=== PATIENT | male | born 1940 | race Caucasian/White ===

== ENCOUNTER 2016-11-02 07:26 | Day surgery (SDC) | payer MEDICARE, OTHER ==
[2016-11-02] VITALS (8 sets, daily range): BP systolic 105–144; BP diastolic 43–75; PULSE 82–88; RESP 16–20; TEMP 98.2–98.3; O2SAT 98–99
[~2016-11-02] VITALS: Ht 182.9 cm; Wt 82.7 kg
[~2016-11-02 07:26] MED LIST: ACAR50TA PO; B-COCAP9 PO; CYAN100025 SL; DEXA2TAB PO; GLIM1 PO; JANU50TA8 PO; LISI2.5T3 PO; METO25TA6 PO; NITR1SUB3 SL; VITA100064 PO; ZOCO10TA PO; ZOLP5TAB3 PO
[2016-11-02] MEDS ORDERED: POVIDONE IODINE 5% (ANTISEPSIS KIT) 4 APPLICATIONS EACH NARE SCH (08:00)
[2016-11-02] MEDS ORDERED: CHLORHEXIDINE GLUCONATE 2 % 1 PACK (2 CLOTHS) TOPICAL SCH (08:00)
[2016-11-02] MEDS ORDERED: SODIUM CHLORIDE 0.9% 1000 ML IV SCH (08:00)
[2016-11-02] MEDS: VANCOMYCIN 1000 MG/NS 250 ML - implanted port/tunneled catheter IV SCH ×4 (08:10→09:01)
[2016-11-02] MEDS: ceFAZolin 2 GM PREMIX 50 ML - implanted port/tunneled catheter insertion IV SCH ×2 (08:10→09:01)
[2016-11-02] MEDS ORDERED: fentaNYL CITRATE 250 MCG/5 ML AMP ONE (08:41)
[2016-11-02] MEDS ORDERED: MIDAZOLAM HCL 5 MG/5 ML VIAL ONE (08:41)
[2016-11-02] MEDS ORDERED: LIDOCAINE 1%/EPINEPHrine 1:100,000 SOLN 20 ML VIAL ONE (08:59)
--- NOTE | 2016-11-02 09:47 | PD.RAD ---
Post Procedure Progress Note Pre Procedure Diagnosis: (1) Cerebral malignant neoplasm Post Procedure Diagnosis: (1) Cerebral malignant neoplasm Procedure Date: Nov 02, 2016 Supervising Radiologist: Ronald Felix Proceduralist/Assist: Melia áVsquez, RT(R)(CV), aMry Agustin RT(R)() Anesthesia: Local, Conscious Sedation Plan of Activity Patient to Unit: [facility] Patient Condition: Good See PACS Report for procedural detail/treatment Central Venous Access Device Procedure 1 Right Internal Jugular Infusaport Placement single lumen Croatian: 8 Ronald Felix MD Nov 02, 2016 09:47
--- NOTE | 2016-11-02 10:40 | RADRPT ---
EXAM DATE/TIME: 11/02/2016 08:19 [place] COMPARISON: No previous studies available for comparison. INDICATIONS : Patient is in need of placement of an Infusaport for chemotherapy treatment of a brain malignancy. MEDICAL HISTORY : History of brain mass, cataracts, DM, heart disease, erectile dysfunction. SURGICAL HISTORY : History of craniotomy and brain lesion biopsy, colonosxcopy, left knee surgery, tonsillectomy, cardia c stent placement. ENCOUNTER: Initial ACUITY: 2 weeks PAIN SCORE: 0/10 FLUORO TIME: 0.5 minutes SEDATION TIME: 30 minutes ACCESS: Right internal jugular vein SEDATION: 1.) 2 mg midazolam (Versed) IV 2.) 100 mcg fentanyl (Sublimaze) IV Prophylactic antibiotics were administered with appropriate pre-procedure timing. Vancomycin within 2 hours of procedure, Ancef (or alternative) within 1 hour of procedure. DEVICE: 1. 8 Niuean Bard Power Port PROCEDURE : 1. Continuous pulse oximetry and EKG monitoring. 2. Intravenous conscious sedation. 3. Ultrasound guidance for venous access. 4. Fluoroscopic guided implantable central venous port placement. The patient was placed supine. The neck was prepped in sterile fashion. Full sterile technique was u sed, including cap, mask, sterile gloves and gown, and a large sterile sheet. Hand hygiene and 2% ch lorhexidine Betadine was utilized per protocol for cutaneous antisepsis with appropriate dry time for site. The skin and subcutaneous tissues were infiltrated with local anesthetic solution. Under direct ultrasound guidance, central venous access was accomplished in the targeted vessel. The ultrasound images depicting access guidance were stored and saved to PACS for permanent record. A s ubcutaneous pocket was created using blunt dissection. The port was introduced to the pocket. The c atheter tubing was fed through a subcutaneous tunnel to the venotomy site. The catheter tubing was c ut to a suitable length and then was introduced through a valved Peel-Away sheath and positioned with catheter tubing tip at the cavo-atrial junction level. The pocket incision was closed with subcutic ular Vicryl suture. Steri-Strips were applied. The port was flushed and locked with heparin solutio n per protocol. Sterile dressing was applied to the site. The patient tolerated the procedure well. Conscious sedation was performed with the prescribed dosages and duration as above. The patient ofe ated the procedure well and there were no complications. EKG and oximetry remained stable throughout the procedure. The patient was sent to post anesthesia recovery in stable condition. CONCLUSION: Uncomplicated ultrasound and fluoroscopic guided implanted central venous port catheter placement as described in detail above. An 8 Niuean Power port was placed. Ronald Felix MD on November 02, 2016 at 10:37 Board Certified Radiologist. This report was verified electronically.
== END 2016-12-13 13:45 | disposition home or self-care (01) ==
LOC: HROP 07:26 → HRIP 07:27 → HROP 12:30
PROVIDERS: ATTEND Internal Medicine Hematology & Oncology
DX: Z45.2 Encounter for adjustment and management of vascular access device (principal); D49.6 Neoplasm of unspecified behavior of brain; E11.9 Type 2 diabetes mellitus without complications; I10 Essential (primary) hypertension
CPT/HCPCS: 36561; 76937; 77001; C1788; J0690; J1642; J2250; J3010; J3370; J7030; J7050

== ENCOUNTER 2016-12-08 07:03 | Inpatient (IN) | payer MEDICARE, OTHER ==
[~2016-12-08] VITALS: Ht 182.9 cm; Wt 88.6 kg
[~2016-12-08 07:03] MED LIST changes: -LISI2.5T3 PO
[2016-12-08] MEDS ORDERED: NALOXONE HCL 0.4 MG/ML AMP IV PRN (07:45)
[2016-12-08] MEDS ORDERED: ONDANSETRON HCL 4 MG/2 ML VIAL IVP PRN (07:45)
[2016-12-08] MEDS ORDERED: SENNOSIDES 8.6 MG TAB PO PRN (07:45)
[2016-12-08] MEDS ORDERED: SODIUM CHLORIDE 0.9% FLUSH 5 ML FLUSH FLUSH PRN (07:45)
[2016-12-08] MEDS ORDERED: METOCLOPRAMIDE HCL 10 MG/2 ML VIAL IV PUSH PRN (07:45)
[2016-12-08] MEDS ORDERED: ACETAMINOPHEN 325 MG TAB PO PRN (07:45)
[2016-12-08 08:00] VITALS: BP 121/66; PULSE 75; TEMP 96.2; O2SAT 99
[2016-12-08] MEDS ORDERED: PILL SPLITTER OTHER PRN (08:15)
[2016-12-08 08:30] VITALS: BP 121/66; PULSE 75; RESP 18; TEMP 96.2; O2SAT 99
--- NOTE | 2016-12-08 08:54 | MH ---
cc: TONI MUNOZ M.D., ZAFAR, MD DATE OF ADMISSION 12/08/2016 [facility] #[id number] PRIMARY CARE PHYSICIAN Dr. Toni Munoz MALIGNANT HEMATOLOGIC DIAGNOSIS Primary BUSINESS OBJECTS ARCHITECT lymphoma. TREATMENT HISTORY TO DATE The patient is status post one cycle of Rituxan, methotrexate (3000 mg/m2), vincristine with intrathecal cytarabine. REASON FOR HOSPITALIZATION He comes in today for cycle #2 of the above-noted regimen. CHIEF COMPLAINT Mr. Ramey denies acute complaints. He specifically denies treatment related toxicities, headaches, new sensory motor deficits or nausea, vomiting or diarrhea. HISTORY OF PRESENT ILLNESS Mr. 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 He initially presented after he fell, the lesion was noted on initial imaging scans from mid September 2016. The patient underwent staging studies which included a bone marrow biopsy, whole-body CT scans which revealed no additional areas of disease involvement. CSF analysis with flow cytometry also revealed no evidence of CSF involvement with primary BUSINESS OBJECTS ARCHITECT lymphoma. Mr. Ramey was initiated on systemic therapy with high-dose methotrexate to a total dose of 6000 mg, vincristine and intrathecal cytarabine in late October of 2016. Prior to this treatment, he received one dose of Rituxan. He tolerated treatment without any significant difficulties. He is awaiting a second opinion evaluation at the [facility] which is scheduled for early December 2016. PAST MEDICAL HISTORY 1. Primary BUSINESS OBJECTS ARCHITECT lymphoma 2. Type 2 diabetes 3. History of coronary artery disease. 4. History of valvular heart disease. PAST SURGICAL HISTORY 1. Left knee surgery 2. Tonsillectomy 3. Craniotomy with excisional biopsy 4. Bone marrow biopsy 5. Colonoscopy and infusion port placement. 6. Intrathecal chemotherapy with cytarabine in late October 2016. FAMILY HISTORY Parents with diabetes. Both sisters had cancer. SOCIAL HISTORY The patient is , he lives at home with his . He formerly smoked, but quit 15 years ago. He previously worked. He is retired. He has two daughters who are adults. ALLERGIES NO KNOWN DRUG ALLERGIES. CURRENT INPATIENT MEDICATIONS 1. Sodium bicarbonate 650 mg orally twice daily 2. sodium bicarbonate infusion at a rate of 42 mL/minute 3. Tylenol 650 mg p.o. q4h for temperature greater than 100.4 degrees Fahrenheit. 4. Vitamin D3 1000 units p.o. daily 5. Dexamethasone 0.25 mg daily 6. Colace 100 mg p.o. q12 hours as needed for constipation 7. Lovenox 40 mg subcu q24h 8. Glimepiride 1 mg p.o. before meals 9. Metoclopramide 5 mg IV q6h as needed for nausea and vomiting 10. Metoprolol succinate 12.5 mg p.o. daily 11. Midodrine 5 mg p.o. b.i.d. 12. Zofran 4 mg IV q6h as needed for nausea and vomiting 13. Senokot 17.2 mg p.o. q12h 14. Sitagliptin 50 mg p.o. daily 15. Ambien 5 mg p.o. q.h.s. as needed for insomnia REVIEW OF SYSTEMS 13-point patient completed review of systems is obtained. He denies any complaints. He specifically denies constitutional symptoms of fevers, chills, night sweats, decreased appetite or weight loss. HEENT: Denies headaches, blurry vision, visual field deficits, difficulty swallowing, soreness in the throat, mouth sores or ringing in the ears. RESPIRATORY: Denies difficulty breathing, cough, hemoptysis, pleuritic chest pain. CARDIOVASCULAR: Denies angina-like chest pain, PND, orthopnea (he walks two miles a day at a brisk pace without inhibition or issues). GI: Denies nausea, vomiting, diarrhea hematochezia, melena. : Denies dysuria, hematuria, urinary incontinence. BUSINESS OBJECTS ARCHITECT: No focal sensory motor deficits. MUSCULOSKELETAL: No complaints. PHYSICAL EXAMINATION VITAL SIGNS: Dated 12/05/2016 performed at my outpatient center reveals a height of 182 cm, weight of 85.5 kg, BSA of 2, temperature 98 degrees Fahrenheit, heart rate 80 beats a minute, respiratory rate 18, blood pressure 110/57, O2 sats 98% on room air. GENERAL PHYSICAL APPEARANCE: Mr. Ramey is a 76-year-old male, he is tall, thin and in no acute distress accompanied by his and daughter today. HEENT: Head atraumatic, normocephalic, conjunctive are not pale, sclerae anicteric, EOMI, PERRLA, oral exam no pharyngeal erythema. NECK: No palpable cervical or supraclavicular lymphadenopathy. RESPIRATORY: Good air movement bilaterally. No added breath sounds. CARDIOVASCULAR: Regular rate rhythm, S1-S2. No obvious murmurs, rubs or gallops. ABDOMEN: Thin, soft, nontender, nondistended, palpable organ enlargement. LOWER EXTREMITIES: No pretibial edema. No calf tenderness. BUSINESS OBJECTS ARCHITECT: No focal sensory or motor deficits. LABORATORY FINDINGS Blood work dated 12/05/2016 WBC count 5.3, hemoglobin 11.1 gm/dl, hematocrit 34%, platelet count of 549, absolute neutrophil count 2.6. Chemistries: Sodium 145, potassium 4, chloride 108, bicarb 29, BUN 9, creatinine 0.93, EGFR 79, random glucose of 138, calcium 8.8, total bilirubin 0.4, AST 13, ALT 18, alkaline phosphatase 71, albumin 3. ASSESSMENT Mr. Ramey is a 76-year-old male with a diagnosis of primary BUSINESS OBJECTS ARCHITECT lymphoma. He has an ECOG performance status is zero. He is status post one cycle of high-dose methotrexate which was delivered at a dose of 3000 mg/meter squared to a total dose of 6000 mg IV x1 on 11/14/2016, followed by vincristine, intrathecal cytarabine and Rituxan. He now comes in for cycle number two. I will increase the dose to 6500 mg IV on day one of methotrexate today which will be dosed at 3250 mg/m2. Vincristine will be dosed at 2 mg IV on day one as well, a leukovorin rescue will be initiated 24 hours after initiation of methotrexate infusion which I anticipate will be on 12/09/2016. I will continue oral bicarbonate as well as intravenous bicarbonate. Daily urine protein, pH levels will be drawn and measured as well. The pH goal will be greater than 7.5. The patient will have periodic labs performed, methotrexate levels will be measured starting 12/10/2016. RECOMMENDATIONS 1. Primary BUSINESS OBJECTS ARCHITECT lymphoma: Initiate cycle #2 of chemotherapy as outlined above. 2. Labs, medications including his diabetes medicines, bedside fingerstick glucose checks, dexamethasone as well as antiemetic medications have been ordered. 3. I will see him tomorrow morning. MD YELITZA Whaley/JOHN /8:16 AM 8:33 AM
[2016-12-08] MEDS: METOPROLOL SUCCINATE 25 MG EXTENDED RELEASE TAB PO SCH (09:00)
[2016-12-08] MEDS: GLIMEPIRIDE 1 MG TAB PO SCH (09:00)
[2016-12-08] MEDS: MIDODRINE 5 MG TAB PO SCH ×2 (09:00→20:42)
[2016-12-08] MEDS ORDERED: SODIUM BICARBONATE 8.4% INJ 75 MEQ in SODIUM CHLOR 0.45% 1000 ML INJ 1,000 ML IV SCH (09:00)
[2016-12-08] MEDS: CHOLECALCIFEROL (VIT D3) 1000 UNIT TAB PO SCH (09:00)
[2016-12-08] MEDS: SODIUM BICARBONATE 650 MG TAB PO SCH ×2 (10:55→20:43)
[2016-12-08] MEDS: DOCUSATE SODIUM 100 MG CAP PO SCH ×2 (10:55→21:00)
[2016-12-08] MEDS: ENOXAPARIN SODIUM 40 MG/0.4 ML SYRINGE SQ SCH (10:57)
[2016-12-08] MEDS: SODIUM CHLORIDE 0.9% FLUSH 5 ML FLUSH FLUSH SCH ×2 (10:59→20:46)
[2016-12-08 12:00] VITALS: BP 102/57; PULSE 82; RESP 15; TEMP 96.5
[2016-12-08] MEDS ORDERED: [UNRECOGNIZED DRUG - OTHER] IV SCH ×3 (13:00)
[2016-12-08] MEDS ORDERED: 1/4 SODIUM CHLORIDE IV SCH ×9 (13:00→20:00)
[2016-12-08] MEDS ORDERED: SODIUM BICARBONATE IV SCH ×9 (13:00→20:00)
[2016-12-08 16:00] VITALS: BP 130/84; PULSE 94; RESP 16; TEMP 96.7; O2SAT 100
[2016-12-08] MEDS ORDERED: VINCRISTINE IV ONE ×3 (16:00)
[2016-12-08] MEDS ORDERED: SODIUM CHLORIDE 0.9% IV ONE ×2 (16:00)
[2016-12-08] MEDS: DEXAMETHASONE 0.5 MG TAB PO SCH (16:25)
[2016-12-08] MEDS ORDERED: GRANISETRON INJ 1 MG, DEXAMETHASONE INJ 20 MG in SODIUM CHLORIDE 0.9% INJ 50 ML IV SCH (16:30)
[2016-12-08] MEDS ORDERED: WATE IV ONE ×2 (17:00)
[2016-12-08] MEDS ORDERED: DEXTROSE 5% IV ONE ×2 (17:00)
[2016-12-08] MEDS ORDERED: METHOTREXATE IV ONE ×2 (17:00)
[2016-12-08] MEDS ORDERED: [UNRECOGNIZED DRUG - OTHER] IV SCH ×3 (17:00)
[2016-12-08 20:00] VITALS: BP 147/77; PULSE 88; RESP 16; TEMP 97.9; O2SAT 97
[2016-12-08] MEDS ORDERED: [UNRECOGNIZED DRUG - OTHER] IV SCH ×3 (20:00)
[2016-12-08] MEDS: INSULIN NovoLIN REGULAR SUPPLEMENTAL SCALE SQ SCH (20:40)
[2016-12-08] MEDS: ZOLPIDEM TARTRATE 5 MG TAB PO PRN (20:45)
[2016-12-09] VITALS (7 sets, daily range): BP systolic 128–159; BP diastolic 68–81; PULSE 75–90; RESP 16–18; TEMP 96.5–97.7; O2SAT 96–99
[2016-12-09] MEDS: SODIUM BICARBONATE 8.4% INJ 75 MEQ in SODIUM CHLOR 0.45% 1000 ML INJ 1,000 ML IV SCH ×3 (00:56→21:30)
[2016-12-09] MEDS: INSULIN NovoLIN REGULAR SUPPLEMENTAL SCALE SQ SCH ×4 (05:16→20:29)
--- NOTE | 2016-12-09 07:28 | PD.ONC.PN ---
Subjective Subjective Remarks Doing well, urine pH is up to 8 today. Objective Data Date Time Temp Pulse Resp B/P Pulse Ox O2 Delivery O2 Flow Rate FiO2 12/09/16 05:23 96.9 81 16 145/75 99 12/09/16 00:45 97.0 90 16 134/68 96 12/08/16 20:00 97.9 88 16 147/77 97 12/08/16 16:00 96.7 94 16 130/84 100 12/08/16 12:00 96.5 82 15 102/57 12/08/16 08:30 96.2 75 18 121/66 99 12/08/16 08:00 96.2 75 121/66 99 Laboratory Results Laboratory Tests Test 12/08/16 12/08/16 12/09/16 12/09/16 13:00 19:45 01:00 05:25 Urine pH 6.5 5.5 7.5 8.0 Administered Medications Medications (Trade) Dose Ordered Sig/Renee Route PRN Reason Start Time Stop Time Status Last Admin Dose Admin IV Flush (NS Flush) 2 ml BID FLUSH 12/08/16 09:00 12/08/16 20:46 Docusate Sodium (Colace) 100 mg Q12HR PO 12/08/16 09:00 12/08/16 10:55 Zolpidem Tartrate (Ambien) 5 mg HS PRN PO INSOMNIA 12/08/16 07:45 12/08/16 20:45 Enoxaparin Sodium (Lovenox Inj) 40 mg Q24H SQ 12/08/16 08:00 12/08/16 10:57 Dexamethasone (Decadron) 0.25 mg DAILY PO 12/08/16 09:00 12/08/16 16:25 Midodrine 5 mg 5 mg BID PO 12/08/16 09:00 12/08/16 20:42 Sodium Bicarbonate/ Sodium Chloride (Sodium Bicarbonate 8.4% Inj/1/2 NS 1000 ml Inj) 1,075 ml @ 100 mls/hr [id number] IV 12/08/16 22:00 12/11/16 21:59 12/09/16 00:56 Objective Remarks GENERAL PHYSICAL APPEARANCE: Mr. Ramey is a 76-year-old male, he is tall, thin and in no acute distress accompanied by his and daughter today. HEENT: Head atraumatic, normocephalic, conjunctive are not pale, sclerae anicteric, EOMI, PERRLA, oral exam no pharyngeal erythema. NECK: No palpable cervical or supraclavicular lymphadenopathy. RESPIRATORY: Good air movement bilaterally. No added breath sounds. CARDIOVASCULAR: Regular rate rhythm, S1-S2. No obvious murmurs, rubs or gallops. ABDOMEN: Thin, soft, nontender, nondistended, palpable organ enlargement. LOWER EXTREMITIES: No pretibial edema. No calf tenderness. 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 Assessment/Plan Assessment Mr. Ramey is a 76-year-old male with a diagnosis of primary BOUFFANT CURTAIN MACHINE TENDER lymphoma. He has an ECOG performance status is zero. He is status post one cycle of high-dose methotrexate which was delivered at a dose of 3000 mg/meter squared to a total dose of 6000 mg IV x1 on 11/14/2016, followed by vincristine, intrathecal cytarabine and Rituxan. He now comes in for cycle number two. I will increase the dose to 6500 mg IV on day one of methotrexate today which will be dosed at 3250 mg/m2. Vincristine will be dosed at 2 mg IV on day one as well, a leukovorin rescue will be initiated 24 hours after initiation of methotrexate infusion which I anticipate will be on 12/09/2016. I will continue oral bicarbonate as well as intravenous bicarbonate. Daily urine protein, pH levels will be drawn and measured as well. Plan 1. Primary BOUFFANT CURTAIN MACHINE TENDER Lymphoma: proceed with MTX today. 2. Oral Bicarb increased to 650mg po TID. 3. Daily urine pH checks. 4. Serum MTX levels from peripheral stick ordered. 5. Labs ordered. 6. DM: Beside finger sticks with insulin SS coverage ordered. 7. Lovenox for DVT prophylaxis. Nas Fish MD Dec 09, 2016 07:28
[2016-12-09] MEDS: SODIUM CHLORIDE 0.9% FLUSH 5 ML FLUSH FLUSH SCH ×2 (09:00→20:21)
[2016-12-09] MEDS: SODIUM BICARBONATE 650 MG TAB PO SCH ×3 (09:00→20:20)
[2016-12-09] MEDS: DOCUSATE SODIUM 100 MG CAP PO SCH ×2 (09:36→20:16)
[2016-12-09] MEDS: MIDODRINE 5 MG TAB PO SCH ×2 (09:36→20:17)
[2016-12-09] MEDS: GLIMEPIRIDE 1 MG TAB PO SCH (09:36)
[2016-12-09] MEDS: DEXAMETHASONE 0.5 MG TAB PO SCH (09:36)
[2016-12-09] MEDS: ENOXAPARIN SODIUM 40 MG/0.4 ML SYRINGE SQ SCH (09:37)
[2016-12-09] MEDS: METOPROLOL SUCCINATE 25 MG EXTENDED RELEASE TAB PO SCH (09:37)
[2016-12-09] MEDS: CHOLECALCIFEROL (VIT D3) 1000 UNIT TAB PO SCH (09:37)
[2016-12-09] MEDS ORDERED: GRANISETRON INJ 1 MG, DEXAMETHASONE INJ 20 MG in SODIUM CHLORIDE 0.9% INJ 50 ML IV SCH (12:00)
[2016-12-09] MEDS ORDERED: VINCRISTINE IV ONE (12:30)
[2016-12-09] MEDS ORDERED: DEXTROSE 5% IV ONE ×2 (12:30)
[2016-12-09] MEDS ORDERED: WATE IV ONE ×2 (12:30)
[2016-12-09] MEDS ORDERED: METHOTREXATE IV ONE ×2 (12:30)
[2016-12-09] MEDS ORDERED: LEUCOVORIN IV SCH (17:00)
[2016-12-09] MEDS ORDERED: SODIUM CHLORIDE 0.9% IV SCH (17:00)
[2016-12-09] MEDS: ZOLPIDEM TARTRATE 5 MG TAB PO PRN (21:29)
[2016-12-10] VITALS (7 sets, daily range): BP systolic 116–144; BP diastolic 61–77; PULSE 62–88; RESP 16–20; TEMP 96.3–97.6; O2SAT 94–100
[2016-12-10 02:43] LABS: AUTOMATED NEUTROPHIL # 10.4 TH/MM3 (1.8-7.7); BASOPHIL % 0.2 % (0.0-2.0); HEMATOCRIT 34.7 % (39.0-51.0); HEMO FLAGS DIFF FINAL; MEAN CELL VOLUME 89.8 FL (80.0-100.0); MEAN CORPUSCULAR HEMOGLOBIN 30.7 PG (27.0-34.0); MEAN CORPUSCULAR HGB CONC 34.2 % (32.0-36.0); MONO % 5.5 % (0.0-8.0); NEUT % 86.3 % (16.0-70.0); PLATELET COUNT 443 TH/MM3 (150-450); RED BLOOD COUNT 3.86 MIL/MM3 (4.50-5.90); RED CELL DISTRIBUTION WIDTH 15.3 % (11.6-17.2); WHITE BLOOD COUNT 12.1 TH/MM3 (4.0-11.0)
[2016-12-10 03:05] LABS: ALT (GPT) 63 U/L (12-78); ANION GAP 7 MEQ/L (5-15); AST (GOT) 73 U/L (15-37); BICARBONATE 31.1 MEQ/L (21.0-32.0); BLOOD UREA NITROGEN 12 MG/DL (7-18); CHLORIDE 105 MEQ/L (98-107); GLOMERULAR FILTRATION RATE 82 ML/MIN (>89); POTASSIUM 3.5 MEQ/L (3.5-5.1); SODIUM (NA) 143 MEQ/L (136-145)
[2016-12-10 03:07] LABS: ALKALINE PHOSPHATASE 77 U/L (45-117); TOTAL BILIRUBIN ADULT 0.6 MG/DL (0.2-1.0)
[2016-12-10] MEDS: SODIUM BICARBONATE 650 MG TAB PO SCH ×3 (06:00→20:36)
[2016-12-10] MEDS: INSULIN NovoLIN REGULAR SUPPLEMENTAL SCALE SQ SCH ×4 (06:56→20:35)
[2016-12-10] MEDS: SODIUM CHLORIDE 0.9% FLUSH 5 ML FLUSH FLUSH SCH ×2 (08:41→20:31)
[2016-12-10] MEDS: METOPROLOL SUCCINATE 25 MG EXTENDED RELEASE TAB PO SCH (08:42)
[2016-12-10] MEDS: GLIMEPIRIDE 1 MG TAB PO SCH (08:42)
[2016-12-10] MEDS: MIDODRINE 5 MG TAB PO SCH ×2 (08:42→20:28)
[2016-12-10] MEDS: CHOLECALCIFEROL (VIT D3) 1000 UNIT TAB PO SCH (08:42)
[2016-12-10] MEDS: ENOXAPARIN SODIUM 40 MG/0.4 ML SYRINGE SQ SCH (08:42)
[2016-12-10] MEDS: DOCUSATE SODIUM 100 MG CAP PO SCH ×2 (08:42→20:28)
[2016-12-10] MEDS: DEXAMETHASONE 0.5 MG TAB PO SCH (08:42)
[2016-12-10] MEDS: SODIUM BICARBONATE 8.4% INJ 75 MEQ in SODIUM CHLOR 0.45% 1000 ML INJ 1,000 ML IV SCH ×2 (08:45→18:36)
[2016-12-10] MEDS: SODIUM CHLORIDE 0.9% IV SCH ×2 (14:16→20:26)
[2016-12-10] MEDS: LEUCOVORIN IV SCH ×2 (14:16→20:26)
--- NOTE | 2016-12-10 14:54 | PD.ONC.PN ---
Subjective Subjective Remarks Afebrile overnight. Patient is sitting up in chair with and daughter at bedside with him. He is time he has he has been walking laps around the unit. He has no complaints. Per the RN he had an episode of confusion overnight where he was not sure where he was at. He was reoriented and had no more episodes. Objective Data Date Time Temp Pulse Resp B/P Pulse Ox O2 Delivery O2 Flow Rate FiO2 12/10/16 12:00 96.3 73 20 116/64 96 12/10/16 08:00 96.3 75 16 129/69 96 12/10/16 03:45 96.5 71 17 139/61 100 12/10/16 00:00 97.6 84 18 144/77 97 12/09/16 20:00 97.5 87 18 159/69 98 12/09/16 16:00 97.2 81 16 135/68 97 12/10/16 12/10/16 12/10/16 07:00 15:00 23:00 Intake Total 1177 ml 720 ml Output Total 1970 ml Balance -793 ml 720 ml Result Diagram: 12/10/16 0215 12/10/16 0215 Laboratory Results Laboratory Tests Test 12/10/16 12/10/16 02:15 02:50 White Blood Count 12.1 TH/MM3 Red Blood Count 3.86 MIL/MM3 Hemoglobin 11.8 GM/DL Hematocrit 34.7 % Mean Corpuscular Volume 89.8 FL Mean Corpuscular Hemoglobin 30.7 PG Mean Corpuscular Hemoglobin 34.2 % Concent Red Cell Distribution Width 15.3 % Platelet Count 443 TH/MM3 Mean Platelet Volume 8.1 FL Neutrophils (%) (Auto) 86.3 % Lymphocytes (%) (Auto) 8.0 % Monocytes (%) (Auto) 5.5 % Eosinophils (%) (Auto) 0.0 % Basophils (%) (Auto) 0.2 % Neutrophils # (Auto) 10.4 TH/MM3 Lymphocytes # (Auto) 1.0 TH/MM3 Monocytes # (Auto) 0.7 TH/MM3 Eosinophils # (Auto) 0.0 TH/MM3 Basophils # (Auto) 0.0 TH/MM3 CBC Comment DIFF FINAL Differential Comment Sodium Level 143 MEQ/L Potassium Level 3.5 MEQ/L Chloride Level 105 MEQ/L Carbon Dioxide Level 31.1 MEQ/L Anion Gap 7 MEQ/L Blood Urea Nitrogen 12 MG/DL Creatinine 0.90 MG/DL Estimat Glomerular Filtration 82 ML/MIN Rate Random Glucose 189 MG/DL Calcium Level 8.9 MG/DL Total Bilirubin 0.6 MG/DL Aspartate Amino Transf 73 U/L (AST/SGOT) Alanine Aminotransferase 63 U/L (ALT/SGPT) Alkaline Phosphatase 77 U/L Total Protein 6.7 GM/DL Albumin 3.4 GM/DL Urine pH 8.5 Culture Results Microbiology Date/Time Procedure Status Source Growth 12/10/16 02:15 Aerobic Blood Culture Received Blood Peripheral Pending 12/10/16 02:15 Anaerobic Blood Culture Received Blood Peripheral Pending 12/10/16 02:19 Aerobic Blood Culture Received Blood Line Pending 12/10/16 02:19 Anaerobic Blood Culture Received Blood Line Pending Administered Medications Medications (Trade) Dose Ordered Sig/Renee Route PRN Reason Start Time Stop Time Status Last Admin Dose Admin IV Flush (NS Flush) 2 ml BID FLUSH 12/08/16 09:00 12/10/16 08:41 Docusate Sodium (Colace) 100 mg Q12HR PO 12/08/16 09:00 12/10/16 08:42 Zolpidem Tartrate (Ambien) 5 mg HS PRN PO INSOMNIA 12/08/16 07:45 12/09/16 21:29 Enoxaparin Sodium (Lovenox Inj) 40 mg Q24H SQ 12/08/16 08:00 12/10/16 08:42 Dexamethasone (Decadron) 0.25 mg DAILY PO 12/08/16 09:00 12/10/16 08:42 Midodrine (Proamatine) 5 mg BID PO 12/08/16 09:00 12/10/16 08:42 Glimepiride (Amaryl) 1 mg DAILYAC PO 12/08/16 09:00 12/10/16 08:42 Sitagliptin Phosphate (Januvia) 50 mg DAILY PO 12/08/16 09:00 12/10/16 08:42 Metoprolol Succinate (Toprol Xl) 12.5 mg DAILY PO 12/08/16 09:00 12/10/16 08:42 Cholecalciferol 1000 units 1,000 units DAILY PO 12/08/16 09:00 12/10/16 08:42 Sodium Bicarbonate/ Sodium Chloride (Sodium Bicarbonate 8.4% Inj// NS 1000 ml Inj) 1,075 ml @ 100 mls/hr [id number] IV 12/08/16 22:00 12/11/16 21:59 12/10/16 08:45 Sodium Bicarbonate 650 mg 650 mg Q8HR PO 12/09/16 09:00 12/10/16 14:19 Leucovorin Calcium/Sodium Chloride (Wellcovorin Inj/ NS Inj) 50 ml @ 16.667 mls/ hr Q6H IV 12/10/16 12:30 12/13/16 09:29 12/10/16 14:16 Objective Remarks GENERAL: Older male, well appearing in no distress sitting in chair at bedside with visitors present.. SKIN: Warm and dry. Port in place to R upper chest. HEAD: Normocephalic. EYES: No injection or drainage. NECK: Supple, trachea midline. CARDIOVASCULAR: +S1/S2. No murmur appreciated. RESPIRATORY: Lungs clear throughout. Breathing easy and unlabored. GASTROINTESTINAL: Abdomen soft, non-tender, nondistended. EXTREMITIES: No cyanosis, or edema. NEUROLOGICAL: No obvious focal deficit. Awake, alert, and oriented x3. Assessment/Plan Assessment Mr. 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 He has an ECOG performance status is zero. He is status post one cycle of high-dose methotrexate which was delivered at a dose of 3000 mg/meter squared to a total dose of 6000 mg IV x1 on 11/14/2016, followed by vincristine, intrathecal cytarabine and Rituxan. He now comes in for cycle number two. I will increase the dose to 6500 mg IV on day one of methotrexate today which will be dosed at 3250 mg/m2. Vincristine will be dosed at 2 mg IV on day one as well, a leukovorin rescue will be initiated 24 hours after initiation of methotrexate infusion which I anticipate will be on 12/09/2016. I will continue oral bicarbonate as well as intravenous bicarbonate. Daily urine protein, pH levels will be drawn and measured as well. Plan 1. Primary BILINGUAL INSTRUCTOR Lymphoma: Rec'd Methotrexate yesterday. Serum MTX level pending. 2. Continue Leucovorin. 3. Daily urine pH checks. 4. Daily CBC, BMP. 5. DM: Beside finger sticks with insulin SS coverage ordered. 6. Lovenox for DVT prophylaxis. Attending Statement The exam, history, and the medical decision-making described in the above note were completed with the assistance of the mid-level provider. I reviewed and agree with the findings presented. I attest that I had a [id number] encounter with the patient on the same day, and personally performed and documented my assessment and findings in the medical record. episode of confusion last night. resolved. now completely alert and oriented Blood cx pending MTX levels pending. counts stable. CBC and CMP in AM d/w Sugey Luna Dec 10, 2016 14:54 Willie Dacosta MD Dec 11, 2016 00:23
[2016-12-10] MEDS: ZOLPIDEM TARTRATE 5 MG TAB PO PRN (22:42)
[2016-12-11] MEDS: LEUCOVORIN IV SCH ×4 (02:39→20:25)
[2016-12-11] MEDS: SODIUM CHLORIDE 0.9% IV SCH ×4 (02:39→20:25)
[2016-12-11 04:00] VITALS: BP 117/60; PULSE 72; RESP 16; TEMP 98.2; O2SAT 98
[2016-12-11] MEDS: SODIUM BICARBONATE 650 MG TAB PO SCH ×3 (06:16→21:01)
[2016-12-11] MEDS: INSULIN NovoLIN REGULAR SUPPLEMENTAL SCALE SQ SCH ×4 (06:40→20:55)
[2016-12-11] MEDS: SODIUM BICARBONATE 8.4% INJ 75 MEQ in SODIUM CHLOR 0.45% 1000 ML INJ 1,000 ML IV SCH ×2 (07:46→14:30)
[2016-12-11 08:00] VITALS: BP 124/64; PULSE 77; RESP 18; TEMP 96.5; O2SAT 100
[2016-12-11 08:23] LABS: AUTOMATED NEUTROPHIL # 6.9 TH/MM3 (1.8-7.7); BASOPHIL # 0.1 TH/MM3 (0-0.2); BASOPHIL % 0.6 % (0.0-2.0); EOSINOPHIL % 0.4 % (0.0-4.0); HEMO FLAGS DIFF FINAL; LYMPH % 15.9 % (9.0-44.0); LYMPHOCYTE # 1.5 TH/MM3 (1.0-4.8); MEAN CELL VOLUME 91.1 FL (80.0-100.0); MEAN CORPUSCULAR HEMOGLOBIN 31.3 PG (27.0-34.0); MEAN CORPUSCULAR HGB CONC 34.3 % (32.0-36.0); MONO % 7.7 % (0.0-8.0); NEUT % 75.4 % (16.0-70.0); PLATELET COUNT 356 TH/MM3 (150-450); RED BLOOD COUNT 3.62 MIL/MM3 (4.50-5.90); RED CELL DISTRIBUTION WIDTH 15.9 % (11.6-17.2); WHITE BLOOD COUNT 9.2 TH/MM3 (4.0-11.0)
[2016-12-11 09:16] LABS: BICARBONATE 31.9 MEQ/L (21.0-32.0); MAGNESIUM 1.9 MG/DL (1.5-2.5)
[2016-12-11 09:23] LABS: POTASSIUM 2.7 MEQ/L (3.5-5.1)
[2016-12-11] MEDS: METOPROLOL SUCCINATE 25 MG EXTENDED RELEASE TAB PO SCH (10:05)
[2016-12-11] MEDS: GLIMEPIRIDE 1 MG TAB PO SCH (10:05)
[2016-12-11] MEDS: DEXAMETHASONE 0.5 MG TAB PO SCH (10:05)
[2016-12-11] MEDS: CHOLECALCIFEROL (VIT D3) 1000 UNIT TAB PO SCH (10:05)
[2016-12-11] MEDS: DOCUSATE SODIUM 100 MG CAP PO SCH ×2 (10:05→20:56)
[2016-12-11] MEDS: MIDODRINE 5 MG TAB PO SCH ×2 (10:06→20:56)
[2016-12-11] MEDS: ENOXAPARIN SODIUM 40 MG/0.4 ML SYRINGE SQ SCH (10:06)
[2016-12-11] MEDS: SODIUM CHLORIDE 0.9% FLUSH 5 ML FLUSH FLUSH SCH ×2 (10:11→20:56)
[2016-12-11] MEDS ORDERED: POTASSIUM CHLORIDE 20 MEQ CONTROLLED RELEASE TAB PO ONE (10:15)
[2016-12-11] MEDS ORDERED: NS + KCL 40 MEQ INJ 1,000 ML IV SCH (10:15)
--- NOTE | 2016-12-11 10:31 | PD.ONC.PN ---
Subjective Subjective Remarks Afebrile overnight. Patient sitting up in bed watching TV. He states he has noticed his feet are swollen today. He has no nausea or shortness of breath. Objective Data Date Time Temp Pulse Resp B/P Pulse Ox O2 Delivery O2 Flow Rate FiO2 12/11/16 08:00 96.5 77 18 124/64 100 12/11/16 04:00 98.2 72 16 117/60 98 12/10/16 23:45 97.6 88 17 131/66 98 12/10/16 19:45 97.5 81 18 125/66 98 12/10/16 16:00 96.9 62 18 142/65 94 12/10/16 12:00 96.3 73 20 116/64 96 12/11/16 12/11/16 12/11/16 07:00 15:00 23:00 Intake Total 120 ml Balance 120 ml Result Diagram: 12/11/16 0735 12/11/16 0735 Laboratory Results Laboratory Tests Test 12/10/16 12/11/16 12/11/16 14:02 07:30 07:35 Methotrexate Level 3.93 COMMENT 0.57 COMMENT Urine pH 7.0 White Blood Count 9.2 TH/MM3 Red Blood Count 3.62 MIL/MM3 Hemoglobin 11.3 GM/DL Hematocrit 33.0 % Mean Corpuscular Volume 91.1 FL Mean Corpuscular Hemoglobin 31.3 PG Mean Corpuscular Hemoglobin 34.3 % Concent Red Cell Distribution Width 15.9 % Platelet Count 356 TH/MM3 Mean Platelet Volume 8.3 FL Neutrophils (%) (Auto) 75.4 % Lymphocytes (%) (Auto) 15.9 % Monocytes (%) (Auto) 7.7 % Eosinophils (%) (Auto) 0.4 % Basophils (%) (Auto) 0.6 % Neutrophils # (Auto) 6.9 TH/MM3 Lymphocytes # (Auto) 1.5 TH/MM3 Monocytes # (Auto) 0.7 TH/MM3 Eosinophils # (Auto) 0.0 TH/MM3 Basophils # (Auto) 0.1 TH/MM3 CBC Comment DIFF FINAL Differential Comment Sodium Level 145 MEQ/L Potassium Level 2.7 MEQ/L Chloride Level 105 MEQ/L Carbon Dioxide Level 31.9 MEQ/L Anion Gap 8 MEQ/L Blood Urea Nitrogen 8 MG/DL Creatinine 0.90 MG/DL Estimat Glomerular Filtration 82 ML/MIN Rate Random Glucose 149 MG/DL Calcium Level 8.2 MG/DL Phosphorus Level 2.7 MG/DL Magnesium Level 1.9 MG/DL Culture Results Microbiology Date/Time Procedure Status Source Growth 12/10/16 02:15 Aerobic Blood Culture Received Blood Peripheral Pending 12/10/16 02:15 Anaerobic Blood Culture Received Blood Peripheral Pending 12/10/16 02:19 Aerobic Blood Culture Received Blood Line Pending 12/10/16 02:19 Anaerobic Blood Culture Received Blood Line Pending Administered Medications Medications (Trade) Dose Ordered Sig/Renee Route PRN Reason Start Time Stop Time Status Last Admin Dose Admin IV Flush (NS Flush) 2 ml BID FLUSH 12/08/16 09:00 12/11/16 10:11 Docusate Sodium (Colace) 100 mg Q12HR PO 12/08/16 09:00 12/11/16 10:05 Zolpidem Tartrate (Ambien) 5 mg HS PRN PO INSOMNIA 12/08/16 07:45 12/10/16 22:42 Enoxaparin Sodium (Lovenox Inj) 40 mg Q24H SQ 12/08/16 08:00 12/11/16 10:06 Dexamethasone (Decadron) 0.25 mg DAILY PO 12/08/16 09:00 12/11/16 10:05 Midodrine (Proamatine) 5 mg BID PO 12/08/16 09:00 12/11/16 10:06 Glimepiride (Amaryl) 1 mg DAILYAC PO 12/08/16 09:00 12/11/16 10:05 Sitagliptin Phosphate (Januvia) 50 mg DAILY PO 12/08/16 09:00 12/11/16 10:05 Metoprolol Succinate (Toprol Xl) 12.5 mg DAILY PO 12/08/16 09:00 12/11/16 10:05 Cholecalciferol 1000 units 1,000 units DAILY PO 12/08/16 09:00 12/11/16 10:05 Sodium Bicarbonate/ Sodium Chloride (Sodium Bicarbonate 8.4% Inj/11/21 NS 1000 ml Inj) 1,075 ml @ 100 mls/hr [id number] IV 12/08/16 22:00 12/11/16 21:59 12/11/16 07:46 Sodium Bicarbonate 650 mg 650 mg Q8HR PO 12/09/16 09:00 12/11/16 06:16 Leucovorin Calcium/Sodium Chloride (Wellcovorin Inj/ NS Inj) 50 ml @ 16.667 mls/ hr Q6H IV 12/10/16 12:30 12/13/16 09:29 12/11/16 06:15 Objective Remarks GENERAL: Older male, well appearing in no distress sitting in bed. SKIN: Warm and dry. Port in place to R upper chest. Asymptomatic. HEAD: Normocephalic. EYES: No injection or drainage. NECK: Supple, trachea midline. CARDIOVASCULAR: +S1/S2. No murmur appreciated. RESPIRATORY: Lungs clear throughout. Breathing easy and unlabored. GASTROINTESTINAL: Abdomen soft, non-tender, nondistended. EXTREMITIES: 2+ edema to bilateral feet. NEUROLOGICAL: No obvious focal deficit. Awake, alert, and oriented x3. Assessment/Plan Assessment Mr. 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 He has an ECOG performance status is zero. He is status post one cycle of high-dose methotrexate which was delivered at a dose of 3000 mg/meter squared to a total dose of 6000 mg IV x1 on 11/14/2016, followed by vincristine, intrathecal cytarabine and Rituxan. He now comes in for cycle number two. I will increase the dose to 6500 mg IV on day one of methotrexate today which will be dosed at 3250 mg/m2. Vincristine will be dosed at 2 mg IV on day one as well, a leucovorin rescue will be initiated 24 hours after initiation of methotrexate infusion which I anticipate will be on 12/09/2016. I will continue oral bicarbonate as well as intravenous bicarbonate. Daily urine protein, pH levels will be drawn and measured as well. Plan 1. Primary BELT LOOP MACHINE OPERATOR Lymphoma. He is 48 hours post MTX. Level is mildly elevated for this time frame at 0.57. Monitor. 2. Continue Leucovorin. 3. Hypokalemia; will receive 40meq's IV K today. Recheck potassium level 1 hr post infusion. 4. Daily CBC, BMP. 5. DM: Beside finger sticks with insulin SS coverage ordered. 6. Lovenox for DVT prophylaxis. Sugey Preciado Dec 11, 2016 10:31
[2016-12-11 12:00] VITALS: BP 116/65; PULSE 75; RESP 16; TEMP 96.6; O2SAT 97
[2016-12-11] MEDS: POTASSIUM CHLOR 20 MEQ PREMIX 100 ML IV SCH ×2 (12:36→14:54)
[2016-12-11 16:00] VITALS: BP 120/63; PULSE 72; RESP 16; TEMP 96.5; O2SAT 96
[2016-12-11 20:00] VITALS: BP 128/78; PULSE 74; RESP 17; TEMP 96.8; O2SAT 97
[2016-12-11] MEDS: ZOLPIDEM TARTRATE 5 MG TAB PO PRN (21:01)
[2016-12-12] VITALS (7 sets, daily range): BP systolic 123–165; BP diastolic 56–85; PULSE 77–93; RESP 18–20; TEMP 97.7–98.9; O2SAT 95–100
[2016-12-12] MEDS: LEUCOVORIN IV SCH ×5 (02:15→20:10)
[2016-12-12] MEDS: SODIUM CHLORIDE 0.9% IV SCH ×5 (02:15→20:10)
[2016-12-12] MEDS: Infusaport/Implanted VAD PRN NS Lock Flush IVF ×3 (04:22→20:11)
[2016-12-12] MEDS: INSULIN NovoLIN REGULAR SUPPLEMENTAL SCALE SQ SCH ×4 (06:00→22:33)
[2016-12-12] MEDS: SODIUM BICARBONATE 650 MG TAB PO SCH ×3 (06:01→22:35)
[2016-12-12 06:37] LABS: AUTOMATED NEUTROPHIL # 6.2 TH/MM3 (1.8-7.7); BASOPHIL # 0.1 TH/MM3 (0-0.2); BASOPHIL % 1.2 % (0.0-2.0); EOSINOPHIL # 0.1 TH/MM3 (0-0.4); EOSINOPHIL % 0.6 % (0.0-4.0); HEMATOCRIT 29.9 % (39.0-51.0); HEMO FLAGS DIFF FINAL; LYMPH % 20.6 % (9.0-44.0); LYMPHOCYTE # 1.7 TH/MM3 (1.0-4.8); MEAN CELL VOLUME 90.9 FL (80.0-100.0); MEAN CORPUSCULAR HEMOGLOBIN 31.4 PG (27.0-34.0); MEAN CORPUSCULAR HGB CONC 34.6 % (32.0-36.0); MONO % 4.5 % (0.0-8.0); NEUT % 73.1 % (16.0-70.0); PLATELET COUNT 306 TH/MM3 (150-450); RED BLOOD COUNT 3.29 MIL/MM3 (4.50-5.90); RED CELL DISTRIBUTION WIDTH 15.4 % (11.6-17.2); WHITE BLOOD COUNT 8.5 TH/MM3 (4.0-11.0)
[2016-12-12 06:38] LABS: BICARBONATE 30.7 MEQ/L (21.0-32.0); MAGNESIUM 2.2 MG/DL (1.5-2.5); POTASSIUM 3.4 MEQ/L (3.5-5.1)
--- NOTE | 2016-12-12 07:14 | PD.ONC.PN ---
Subjective Subjective Remarks Mr. Ramey was seen and examined this AM. Events over the weekend were reviewed. Vitals, labs, meds reviewed. He reports feeling well this AM, on Monday Night he had an episode of confusion; woke up not knowing where he was. Needed to be reoriented. He denies fevers, chills, night sweats, mouth sores, N/V/D. Objective Data Date Time Temp Pulse Resp B/P Pulse Ox O2 Delivery O2 Flow Rate FiO2 12/12/16 04:00 98.6 93 18 142/73 96 12/12/16 00:00 98.1 77 18 123/56 95 12/11/16 20:00 96.8 74 17 128/78 97 12/11/16 16:00 96.5 72 16 120/63 96 12/11/16 12:00 96.6 75 16 116/65 97 12/11/16 08:00 96.5 77 18 124/64 100 Result Diagram: 12/12/16 0420 12/12/16 0420 Laboratory Results Laboratory Tests Test 12/11/16 12/11/16 12/11/16 12/12/16 07:30 07:35 20:40 04:20 Urine pH 7.0 White Blood Count 9.2 TH/MM3 8.5 TH/MM3 Red Blood Count 3.62 MIL/MM3 3.29 MIL/MM3 Hemoglobin 11.3 GM/DL 10.3 GM/DL Hematocrit 33.0 % 29.9 % Mean Corpuscular Volume 91.1 FL 90.9 FL Mean Corpuscular Hemoglobin 31.3 PG 31.4 PG Mean Corpuscular Hemoglobin 34.3 % 34.6 % Concent Red Cell Distribution Width 15.9 % 15.4 % Platelet Count 356 TH/MM3 306 TH/MM3 Mean Platelet Volume 8.3 FL 8.4 FL Neutrophils (%) (Auto) 75.4 % 73.1 % Lymphocytes (%) (Auto) 15.9 % 20.6 % Monocytes (%) (Auto) 7.7 % 4.5 % Eosinophils (%) (Auto) 0.4 % 0.6 % Basophils (%) (Auto) 0.6 % 1.2 % Neutrophils # (Auto) 6.9 TH/MM3 6.2 TH/MM3 Lymphocytes # (Auto) 1.5 TH/MM3 1.7 TH/MM3 Monocytes # (Auto) 0.7 TH/MM3 0.4 TH/MM3 Eosinophils # (Auto) 0.0 TH/MM3 0.1 TH/MM3 Basophils # (Auto) 0.1 TH/MM3 0.1 TH/MM3 CBC Comment DIFF FINAL DIFF FINAL Differential Comment Sodium Level 145 MEQ/L 148 MEQ/L Potassium Level 2.7 MEQ/L 3.4 MEQ/L 3.4 MEQ/L Chloride Level 105 MEQ/L 110 MEQ/L Carbon Dioxide Level 31.9 MEQ/L 30.7 MEQ/L Anion Gap 8 MEQ/L 7 MEQ/L Blood Urea Nitrogen 8 MG/DL 5 MG/DL Creatinine 0.90 MG/DL 0.70 MG/DL Estimat Glomerular Filtration 82 ML/MIN 110 ML/MIN Rate Random Glucose 149 MG/DL 85 MG/DL Calcium Level 8.2 MG/DL 8.2 MG/DL Phosphorus Level 2.7 MG/DL 3.2 MG/DL Magnesium Level 1.9 MG/DL 2.2 MG/DL Methotrexate Level 0.57 COMMENT B-Type Natriuretic Peptide 136 PG/ML Culture Results Microbiology Date/Time Procedure Status Source Growth 12/10/16 02:15 Aerobic Blood Culture - Preliminary Resulted Blood Peripheral NO GROWTH IN 1 DAY 12/10/16 02:15 Anaerobic Blood Culture - Preliminary Resulted Blood Peripheral NO GROWTH IN 1 DAY 12/10/16 02:19 Aerobic Blood Culture - Preliminary Resulted Blood Line NO GROWTH IN 1 DAY 12/10/16 02:19 Anaerobic Blood Culture - Preliminary Resulted Blood Line NO GROWTH IN 1 DAY Administered Medications Medications (Trade) Dose Ordered Sig/Renee Route PRN Reason Start Time Stop Time Status Last Admin Dose Admin IV Flush (NS Flush) 2 ml UNSCH PRN FLUSH FLUSH AFTER USING IV ACCESS 12/08/16 07:45 12/12/16 04:22 IV Flush (NS Flush) 2 ml BID FLUSH 12/08/16 09:00 12/11/16 20:56 Docusate Sodium (Colace) 100 mg Q12HR PO 12/08/16 09:00 12/11/16 20:56 Zolpidem Tartrate (Ambien) 5 mg HS PRN PO INSOMNIA 12/08/16 07:45 12/11/16 21:01 Enoxaparin Sodium (Lovenox Inj) 40 mg Q24H SQ 12/08/16 08:00 12/11/16 10:06 Dexamethasone (Decadron) 0.25 mg DAILY PO 12/08/16 09:00 12/11/16 10:05 Midodrine (Proamatine) 5 mg BID PO 12/08/16 09:00 12/11/16 20:56 Glimepiride (Amaryl) 1 mg DAILYAC PO 12/08/16 09:00 12/11/16 10:05 Sitagliptin Phosphate (Januvia) 50 mg DAILY PO 12/08/16 09:00 12/11/16 10:05 Metoprolol Succinate (Toprol Xl) 12.5 mg DAILY PO 12/08/16 09:00 12/11/16 10:05 Cholecalciferol (Vitamin D3) 1,000 units DAILY PO 12/08/16 09:00 12/11/16 10:05 Sodium Bicarbonate 650 mg 650 mg Q8HR PO 12/09/16 09:00 12/12/16 06:01 Leucovorin Calcium/Sodium Chloride (Wellcovorin Inj/ NS Inj) 50 ml @ 16.667 mls/ hr DAILY@02,08,14,20 IV 12/12/16 02:00 12/13/16 10:59 12/12/16 02:15 IV Flush (NS Flush) 5 ml UNSCH PRN IVF SEE PROTOCOL TABLE 12/12/16 05:00 12/12/16 06:04 Heparin Sodium (Porcine) (Heparin Central Flush) 250 units UNSCH PRN IVF SEE PROTOCOL TABLE 12/12/16 05:00 12/12/16 06:04 Objective Remarks GENERAL PHYSICAL APPEARANCE: Mr. Ramey is a 76-year-old male, he is tall, thin and in no acute distress accompanied by his and daughter today. HEENT: Head atraumatic, normocephalic, conjunctive are not pale, sclerae anicteric, EOMI, PERRLA, oral exam no pharyngeal erythema. NECK: No palpable cervical or supraclavicular lymphadenopathy. RESPIRATORY: Good air movement bilaterally. No added breath sounds. CARDIOVASCULAR: Regular rate rhythm, S1-S2. No obvious murmurs, rubs or gallops. ABDOMEN: Thin, soft, nontender, nondistended, palpable organ enlargement. LOWER EXTREMITIES: No pretibial edema. No calf tenderness. MUSEUM EXHIBIT TECHNICIAN: No focal sensory or motor deficits. Assessment/Plan Assessment Mr. 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 He has an ECOG performance status is zero. He is status post one cycle of high-dose methotrexate which was delivered at a dose of 3000 mg/meter squared to a total dose of 6000 mg IV x1 on 11/14/2016, followed by vincristine, intrathecal cytarabine and Rituxan. He now comes in for cycle number two. I will increase the dose to 6500 mg IV on day one of methotrexate today which will be dosed at 3250 mg/m2. Vincristine will be dosed at 2 mg IV on day one as well, a leucovorin rescue will be initiated 24 hours after initiation of methotrexate infusion which I anticipate will be on 12/09/2016. I will continue oral bicarbonate as well as intravenous bicarbonate. Daily urine protein, pH levels will be drawn and measured as well. Plan 1. Primary MUSEUM EXHIBIT TECHNICIAN Lymphoma. High dose MTX delivered on 12/09. On Leucovorin and bicarbonate. MTX levels drawn this AM, levels pending. May d/c home when level is <0.1 I will dose him with IT Cytarabine prior to d/c home. 2. Continue Leucovorin. 3. Hypokalemia; will receive 40meq's IV K today. Recheck potassium level 1 hr post infusion. 4. Daily CBC, BMP. 5. DM: Beside finger sticks with insulin SS coverage ordered. 6. Lovenox for DVT prophylaxis. Nas Fish MD Dec 12, 2016 07:14
[2016-12-12] MEDS: ENOXAPARIN SODIUM 40 MG/0.4 ML SYRINGE SQ SCH (09:02)
[2016-12-12] MEDS: METOPROLOL SUCCINATE 25 MG EXTENDED RELEASE TAB PO SCH (09:02)
[2016-12-12] MEDS: CHOLECALCIFEROL (VIT D3) 1000 UNIT TAB PO SCH (09:02)
[2016-12-12] MEDS: DEXAMETHASONE 0.5 MG TAB PO SCH (09:02)
[2016-12-12] MEDS: MIDODRINE 5 MG TAB PO SCH ×2 (09:02→22:33)
[2016-12-12] MEDS: DOCUSATE SODIUM 100 MG CAP PO SCH ×2 (09:02→21:00)
[2016-12-12] MEDS: GLIMEPIRIDE 1 MG TAB PO SCH (09:02)
[2016-12-12] MEDS: SODIUM CHLORIDE 0.9% FLUSH 5 ML FLUSH FLUSH SCH ×2 (12:55→20:11)
[2016-12-12] MEDS: POTASSIUM CHLOR 20 MEQ PREMIX 100 ML IV SCH ×2 (20:11→22:24)
[2016-12-12] MEDS: ZOLPIDEM TARTRATE 5 MG TAB PO PRN (22:39)
[2016-12-12] MEDS ORDERED: POTASSIUM CHLOR 20 MEQ PREMIX 100 ML IV SCH (23:00)
[2016-12-13] VITALS: BP 128/65; PULSE 86; RESP 18; TEMP 97.2; O2SAT 98
[2016-12-13] MEDS: LEUCOVORIN IV SCH ×2 (02:02→09:35)
[2016-12-13] MEDS: SODIUM CHLORIDE 0.9% IV SCH ×2 (02:02→09:35)
[2016-12-13] MEDS: Infusaport/Implanted VAD PRN NS Lock Flush IVF ×2 (02:06→05:32)
[2016-12-13 04:00] VITALS: BP 150/82; PULSE 80; RESP 18; TEMP 97.1; O2SAT 98
[2016-12-13] MEDS: INSULIN NovoLIN REGULAR SUPPLEMENTAL SCALE SQ SCH (05:29)
[2016-12-13] MEDS: SODIUM BICARBONATE 650 MG TAB PO SCH (05:30)
--- NOTE | 2016-12-13 07:43 | PD.ONC.PN ---
Subjective Subjective Remarks Mr. Ramey reports feeling well this AM, he wants to know if he is well enough to go home. Denies treatment related adverse effects such as mucositis, diarrhea, headaches , fevers, chills or pain. Objective Data Date Time Temp Pulse Resp B/P Pulse Ox O2 Delivery O2 Flow Rate FiO2 12/13/16 04:00 97.1 80 18 150/82 98 12/13/16 00:00 97.2 86 18 128/65 98 12/12/16 22:30 86 153/85 12/12/16 20:00 98.4 90 18 165/80 95 12/12/16 15:50 98.9 80 20 146/77 100 12/12/16 11:00 98.3 84 20 149/78 100 Result Diagram: 12/12/1641912/12/16419 Administered Medications Medications (Trade) Dose Ordered Sig/Renee Route PRN Reason Start Time Stop Time Status Last Admin Dose Admin IV Flush (NS Flush) 2 ml UNSCH PRN FLUSH FLUSH AFTER USING IV ACCESS 12/08/16 07:45 12/12/16 04:22 IV Flush (NS Flush) 2 ml BID FLUSH 12/08/16 09:00 12/12/16 20:11 Docusate Sodium (Colace) 100 mg Q12HR PO 12/08/16 09:00 12/12/16 09:02 Zolpidem Tartrate (Ambien) 5 mg HS PRN PO INSOMNIA 12/08/16 07:45 12/12/16 22:39 Dexamethasone (Decadron) 0.25 mg DAILY PO 12/08/16 09:00 12/12/16 09:02 Midodrine (Proamatine) 5 mg BID PO 12/08/16 09:00 12/12/16 22:33 Glimepiride (Amaryl) 1 mg DAILYAC PO 12/08/16 09:00 12/12/16 09:02 Sitagliptin Phosphate (Januvia) 50 mg DAILY PO 12/08/16 09:00 12/12/16 09:02 Metoprolol Succinate (Toprol Xl) 12.5 mg DAILY PO 12/08/16 09:00 12/12/16 09:02 Cholecalciferol (Vitamin D3) 1,000 units DAILY PO 12/08/16 09:00 12/12/16 09:02 Sodium Bicarbonate 650 mg 650 mg Q8HR PO 12/09/16 09:00 12/13/16 05:30 Leucovorin Calcium/Sodium Chloride (Wellcovorin Inj/ NS Inj) 50 ml @ 16.667 mls/ hr DAILY@02,08,14,20 IV 12/12/16 02:00 12/14/16 23:59 12/13/16 02:02 IV Flush (NS Flush) 5 ml UNSCH PRN IVF SEE PROTOCOL TABLE 12/12/16 05:00 12/13/16 05:32 Heparin Sodium (Porcine) (Heparin Central Flush) 250 units UNSCH PRN IVF SEE PROTOCOL TABLE 12/12/16 05:00 12/13/16 05:32 Objective Remarks GENERAL PHYSICAL APPEARANCE: Mr. Ramey is a 76-year-old male, he is tall, thin and in no acute distress accompanied by his and daughter today. HEENT: Head atraumatic, normocephalic, conjunctive are not pale, sclerae anicteric, EOMI, PERRLA, oral exam no pharyngeal erythema. NECK: No palpable cervical or supraclavicular lymphadenopathy. RESPIRATORY: Good air movement bilaterally. No added breath sounds. CARDIOVASCULAR: Regular rate rhythm, S1-S2. No obvious murmurs, rubs or gallops. ABDOMEN: Thin, soft, nontender, nondistended, palpable organ enlargement. LOWER EXTREMITIES: No pretibial edema. No calf tenderness. BOWLING ALLEY REFINISHER: No focal sensory or motor deficits. Assessment/Plan Assessment Mr. 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 He has an ECOG performance status is zero. He is status post one cycle of high-dose methotrexate which was delivered at a dose of 3000 mg/meter squared to a total dose of 6000 mg IV x1 on 11/14/2016, followed by vincristine, intrathecal cytarabine and Rituxan. He now comes in for cycle number two. I will increase the dose to 6500 mg IV on day one of methotrexate today which will be dosed at 3250 mg/m2. Vincristine will be dosed at 2 mg IV on day one as well, a leucovorin rescue will be initiated 24 hours after initiation of methotrexate infusion which I anticipate will be on 12/09/2016. I will continue oral bicarbonate as well as intravenous bicarbonate. Daily urine protein, pH levels will be drawn and measured as well. Plan 1. Primary BOWLING ALLEY REFINISHER Lymphoma. High dose MTX delivered on 12/09. On Leucovorin and bicarbonate. MTX levels drawn from yesterday: 0.17. Repeat levels from this morning were drawn. I anticipate his methotrexate level will be <0.1 today. I will dose him with IT Cytarabine 100mg prior to d/c home today. 2. Continue Leucovorin. 4. CBC and CMP ordered for today.. 5. DM: Beside finger sticks with insulin SS coverage ordered. 6. Lovenox for DVT prophylaxis put on hold for lumbar puncture and intrathecal chemotherapy today. Disposition: If his methotrexate level is less than 0.1, he may be discharged home after intrathecal injection of cytarabine. Nas Fish MD Dec 13, 2016 07:43
--- NOTE | 2016-12-13 07:50 | HHI.DS ---
Discharge Summary Admission Date Dec 08, 2016 at 07:03 Discharge Date: Dec 13, 2016 Admitting Diagnosis Primary INVESTOR RELATIONS DIRECTOR lymphoma High-dose chemotherapy administration Intrathecal chemotherapy injection (1) Cerebral malignant neoplasm Diagnosis: Principal Procedures Delivery of cycle #2 high-dose methotrexate and (3250 mg per metered squared) plus vincristine 2 milligrams IV delivered on 12/09/2016. Lumbar puncture with delivery of intrathecal cytarabine 100 mg in preservative- free saline delivered on 12/13/2016. Brief History Mr. gilliland a 76-year-old male who was diagnosed in October 2016 with a primary INVESTOR RELATIONS DIRECTOR lymphoma, he presented with a mass involving the right occipital lobe of the brain after having fallen. Systemic staging revealed no primary lesions, he underwent an excisional biopsy with craniotomy in early October which establish the diagnosis. Subsequent bone marrow biopsy revealed no evidence of lymphoma within the bone marrow. CSF fluid sampling revealed no evidence of lymphoma by flow cytometry. He was initiated on systemic therapy after healing from his craniotomy with intermediate/high dose methotrexate/vincristine with intrathecal injection of cytarabine. He came into the hospital on 12/08/2016 for initiation of cycle #2 of systemic chemotherapy. This was delivered on 12/09/2016 after he was appropriately alkalinized with oral and intravenous sodium bicarbonate. Patient tolerated treatment without any significant difficulties and we anticipate he'll be discharged home on 12/13/2016, once we have confirmed his methotrexate levels to be below 0.1 and once we have delivered intrathecal cytarabine injection. CBC/BMP: 12/12/16 0420 12/12/16 0420 Significant Findings Laboratory Tests Test 12/11/16 12/11/16 12/12/16 07:35 20:40 04:20 Red Blood Count 3.62 MIL/MM3 3.29 MIL/MM3 (4.50-5.90) (4.50-5.90) Hemoglobin 11.3 GM/DL 10.3 GM/DL (13.0-17.0) (13.0-17.0) Hematocrit 33.0 % 29.9 % (39.0-51.0) (39.0-51.0) Neutrophils (%) (Auto) 75.4 % 73.1 % (16.0-70.0) (16.0-70.0) Potassium Level 2.7 MEQ/L 3.4 MEQ/L 3.4 MEQ/L (3.5-5.1) (3.5-5.1) (3.5-5.1) Estimat Glomerular Filtration 82 ML/MIN (>89) Rate Random Glucose 149 MG/DL (74-106) Calcium Level 8.2 MG/DL 8.2 MG/DL (8.5-10.1) (8.5-10.1) Sodium Level 148 MEQ/L (136-145) Chloride Level 110 MEQ/L (98-107) Blood Urea Nitrogen 5 MG/DL (7-18) B-Type Natriuretic Peptide 136 PG/ML (0-100) PE at Discharge Please see my progress note dated 12/13/2016. Hospital Course Mr. Ramey underwent an uncomplicated delivery of high-dose methotrexate, vincristine and intrathecal chemotherapy with cytarabine. Over the course of the hospitalization, blood counts, blood chemistries, vital signs were monitored closely. He did require potassium supplementation for hypokalemia. On the night of 12/10/2016 he did wake up early in the morning at about 2 AM somewhat disappointed but was easily reoriented by the nursing staff. The next morning there were no residual signs or symptoms of disorientation. Pt Condition on Discharge: Good Discharge Disposition: Discharge Home Discharge Instructions DIET: Follow Instructions for: As Tolerated, No Restrictions Activities you can perform: Weight Bearing as Lenora Nas Fish MD Dec 13, 2016 07:49
[2016-12-13 08:00] VITALS: BP 116/65; PULSE 87; RESP 20; TEMP 96.9; O2SAT 98
[2016-12-13] MEDS: GLIMEPIRIDE 1 MG TAB PO SCH (08:00)
[2016-12-13 08:08] LABS: AUTOMATED NEUTROPHIL # 7.5 TH/MM3 (1.8-7.7); BASOPHIL # 0.1 TH/MM3 (0-0.2); BASOPHIL % 0.6 % (0.0-2.0); EOSINOPHIL # 0.1 TH/MM3 (0-0.4); EOSINOPHIL % 0.8 % (0.0-4.0); HEMATOCRIT 31.5 % (39.0-51.0); HEMO FLAGS DIFF FINAL; LYMPH % 11.4 % (9.0-44.0); MEAN CELL VOLUME 89.5 FL (80.0-100.0); MEAN CORPUSCULAR HEMOGLOBIN 31.3 PG (27.0-34.0); MONO % 1.2 % (0.0-8.0); PLATELET COUNT 273 TH/MM3 (150-450); RED BLOOD COUNT 3.52 MIL/MM3 (4.50-5.90); RED CELL DISTRIBUTION WIDTH 15.4 % (11.6-17.2); WHITE BLOOD COUNT 8.7 TH/MM3 (4.0-11.0)
[2016-12-13 08:21] LABS: APTT (PATIENT) 26.7 SEC (24.3-30.1); INTERNATIONAL NORMALIZED RATIO 0.9 RATIO; PROTHROMBIN TIME - PATIENT 10.4 SEC (9.8-11.6)
[2016-12-13 08:32] LABS: ALT (GPT) 98 U/L (12-78); ANION GAP 8 MEQ/L (5-15); AST (GOT) 67 U/L (15-37); BLOOD UREA NITROGEN 6 MG/DL (7-18); CHLORIDE 108 MEQ/L (98-107); GLOMERULAR FILTRATION RATE 102 ML/MIN (>89); POTASSIUM 3.5 MEQ/L (3.5-5.1); SODIUM (NA) 143 MEQ/L (136-145)
[2016-12-13 08:34] LABS: ALKALINE PHOSPHATASE 69 U/L (45-117)
[2016-12-13] MEDS ORDERED: SODIUM CHLORIDE 0.9% IT ONE ×2 (08:45)
[2016-12-13] MEDS ORDERED: CYTARABINE IT ONE ×2 (08:45)
[2016-12-13] MEDS: CHOLECALCIFEROL (VIT D3) 1000 UNIT TAB PO SCH (09:00)
[2016-12-13] MEDS: MIDODRINE 5 MG TAB PO SCH (09:00)
[2016-12-13] MEDS: DOCUSATE SODIUM 100 MG CAP PO SCH (09:00)
[2016-12-13] MEDS: DEXAMETHASONE 0.5 MG TAB PO SCH (09:00)
[2016-12-13] MEDS: METOPROLOL SUCCINATE 25 MG EXTENDED RELEASE TAB PO SCH (09:00)
--- NOTE | 2016-12-13 10:30 | PD.RAD ---
Post Procedure Progress Note Pre Procedure Diagnosis: (1) Cerebral malignant neoplasm Post Procedure Diagnosis: (1) Cerebral malignant neoplasm Procedure Date: Dec 13, 2016 Supervising Radiologist: Mickey Grijalva Anesthesia: Local Plan of Activity Patient to Unit: [facility] Patient Condition: Fair Additional Comments: LP completed without difficulty. Single puncture at L3/4. Clear CSF return Chemo verified and administered without difficulty. See PACS Report for procedural detail/treatment Mickey Grijalva MD Dec 13, 2016 10:30
[2016-12-13 10:35] VITALS: BP 154/80; PULSE 83; RESP 18; TEMP 98.3; O2SAT 96
--- NOTE | 2016-12-13 11:21 | RADRPT ---
EXAM DATE/TIME: 12/13/2016 10:08 CORRECTION Corrected on: December 16, 2016; CORRECTION: Corrected examform information [facility] COMPARISON: LUMBAR PUNCTURE W/CHEMO INJECT, November 18, 2016, 11:20. INDICATIONS : Patient with history of WIRE WINDER lymphoma in need of lumbar puncture w/ chemo injection. MEDICAL HISTORY : HTN, Diabetes, CAD, Valvular heart disease SURGICAL HISTORY : Craniotomy with excisional biopsy, Bone marrow biopsy, Colonoscopy, Port placement, Intrathecal chemo therapy, Tonsillectomy, Left knee surgery ENCOUNTER: Subsequent ACUITY: 1 month PAIN SCORE: 0/10 LUMBAR PUNCTURE TIME: 1025 hours FLUORO TIME: 1.2 minutes ACCESS LEVEL: L3-4 PROCEDURE : Fluoroscopic guided lumbar puncture. Instillation of chemotherapy. The risks, benefits and alternatives to the procedure were explained and verbal and written consent w as obtained. The site was prepped in sterile fashion. Full sterile technique was used, including ca p, mask, sterile gloves and gown and a large sterile sheet. Hand hygiene and 2% chlorhexidine and/or betadine/alcohol prep was utilized per protocol for cutaneous antisepsis. The skin and subcutaneous tissues were infiltrated with local anesthetic solution. With fluoroscopic guidance the lumbar thecal sac was punctured at the level above. The prescribed ch emo therapeutic was injected. The patient tolerated the procedure well and there were no complications. CONCLUSION: Uncomplicated fluoroscopically guided lumbar puncture with chemotherapy injection. Mickey Grijalva MD on December 13, 2016 at 11:19 Board Certified Radiologist. This report was verified electronically. DR Quintanilla on December 16, 2016 at 9:34 Board Certified Radiologist. This report was verified electronically.
== END 2016-12-13 13:44 | disposition home or self-care (01) | DRG 842 ==
LOC: HOCA 07:03 → HOCB 12-13 10:41 → HRIP 12-13 10:50
PROVIDERS: ADMIT Internal Medicine Hematology & Oncology; ATTEND Internal Medicine Hematology & Oncology
PROC: 3E0R305 Introduction of Other Antineoplastic into Spinal Canal, Percutaneous Approach (ICD-10-PCS; principal; 2016-12-13)
DX: C85.91 Non-Hodgkin lymphoma, unspecified, lymph nodes of head, face, and neck (principal); E11.9 Type 2 diabetes mellitus without complications; E87.6 Hypokalemia; I25.10 Atherosclerotic heart disease of native coronary artery without angina pectoris; Z87.891 Personal history of nicotine dependence
CPT/HCPCS: 36591; 77003; 80048; 80053; 80299; 81003; 82948; 83735; 83880; 84100; 84132; 85025; 85610; 85730; 87040; 96413; 96415; 96450; 99214; G0480; J0640; J1100; J1626; J1642; J1650; J3480; J7030; J7040; J7060; J8540; J9100; J9250; J9310; J9370; Q0163

== ENCOUNTER 2016-12-29 06:46 | Inpatient (IN) | payer MEDICARE, OTHER ==
[~2016-12-29] VITALS: Ht 182.9 cm; Wt 86.6 kg
[~2016-12-29 06:46] MED LIST changes: -DEXA2TAB PO
[2016-12-29 07:11] VITALS: BP 113/56; PULSE 78; RESP 18; TEMP 97.4; O2SAT 99
[2016-12-29] MEDS ORDERED: NALOXONE HCL 0.4 MG/ML AMP IV PRN (07:45)
[2016-12-29] MEDS ORDERED: SODIUM CHLORIDE 0.9% FLUSH 5 ML FLUSH FLUSH PRN (07:45)
[2016-12-29] MEDS ORDERED: DEXTROSE 50% IN WATER 50 ML VIAL(D50) IV PUSH PRN (07:45)
[2016-12-29] MEDS ORDERED: GLUCAGON 1 MG/ML VIAL OTHER PRN (07:45)
[2016-12-29] MEDS ORDERED: METOCLOPRAMIDE HCL 10 MG/2 ML VIAL IV PUSH PRN (08:00)
[2016-12-29] MEDS ORDERED: PILL SPLITTER OTHER PRN (08:00)
[2016-12-29] MEDS ORDERED: ACETAMINOPHEN 325 MG TAB PO PRN (08:00)
--- NOTE | 2016-12-29 08:28 | MH ---
cc: TONI MUNOZ M.D., ZAFAR MD DATE OF ADMISSION 12/29/2016 DATE OF [address] Toni Munoz MALIGNANT HEMATOLOGIC DIAGNOSIS Primary TIME STUDY TECHNICIAN lymphoma; diffuse large B cell variant CURRENT TREATMENT The patient is on intermediate/high-dose methotrexate with vincristine, Rituxan and intrathecal cytarabine injections. CHIEF COMPLAINT Mr. Ramey denies acute complaints other than occasional headaches. He comes in today for cycle #3 of the current treatment regimen. HISTORY OF PRESENT ILLNESS Mr. Ramey is a very pleasant 76-year-old male who was diagnosed in October of 2016 with a primary TIME STUDY TECHNICIAN lymphoma. The primary tumor involved the right occipital region. The diagnosis was established based on an excisional biopsy. Since then, he has been staged with a bone marrow biopsy and whole body imaging. He has no evidence of bone marrow involvement. The patient has been initiated on treatment with methotrexate which has been incrementally increased from 3000 mg/m2 to 3250 mg/m2. He has also been evaluated at the [facility] for second opinion; his current treatment regimen has been endorsed and he has been recommended a total of six cycles followed by restaging. He comes in today to initiate cycle number three. He has premedicated himself for two days with oral bicarbonate. PAST MEDICAL HISTORY 1. Primary TIME STUDY TECHNICIAN lymphoma. 2. Type 2 diabetes 3. Coronary artery disease 4. Valvular heart disease 5. Prostatic hypertrophy PAST SURGICAL HISTORY 1. Bone marrow biopsy and aspiration 2. Craniotomy with excisional biopsy of right occipital mass. 3. Infusion port placement. 4. Left knee surgery 5. Tonsillectomy and colonoscopy FAMILY HISTORY He had two sisters with cancers, parents both had complications of diabetes. They are both . SOCIAL HISTORY The patient lives at home with his . He is retired. He formerly smoked, but quit smoking 25 years ago. ECOG performance status is zero. ALLERGIES NO KNOWN DRUG ALLERGIES. OUTPATIENT MEDICATIONS Were reviewed. CURRENT INPATIENT MEDICATIONS 1. Tylenol 650 mg p.o. q4h as needed for temperature greater than 100.4 2. Aspirin 81 mg once a day 3. Lovenox 40 mg subcu daily 4. Glimepiride 1 mg p.o. daily 5. NovoLog insulin sliding scale 6. Metformin 1000 mg p.o. daily. 7. Metoclopramide 5 mg IV q6h as needed for nausea and vomiting. 8. Metoprolol extended release 12.5 mg p.o. daily 9. Midodrine 5 mg p.o. b.i.d. 10. Zofran 4 mg IV q6h as needed for nausea and vomiting. 11. Sitagliptin 50 mg p.o. daily 12. Sodium bicarbonate 650 mg p.o. q8h 13. Ambien 5 mg p.o. q.h.s. as needed for insomnia REVIEW OF SYSTEMS A 13-point review of systems is obtained the following are the pertinent positives and negatives: CONSTITUTIONAL: The patient denies fevers, chills, night sweats, fatigue, weakness, weight loss. HEENT: He reports occasional headaches, denies difficulty swallowing, soreness in the throat. He has a stable visual field deficit along the lateral aspect of his left eye. RESPIRATORY: Denies difficulty breathing, cough, hemoptysis or pleuritic chest pain. CARDIOVASCULAR: Denies angina-like chest pain, PND, orthopnea. He denies lower extremity swelling. GI: Denies nausea, vomiting, diarrhea hematochezia, melena, abdominal distension or jaundice. : No complaints of dysuria, hematuria, urinary incontinence. MUSCULOSKELETAL: Denies any focal aches or pains. SKIN: No changes. PHYSICAL EXAMINATION VITAL SIGNS: Weight 87.6 kg, height is 182 cm, BSA 2, temperature 98 degrees Fahrenheit, heart rate 82 beats minute, respiratory rate 18, blood pressure 114 x 58, O2 sats 95% on room air. GENERAL PHYSICAL APPEARANCE: Mr. Ramey is an elderly male, he is tall and of moderate build, appears to be no acute distress. He is accompanied by his and daughter. HEENT: Head atraumatic, normocephalic, conjunctive are not pale, sclerae anicteric, EOMI, PERRLA, oral exam no pharyngeal erythema. NECK: No palpable cervical or supraclavicular lymphadenopathy. RESPIRATORY: Good air movement bilaterally. No added breath sounds. CARDIOVASCULAR: Regular rate and rhythm, S1-S2. No obvious murmurs, rubs or gallops. ABDOMEN: Protuberant, soft, nontender, nondistended, no palpable organ enlargement. EXTREMITIES: Lower extremities have no pretibial edema. No calf tenderness. TIME STUDY TECHNICIAN: No focal sensory or motor deficits. LABORATORY FINDINGS Blood work dated 12/26/2016: WBC count 6.3, hemoglobin 10.4 gm/dl, hematocrit 32%, platelet count 339, absolute neutrophil count 4.2. Chemistries: Sodium 145, potassium 4, chloride 110, bicarbonate 26.5, BUN 13, creatinine 0.87, EGFR 86, random glucose 183, calcium 8.6, total bilirubin 0.4, AST 13, ALT 21, alkaline phosphatase 72, albumin 3.2. ASSESSMENT Mr. Ramey is a 76-year-old male with a diagnosis of primary TIME STUDY TECHNICIAN lymphoma; diffuse large B cell variant. Presently on treatment with high-dose methotrexate plus vincristine. He received Rituxan, as well as intrathecal cytarabine. He comes in today for initiation of cycle number three. RECOMMENDATIONS 1. Primary TIME STUDY TECHNICIAN lymphoma: I would like to initiate him on intermediate dose methotrexate up to a dose of 7000 mg IV over three hours on day one once his urine has been sufficiently alkalinized. He will also be dosed with vincristine 2 mg IV on day one. He will be hydrated with quarter normal saline with two amps of sodium bicarbonate at 250 cc an hour four hours prior to starting chemotherapy and the same fluids will be continued during the hospitalization. Leukovorin rescue will be initiated 24 hours from the start of methotrexate infusion and this will continue until his methotrexate levels are less than 0.1. 2. Diabetes: He will be resumed on metformin, glimepiride and Sitagliptin. I will also add on a bedside glucose Accu-Chek with sliding scale regular insulin coverage. 3. His other outpatient medications including Metoprolol have been continued. Additionally, he will be on DVT prophylaxis with Lovenox 40 mg subcu daily. I have ordered blood work to start tomorrow. MD YELITZA Whaley/JOHN /7:45 AM /8:01 AM
[2016-12-29] MEDS ORDERED: METOPROLOL SUCCINATE 25 MG EXTENDED RELEASE TAB PO SCH (09:00)
[2016-12-29] MEDS ORDERED: GLIMEPIRIDE 1 MG TAB PO ONE (09:00)
[2016-12-29] MEDS: metFORMIN HCL 500 MG TAB PO SCH (09:00)
[2016-12-29] MEDS: MIDODRINE 5 MG TAB PO SCH ×2 (09:00→20:35)
[2016-12-29] MEDS: ASPIRIN EC 81 MG TABEC PO SCH (09:00)
[2016-12-29] MEDS: SODIUM CHLORIDE 0.9% FLUSH 5 ML FLUSH FLUSH SCH ×2 (09:00→20:26)
[2016-12-29] MEDS ORDERED: ONDANSETRON HCL 4 MG/2 ML VIAL IVP PRN (09:00)
[2016-12-29] MEDS ORDERED: [UNRECOGNIZED DRUG - OTHER] IV SCH ×3 (10:15)
[2016-12-29] MEDS ORDERED: SODIUM BICARBONATE IV SCH ×12 (10:15→17:00)
[2016-12-29] MEDS ORDERED: [UNRECOGNIZED DRUG - OTHER] IV SCH ×6 (10:15→17:00)
[2016-12-29] MEDS ORDERED: [UNRECOGNIZED DRUG - OTHER] IV SCH ×3 (10:15)
[2016-12-29] MEDS ORDERED: 1/4 SODIUM CHLORIDE IV SCH ×12 (10:15→17:00)
[2016-12-29] MEDS: ENOXAPARIN SODIUM 40 MG/0.4 ML SYRINGE SQ SCH (10:58)
[2016-12-29] MEDS: INSULIN ASPART SUPPLEMENTAL SCALE SQ SCH ×3 (11:00→20:35)
[2016-12-29 11:55] VITALS: BP 122/63; PULSE 72; RESP 18; TEMP 96.5; O2SAT 100
[2016-12-29] MEDS ORDERED: SODIUM BICARBONATE 8.4% INJ 150 MEQ in WATER STERILE FOR INJ 850 ML IV SCH (13:00)
[2016-12-29] MEDS ORDERED: GRANISETRON INJ 1 MG, DEXAMETHASONE INJ 20 MG in SODIUM CHLORIDE 0.9% INJ 50 ML IV ONE (13:00)
[2016-12-29] MEDS ORDERED: DEXTROSE 5% IV ONE ×2 (14:00)
[2016-12-29] MEDS ORDERED: SODIUM CHLORIDE 0.9% IVP ONE ×2 (14:00)
[2016-12-29] MEDS ORDERED: METHOTREXATE IV ONE ×2 (14:00)
[2016-12-29] MEDS ORDERED: WATE IV ONE ×2 (14:00)
[2016-12-29] MEDS ORDERED: VINCRISTINE IVP ONE ×3 (14:00)
[2016-12-29] MEDS: SODIUM BICARBONATE 650 MG TAB PO SCH ×2 (15:21→22:40)
[2016-12-29 15:48] VITALS: BP 116/55; PULSE 8; RESP 20; TEMP 97.2; O2SAT 99
[2016-12-29 20:00] VITALS: BP 110/53; PULSE 92; RESP 18; TEMP 96.8; O2SAT 96
[2016-12-29] MEDS: 1/4 SODIUM CHLORIDE IV SCH ×3 (23:28)
[2016-12-29] MEDS: SODIUM BICARBONATE IV SCH ×3 (23:28)
[2016-12-29] MEDS: [UNRECOGNIZED DRUG - OTHER] IV SCH ×3 (23:28)
[2016-12-30] VITALS: BP 144/66; PULSE 62; RESP 16; TEMP 96.1; O2SAT 100
[2016-12-30 04:00] VITALS: BP 119/63; PULSE 80; RESP 18; TEMP 96.1; O2SAT 100
[2016-12-30 05:34] LABS: AUTOMATED NEUTROPHIL # 4.7 TH/MM3 (1.8-7.7); BASOPHIL % 0.4 % (0.0-2.0); HEMATOCRIT 31.3 % (39.0-51.0); HEMO FLAGS DIFF FINAL; LYMPH % 14.5 % (9.0-44.0); LYMPHOCYTE # 0.9 TH/MM3 (1.0-4.8); MEAN CELL VOLUME 92.8 FL (80.0-100.0); MEAN CORPUSCULAR HEMOGLOBIN 32.2 PG (27.0-34.0); MEAN CORPUSCULAR HGB CONC 34.7 % (32.0-36.0); MONO % 8.6 % (0.0-8.0); NEUT % 76.5 % (16.0-70.0); PLATELET COUNT 411 TH/MM3 (150-450); RED BLOOD COUNT 3.37 MIL/MM3 (4.50-5.90); RED CELL DISTRIBUTION WIDTH 15.5 % (11.6-17.2); WHITE BLOOD COUNT 6.2 TH/MM3 (4.0-11.0)
[2016-12-30 05:58] LABS: ALT (GPT) 47 U/L (12-78); ANION GAP 9 MEQ/L (5-15); AST (GOT) 47 U/L (15-37); BICARBONATE 26.5 MEQ/L (21.0-32.0); BLOOD UREA NITROGEN 12 MG/DL (7-18); CHLORIDE 107 MEQ/L (98-107); GLOMERULAR FILTRATION RATE 93 ML/MIN (>89); POTASSIUM 3.7 MEQ/L (3.5-5.1); SODIUM (NA) 142 MEQ/L (136-145)
[2016-12-30 06:01] LABS: ALKALINE PHOSPHATASE 67 U/L (45-117); TOTAL BILIRUBIN ADULT 0.9 MG/DL (0.2-1.0)
[2016-12-30] MEDS: INSULIN ASPART SUPPLEMENTAL SCALE SQ SCH ×4 (06:07→20:55)
[2016-12-30] MEDS: SODIUM BICARBONATE 650 MG TAB PO SCH ×3 (06:07→20:50)
[2016-12-30] MEDS: [UNRECOGNIZED DRUG - OTHER] IV SCH ×9 (06:08→18:11)
[2016-12-30] MEDS: SODIUM BICARBONATE IV SCH ×9 (06:08→18:11)
[2016-12-30] MEDS: 1/4 SODIUM CHLORIDE IV SCH ×9 (06:08→18:11)
[2016-12-30 08:00] VITALS: BP 150/60; PULSE 68; RESP 16; TEMP 97.3; O2SAT 100
[2016-12-30] MEDS: metFORMIN HCL 500 MG TAB PO SCH (09:43)
[2016-12-30] MEDS: MIDODRINE 5 MG TAB PO SCH ×2 (09:44→20:45)
[2016-12-30] MEDS: ASPIRIN EC 81 MG TABEC PO SCH (09:44)
[2016-12-30] MEDS: SODIUM CHLORIDE 0.9% FLUSH 5 ML FLUSH FLUSH SCH ×2 (09:44→20:39)
[2016-12-30] MEDS: ENOXAPARIN SODIUM 40 MG/0.4 ML SYRINGE SQ SCH (09:44)
[2016-12-30 12:00] VITALS: BP 120/57; PULSE 69; RESP 16; TEMP 96.5; O2SAT 100
[2016-12-30 16:00] VITALS: BP 131/66; PULSE 75; RESP 16; TEMP 96.2; O2SAT 100
--- NOTE | 2016-12-30 17:46 | PD.ONC.PN ---
Subjective Subjective Remarks Mr. Ramey denies acute complaints, he reports sleeping well last night, he denies any chemotherapy related adverse events. Methotrexate was started late last night, leucovorin rescue has yet to initiate. He remains on bicarbonate infusion. Objective Data Date Time Temp Pulse Resp B/P Pulse Ox O2 Delivery O2 Flow Rate FiO2 12/30/16 16:00 96.2 75 16 131/66 100 12/30/16 12:00 96.5 69 16 120/57 100 12/30/16 08:00 97.3 68 16 150/60 100 12/30/16 04:00 96.1 80 18 119/63 100 12/30/16 00:00 96.1 62 16 144/66 100 12/29/16 20:00 96.8 92 18 110/53 96 12/30/16 12/30/16 12/30/16 07:00 15:00 23:00 Intake Total 2350 ml 1875 ml Output Total 1250 ml Balance 1100 ml 1875 ml Result Diagram: 12/30/16 0358 12/30/16 0358 Laboratory Results Laboratory Tests Test 12/30/16 12/30/16 03:58 05:00 White Blood Count 6.2 TH/MM3 Red Blood Count 3.37 MIL/MM3 Hemoglobin 10.9 GM/DL Hematocrit 31.3 % Mean Corpuscular Volume 92.8 FL Mean Corpuscular Hemoglobin 32.2 PG Mean Corpuscular Hemoglobin 34.7 % Concent Red Cell Distribution Width 15.5 % Platelet Count 411 TH/MM3 Mean Platelet Volume 8.5 FL Neutrophils (%) (Auto) 76.5 % Lymphocytes (%) (Auto) 14.5 % Monocytes (%) (Auto) 8.6 % Eosinophils (%) (Auto) 0.0 % Basophils (%) (Auto) 0.4 % Neutrophils # (Auto) 4.7 TH/MM3 Lymphocytes # (Auto) 0.9 TH/MM3 Monocytes # (Auto) 0.5 TH/MM3 Eosinophils # (Auto) 0.0 TH/MM3 Basophils # (Auto) 0.0 TH/MM3 CBC Comment DIFF FINAL Differential Comment Sodium Level 142 MEQ/L Potassium Level 3.7 MEQ/L Chloride Level 107 MEQ/L Carbon Dioxide Level 26.5 MEQ/L Anion Gap 9 MEQ/L Blood Urea Nitrogen 12 MG/DL Creatinine 0.81 MG/DL Estimat Glomerular Filtration 93 ML/MIN Rate Random Glucose 171 MG/DL Calcium Level 8.8 MG/DL Total Bilirubin 0.9 MG/DL Aspartate Amino Transf 47 U/L (AST/SGOT) Alanine Aminotransferase 47 U/L (ALT/SGPT) Alkaline Phosphatase 67 U/L Total Protein 6.3 GM/DL Albumin 3.4 GM/DL Urine pH 8.5 Administered Medications Medications (Trade) Dose Ordered Sig/Renee Route PRN Reason Start Time Stop Time Status Last Admin Dose Admin IV Flush (NS Flush) 2 ml BID FLUSH 12/29/16 09:00 12/30/16 09:44 Enoxaparin Sodium (Lovenox Inj) 40 mg Q24H SQ 12/29/16 09:00 12/30/16 09:44 Sodium Bicarbonate (Sodium Bicarbonate) 650 mg Q8HR PO 12/29/16 14:00 12/30/16 14:31 Midodrine (Proamatine) 5 mg BID PO 12/29/16 09:00 12/30/16 09:44 Sitagliptin Phosphate (Januvia) 50 mg DAILY PO 12/29/16 09:00 12/30/16 09:43 Metformin HCl (Glucophage) 1,000 mg DAILY PO 12/29/16 09:00 12/30/16 09:43 Aspirin 81 mg 81 mg DAILY PO 12/29/16 09:00 12/30/16 09:44 Sodium Chloride/ Sodium Bicarbonate/ Sterile Water (Sodium Chloride 23.4% Inj/Sodium Bicarbonate 8.4% Inj/Sterile Water For Inj) 1,000 ml @ 170 mls/hr Q5H53M IV 12/30/16 00:00 01/03/17 00:00 12/30/16 12:12 Objective Remarks GENERAL PHYSICAL APPEARANCE: Mr. Ramey is an elderly male, he is tall and of moderate build, appears to be no acute distress. He is accompanied by his and daughter. HEENT: Head atraumatic, normocephalic, conjunctive are not pale, sclerae anicteric, EOMI, PERRLA, oral exam no pharyngeal erythema. NECK: No palpable cervical or supraclavicular lymphadenopathy. RESPIRATORY: Good air movement bilaterally. No added breath sounds. CARDIOVASCULAR: Regular rate and rhythm, S1-S2. No obvious murmurs, rubs or gallops. ABDOMEN: Protuberant, soft, nontender, nondistended, no palpable organ enlargement. EXTREMITIES: Lower extremities have no pretibial edema. No calf tenderness. CTE TEACHER: No focal sensory or motor deficits. Assessment/Plan Assessment Mr. Ramey is a 76-year-old male with a diagnosis of primary CTE TEACHER lymphoma; diffuse large B cell variant. Presently on treatment with high-dose methotrexate plus vincristine. He received Rituxan, as well as intrathecal cytarabine. He comes in today for initiation of cycle number three. Plan 1. Primary central nervous system lymphoma: Day 1 cycle #3 was on 12/29/2016, methotrexate was delivered at a dose of 7000 mg (3500 mg per metered squared). Vincristine delivered at 2 mg IV. He will start leucovorin rescue later tonight. I will decrease the rate of bicarbonate infusion from 170 mL per hour down to 100 mL per hour. Continue oral bicarbonate. Diabetes: Accu-Cheks with sliding scale insulin regular coverage, and kidney oral hypoglycemics as well. Lovenox for DVT prophylaxis Outpatient antihypertensives have also been continued. Methotrexate levels to be drawn starting tomorrow morning. Daily urine pH levels to be checked. BMP for tomorrow morning ordered. Disposition: Clinically he is doing well and without adverse events. Discharge home when methotrexate level is less than 0.1. Nas Fish MD Dec 30, 2016 17:46
[2016-12-30] MEDS: SODIUM CHLORIDE 0.9% IV SCH (20:39)
[2016-12-30] MEDS: LEUCOVORIN IV SCH (20:39)
[2016-12-30 20:44] VITALS: BP 121/57; PULSE 79; RESP 20; TEMP 97.1; O2SAT 98
[2016-12-30] MEDS: METOPROLOL SUCCINATE 25 MG EXTENDED RELEASE TAB PO SCH (20:45)
[2016-12-30] MEDS: ZOLPIDEM TARTRATE 5 MG TAB PO PRN (20:50)
[2016-12-31 00:27] VITALS: BP 107/56; PULSE 87; RESP 16; TEMP 96.7; O2SAT 99
[2016-12-31] MEDS: SODIUM BICARBONATE IV SCH ×6 (02:08→19:08)
[2016-12-31] MEDS: [UNRECOGNIZED DRUG - OTHER] IV SCH ×6 (02:08→19:08)
[2016-12-31] MEDS: 1/4 SODIUM CHLORIDE IV SCH ×6 (02:08→19:08)
[2016-12-31] MEDS: LEUCOVORIN IV SCH ×4 (02:09→20:30)
[2016-12-31] MEDS: SODIUM CHLORIDE 0.9% IV SCH ×4 (02:09→20:30)
[2016-12-31 04:00] VITALS: BP 109/60; PULSE 74; RESP 16; TEMP 96.7; O2SAT 99
[2016-12-31] MEDS: SODIUM BICARBONATE 650 MG TAB PO SCH ×3 (05:37→21:14)
[2016-12-31] MEDS: INSULIN ASPART SUPPLEMENTAL SCALE SQ SCH ×4 (05:39→20:43)
[2016-12-31 06:58] LABS: BICARBONATE 31.3 MEQ/L (21.0-32.0); POTASSIUM 3.1 MEQ/L (3.5-5.1)
[2016-12-31 07:50] VITALS: BP 152/64; PULSE 72; RESP 20; TEMP 96; O2SAT 99
[2016-12-31] MEDS ORDERED: POTASSIUM CHLORIDE 20 MEQ CONTROLLED RELEASE TAB PO ONE (08:00)
[2016-12-31] MEDS: SODIUM CHLORIDE 0.9% FLUSH 5 ML FLUSH FLUSH SCH ×2 (08:58→20:32)
[2016-12-31] MEDS: MIDODRINE 5 MG TAB PO SCH ×2 (08:59→20:33)
[2016-12-31] MEDS: ASPIRIN EC 81 MG TABEC PO SCH (08:59)
[2016-12-31] MEDS: metFORMIN HCL 500 MG TAB PO SCH (08:59)
[2016-12-31] MEDS: ENOXAPARIN SODIUM 40 MG/0.4 ML SYRINGE SQ SCH (09:01)
--- NOTE | 2016-12-31 09:42 | PD.ONC.PN ---
Subjective Subjective Remarks Afebrile overnight. Patient was found walking the halls with his IV pole. He states he slept very well. He has no complaints. Objective Data Date Time Temp Pulse Resp B/P Pulse Ox O2 Delivery O2 Flow Rate FiO2 12/31/16 07:50 96.0 72 20 152/64 99 12/31/16 04:00 96.7 74 16 109/60 99 12/31/16 00:27 96.7 87 16 107/56 99 12/30/16 20:44 97.1 79 20 121/57 98 12/30/16 16:00 96.2 75 16 131/66 100 12/30/16 12:00 96.5 69 16 120/57 100 Result Diagram: 12/30/16 0358 12/31/16 0534 Laboratory Results Laboratory Tests Test 12/30/16 12/31/16 12/31/16 20:21 05:34 05:48 Methotrexate Level 3.92 COMMENT Sodium Level 147 MEQ/L Potassium Level 3.1 MEQ/L Chloride Level 109 MEQ/L Carbon Dioxide Level 31.3 MEQ/L Anion Gap 7 MEQ/L Blood Urea Nitrogen 8 MG/DL Creatinine 0.70 MG/DL Estimat Glomerular Filtration 110 ML/MIN Rate Random Glucose 106 MG/DL Calcium Level 8.1 MG/DL Magnesium Level 2.2 MG/DL Urine pH 8.0 Administered Medications Medications (Trade) Dose Ordered Sig/Renee Route PRN Reason Start Time Stop Time Status Last Admin Dose Admin IV Flush (NS Flush) 2 ml BID FLUSH 12/29/16 09:00 12/30/16 20:39 Zolpidem Tartrate (Ambien) 5 mg HS PRN PO INSOMNIA 12/29/16 21:00 12/30/16 20:50 Enoxaparin Sodium (Lovenox Inj) 40 mg Q24H SQ 12/29/16 09:00 12/31/16 09:01 Sodium Bicarbonate (Sodium Bicarbonate) 650 mg Q8HR PO 12/29/16 14:00 12/31/16 05:37 Midodrine (Proamatine) 5 mg BID PO 12/29/16 09:00 12/31/16 08:59 Sitagliptin Phosphate (Januvia) 50 mg DAILY PO 12/29/16 09:00 12/31/16 08:59 Metformin HCl (Glucophage) 1,000 mg DAILY PO 12/29/16 09:00 12/31/16 08:59 Aspirin 81 mg 81 mg DAILY PO 12/29/16 09:00 12/31/16 08:59 Leucovorin Calcium 20 mg/ Sodium Chloride 50 ml @ 16.667 mls/ hr Q6H IV 12/30/16 20:15 01/02/17 17:14 12/31/16 08:35 Sodium Chloride/ Sodium Bicarbonate/ Sterile Water (Sodium Chloride 23.4% Inj/Sodium Bicarbonate 8.4% Inj/Sterile Water For Inj) 1,000 ml @ 0 mls/hr Q5H53M IV 12/30/16 00:00 12/31/16 02:08 Metoprolol Succinate (Toprol Xl) 12.5 mg DAILY@21 PO 12/30/16 21:00 12/30/16 20:45 Objective Remarks GENERAL: Well appearing elderly male walking the halls in no distress. SKIN: Warm and dry. HEAD: Normocephalic. EYES: No injection or drainage. NECK: Supple, trachea midline. CARDIOVASCULAR: +S1/S2. No murmur appreciated. RESPIRATORY: Breath sounds equal bilaterally. No accessory muscle use. GASTROINTESTINAL: Abdomen soft, non-tender, nondistended. EXTREMITIES: Trace pedal edema. MUSCULOSKELETAL: Adequate muscle tone. NEUROLOGICAL: No obvious focal deficit. Awake, alert, and oriented x3. Assessment/Plan Assessment Mr. Ramey is a 76-year-old male with a diagnosis of primary COOK SHIP lymphoma; diffuse large B cell variant. Presently on treatment with high-dose methotrexate plus vincristine. He received Rituxan, as well as intrathecal cytarabine. He comes in today for initiation of cycle number three. Plan 1. Primary central nervous system lymphoma: Day 1 cycle #3 was on 12/29/2016, methotrexate was delivered at a dose of 7000 mg (3500 mg per metered squared). Vincristine delivered at 2 mg IV. Currently tolerating leucovorin rescue. I will decrease the rate of bicarbonate infusion from 170 mL per hour down to 100 mL per hour. Continue oral bicarbonate. Diabetes: Accu-Cheks with sliding scale insulin regular coverage, and kidney oral hypoglycemics as well. Lovenox for DVT prophylaxis Outpatient antihypertensives have also been continued. Methotrexate levels daily. He was 3.92 yesterday evening. Recheck later this afternoon. Daily urine pH levels to be checked. Potassium replaced today. Labs in am. Disposition: Clinically he is doing well and without adverse events. Discharge home when methotrexate level is less than 0.1. Attending Statement The exam, history, and the medical decision-making described in the above note were completed with the assistance of the mid-level provider. I reviewed and agree with the findings presented. I attest that I had a [id number] encounter with the patient on the same day, and personally performed and documented my assessment and findings in the medical record. no problems related to the mtx. will continue leukovorin until it is safe for discharge. he will receive intrathecal tx as outpatient. Sugey Preciado Dec 31, 2016 09:42 Patrick Arana MD Dec 31, 2016 14:27
[2016-12-31 11:50] VITALS: BP 129/57; PULSE 73; RESP 20; TEMP 98; O2SAT 98
[2016-12-31 15:50] VITALS: BP 118/56; PULSE 81; RESP 20; TEMP 96; O2SAT 97
[2016-12-31] MEDS: ZOLPIDEM TARTRATE 5 MG TAB PO PRN (20:32)
[2016-12-31] MEDS: METOPROLOL SUCCINATE 25 MG EXTENDED RELEASE TAB PO SCH (20:33)
[2016-12-31 20:34] VITALS: BP 118/59; PULSE 70; RESP 18; TEMP 97.9; O2SAT 99
[2017-01-01 00:15] VITALS: BP 139/65; PULSE 80; RESP 19; TEMP 97.9; O2SAT 95
[2017-01-01] MEDS: SODIUM CHLORIDE 0.9% IV SCH ×4 (02:03→20:00)
[2017-01-01] MEDS: LEUCOVORIN IV SCH ×4 (02:03→20:00)
[2017-01-01] MEDS: [UNRECOGNIZED DRUG - OTHER] IV SCH ×9 (03:30→21:23)
[2017-01-01] MEDS: SODIUM BICARBONATE IV SCH ×9 (03:30→21:23)
[2017-01-01] MEDS: 1/4 SODIUM CHLORIDE IV SCH ×9 (03:30→21:23)
[2017-01-01] MEDS: INSULIN ASPART SUPPLEMENTAL SCALE SQ SCH ×4 (05:50→21:23)
[2017-01-01] MEDS: SODIUM BICARBONATE 650 MG TAB PO SCH ×3 (05:51→21:22)
[2017-01-01 06:00] VITALS: BP 150/69; PULSE 68; RESP 18; TEMP 97.1; O2SAT 100
[2017-01-01 07:50] VITALS: BP 138/68; PULSE 73; RESP 20; TEMP 97.4; O2SAT 100
[2017-01-01] MEDS: SODIUM CHLORIDE 0.9% FLUSH 5 ML FLUSH FLUSH SCH ×2 (09:00→20:00)
--- NOTE | 2017-01-01 09:01 | PD.ONC.PN ---
Subjective Subjective Remarks Afebrile overnight. Pt resting in chair with and daughter at bedside. He states he slept great last night. He has no complaints. He is anxious to go home. Objective Data Date Time Temp Pulse Resp B/P Pulse Ox O2 Delivery O2 Flow Rate FiO2 01/01/17 06:00 97.1 68 18 150/69 100 01/01/17 00:15 97.9 80 19 139/65 95 12/31/16 20:34 97.9 70 18 118/59 99 12/31/16 15:50 96.0 81 20 118/56 97 12/31/16 11:50 98.0 73 20 129/57 98 Result Diagram: 12/30/16 0358 12/31/16 0534 Laboratory Results Laboratory Tests Test 12/31/16 01/01/17 21:13 06:38 Methotrexate Level 0.26 COMMENT Urine pH 8.5 Administered Medications Medications (Trade) Dose Ordered Sig/Renee Route PRN Reason Start Time Stop Time Status Last Admin Dose Admin IV Flush (NS Flush) 2 ml BID FLUSH 12/29/16 09:00 12/31/16 20:32 Zolpidem Tartrate (Ambien) 5 mg HS PRN PO INSOMNIA 12/29/16 21:00 12/31/16 20:32 Enoxaparin Sodium (Lovenox Inj) 40 mg Q24H SQ 12/29/16 09:00 12/31/16 09:01 Sodium Bicarbonate (Sodium Bicarbonate) 650 mg Q8HR PO 12/29/16 14:00 01/01/17 05:51 Midodrine (Proamatine) 5 mg BID PO 12/29/16 09:00 12/31/16 20:33 Sitagliptin Phosphate (Januvia) 50 mg DAILY PO 12/29/16 09:00 12/31/16 08:59 Metformin HCl (Glucophage) 1,000 mg DAILY PO 12/29/16 09:00 12/31/16 08:59 Aspirin 81 mg 81 mg DAILY PO 12/29/16 09:00 12/31/16 08:59 Leucovorin Calcium 20 mg/ Sodium Chloride 50 ml @ 16.667 mls/ hr Q6H IV 12/30/16 20:15 01/02/17 17:14 01/01/17 02:03 Sodium Chloride/ Sodium Bicarbonate/ Sterile Water (Sodium Chloride 23.4% Inj/Sodium Bicarbonate 8.4% Inj/Sterile Water For Inj) 1,000 ml @ 0 mls/hr Q5H53M IV 12/30/16 00:00 01/01/17 03:30 Metoprolol Succinate (Toprol Xl) 12.5 mg DAILY@21 PO 12/30/16 21:00 12/31/16 20:33 Objective Remarks GENERAL: Well appearing elderly male siting up in chair at bedside in no distress. SKIN: Warm and dry. HEAD: Normocephalic. EYES: No injection or drainage. NECK: Supple, trachea midline. CARDIOVASCULAR: +S1/S2. No murmur appreciated. RESPIRATORY: Breath sounds equal bilaterally. No accessory muscle use. GASTROINTESTINAL: Abdomen soft, non-tender, nondistended. EXTREMITIES: Trace pedal edema. MUSCULOSKELETAL: Adequate muscle tone. NEUROLOGICAL: No obvious focal deficit. Awake, alert, and oriented x3. Assessment/Plan Assessment Mr. Ramey is a 76-year-old male with a diagnosis of primary WATER FITNESS INSTRUCTOR lymphoma; diffuse large B cell variant. Plan 1. Primary central nervous system lymphoma: Day 1 cycle #3 was on 12/29/2016, methotrexate was delivered at a dose of 7000 mg (3500 mg per metered squared). Vincristine delivered at 2 mg IV. Currently tolerating leucovorin rescue. HCO3 infusion at 100ml/hr. Continue oral bicarbonate. Diabetes: Accu-Cheks with sliding scale insulin regular coverage, and kidney oral hypoglycemics as well. Lovenox for DVT prophylaxis Outpatient antihypertensives have also been continued. Methotrexate levels daily. He was 3.92 @ 24 hours, 0.26@ 48 hours. Recheck methotrexate level tonight at 2000. Daily urine pH levels to be checked. He can be discharged once his methotrexate level is less than 0.1. Attending Statement The exam, history, and the medical decision-making described in the above note were completed with the assistance of the mid-level provider. I reviewed and agree with the findings presented. I attest that I had a [id number] encounter with the patient on the same day, and personally performed and documented my assessment and findings in the medical record. he is tolerating tx well and mtx level has dropped approximately 1 log. I spoke with patient and and told them it would most likely be 24-48 hours before discharge and will continue leucovorin to prevent toxicity. Sugey Preciado Jan 01, 2017 09:01 Patrick Arana MD Jan 01, 2017 16:57
[2017-01-01] MEDS: MIDODRINE 5 MG TAB PO SCH ×2 (09:20→19:59)
[2017-01-01] MEDS: ASPIRIN EC 81 MG TABEC PO SCH (09:20)
[2017-01-01] MEDS: metFORMIN HCL 500 MG TAB PO SCH (09:24)
[2017-01-01] MEDS: ENOXAPARIN SODIUM 40 MG/0.4 ML SYRINGE SQ SCH (09:24)
[2017-01-01 11:45] VITALS: BP 138/63; PULSE 83; RESP 20; TEMP 98.2; O2SAT 99
[2017-01-01 12:59] LABS: AUTOMATED NEUTROPHIL # 3.2 TH/MM3 (1.8-7.7); BASOPHIL % 0.8 % (0.0-2.0); EOSINOPHIL # 0.1 TH/MM3 (0-0.4); EOSINOPHIL % 1.3 % (0.0-4.0); HEMATOCRIT 29.6 % (39.0-51.0); HEMO FLAGS DIFF FINAL; LYMPH % 29.3 % (9.0-44.0); LYMPHOCYTE # 1.5 TH/MM3 (1.0-4.8); MEAN CELL VOLUME 93.4 FL (80.0-100.0); MEAN CORPUSCULAR HGB CONC 34.3 % (32.0-36.0); MONO % 6.2 % (0.0-8.0); NEUT % 62.4 % (16.0-70.0); PLATELET COUNT 394 TH/MM3 (150-450); RED BLOOD COUNT 3.17 MIL/MM3 (4.50-5.90); RED CELL DISTRIBUTION WIDTH 16.5 % (11.6-17.2); WHITE BLOOD COUNT 5.2 TH/MM3 (4.0-11.0)
[2017-01-01 13:09] LABS: BICARBONATE 29.6 MEQ/L (21.0-32.0); POTASSIUM 3.5 MEQ/L (3.5-5.1)
[2017-01-01 15:50] VITALS: BP 151/69; PULSE 94; RESP 20; TEMP 97.8; O2SAT 100
[2017-01-01 19:59] VITALS: BP 141/69; PULSE 63; RESP 18; TEMP 98.4; O2SAT 99
[2017-01-01] MEDS: METOPROLOL SUCCINATE 25 MG EXTENDED RELEASE TAB PO SCH (19:59)
[2017-01-01] MEDS ORDERED: DOCUSATE SODIUM 100 MG CAP PO PRN (21:00)
[2017-01-01] MEDS: ZOLPIDEM TARTRATE 5 MG TAB PO PRN (21:22)
[2017-01-02] VITALS: BP 138/71; PULSE 87; RESP 18; TEMP 99.6; O2SAT 96
[2017-01-02] MEDS: SODIUM CHLORIDE 0.9% IV SCH ×2 (01:44→08:08)
[2017-01-02] MEDS: LEUCOVORIN IV SCH ×2 (01:44→08:08)
[2017-01-02 04:00] VITALS: BP 127/59; PULSE 81; RESP 18; TEMP 98.7; O2SAT 96
[2017-01-02] MEDS: SODIUM BICARBONATE IV SCH ×3 (04:37)
[2017-01-02] MEDS: [UNRECOGNIZED DRUG - OTHER] IV SCH ×3 (04:37)
[2017-01-02] MEDS: 1/4 SODIUM CHLORIDE IV SCH ×3 (04:37)
[2017-01-02] MEDS: SODIUM BICARBONATE 650 MG TAB PO SCH (04:38)
[2017-01-02 05:13] LABS: AUTOMATED NEUTROPHIL # 3.6 TH/MM3 (1.8-7.7); BASOPHIL # 0.1 TH/MM3 (0-0.2); BASOPHIL % 1.1 % (0.0-2.0); EOSINOPHIL # 0.1 TH/MM3 (0-0.4); EOSINOPHIL % 1.6 % (0.0-4.0); HEMATOCRIT 29.1 % (39.0-51.0); HEMO FLAGS DIFF FINAL; LYMPHOCYTE # 1.3 TH/MM3 (1.0-4.8); MEAN CELL VOLUME 93.2 FL (80.0-100.0); MEAN CORPUSCULAR HEMOGLOBIN 32.3 PG (27.0-34.0); MEAN CORPUSCULAR HGB CONC 34.7 % (32.0-36.0); MONO % 4.8 % (0.0-8.0); NEUT % 67.5 % (16.0-70.0); PLATELET COUNT 368 TH/MM3 (150-450); RED BLOOD COUNT 3.12 MIL/MM3 (4.50-5.90); RED CELL DISTRIBUTION WIDTH 16.3 % (11.6-17.2); WHITE BLOOD COUNT 5.3 TH/MM3 (4.0-11.0)
[2017-01-02 05:34] LABS: BICARBONATE 27.9 MEQ/L (21.0-32.0); POTASSIUM 3.5 MEQ/L (3.5-5.1)
[2017-01-02] MEDS: INSULIN ASPART SUPPLEMENTAL SCALE SQ SCH ×2 (07:00→11:27)
--- NOTE | 2017-01-02 07:33 | HHI.DS ---
Discharge Summary Admission Date Dec 29, 2016 at 07:35 Discharge Date: Jan 02, 2017 Admitting Diagnosis Primary LIVING SPECIALIST lymphoma Inpatient high-dose chemotherapy Hypertension Type 2 diabetes (1) Cerebral malignant neoplasm Diagnosis: Principal Procedures Cycle #3 high-dose methotrexate 7000 mg IV on day 1, vincristine 2 mg IV on day 1. No invasive procedures were required this admission. Brief History Mr. Archer is a 76-year-old male who was diagnosed in October 2016 with a primary LIVING SPECIALIST lymphoma involving the occipital lobe of the brain. An excisional biopsy established the diagnosis. He has since then been on systemic therapy with high-dose methotrexate, Rituxan and intrathecal cytarabine injections. He presented to the hospital for cycle #3 high-dose methotrexate, vincristine was also delivered. He has been on leucovorin IV rescue injections and his methotrexate levels have been declining appropriately. Clinically he is doing well, he tolerates chemotherapy without any significant adverse effects, he has minimal LIVING SPECIALIST deficits (the only reported deficit is a small visual field deficit along the left lateral aspect of his visual field). CBC/BMP: 01/02/17 0500 01/02/17 0500 Significant Findings Laboratory Tests Test 12/31/16 01/01/17 01/02/17 05:34 12:10 05:00 Sodium Level 147 MEQ/L (136-145) Potassium Level 3.1 MEQ/L (3.5-5.1) Chloride Level 109 MEQ/L (98-107) Calcium Level 8.1 MG/DL 8.4 MG/DL (8.5-10.1) (8.5-10.1) Red Blood Count 3.17 MIL/MM3 3.12 MIL/MM3 (4.50-5.90) (4.50-5.90) Hemoglobin 10.2 GM/DL 10.1 GM/DL (13.0-17.0) (13.0-17.0) Hematocrit 29.6 % 29.1 % (39.0-51.0) (39.0-51.0) Random Glucose 162 MG/DL 149 MG/DL (74-106) (74-106) PE at Discharge Please see my progress note dated 01/02/2017. Hospital Course Mr. Ramey was admitted to the hospital on 12/29/16. He was initiated on IV bicarbonate infusion, vincristine was delivered. High-dose methotrexate was started after his urine pH had increased over 7. He was subsequently dosed with methotrexate and tolerated this without difficulty. Over the next 48 hours he was maintained on leucovorin infusions and his methotrexate levels were noted to be declining appropriately. He has elected to undergo intrathecal cytarabine injection as an outpatient this time so he will be discharged home today and will come into our outpatient radiology suite on a later date for IT chemotherapy. Pt Condition on Discharge: Fair Discharge Disposition: Discharge Home Discharge Instructions DIET: Follow Instructions for: As Tolerated, No Restrictions Speech Therapy-Diet Recommenda: Regular Activities you can perform: Weight Bearing as Lenora Nas Fish MD Jan 02, 2017 07:33
--- NOTE | 2017-01-02 07:34 | PD.ONC.PN ---
Subjective Subjective Remarks Patient denies complaints, reports feeling well but he feels his energy level is lower today than it has been. Despite this he reports ambulating in the hallways without difficulty. Patients specifically denies febrile illness, mouth sores, diarrhea or new neurologic symptoms such as headaches, focal sensory or motor deficits or peripheral neuropathy. He is eager to go home today. Objective Data Date Time Temp Pulse Resp B/P Pulse Ox O2 Delivery O2 Flow Rate FiO2 01/02/17 04:00 98.7 81 18 127/59 96 01/02/17 00:00 99.6 87 18 138/71 96 01/01/17 19:59 98.4 63 18 141/69 99 01/01/17 15:50 97.8 94 20 151/69 100 01/01/17 11:45 98.2 83 20 138/63 99 01/01/17 07:50 97.4 73 20 138/68 100 Result Diagram: 01/02/17 0500 01/02/17 0500 Laboratory Results Laboratory Tests Test 01/01/17 01/02/17 12:10 05:00 White Blood Count 5.2 TH/MM3 5.3 TH/MM3 Red Blood Count 3.17 MIL/MM3 3.12 MIL/MM3 Hemoglobin 10.2 GM/DL 10.1 GM/DL Hematocrit 29.6 % 29.1 % Mean Corpuscular Volume 93.4 FL 93.2 FL Mean Corpuscular Hemoglobin 32.0 PG 32.3 PG Mean Corpuscular Hemoglobin 34.3 % 34.7 % Concent Red Cell Distribution Width 16.5 % 16.3 % Platelet Count 394 TH/MM3 368 TH/MM3 Mean Platelet Volume 8.6 FL 8.1 FL Neutrophils (%) (Auto) 62.4 % 67.5 % Lymphocytes (%) (Auto) 29.3 % 25.0 % Monocytes (%) (Auto) 6.2 % 4.8 % Eosinophils (%) (Auto) 1.3 % 1.6 % Basophils (%) (Auto) 0.8 % 1.1 % Neutrophils # (Auto) 3.2 TH/MM3 3.6 TH/MM3 Lymphocytes # (Auto) 1.5 TH/MM3 1.3 TH/MM3 Monocytes # (Auto) 0.3 TH/MM3 0.3 TH/MM3 Eosinophils # (Auto) 0.1 TH/MM3 0.1 TH/MM3 Basophils # (Auto) 0.0 TH/MM3 0.1 TH/MM3 CBC Comment DIFF FINAL DIFF FINAL Differential Comment Sodium Level 141 MEQ/L 142 MEQ/L Potassium Level 3.5 MEQ/L 3.5 MEQ/L Chloride Level 104 MEQ/L 107 MEQ/L Carbon Dioxide Level 29.6 MEQ/L 27.9 MEQ/L Anion Gap 7 MEQ/L 7 MEQ/L Blood Urea Nitrogen 8 MG/DL 8 MG/DL Creatinine 0.72 MG/DL 0.65 MG/DL Estimat Glomerular Filtration 106 ML/MIN 120 ML/MIN Rate Random Glucose 162 MG/DL 149 MG/DL Calcium Level 8.4 MG/DL 8.5 MG/DL Urine pH 8.0 Administered Medications Medications (Trade) Dose Ordered Sig/Renee Route PRN Reason Start Time Stop Time Status Last Admin Dose Admin IV Flush (NS Flush) 2 ml BID FLUSH 12/29/16 09:00 01/01/17 20:00 Zolpidem Tartrate (Ambien) 5 mg HS PRN PO INSOMNIA 12/29/16 21:00 01/01/17 21:22 Enoxaparin Sodium (Lovenox Inj) 40 mg Q24H SQ 12/29/16 09:00 01/01/17 09:24 Sodium Bicarbonate (Sodium Bicarbonate) 650 mg Q8HR PO 12/29/16 14:00 01/02/17 04:38 Midodrine (Proamatine) 5 mg BID PO 12/29/16 09:00 01/01/17 19:59 Sitagliptin Phosphate (Januvia) 50 mg DAILY PO 12/29/16 09:00 01/01/17 09:24 Metformin HCl (Glucophage) 1,000 mg DAILY PO 12/29/16 09:00 01/01/17 09:24 Aspirin (Ecotrin Ec) 81 mg DAILY PO 12/29/16 09:00 01/01/17 09:20 Miscellaneous 1 ea 1 ea UNSCH PRN OTHER SEE LABEL COMMENTS 12/29/16 08:00 01/01/17 19:59 Leucovorin Calcium 20 mg/ Sodium Chloride 50 ml @ 16.667 mls/ hr Q6H IV 12/30/16 20:15 01/02/17 17:14 01/02/17 01:44 Sodium Chloride/ Sodium Bicarbonate/ Sterile Water (Sodium Chloride 23.4% Inj/Sodium Bicarbonate 8.4% Inj/Sterile Water For Inj) 1,000 ml @ 0 mls/hr Q5H53M IV 12/30/16 00:00 01/02/17 04:37 Metoprolol Succinate (Toprol Xl) 12.5 mg DAILY@21 PO 12/30/16 21:00 01/01/17 19:59 Docusate Sodium (Colace) 100 mg BID PRN PO CONSTIPATION 01/01/17 21:00 01/01/17 21:22 Objective Remarks GENERAL PHYSICAL APPEARANCE: Mr. Ramey is an elderly male, he is tall and of moderate build, appears to be no acute distress. He is accompanied by his and daughter. HEENT: Head atraumatic, normocephalic, conjunctive are not pale, sclerae anicteric, EOMI, PERRLA, oral exam no pharyngeal erythema. NECK: No palpable cervical or supraclavicular lymphadenopathy. RESPIRATORY: Good air movement bilaterally. No added breath sounds. CARDIOVASCULAR: Regular rate and rhythm, S1-S2. No obvious murmurs, rubs or gallops. ABDOMEN: Protuberant, soft, nontender, nondistended, no palpable organ enlargement. EXTREMITIES: Lower extremities have no pretibial edema. No calf tenderness. 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 Assessment/Plan Assessment Mr. Ramey is a 76-year-old male with a diagnosis of primary MENSWEAR SALESPERSON lymphoma; diffuse large B cell variant. Plan 1. Primary central nervous system lymphoma: Day 1 cycle #3 was on 12/29/2016, methotrexate was delivered at a dose of 7000 mg (3500 mg per metered squared). Vincristine delivered at 2 mg IV. Currently tolerating leucovorin rescue. HCO3 infusion at 100ml/hr. Continue oral bicarbonate. Methotrexate level from last night is pending, discharge home when level shown to be less than 0.1 (or close to it). Diabetes: Accu-Cheks with sliding scale insulin regular coverage, and kidney oral hypoglycemics as well. Lovenox for DVT prophylaxis Outpatient antihypertensives have also been continued. Methotrexate levels daily. He was 3.92 @ 24 hours, 0.26@ 48 hours. Recheck methotrexate level tonight at 2000. Daily urine pH levels to be checked. Disposition: Discharge home later today. I will organize an MRI of the brain to be done in the upcoming one to 2 weeks. This will be for restaging purposes. I will also organize outpatient intrathecal cytarabine injection. Nas Fish MD Jan 02, 2017 07:34
[2017-01-02 08:00] VITALS: BP 122/59; PULSE 88; RESP 20; TEMP 99.1; O2SAT 97
[2017-01-02] MEDS: ASPIRIN EC 81 MG TABEC PO SCH (08:06)
[2017-01-02] MEDS: ENOXAPARIN SODIUM 40 MG/0.4 ML SYRINGE SQ SCH (08:07)
[2017-01-02] MEDS: MIDODRINE 5 MG TAB PO SCH (08:07)
[2017-01-02] MEDS: metFORMIN HCL 500 MG TAB PO SCH (08:07)
[2017-01-02] MEDS: SODIUM CHLORIDE 0.9% FLUSH 5 ML FLUSH FLUSH SCH (08:08)
== END 2017-01-02 12:15 | disposition home or self-care (01) | DRG 847 ==
LOC: HOCB 06:46 → OBSVTOIN 07:35 → HOCA 17:15
PROVIDERS: ADMIT Internal Medicine Hematology & Oncology; ATTEND Internal Medicine Hematology & Oncology
PROC: 3E0R305 Introduction of Other Antineoplastic into Spinal Canal, Percutaneous Approach (ICD-10-PCS; principal; 2016-12-29)
DX: Z51.11 Encounter for antineoplastic chemotherapy (principal); C85.91 Non-Hodgkin lymphoma, unspecified, lymph nodes of head, face, and neck; E11.9 Type 2 diabetes mellitus without complications; I10 Essential (primary) hypertension; I25.10 Atherosclerotic heart disease of native coronary artery without angina pectoris; N40.0 Benign prostatic hyperplasia without lower urinary tract symptoms; Z87.891 Personal history of nicotine dependence
CPT/HCPCS: 80048; 80053; 80299; 81003; 82948; 83735; 85025; 96413; 96415; 96523; G0463; G0480; J0640; J1100; J1626; J1642; J1650; J1815; J7030; J7040; J7060; J9250; J9310; J9370

== ENCOUNTER 2017-01-04 09:56 | Day surgery (SDC) | payer MEDICARE, OTHER ==
[~2017-01-04] VITALS: Ht 182.9 cm; Wt 86.3 kg
[2017-01-04] MEDS ORDERED: ASPI81CH CHEW (10:21)
[2017-01-04] MEDS ORDERED: MIDO5TAB PO (10:21)
[2017-01-04 10:30] VITALS: BP 122/52; PULSE 81; RESP 20; TEMP 98.1; O2SAT 100
[2017-01-04] MEDS ORDERED: SODIUM CHLOR 0.9% 1000 ML INJ 1,000 ML IV SCH (11:00)
[2017-01-04] MEDS ORDERED: SODIUM CHLORIDE 0.9% IT ONE ×2 (12:00)
[2017-01-04] MEDS ORDERED: CYTARABINE IT ONE ×2 (12:00)
[2017-01-04 12:02] LABS: APTT (PATIENT) 26.8 SEC (24.3-30.1); PROTHROMBIN TIME - PATIENT 10.5 SEC (9.8-11.6)
--- NOTE | 2017-01-04 12:51 | PD.RAD ---
Post Procedure Progress Note Pre Procedure Diagnosis: (1) Cerebral malignant neoplasm Post Procedure Diagnosis: (1) Cerebral malignant neoplasm Procedure Date: Jan 04, 2017 Supervising Radiologist: Mickey Grijalva Anesthesia: Local Plan of Activity Patient to Unit: ROPU Patient Condition: Good Additional Comments: LP completed without difficulty Chemotherapy verified and administered without difficulty. Pt. tolerated the procedure well. See PACS Report for procedural detail/treatment Mickey Grijalva MD Jan 04, 2017 12:51
[2017-01-04 13:00] VITALS: BP 151/70; PULSE 80; RESP 18; TEMP 97.9; O2SAT 98
[2017-01-04 15:00] VITALS: BP 149/59; PULSE 88; RESP 19; O2SAT 98
[2017-01-04] MEDS ORDERED: Infusaport/Implanted VAD PRN NS Lock Flush IVF (16:00)
--- NOTE | 2017-01-05 09:15 | RADRPT ---
EXAM DATE/TIME: 01/04/2017 12:41 [facility] COMPARISON: LUMBAR PUNCTURE W/CHEMO INJECT, December 13, 2016, 10:08. INDICATIONS : Patient presents with lymphoma in need of lumbar puncture with chemotherapy injection for treatment. MEDICAL HISTORY : HTN Arthritis Diabetes Cataracts CAD SURGICAL HISTORY : Tonsillectomy Brain tumor removal Cardiac stents Left knee replacement 2007 Bone marrow aspiration in 2016 Port placement 2016 Colonoscopy in 2010 Craniotomy with excisional biopsy in 2016 ENCOUNTER: Subsequent ACUITY: 2 months PAIN SCORE: 0/10 LOCATION: N/A LUMBAR PUNCTURE TIME: 12:44 hours FLUORO TIME: 1.1 minutes ACCESS LEVEL: L3-4 PROCEDURE : Fluoroscopic guided lumbar puncture. Instillation of chemotherapy. The risks, benefits and alternatives to the procedure were explained and verbal and written consent w as obtained. The site was prepped in sterile fashion. Full sterile technique was used, including ca p, mask, sterile gloves and gown and a large sterile sheet. Hand hygiene and 2% chlorhexidine and/or betadine/alcohol prep was utilized per protocol for cutaneous antisepsis. The skin and subcutaneous tissues were infiltrated with local anesthetic solution. With fluoroscopic guidance the lumbar thecal sac was punctured at the level above. The prescribed ch emo therapeutic was injected. The patient tolerated the procedure well and there were no complications. CONCLUSION: Uncomplicated fluoroscopically guided lumbar puncture with chemotherapy injection. Mickey Grijalva MD on January 05, 2017 at 9:11 Board Certified Radiologist. This report was verified electronically.
== END 2017-01-04 15:20 | disposition home or self-care (01) ==
LOC: HROP 09:56 → HRIP 09:57 → HROP 15:20
PROVIDERS: ATTEND Internal Medicine Hematology & Oncology
DX: C85.91 Non-Hodgkin lymphoma, unspecified, lymph nodes of head, face, and neck (principal); I10 Essential (primary) hypertension; I25.10 Atherosclerotic heart disease of native coronary artery without angina pectoris; E11.9 Type 2 diabetes mellitus without complications; Z79.01 Long term (current) use of anticoagulants
CPT/HCPCS: 62270; 77003; 85610; 85730; J1642; J7030; J9100

== ENCOUNTER 2017-01-19 06:38 | Inpatient (IN) | payer MEDICARE, OTHER ==
[~2017-01-19] VITALS: Ht 182.9 cm; Wt 90.9 kg
[2017-01-19] MEDS: 1/4 SODIUM CHLORIDE IV SCH ×3 (01:13)
[2017-01-19] MEDS: [UNRECOGNIZED DRUG - OTHER] IV SCH ×3 (01:13)
[2017-01-19] MEDS: SODIUM BICARBONATE IV SCH ×3 (01:13)
[~2017-01-19 06:38] MED LIST changes: +ASPI81CH CHEW; +MIDO5TAB PO
[2017-01-19] MEDS ORDERED: SODIUM CHLORIDE 0.9% FLUSH 5 ML FLUSH FLUSH PRN (08:00)
[2017-01-19] MEDS ORDERED: ONDANSETRON HCL 4 MG/2 ML VIAL IVP PRN (08:00)
[2017-01-19] MEDS ORDERED: ACETAMINOPHEN 325 MG TAB PO PRN (08:00)
[2017-01-19] MEDS ORDERED: MAGNESIUM HYDROXIDE SUSP 30 ML CUP PO PRN (08:00)
[2017-01-19] MEDS ORDERED: ZOLPIDEM TARTRATE 5 MG TAB PO PRN (08:00)
[2017-01-19] MEDS ORDERED: NALOXONE HCL 0.4 MG/ML AMP IV PRN (08:00)
[2017-01-19] MEDS ORDERED: DEXTROSE 50% IN WATER 50 ML VIAL(D50) IV PUSH PRN (08:00)
[2017-01-19] MEDS ORDERED: SENNOSIDES 8.6 MG TAB PO PRN (08:00)
[2017-01-19] MEDS ORDERED: GLUCAGON 1 MG/ML VIAL OTHER PRN (08:00)
[2017-01-19] MEDS: DOCUSATE SODIUM 100 MG CAP PO SCH ×2 (08:00→22:25)
[2017-01-19] MEDS: GLIMEPIRIDE 1 MG TAB PO SCH (08:00)
--- NOTE | 2017-01-19 08:50 | MH ---
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 REASON FOR ADMISSION The patient is being admitted for cycle #4 of systemic therapy with high-dose methotrexate/vincristine. CHIEF COMPLAINT Mr. Ramey reports having fatigue. He reports the fatigue has been somewhat more pronounced after his third cycle of treatment. HISTORY OF PRESENT ILLNESS Mr. Ramey is a very pleasant 76-year-old male who was diagnosed in October of 2016 with a primary PIN PULLER lymphoma which presented as a right occipital mass associated with significant vasogenic edema. The diagnosis was established based on an excisional biopsy on craniotomy. He subsequently was initiated on systemic therapy with high-dose methotrexate plus vincristine, systemic Rituxan, as well as intrathecal cytarabine injections. He has thus far received three cycles and restaging imaging performed after cycle #3 indicates good response to treatment without evidence of progression. He comes in today for initiation of cycle #4. Two days ago in clinic he received Rituxan. PAST MEDICAL HISTORY 1. Primary PIN PULLER lymphoma. 2. Coronary artery disease. 3. Type 2 diabetes. 4. Valvular heart disease. 5. Cataracts. PAST SURGICAL HISTORY 1. Craniotomy with excisional biopsy of the right occipital brain mass. 2. Tonsillectomy. 3. Left knee surgery. 4. Colonoscopy. 5. Bone marrow biopsy and aspiration. FAMILY HISTORY Parents both of complications of diabetes. He has had two sisters with history of cancer. SOCIAL HISTORY He is . He lives at home with his . He has three daughters, all are adults and are supportive. The patient previously was a tobacco smoker. He is retired. Reports daily activities. ALLERGIES No known drug allergies. CURRENT INPATIENT MEDICATIONS 1. Metformin 1000 mg daily. 2. Glimepiride 1 mg p.o. daily. 3. Insulin sliding scale. 4. Lovenox 40 mg subcu q.24 hours. 5. Colace 100 mg p.o. q. 12. 6. Vitamin D3 1000 international units daily. 7. Aspirin 81 mg once a day. 8. Sodium bicarbonate 650 mg p.o. q.8 hours. 9. Midodrine 5 mg p.o. b.i.d. 10. Metoprolol XL 12.5 mg daily. 11. Senna/Colace. 12. Ambien 5 mg p.o. q.h.s. as needed for insomnia. REVIEW OF SYSTEMS A 13-point review of systems obtained from the patient. CONSTITUTIONAL: He reports constitutional symptoms of fatigue but denies fevers or chills. He denies weight loss. HEENT: Denies headaches, blurry vision, difficulty swallowing or sore throat. RESPIRATORY: Denies respiratory complaints. CARDIOVASCULAR: Denies angina-like chest pain, PND, orthopnea. GI: Denies nausea, vomiting, diarrhea, hematochezia, melena, abdominal distension. : Denies dysuria, hematuria or urinary incontinence. SKIN: No complaints. MUSCULOSKELETAL: No complaints. PHYSICAL EXAMINATION VITAL SIGNS: Height 182 cm, weight 87.6 kilograms, temperature 98.2 degrees Fahrenheit, heart rate 76 beats per minute, respiratory rate 18, blood pressure 113/58. O2 sats are 97% on room air. GENERAL APPEARANCE: Mr. Ramey is an elderly male. He is tall and of moderate build. He is accompanied by his and daughter. HEENT: Head atraumatic, normocephalic. Conjunctivae are not pale. Sclerae are anicteric. EOMI. PERRLA. Oral Exam - No pharyngeal erythema. NECK EXAM: No palpable cervical or supraclavicular lymphadenopathy. RESPIRATORY EXAM: Good air movement bilaterally. No added breath sounds. CARDIOVASCULAR: Regular rate and rhythm. A faint systolic murmur heard over the aortic area. ABDOMINAL EXAM: Thin belly, soft and nontender, nondistended. No palpable organ enlargement. LOWER EXTREMITIES: No pretibial edema. No calf tenderness. PIN PULLER: No focal sensory or motor deficits. LABORATORY FINDINGS Blood work dated 01/16/2017: WBC count 6.5, hemoglobin 10.8 gm/dL, hematocrit 32.9%, platelet count 263, absolute neutrophil count 4. Chemistries: Sodium 142, potassium 3.9, chloride 104, bicarb 27.2, BUN 12, creatinine 0.7, EGFR 110, calcium 9.3, total bilirubin 0.4, AST 10, ALT 23, alkaline phosphatase 75, total protein 6.3, albumin 3.5. ASSESSMENT Mr. Ramey is a very pleasant 76-year-old male with a diagnosis of primary PIN PULLER lymphoma, he comes in to the hospital for cycle #4 of high-dose methotrexate. Interim scans after cycle #3 indicated good response to therapy without evidence of disease recurrence. He received a total dose of 7500 mg of methotrexate with his third cycle of treatment along with 2 mg of vincristine, intrathecal chemotherapy with cytarabine was delivered on the 5 or 6 of methotrexate. He tolerated treatments reasonably well but tells me that he has had more fatigue after cycle #3 than he did after cycles 1 or 2. RECOMMENDATIONS 1. Primary PIN PULLER lymphoma: Proceed with pretreatment protocol and conditioning with oral and intravenous systemic alkalinizing agents. The urine pH will be measured daily. Methotrexate treatment will start when his urine pH is greater than 7.5. Methotrexate will be dosed at 7500 mg on day #1 along with vincristine 2 mg IV x 1 on day #1 of the cycle. The leukovorin rescue will be initiated 24 hours after the initiation of methotrexate as per the protocol. We will begin measuring serum methotrexate levels 48 hours after initiation of methotrexate infusions. 2. Diabetes mellitus: Bedside fingerstick glucose checks have been ordered, continue oral hypoglycemics with metformin, glimepiride as well as insulin sliding scale. 3. Hypertension: Continue outpatient aspirin 81 mg once daily as well as metoprolol 12.5 mg once daily. 4. Lovenox 40 mg subcu daily for DVT prophylaxis. 5. A regular diet has been ordered. 6. Blood work including CBC and CMP will be obtained every other day. MD YELITZA Whaley/QUINTON /8:09 AM /8:26 AM
[2017-01-19] MEDS: metFORMIN HCL 500 MG TAB PO SCH (09:00)
[2017-01-19] MEDS: SODIUM CHLORIDE 0.9% FLUSH 5 ML FLUSH FLUSH SCH ×2 (09:00→22:37)
[2017-01-19] MEDS ORDERED: SODIUM BICARBONATE 8.4% INJ 75 MEQ in SODIUM CHLOR 0.9% 1000 ML INJ 1,000 ML IV SCH (09:00)
[2017-01-19] MEDS: CHOLECALCIFEROL (VIT D3) 1000 UNIT TAB PO SCH (09:00)
[2017-01-19] MEDS: METOPROLOL SUCCINATE 25 MG EXTENDED RELEASE TAB PO SCH (09:00)
[2017-01-19] MEDS: ASPIRIN EC 81 MG TABEC PO SCH (09:00)
[2017-01-19] MEDS: MIDODRINE 5 MG TAB PO SCH ×2 (09:00→22:25)
[2017-01-19] MEDS ORDERED: PILL SPLITTER OTHER PRN (09:00)
[2017-01-19] MEDS: ENOXAPARIN SODIUM 40 MG/0.4 ML SYRINGE SQ SCH (09:59)
[2017-01-19] MEDS: SODIUM BICARBONATE 650 MG TAB PO SCH ×2 (09:59→17:05)
[2017-01-19] MEDS: INSULIN NovoLIN REGULAR SUPPLEMENTAL SCALE SQ SCH ×3 (11:00→21:00)
[2017-01-19 12:52] VITALS: BP 129/70; PULSE 77; RESP 16; TEMP 96.8; O2SAT 100
[2017-01-19 14:00] VITALS: BP 153/79; PULSE 125; RESP 16; TEMP 96.7; O2SAT 100
[2017-01-19] MEDS ORDERED: SODIUM BICARBONATE IV SCH ×6 (15:00→19:00)
[2017-01-19] MEDS ORDERED: 1/4 SODIUM CHLORIDE IV SCH ×6 (15:00→19:00)
[2017-01-19] MEDS ORDERED: [UNRECOGNIZED DRUG - OTHER] IV SCH ×3 (15:00)
[2017-01-19 16:00] VITALS: BP 153/79; PULSE 125; RESP 16; TEMP 96.7; O2SAT 100
[2017-01-19] MEDS ORDERED: VINCRISTINE IV ONE ×2 (16:00)
[2017-01-19] MEDS ORDERED: SODIUM CHLORIDE IV ONE ×2 (16:00)
[2017-01-19] MEDS ORDERED: GRANISETRON INJ 1 MG, DEXAMETHASONE INJ 20 MG in SODIUM CHLORIDE 0.9% INJ 50 ML IV ONE (18:00)
[2017-01-19] MEDS ORDERED: [UNRECOGNIZED DRUG - OTHER] IV SCH ×3 (19:00)
[2017-01-19] MEDS ORDERED: METHOTREXATE IV ONE ×2 (19:00)
[2017-01-19] MEDS ORDERED: WATE IV ONE ×2 (19:00)
[2017-01-19] MEDS ORDERED: DEXTROSE 5% IV ONE ×2 (19:00)
[2017-01-19 20:00] VITALS: BP 147/71; PULSE 76; RESP 16; TEMP 97.6; O2SAT 100
[2017-01-20] VITALS: BP 133/64; PULSE 66; RESP 16; TEMP 96.6; O2SAT 96
[2017-01-20] MEDS: SODIUM BICARBONATE 650 MG TAB PO SCH ×3 (00:15→17:19)
[2017-01-20] MEDS: 1/4 SODIUM CHLORIDE IV SCH ×12 (01:13→19:05)
[2017-01-20] MEDS: SODIUM BICARBONATE IV SCH ×12 (01:13→19:05)
[2017-01-20] MEDS: [UNRECOGNIZED DRUG - OTHER] IV SCH ×12 (01:13→19:05)
[2017-01-20 05:48] VITALS: BP 126/66; PULSE 68; RESP 19; TEMP 97.2; O2SAT 98
[2017-01-20] MEDS: INSULIN NovoLIN REGULAR SUPPLEMENTAL SCALE SQ SCH ×4 (05:54→20:04)
[2017-01-20 06:41] LABS: AUTOMATED NEUTROPHIL # 4.7 TH/MM3 (1.8-7.7); BASOPHIL % 0.4 % (0.0-2.0); EOSINOPHIL % 0.1 % (0.0-4.0); HEMATOCRIT 30.7 % (39.0-51.0); HEMO FLAGS DIFF FINAL; LYMPH % 12.6 % (9.0-44.0); LYMPHOCYTE # 0.7 TH/MM3 (1.0-4.8); MEAN CELL VOLUME 95.9 FL (80.0-100.0); MEAN CORPUSCULAR HEMOGLOBIN 33.3 PG (27.0-34.0); MEAN CORPUSCULAR HGB CONC 34.7 % (32.0-36.0); MONO % 2.4 % (0.0-8.0); NEUT % 84.5 % (16.0-70.0); PLATELET COUNT 270 TH/MM3 (150-450); RED CELL DISTRIBUTION WIDTH 17.4 % (11.6-17.2); WHITE BLOOD COUNT 5.5 TH/MM3 (4.0-11.0)
[2017-01-20 07:17] LABS: ALKALINE PHOSPHATASE 69 U/L (45-117); ALT (GPT) 40 U/L (12-78); ANION GAP 7 MEQ/L (5-15); AST (GOT) 61 U/L (15-37); BICARBONATE 29.3 MEQ/L (21.0-32.0); BLOOD UREA NITROGEN 11 MG/DL (7-18); CHLORIDE 107 MEQ/L (98-107); GLOMERULAR FILTRATION RATE 88 ML/MIN (>89); POTASSIUM 5.1 MEQ/L (3.5-5.1); SODIUM (NA) 143 MEQ/L (136-145); TOTAL BILIRUBIN ADULT 0.9 MG/DL (0.2-1.0)
[2017-01-20] MEDS: metFORMIN HCL 500 MG TAB PO SCH (07:59)
[2017-01-20] MEDS: MIDODRINE 5 MG TAB PO SCH ×2 (07:59→19:56)
[2017-01-20] MEDS: CHOLECALCIFEROL (VIT D3) 1000 UNIT TAB PO SCH (07:59)
[2017-01-20 08:00] VITALS: BP 120/62; PULSE 77; RESP 16; TEMP 96.4; O2SAT 98
[2017-01-20] MEDS: GLIMEPIRIDE 1 MG TAB PO SCH (08:00)
[2017-01-20] MEDS: SODIUM CHLORIDE 0.9% FLUSH 5 ML FLUSH FLUSH SCH ×2 (08:00→19:56)
[2017-01-20] MEDS: ASPIRIN EC 81 MG TABEC PO SCH (08:00)
[2017-01-20] MEDS: DOCUSATE SODIUM 100 MG CAP PO SCH ×2 (08:00→19:56)
[2017-01-20] MEDS: METOPROLOL SUCCINATE 25 MG EXTENDED RELEASE TAB PO SCH (08:00)
[2017-01-20] MEDS: ENOXAPARIN SODIUM 40 MG/0.4 ML SYRINGE SQ SCH (08:01)
--- NOTE | 2017-01-20 12:24 | PD.ONC.PN ---
Subjective Subjective Remarks Patient received methotrexate and vincristine on 01/19/2017 without complications. He reports tolerating treatment without any difficulties. He has been up out of bed and ambulated well yesterday and this morning. He specifically denies fevers or chills. Objective Data Date Time Temp Pulse Resp B/P Pulse Ox O2 Delivery O2 Flow Rate FiO2 01/20/17 08:00 96.4 77 16 120/62 98 01/20/17 05:48 97.2 68 19 126/66 98 01/20/17 00:00 96.6 66 16 133/64 96 01/19/17 20:00 97.6 76 16 147/71 100 01/19/17 16:00 96.7 125 16 153/79 100 01/19/17 12:52 96.8 77 16 129/70 100 01/20/17 01/20/17 01/20/17 07:00 15:00 23:00 Intake Total 1144 ml Balance 1144 ml Result Diagram: 01/20/17 0540 01/20/17 0540 Laboratory Results Laboratory Tests Test 01/19/17 01/19/17 01/20/17 01/20/17 13:15 17:10 05:40 05:44 Urine pH 7.5 8.0 8.5 White Blood Count 5.5 TH/MM3 Red Blood Count 3.20 MIL/MM3 Hemoglobin 10.6 GM/DL Hematocrit 30.7 % Mean Corpuscular Volume 95.9 FL Mean Corpuscular Hemoglobin 33.3 PG Mean Corpuscular Hemoglobin 34.7 % Concent Red Cell Distribution Width 17.4 % Platelet Count 270 TH/MM3 Mean Platelet Volume 9.5 FL Neutrophils (%) (Auto) 84.5 % Lymphocytes (%) (Auto) 12.6 % Monocytes (%) (Auto) 2.4 % Eosinophils (%) (Auto) 0.1 % Basophils (%) (Auto) 0.4 % Neutrophils # (Auto) 4.7 TH/MM3 Lymphocytes # (Auto) 0.7 TH/MM3 Monocytes # (Auto) 0.1 TH/MM3 Eosinophils # (Auto) 0.0 TH/MM3 Basophils # (Auto) 0.0 TH/MM3 CBC Comment DIFF FINAL Differential Comment Sodium Level 143 MEQ/L Potassium Level 5.1 MEQ/L Chloride Level 107 MEQ/L Carbon Dioxide Level 29.3 MEQ/L Anion Gap 7 MEQ/L Blood Urea Nitrogen 11 MG/DL Creatinine 0.85 MG/DL Estimat Glomerular Filtration 88 ML/MIN Rate Random Glucose 199 MG/DL Calcium Level 8.6 MG/DL Total Bilirubin 0.9 MG/DL Aspartate Amino Transf 61 U/L (AST/SGOT) Alanine Aminotransferase 40 U/L (ALT/SGPT) Alkaline Phosphatase 69 U/L Total Protein 5.9 GM/DL Albumin 3.1 GM/DL Administered Medications Medications (Trade) Dose Ordered Sig/Renee Route PRN Reason Start Time Stop Time Status Last Admin Dose Admin IV Flush (NS Flush) 2 ml BID FLUSH 01/19/17 09:00 01/19/17 22:37 Docusate Sodium (Colace) 100 mg Q12H PO 01/19/17 08:00 01/20/17 08:00 Enoxaparin Sodium (Lovenox Inj) 40 mg Q24H SQ 01/19/17 09:00 01/20/17 08:01 Metformin HCl (Glucophage) 1,000 mg DAILY PO 01/19/17 09:00 01/20/17 07:59 Glimepiride (Amaryl) 1 mg DAILYAC PO 01/19/17 08:00 01/20/17 08:00 Aspirin (Ecotrin Ec) 81 mg DAILY PO 01/19/17 09:00 01/20/17 08:00 Cholecalciferol (Vitamin D3) 1,000 units DAILY PO 01/19/17 09:00 01/20/17 07:59 Midodrine (Proamatine) 5 mg BID PO 01/19/17 09:00 01/20/17 07:59 Metoprolol Succinate (Toprol Xl) 12.5 mg DAILY PO 01/19/17 09:00 01/20/17 08:00 Sodium Bicarbonate 650 mg 650 mg Q8H PO 01/19/17 09:00 01/20/17 08:00 Sodium Chloride/ Sodium Bicarbonate/ Sterile Water (Sodium Chloride 23.4% Inj/Sodium Bicarbonate 8.4% Inj/Sterile Water For Inj) 1,000 ml @ 170 mls/hr Q5H53M IV 01/19/17 22:00 01/22/17 21:59 01/20/17 07:57 Objective Remarks GENERAL: Well-nourished, well-developed patient. SKIN: Warm and dry. HEAD: Normocephalic. EYES: No scleral icterus. No injection or drainage. NECK: Supple, trachea midline. No JVD or lymphadenopathy. LYMPHATIC: No adenopathy. CARDIOVASCULAR: Regular rate and rhythm without murmurs. RESPIRATORY: Breath sounds equal bilaterally. No accessory muscle use. GASTROINTESTINAL: Abdomen soft, non-tender, nondistended. EXTREMITIES: No cyanosis, or edema. MUSCULOSKELETAL: Adequate muscle tone. NEUROLOGICAL: No obvious focal deficit. Awake, alert, and oriented x3. PSYCHIATRIC: Appropriate mood and affect; insight and judgment normal. Assessment/Plan Assessment Mr. 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 Interim scans after cycle #3 indicated good response to therapy without evidence of disease recurrence. He received a total dose of 7500 mg of methotrexate with his third cycle of treatment along with 2 mg of vincristine, intrathecal chemotherapy with cytarabine was delivered on the 5 or 6 of methotrexate. He tolerated treatments reasonably well but tells me that he has had more fatigue after cycle #3 than he did after cycles 1 or 2. Plan 1. 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 On 01/17/2017 he received cycle #4 Rituxan. He will start leucovorin rescue at about 7 PM tonight, I will start checking methotrexate levels starting tomorrow morning. 2. Diabetes mellitus: On outpatient oral hypoglycemics, in addition to this he is on a supplemental insulin regular sliding scale. 3. Hypertension: Continue long-acting metoprolol. 4. Alkalinization: He will remain on IV sodium bicarbonate infusion as per chemotherapy protocol. He'll also remain on oral sodium bicarbonate supplementation. 5. DVT prophylaxis with Lovenox. Nas Fish MD Jan 20, 2017 12:24
[2017-01-20 12:32] VITALS: BP 121/59; PULSE 75; RESP 16; TEMP 96.3; O2SAT 99
[2017-01-20 16:00] VITALS: BP 129/62; PULSE 78; RESP 16; TEMP 97; O2SAT 100
[2017-01-20] MEDS: SODIUM CHLORIDE 0.9% IV SCH (19:05)
[2017-01-20] MEDS: LEUCOVORIN IV SCH (19:05)
[2017-01-20 20:00] VITALS: BP 129/65; PULSE 77; RESP 17; TEMP 96.3; O2SAT 100
[2017-01-21] VITALS: BP 110/59; PULSE 81; RESP 17; TEMP 97.1; O2SAT 99
[2017-01-21] MEDS: SODIUM BICARBONATE IV SCH ×15 (00:29→18:42)
[2017-01-21] MEDS: 1/4 SODIUM CHLORIDE IV SCH ×15 (00:29→18:42)
[2017-01-21] MEDS: [UNRECOGNIZED DRUG - OTHER] IV SCH ×15 (00:29→18:42)
[2017-01-21] MEDS: SODIUM BICARBONATE 650 MG TAB PO SCH ×3 (00:56→18:10)
[2017-01-21] MEDS: SODIUM CHLORIDE 0.9% IV SCH ×4 (01:04→18:41)
[2017-01-21] MEDS: LEUCOVORIN IV SCH ×4 (01:04→18:41)
[2017-01-21 04:00] VITALS: BP 120/62; PULSE 82; RESP 17; TEMP 96.1; O2SAT 96
[2017-01-21] MEDS: INSULIN NovoLIN REGULAR SUPPLEMENTAL SCALE SQ SCH ×4 (06:11→20:03)
[2017-01-21 07:45] VITALS: BP 116/66; PULSE 55; PULSE 66; RESP 18; TEMP 96.1; TEMP 97.8; O2SAT 100
[2017-01-21] MEDS: DOCUSATE SODIUM 100 MG CAP PO SCH ×2 (08:34→19:59)
[2017-01-21] MEDS: ENOXAPARIN SODIUM 40 MG/0.4 ML SYRINGE SQ SCH (08:34)
[2017-01-21] MEDS: METOPROLOL SUCCINATE 25 MG EXTENDED RELEASE TAB PO SCH (08:34)
[2017-01-21] MEDS: metFORMIN HCL 500 MG TAB PO SCH (08:35)
[2017-01-21] MEDS: GLIMEPIRIDE 1 MG TAB PO SCH (08:35)
[2017-01-21] MEDS: MIDODRINE 5 MG TAB PO SCH ×2 (08:35→19:59)
[2017-01-21] MEDS: ASPIRIN EC 81 MG TABEC PO SCH (08:35)
[2017-01-21] MEDS: CHOLECALCIFEROL (VIT D3) 1000 UNIT TAB PO SCH (08:36)
[2017-01-21] MEDS: SODIUM CHLORIDE 0.9% FLUSH 5 ML FLUSH FLUSH SCH ×2 (08:36→20:00)
--- NOTE | 2017-01-21 08:41 | PD.ONC.PN ---
Subjective Subjective Remarks Afebrile overnight. Pt very pleasant, sitting up at bedside with his playing cards. He has no complaints. He states he had some hiccups yesterday that did not last long. Objective Data Date Time Temp Pulse Resp B/P Pulse Ox O2 Delivery O2 Flow Rate FiO2 01/21/17 04:00 96.1 82 17 120/62 96 01/21/17 00:00 97.1 81 17 110/59 99 01/20/17 20:00 96.3 77 17 129/65 100 01/20/17 16:00 97.0 78 16 129/62 100 01/20/17 12:32 96.3 75 16 121/59 99 01/21/17 01/21/17 01/21/17 07:00 15:00 23:00 Intake Total 1841 ml Output Total 3650 ml Balance -1809 ml Result Diagram: 01/20/17 0540 01/20/17 0540 Laboratory Results Laboratory Tests Test 01/21/17 06:02 Urine pH 8.0 Administered Medications Medications (Trade) Dose Ordered Sig/Renee Route PRN Reason Start Time Stop Time Status Last Admin Dose Admin IV Flush (NS Flush) 2 ml BID FLUSH 01/19/17 09:00 01/20/17 19:56 Docusate Sodium (Colace) 100 mg Q12H PO 01/19/17 08:00 01/20/17 19:56 Enoxaparin Sodium (Lovenox Inj) 40 mg Q24H SQ 01/19/17 09:00 01/20/17 08:01 Metformin HCl (Glucophage) 1,000 mg DAILY PO 01/19/17 09:00 01/20/17 07:59 Glimepiride (Amaryl) 1 mg DAILYAC PO 01/19/17 08:00 01/20/17 08:00 Aspirin (Ecotrin Ec) 81 mg DAILY PO 01/19/17 09:00 01/20/17 08:00 Cholecalciferol (Vitamin D3) 1,000 units DAILY PO 01/19/17 09:00 01/20/17 07:59 Midodrine (Proamatine) 5 mg BID PO 01/19/17 09:00 01/20/17 19:56 Metoprolol Succinate (Toprol Xl) 12.5 mg DAILY PO 01/19/17 09:00 01/20/17 08:00 Sodium Bicarbonate 650 mg 650 mg Q8H PO 01/19/17 09:00 01/21/17 00:56 Sodium Chloride 38.5 meq/Sodium Bicarbonate 100 meq/Sterile Water 1,000 ml @ 170 mls/hr Q5H53M IV 01/19/17 22:00 01/22/17 21:59 01/21/17 06:23 Leucovorin Calcium/Sodium Chloride (Wellcovorin Inj/ NS Inj) 50 ml @ 16.667 mls/ hr Q6H IV 01/20/17 19:00 01/23/17 15:59 01/21/17 06:50 Objective Remarks GENERAL: Well appearing older male. He has been walking the halls. SKIN: Warm and dry. No oozing from lines. HEAD: Normocephalic. EYES: No injection or drainage. NECK: Supple, trachea midline. No JVD or lymphadenopathy. CARDIOVASCULAR: +S1/S2. No murmurs. RESPIRATORY: Lungs clear. Breathing unlabored. GASTROINTESTINAL: Abdomen soft, non-tender, nondistended. EXTREMITIES: Trace pedal edema. MUSCULOSKELETAL: Taking multiple walks down halls unassisted. NEUROLOGICAL: No obvious focal deficit. Awake, alert, and oriented x3. Assessment/Plan Assessment Mr. 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 Interim scans after cycle #3 indicated good response to therapy without evidence of disease recurrence. He received a total dose of 7500 mg of methotrexate with his third cycle of treatment along with 2 mg of vincristine, intrathecal chemotherapy with cytarabine was delivered on the 5 or 6 of methotrexate. He tolerated treatments reasonably well but tells me that he has had more fatigue after cycle #3 than he did after cycles 1 or 2. Plan 1. 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 On 01/17/2017 he received cycle #4 Rituxan. His methotrexate levels are pending from 01/20 and 01/21. 2. Diabetes mellitus: On outpatient oral hypoglycemics, in addition to this he is on a supplemental insulin regular sliding scale. 3. Hypertension: Continue long-acting metoprolol. 4. Alkalinization: He will remain on IV sodium bicarbonate infusion as per chemotherapy protocol. He'll also remain on oral sodium bicarbonate supplementation. 5. DVT prophylaxis with Lovenox. Attending Statement The exam, history, and the medical decision-making described in the above note were completed with the assistance of the mid-level provider. I reviewed and agree with the findings presented. I attest that I had a [id number] encounter with the patient on the same day, and personally performed and documented my assessment and findings in the medical record. Patient was seen and examined, labs reviewed, vital signs reviewed methotrexate levels reviewed. Medications reviewed including the bags hanging in the room. High-dose methotrexate/vincristine protocol reviewed in the EMR as well. Overall Mr. Ramey is tolerating treatment remarkably well, he has been and bleeding in the hallways and is eating well. Showing no signs of immediate treatment related adverse effects. Recommend continuation of alkalinizing agents/hydration. Continue leucovorin. Continue monitoring methotrexate levels. Blood work tomorrow morning. Agree with the above note as outlined by Ms. Preciado. Sugey Preciado Jan 21, 2017 08:41 Nas Fish MD Jan 21, 2017 12:31
[2017-01-21 11:55] VITALS: BP 86/52; PULSE 87; RESP 18; TEMP 96.3; O2SAT 98
[2017-01-21 17:00] VITALS: BP 136/66; PULSE 82; RESP 20; TEMP 97.7; O2SAT 100
[2017-01-21 20:00] VITALS: BP 143/71; PULSE 77; RESP 19; TEMP 97.5; O2SAT 99
[2017-01-22] MEDS: SODIUM BICARBONATE IV SCH ×9 (00:40→11:34)
[2017-01-22] MEDS: [UNRECOGNIZED DRUG - OTHER] IV SCH ×9 (00:40→11:34)
[2017-01-22] MEDS: 1/4 SODIUM CHLORIDE IV SCH ×9 (00:40→11:34)
[2017-01-22] MEDS: SODIUM BICARBONATE 650 MG TAB PO SCH ×2 (01:11→09:48)
[2017-01-22] MEDS: LEUCOVORIN IV SCH ×3 (01:13→11:29)
[2017-01-22] MEDS: SODIUM CHLORIDE 0.9% IV SCH ×3 (01:13→11:29)
[2017-01-22 01:22] VITALS: BP 127/66; PULSE 72; RESP 19; TEMP 96.1; O2SAT 96
[2017-01-22 04:00] VITALS: BP 131/65; PULSE 77; RESP 17; TEMP 97.3; O2SAT 97
[2017-01-22] MEDS: INSULIN NovoLIN REGULAR SUPPLEMENTAL SCALE SQ SCH ×2 (07:00→11:29)
[2017-01-22 08:00] VITALS: BP_SYST 127; BP_SYST 140; BP_DIAS 66; BP_DIAS 72; PULSE 88; PULSE 90; RESP 18; TEMP 96.9; TEMP 98.4; O2SAT 97; O2SAT 99
--- NOTE | 2017-01-22 08:01 | PD.ONC.PN ---
Subjective Subjective Remarks Afebrile overnight. Mr. Ramey states he slept very well last night with minimal interruptions. He states he is planning to go for a walk soon. He has no complaints. Objective Data Date Time Temp Pulse Resp B/P Pulse Ox O2 Delivery O2 Flow Rate FiO2 01/22/17 04:00 97.3 77 17 131/65 97 01/22/17 01:22 96.1 72 19 127/66 96 01/21/17 20:00 97.5 77 19 143/71 99 01/21/17 17:00 97.7 82 20 136/66 100 01/21/17 11:55 96.3 87 18 86/52 98 Result Diagram: 01/20/17 0540 01/20/17 0540 Administered Medications Medications (Trade) Dose Ordered Sig/Renee Route PRN Reason Start Time Stop Time Status Last Admin Dose Admin IV Flush (NS Flush) 2 ml BID FLUSH 01/19/17 09:00 01/21/17 08:36 Docusate Sodium (Colace) 100 mg Q12H PO 01/19/17 08:00 01/21/17 19:59 Zolpidem Tartrate (Ambien) 5 mg HS PRN PO INSOMNIA 01/19/17 08:00 01/21/17 19:59 Enoxaparin Sodium (Lovenox Inj) 40 mg Q24H SQ 01/19/17 09:00 01/21/17 08:34 Metformin HCl (Glucophage) 1,000 mg DAILY PO 01/19/17 09:00 01/21/17 08:35 Glimepiride (Amaryl) 1 mg DAILYAC PO 01/19/17 08:00 01/21/17 08:35 Aspirin (Ecotrin Ec) 81 mg DAILY PO 01/19/17 09:00 01/21/17 08:35 Cholecalciferol (Vitamin D3) 1,000 units DAILY PO 01/19/17 09:00 01/21/17 08:36 Midodrine (Proamatine) 5 mg BID PO 01/19/17 09:00 01/21/17 19:59 Metoprolol Succinate (Toprol Xl) 12.5 mg DAILY PO 01/19/17 09:00 01/21/17 08:34 Sodium Bicarbonate 650 mg 650 mg Q8H PO 01/19/17 09:00 01/22/17 01:11 Sodium Chloride 38.5 meq/Sodium Bicarbonate 100 meq/Sterile Water 1,000 ml @ 170 mls/hr Q5H53M IV 01/19/17 22:00 01/22/17 21:59 01/22/17 06:33 Leucovorin Calcium/Sodium Chloride (Wellcovorin Inj/ NS Inj) 50 ml @ 16.667 mls/ hr Q6H IV 01/20/17 19:00 01/23/17 15:59 01/22/17 06:41 Objective Remarks GENERAL: Older male, sitting up in chair at bedside in no distress. SKIN: Warm and dry. HEAD: Normocephalic. EYES: No injection or drainage. NECK: Supple, trachea midline. CARDIOVASCULAR: Regular rate and rhythm without murmurs. RESPIRATORY: Breath sounds equal bilaterally, mildly diminished to bases. GASTROINTESTINAL: Abdomen soft, non-tender, nondistended. EXTREMITIES: Trace pedal edema. MUSCULOSKELETAL: Walking halls independently. NEUROLOGICAL: No obvious focal deficit. Awake, alert, and oriented x3. Assessment/Plan Assessment Mr. Ramey is a very pleasant 76-year-old male with a diagnosis of primary ROUTER TENDER lymphoma, he comes in to the hospital for cycle #4 of high-dose methotrexate. Interim scans after cycle #3 indicated good response to therapy without evidence of disease recurrence. He received a total dose of 7500 mg of methotrexate with his third cycle of treatment along with 2 mg of vincristine, intrathecal chemotherapy with cytarabine was delivered on the 5 or 6 of methotrexate. He tolerated treatments reasonably well but tells me that he has had more fatigue after cycle #3 than he did after cycles 1 or 2. Plan 1. Primary ROUTER TENDER lymphoma: Cycle 4 high-dose methotrexate/vincristine delivered on 01/19/2017. He has been receiving Leucovorin rescue. His methotrexate level at 24 hours post methotrexate was non-toxic. Unfortunately, there was some confusion yesterday for the methotrexate level and the lab did not process the order. Another level has been drawn this am. Await results. 2. Diabetes mellitus: On outpatient oral hypoglycemics, in addition to this he is on a supplemental insulin regular sliding scale. 3. Hypertension: Continue long-acting metoprolol. BP's have been well controlled so far during this hospitalization. 4. Alkalinization: He will remain on IV sodium bicarbonate infusion as per chemotherapy protocol. He'll also remain on oral sodium bicarbonate supplementation. His urine pH has remained alkaline. 5. DVT prophylaxis with Lovenox. Attending Statement The exam, history, and the medical decision-making described in the above note were completed with the assistance of the mid-level provider. I reviewed and agree with the findings presented. I attest that I had a [id number] encounter with the patient on the same day, and personally performed and documented my assessment and findings in the medical record. Patient was seen and examined, labs reviewed, medications reviewed. He denies complaints and reports feeling very well. Denies nausea, vomiting, dizziness, peripheral neuropathy. Methotrexate level today was noted to be 0.13. From my standpoint he is cleared for discharge. I will organize outpatient intrathecal cytarabine injection for 01/24/2017 or 2016. Outpatient follow-up with me is already scheduled. Repeat blood work on 01/30/2017. Sugey Preciado Jan 22, 2017 08:01 Nas Fish MD Jan 22, 2017 10:58
[2017-01-22] MEDS: DOCUSATE SODIUM 100 MG CAP PO SCH (09:48)
[2017-01-22] MEDS: GLIMEPIRIDE 1 MG TAB PO SCH (09:48)
[2017-01-22] MEDS: METOPROLOL SUCCINATE 25 MG EXTENDED RELEASE TAB PO SCH (09:49)
[2017-01-22] MEDS: metFORMIN HCL 500 MG TAB PO SCH (09:49)
[2017-01-22] MEDS: CHOLECALCIFEROL (VIT D3) 1000 UNIT TAB PO SCH (09:49)
[2017-01-22] MEDS: ENOXAPARIN SODIUM 40 MG/0.4 ML SYRINGE SQ SCH (09:50)
[2017-01-22] MEDS: MIDODRINE 5 MG TAB PO SCH (09:50)
[2017-01-22] MEDS: ASPIRIN EC 81 MG TABEC PO SCH (09:50)
[2017-01-22] MEDS: SODIUM CHLORIDE 0.9% FLUSH 5 ML FLUSH FLUSH SCH (09:53)
--- NOTE | 2017-01-22 11:04 | HHI.DS ---
Discharge Summary Admission Date Jan 19, 2017 at 06:38 Discharge Date: Jan 22, 2017 Admitting Diagnosis Primary GRAINING PRESS OPERATOR lymphoma. Diabetes. Hypertension. Procedures Cycle #4 high-dose methotrexate 7500 mg delivered on 01/19/2017 with vincristine 2 mg. Followed by leucovorin rescue. Brief History Mr. Ramey is a very pleasant 76-year-old male with a diagnosis of primary GRAINING PRESS OPERATOR lymphoma, he was diagnosed in October 2016. He has been on systemic therapy with rituximab, high-dose methotrexate, vincristine and intrathecal cytarabine injections. He presents for cycle #4 of the above regimen, he tolerated treatment without difficulty. Methotrexate was initiated after he was sufficiently alkalinized with oral and intravenous sodium bicarbonate. Following delivery of methotrexate and leucovorin rescue was initiated. On the day of discharge his methotrexate level had dropped down to 0.13. He was asymptomatic and without any evidence of chemotherapy related acute toxicities. During hospitalization he was maintained on oral hypoglycemics as well as supplemental insulin sliding scale. His outpatient antihypertensives were also continued. CBC/BMP: 01/20/17 0540 01/20/17 0540 Significant Findings Laboratory Tests Test 01/20/17 05:40 Red Blood Count 3.20 MIL/MM3 (4.50-5.90) Hemoglobin 10.6 GM/DL (13.0-17.0) Hematocrit 30.7 % (39.0-51.0) Red Cell Distribution Width 17.4 % (11.6-17.2) Neutrophils (%) (Auto) 84.5 % (16.0-70.0) Lymphocytes # (Auto) 0.7 TH/MM3 (1.0-4.8) Estimat Glomerular Filtration 88 ML/MIN (>89) Rate Random Glucose 199 MG/DL (74-106) Aspartate Amino Transf 61 U/L (15-37) (AST/SGOT) Total Protein 5.9 GM/DL (6.4-8.2) Albumin 3.1 GM/DL (3.4-5.0) PE at Discharge Please review the physical exam charted on the progress note dated 01/22/2017. Hospital Course Uncomplicated delivery of cycle number for high-dose methotrexate/vincristine followed by leucovorin rescue. Patient was maintained on IV alkalinizing agents and oral alkalinizing agents over the course of hospitalization. Pt Condition on Discharge: Fair Discharge Disposition: Discharge Home Discharge Instructions DIET: Follow Instructions for: As Tolerated, No Restrictions Activities you can perform: Regular-No Restrictions Nas Fish MD Jan 22, 2017 11:04
== END 2017-01-22 14:42 | disposition home or self-care (01) | DRG 847 ==
LOC: HOCA 06:38
PROVIDERS: ADMIT Internal Medicine Hematology & Oncology; ATTEND Internal Medicine Hematology & Oncology
DX: Z51.11 Encounter for antineoplastic chemotherapy (principal); C85.19 Unspecified B-cell lymphoma, extranodal and solid organ sites; E11.9 Type 2 diabetes mellitus without complications; I10 Essential (primary) hypertension; Z79.84 Long term (current) use of oral hypoglycemic drugs; Z87.891 Personal history of nicotine dependence; G47.00 Insomnia, unspecified
CPT/HCPCS: 80053; 80299; 81003; 82948; 85025; 96413; 96415; 96523; G0463; J0640; J1100; J1626; J1642; J1650; J7030; J7040; J7070; J9250; J9310; J9370; Q0163

== ENCOUNTER 2017-01-25 08:53 | Day surgery (SDC) | payer MEDICARE, OTHER ==
[~2017-01-25] VITALS: Ht 182.9 cm; Wt 88.6 kg
[2017-01-25 09:10] VITALS: BP 132/94; PULSE 85; RESP 20; TEMP 98.7; O2SAT 100
[2017-01-25] MEDS ORDERED: SODIUM CHLOR 0.9% 1000 ML INJ 1,000 ML IV SCH (10:00)
[2017-01-25 10:39] LABS: APTT (PATIENT) 27.6 SEC (24.3-30.1); PROTHROMBIN TIME - PATIENT 10.5 SEC (9.8-11.6)
[2017-01-25 12:00] VITALS: BP 150/55; PULSE 89; RESP 17; TEMP 98.4; O2SAT 98
[2017-01-25] MEDS ORDERED: CYTARABINE IT ONE ×2 (12:00)
[2017-01-25] MEDS ORDERED: SODIUM CHLORIDE 0.9% IT ONE ×2 (12:00)
--- NOTE | 2017-01-25 12:38 | PD.RAD ---
Post Procedure Progress Note Pre Procedure Diagnosis: (1) Cerebral malignant neoplasm Post Procedure Diagnosis: (1) Cerebral malignant neoplasm Procedure Date: Jan 25, 2017 Supervising Radiologist: Shashank Urrutia Proceduralist/Assist: Flori Diana, RT(R), Mary Agustin RT(R)() Anesthesia: Local Plan of Activity Patient to Unit: ROP[facility] Patient Condition: Good See PACS Report for procedural detail/treatment Spinal Procedure Lumbar Puncture L3-L4 Puncture Time: 11:15 Additional Detail: with chemo instillation Shashank Urrutia MD Jan 25, 2017 12:38
--- NOTE | 2017-01-25 12:53 | RADRPT ---
EXAM DATE/TIME: 01/25/2017 11:10 [facility] COMPARISON: No previous studies available for comparison. INDICATIONS : Patient is in need of a lumbar puncture for intrathecal administration of chemotherapy. MEDICAL HISTORY : History of TRUCK TERMINAL MANAGER large cell lymphoma, cataracts, HTN, DM, heart valve disease, CAD. SURGICAL HISTORY : History of craniotomy with excisional biopsy, cardiac stents, tonsillectomy, colopnoscopy, port place ment, bone marrow biopsy, bone marrow aspiration. ENCOUNTER: Subsequent ACUITY: 3 months PAIN SCORE: 0/10 LUMBAR PUNCTURE TIME: 1115 hours FLUORO TIME: 1.2 minutes IMAGE SERIES: 0 ACCESS LEVEL: L3-4 PROCEDURE : Fluoroscopic guided lumbar puncture. Instillation of chemotherapy. The risks, benefits and alternatives to the procedure were explained and verbal and written consent w as obtained. The site was prepped in sterile fashion. Full sterile technique was used, including ca p, mask, sterile gloves and gown and a large sterile sheet. Hand hygiene and 2% chlorhexidine and/or betadine/alcohol prep was utilized per protocol for cutaneous antisepsis. The skin and subcutaneous tissues were infiltrated with local anesthetic solution. With fluoroscopic guidance the lumbar thecal sac was punctured at the level above. The prescribed ch emo therapeutic was injected. The patient tolerated the procedure well and there were no complications. CONCLUSION: Uncomplicated fluoroscopically guided lumbar puncture with chemotherapy injection. Shashank Urrutia MD on January 25, 2017 at 12:50 Board Certified Radiologist. This report was verified electronically.
== END 2017-01-25 14:05 | disposition home or self-care (01) ==
LOC: HROP 08:53 → HRIP 08:54 → HROP 14:05
PROVIDERS: ATTEND Internal Medicine Hematology & Oncology
DX: C71.9 Malignant neoplasm of brain, unspecified (principal); Z85.72 Personal history of non-Hodgkin lymphomas; I25.10 Atherosclerotic heart disease of native coronary artery without angina pectoris; I10 Essential (primary) hypertension; E11.9 Type 2 diabetes mellitus without complications; Z79.84 Long term (current) use of oral hypoglycemic drugs; Z79.82 Long term (current) use of aspirin; Z79.899 Other long term (current) drug therapy
CPT/HCPCS: 77003; 85610; 85730; 96450; J1642; J7030

== ENCOUNTER 2017-02-09 10:48 | Inpatient (IN) | payer MEDICARE, OTHER ==
[~2017-02-09] VITALS: Ht 185.4 cm; Wt 89.7 kg
[2017-02-13] MEDS ORDERED: ONDANSETRON HCL 4 MG/2 ML VIAL IVP PRN (08:15)
[2017-02-13] MEDS ORDERED: SENNOSIDES 8.6 MG TAB PO PRN (08:15)
[2017-02-13] MEDS ORDERED: SODIUM CHLORIDE 0.9% FLUSH 10 ML FLUSH IV FLUSH PRN (08:15)
[2017-02-13] MEDS: GLIMEPIRIDE 1 MG TAB PO SCH (08:15)
[2017-02-13] MEDS ORDERED: GLUCAGON 1 MG/ML VIAL OTHER PRN (08:15)
[2017-02-13] MEDS ORDERED: ZOLPIDEM TARTRATE 5 MG TAB PO PRN (08:15)
[2017-02-13] MEDS ORDERED: DEXTROSE 50% IN WATER 50 ML VIAL(D50) IV PUSH PRN (08:15)
[2017-02-13] MEDS ORDERED: NALOXONE HCL 0.4 MG/ML AMP IV PRN (08:15)
[2017-02-13] MEDS ORDERED: ACETAMINOPHEN 325 MG TAB PO PRN (08:15)
[2017-02-13] MEDS: ASPIRIN EC 81 MG TABEC PO SCH (09:00)
[2017-02-13] MEDS ORDERED: PILL SPLITTER OTHER PRN (09:00)
[2017-02-13] MEDS: metFORMIN HCL 500 MG TAB PO SCH (09:00)
[2017-02-13] MEDS: CHOLECALCIFEROL (VIT D3) 1000 UNIT TAB PO SCH (09:00)
[2017-02-13] MEDS: MIDODRINE 5 MG TAB PO SCH ×2 (09:00→17:51)
[2017-02-13] MEDS: SODIUM CHLORIDE 0.9% FLUSH 10 ML FLUSH IV FLUSH SCH ×2 (09:00→19:44)
--- NOTE | 2017-02-13 09:13 | MH ---
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 CURRENT TREATMENT The patient is presently on systemic therapy with high-dose methotrexate / Rituxan / vincristine / intrathecal cytarabine injections. He has thus far completed 4 cycles of treatment. CHIEF COMPLAINT Mr. Ramey denies acute complaints. He appreciates the extra four days in between starting cycles. He tells me that incrementally the treatment cycles have been increasingly difficult and they seem to cause side effects and fatigue that linger longer. He, however, denies acute complaints, specifically new neurological symptoms. HISTORY OF PRESENT ILLNESS Mr. Ramey is a very pleasant 76-year-old male who was diagnosed in October 2016 with a primary FIRE ALARM REPAIRER lymphoma, the lesion primarily involved the occipital lobe. He presented initially with complaints of difficulty balancing. He was found to have no have evidence of systemic disease involvement and a bone marrow biopsy was also noted to be negative. The patient was recommended systemic therapy with high-dose methotrexate, vincristine and intrathecal chemotherapy with cytarabine. He has also been receiving Rituxan. He has been evaluated by a malignant machine cloth trimmer at the [facility] who has endorsed this treatment regimen. Restaging imaging scans after three cycles of treatment indicated no evidence of progression. He comes in today for initiation of cycle #5 of a total planned 6 cycles of the current regimen. Thus far Mr. Ramey has tolerated treatment reasonably well though following cycle #4 he did have protracted fatigue, weakness and nausea. PAST MEDICAL HISTORY 1. Primary FIRE ALARM REPAIRER lymphoma. 2. Diabetes type 2. 3. Coronary artery disease. 4. Hypertension. 5. Valvular heart disease. PAST SURGICAL HISTORY 1. Left knee replacement. 2. Craniotomy with excisional biopsy of occipital lobe mass. 3. Colonoscopy. 4. Bone marrow biopsy and aspiration. 5. Tonsillectomy. 6. Infusion port placement. FAMILY HISTORY Parents are both . The patient's sisters with lung carcinoma. Mother had endometrial carcinoma. SOCIAL HISTORY He is . He lives at home with his . 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 ALLERGIES No known drug allergies. MEDICATIONS Current inpatient medications: 1. Half normal saline with sodium bicarbonate. 2. Aspirin 81 mg once daily. 3. Vitamin-D3 1000 units daily. 4. Colace 100 mg p.o. q.12h. 5. Lovenox 40 mg subcu q.24h. 6. Glimepiride 1 mg p.o. daily in the morning. 7. Novolin regular insulin sliding scale per protocol a.c. and h.s. 8. Metformin 1000 mg daily. 9. Metoprolol succinate 12.5 mg at nighttime. 10.Midodrine 5 mg p.o. daily. 11.Zofran 4 mg IV q.6h. as needed for nausea and vomiting. 12.Ambien 5 mg p.o. q.h.s. as needed for insomnia. 13.Sodium bicarbonate 650 mg three times a day. REVIEW OF SYSTEMS A 13-point review of systems are obtained with the following pertinent positives: CONSTITUTIONAL: The patient denies fevers, chills, night sweats. Reports good appetite. Denies fatigue, weakness or weight loss. HEENT: Denies headaches, blurry vision, difficulty swallowing, soreness in the throat, overt bleeding. RESPIRATORY: Denies difficulty breathing, cough, hemoptysis, pleuritic chest pain. CARDIOVASCULAR: Denies angina-like chest pain, PND, orthopnea. GENITOURINARY: No complaints of dysuria, hematuria, or urinary incontinence. GASTROINTESTINAL: No abdominal distention, nausea, vomiting, diarrhea or yellow jaundice. MUSCULOSKELETAL: Denies any focal aches or pains. FIRE ALARM REPAIRER: Denies any new focal sensory or motor deficits. PHYSICAL EXAMINATION VITAL SIGNS: Temperature 98.1 degrees Fahrenheit, heart rate 81 beats a minute, respiratory rate 18, blood pressure 136/72, O2 sat 98% on room air. GENERAL APPEARANCE: Mr. Ramey is an elderly male. He is tall and thin, appears to be in no acute distress, has a pleasant disposition. HEENT: Head is atraumatic, normocephalic. Conjunctivae are not pale. Sclerae are anicteric. EOMI. PERRLA. No pharyngeal erythema. NECK: No palpable cervical or supraclavicular lymphadenopathy. PULMONARY: Good air movement bilaterally. No added breath sounds. CARDIOVASCULAR: Regular rate and rhythm, S1, S2. No obvious murmurs, rubs or gallops. ABDOMEN: Thin belly, soft, nontender, nondistended. No palpable organ enlargement. EXTREMITIES: No pretibial edema. No calf tenderness. FIRE ALARM REPAIRER: No focal sensory or motor deficits. LABORATORY FINDINGS Blood work dated 02/06/2017: WBC count 5.6, hemoglobin 11.1, hematocrit 34.3, platelet count 292, absolute neutrophil count 2.9. Chemistries: Sodium 143, potassium 4.3, chloride 108, bicarb 27, BUN 13, creatinine 0.75, EGFR 102, bicarbonate 133, calcium 9.4, total bilirubin 0.3, AST 16, ALT 19, alkaline phosphatase 77, albumin 3.6. ASSESSMENT Mr. Ramey is a very pleasant 76-year-old male with a diagnosis of primary FIRE ALARM REPAIRER lymphoma. He was diagnosed initially in October 2016 and has thus far completed four cycles of high-dose methotrexate / vincristine / systemic Rituxan as well as intrathecal cytarabine injections. He is tolerating treatment well thus far. He comes in today for an elective admission prior to cycle #5. He at present is without evidence of any new neurologic symptoms or serious adverse effects or dose limiting side effects associated with chemotherapy. PLAN/RECOMMENDATIONS 1. Primary FIRE ALARM REPAIRER lymphoma: Proceed with methotrexate and vincristine starting today. He will be alkalinized as per protocol with IV sodium bicarbonate. I will dose methotrexate to a total dose of 7500 mg. Vincristine will be dosed at 2 mg IV x1. On day five or so I will dose him with intrathecal cytarabine injection. He will be initiated on rescue leukovorin as per protocol 24 hours after initiation of methotrexate and we will measure his methotrexate levels daily approximately 24 hours after initiation of leukovorin. 2. Diabetes: Continue metformin, glimepiride and initiate insulin sliding scale with Novolin regular. Fingersticks have been ordered. 3. Hypertension: Continue metoprolol 12.5 mg long acting daily. 4. History of coronary artery disease: Continue low-dose aspirin. 5. Lovenox 40 mg subcu daily has been ordered for DVT prophylaxis. 6. Urine pH studies have been ordered starting today and then daily. MD YELITZA Whaley/TRIP /8:23 AM /8:52 AM
[2017-02-13] MEDS: SODIUM BICARBONATE 8.4% INJ 100 MEQ in SODIUM CHLOR 0.45% 1000 ML INJ 1,000 ML IV SCH ×3 (09:26→21:31)
[2017-02-13] MEDS: ENOXAPARIN SODIUM 40 MG/0.4 ML SYRINGE SQ SCH (09:42)
[2017-02-13] MEDS: DOCUSATE SODIUM 100 MG CAP PO SCH ×2 (09:42→19:43)
[2017-02-13] MEDS: INSULIN NovoLIN REGULAR SUPPLEMENTAL SCALE SQ SCH ×3 (11:00→21:35)
[2017-02-13 12:00] VITALS: BP_SYST 140; BP_SYST 145; BP_DIAS 63; BP_DIAS 91; PULSE 72; PULSE 96; RESP 20; TEMP 96.9; TEMP 97.5; O2SAT 100
[2017-02-13] MEDS ORDERED: GRANISETRON INJ 1 MG, DEXAMETHASONE INJ 20 MG in SODIUM CHLORIDE 0.9% INJ 50 ML IV ONE (14:30)
[2017-02-13] MEDS ORDERED: SODIUM BICARBONATE IV SCH ×6 (15:00→18:00)
[2017-02-13] MEDS ORDERED: 1/4 SODIUM CHLORIDE IV SCH ×6 (15:00→18:00)
[2017-02-13] MEDS ORDERED: [UNRECOGNIZED DRUG - OTHER] IV SCH ×3 (15:00)
[2017-02-13 16:00] VITALS: BP 137/63; PULSE 74; RESP 20; TEMP 97.6; O2SAT 100
[2017-02-13] MEDS: METOPROLOL SUCCINATE 25 MG EXTENDED RELEASE TAB PO SCH (17:51)
[2017-02-13] MEDS ORDERED: WATE IV ONE ×2 (18:00)
[2017-02-13] MEDS ORDERED: METHOTREXATE IV ONE ×2 (18:00)
[2017-02-13] MEDS ORDERED: [UNRECOGNIZED DRUG - OTHER] IV SCH ×3 (18:00)
[2017-02-13] MEDS ORDERED: DEXTROSE 5% IV ONE ×2 (18:00)
[2017-02-13 20:00] VITALS: BP 139/78; PULSE 77; RESP 18; TEMP 97.8; O2SAT 97
[2017-02-13] MEDS ORDERED: SODIUM CHLORIDE 0.9% IV ONE (22:00)
[2017-02-13] MEDS ORDERED: VINCRISTINE IV ONE (22:00)
[2017-02-14] VITALS: BP 135/71; PULSE 86; RESP 18; TEMP 97.8; O2SAT 96
[2017-02-14] MEDS: SODIUM BICARBONATE IV SCH ×15 (00:15→23:25)
[2017-02-14] MEDS: 1/4 SODIUM CHLORIDE IV SCH ×15 (00:15→23:25)
[2017-02-14] MEDS: [UNRECOGNIZED DRUG - OTHER] IV SCH ×15 (00:15→23:25)
[2017-02-14 04:00] VITALS: BP 127/71; PULSE 76; RESP 18; TEMP 97.8; O2SAT 96
[2017-02-14] MEDS: INSULIN NovoLIN REGULAR SUPPLEMENTAL SCALE SQ SCH ×4 (06:12→20:54)
[2017-02-14 06:57] LABS: AUTOMATED NEUTROPHIL # 5.5 TH/MM3 (1.8-7.7); BASOPHIL % 0.4 % (0.0-2.0); HEMATOCRIT 34.8 % (39.0-51.0); HEMO FLAGS DIFF FINAL; LYMPH % 14.2 % (9.0-44.0); LYMPHOCYTE # 0.9 TH/MM3 (1.0-4.8); MEAN CELL VOLUME 96.7 FL (80.0-100.0); MEAN CORPUSCULAR HEMOGLOBIN 32.9 PG (27.0-34.0); MEAN CORPUSCULAR HGB CONC 34.1 % (32.0-36.0); MONO % 2.5 % (0.0-8.0); NEUT % 82.9 % (16.0-70.0); PLATELET COUNT 273 TH/MM3 (150-450); RED BLOOD COUNT 3.59 MIL/MM3 (4.50-5.90); RED CELL DISTRIBUTION WIDTH 16.5 % (11.6-17.2); WHITE BLOOD COUNT 6.6 TH/MM3 (4.0-11.0)
[2017-02-14 07:18] LABS: ALKALINE PHOSPHATASE 68 U/L (45-117); ALT (GPT) 32 U/L (12-78); ANION GAP 8 MEQ/L (5-15); AST (GOT) 34 U/L (15-37); BLOOD UREA NITROGEN 14 MG/DL (7-18); CHLORIDE 104 MEQ/L (98-107); GLOMERULAR FILTRATION RATE 76 ML/MIN (>89); POTASSIUM 3.8 MEQ/L (3.5-5.1); SODIUM (NA) 141 MEQ/L (136-145); TOTAL BILIRUBIN ADULT 0.8 MG/DL (0.2-1.0)
--- NOTE | 2017-02-14 07:31 | PD.ONC.PN ---
Subjective Subjective Remarks Patient was seen and examined, he tolerated chemotherapy on 02/13/2017 without complications. He denies acute toxicity, specifically fevers, chills, night sweats, bony aches or pains, nausea, vomiting diarrhea or muscle is clinically total aches and pains. He was out walking the hallways prior to me seeing him. Objective Data Date Time Temp Pulse Resp B/P Pulse Ox O2 Delivery O2 Flow Rate FiO2 02/14/17 04:00 97.8 76 18 127/71 96 02/14/17 00:00 97.8 86 18 135/71 96 02/13/17 20:00 97.8 77 18 139/78 97 02/13/17 16:00 97.6 74 20 137/63 100 02/13/17 12:00 97.5 96 20 140/63 100 Result Diagram: 02/14/17 0605 02/14/17 0605 Laboratory Results Laboratory Tests Test 02/13/17 02/14/17 12:30 06:05 Urine pH 7.5 8.0 White Blood Count 6.6 TH/MM3 Red Blood Count 3.59 MIL/MM3 Hemoglobin 11.8 GM/DL Hematocrit 34.8 % Mean Corpuscular Volume 96.7 FL Mean Corpuscular Hemoglobin 32.9 PG Mean Corpuscular Hemoglobin 34.1 % Concent Red Cell Distribution Width 16.5 % Platelet Count 273 TH/MM3 Mean Platelet Volume 9.1 FL Neutrophils (%) (Auto) 82.9 % Lymphocytes (%) (Auto) 14.2 % Monocytes (%) (Auto) 2.5 % Eosinophils (%) (Auto) 0.0 % Basophils (%) (Auto) 0.4 % Neutrophils # (Auto) 5.5 TH/MM3 Lymphocytes # (Auto) 0.9 TH/MM3 Monocytes # (Auto) 0.2 TH/MM3 Eosinophils # (Auto) 0.0 TH/MM3 Basophils # (Auto) 0.0 TH/MM3 CBC Comment DIFF FINAL Differential Comment Sodium Level 141 MEQ/L Potassium Level 3.8 MEQ/L Chloride Level 104 MEQ/L Carbon Dioxide Level 29.0 MEQ/L Anion Gap 8 MEQ/L Blood Urea Nitrogen 14 MG/DL Creatinine 0.96 MG/DL Estimat Glomerular Filtration 76 ML/MIN Rate Random Glucose 266 MG/DL Calcium Level 8.8 MG/DL Total Bilirubin 0.8 MG/DL Aspartate Amino Transf 34 U/L (AST/SGOT) Alanine Aminotransferase 32 U/L (ALT/SGPT) Alkaline Phosphatase 68 U/L Total Protein 6.3 GM/DL Albumin 3.5 GM/DL Administered Medications Medications (Trade) Dose Ordered Sig/Renee Route PRN Reason Start Time Stop Time Status Last Admin Dose Admin Sodium Chloride (NS Flush) 2 ml BID IV FLUSH 02/13/17 09:00 02/13/17 09:00 Docusate Sodium (Colace) 100 mg Q12HR PO 02/13/17 09:00 02/13/17 19:43 Enoxaparin Sodium 40 mg 40 mg Q24H SQ 02/13/17 09:00 02/13/17 09:42 Sodium Bicarbonate/ Sodium Chloride (Sodium Bicarbonate 8.4% Inj/1/2 NS 1000 ml Inj) 1,100 ml @ 83 mls/hr [id number] IV 02/13/17 08:15 02/13/17 09:39 Midodrine 5 mg 5 mg BID@09,18 PO 02/13/17 09:00 02/13/17 17:51 Sodium Chloride/ Sodium Bicarbonate/ Sterile Water (Sodium Chloride 23.4% Inj/Sodium Bicarbonate 8.4% Inj/Sterile Water For Inj) 1,000 ml @ 170 mls/hr Q5H53M IV 02/14/17 00:30 02/16/17 00:29 02/14/17 06:12 Objective Remarks GENERAL APPEARANCE: Mr. Ramey is an elderly male. He is tall and thin, appears to be in no acute distress, has a pleasant disposition. HEENT: Head is atraumatic, normocephalic. Conjunctivae are not pale. Sclerae are anicteric. EOMI. PERRLA. No pharyngeal erythema. NECK: No palpable cervical or supraclavicular lymphadenopathy. PULMONARY: Good air movement bilaterally. No added breath sounds. CARDIOVASCULAR: Regular rate and rhythm, S1, S2. No obvious murmurs, rubs or gallops. ABDOMEN: Thin belly, soft, nontender, nondistended. No palpable organ enlargement. EXTREMITIES: No pretibial edema. No calf tenderness. FILM COMPOSER: No focal sensory or motor deficits. Skin: Normal without any lesions, ulceration or bleeding. Psychiatric: Alert and oriented 3. Assessment/Plan Assessment Mr. 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 He was diagnosed initially in October 2016 and has thus far completed four cycles of high-dose methotrexate / vincristine / systemic Rituxan as well as intrathecal cytarabine injections. He is tolerating treatment well thus far. He comes in today for an elective admission prior to cycle #5. He at present is without evidence of any new neurologic symptoms or serious adverse effects or dose limiting side effects associated with chemotherapy. Plan 1. Primary FILM COMPOSER lymphoma:, Day 2 cycle #5 high-dose methotrexate/vincristine. Leucovorin rescue to start later this afternoon, will start checking methotrexate levels from tomorrow morning. I anticipate he should be ready for discharge home on 02/16/2017. He would prefer receiving intrathecal cytarabine injection as an outpatient so I will aim to schedule this early next week. 2. Diabetes: Random Blood glucose was 266 this morning, he was covered with insulin sliding scale, continue current regimen. 3. Alkalinization: Continue IV bicarbonate, daily urine pH checks. 4. Continue aspirin for his history of coronary artery disease. 5. Lovenox for DVT prophylaxis at a dose of 40 mg subcutaneous daily. Nas Fish MD Feb 14, 2017 07:31
[2017-02-14 08:00] VITALS: BP 137/66; PULSE 76; RESP 16; TEMP 97.1; O2SAT 99
[2017-02-14] MEDS: CHOLECALCIFEROL (VIT D3) 1000 UNIT TAB PO SCH (08:33)
[2017-02-14] MEDS: ENOXAPARIN SODIUM 40 MG/0.4 ML SYRINGE SQ SCH (08:33)
[2017-02-14] MEDS: GLIMEPIRIDE 1 MG TAB PO SCH (08:33)
[2017-02-14] MEDS: DOCUSATE SODIUM 100 MG CAP PO SCH ×2 (08:34→20:53)
[2017-02-14] MEDS: metFORMIN HCL 500 MG TAB PO SCH (08:34)
[2017-02-14] MEDS: ASPIRIN EC 81 MG TABEC PO SCH (08:34)
[2017-02-14] MEDS: MIDODRINE 5 MG TAB PO SCH ×2 (08:34→18:27)
[2017-02-14] MEDS: SODIUM CHLORIDE 0.9% FLUSH 10 ML FLUSH IV FLUSH SCH ×2 (08:35→20:54)
[2017-02-14 12:00] VITALS: BP 134/56; PULSE 73; RESP 16; TEMP 97.5; O2SAT 99
[2017-02-14] MEDS: SODIUM BICARBONATE 8.4% INJ 100 MEQ in SODIUM CHLOR 0.45% 1000 ML INJ 1,000 ML IV SCH ×2 (13:53→23:30)
[2017-02-14 16:00] VITALS: BP 158/72; PULSE 85; RESP 16; TEMP 97.7; O2SAT 100
[2017-02-14] MEDS: METOPROLOL SUCCINATE 25 MG EXTENDED RELEASE TAB PO SCH (18:28)
[2017-02-14] MEDS: SODIUM CHLORIDE 0.9% IV SCH ×2 (18:54→23:24)
[2017-02-14] MEDS: LEUCOVORIN IV SCH ×2 (18:54→23:24)
[2017-02-14 20:15] VITALS: BP 128/58; PULSE 75; RESP 16; TEMP 96.6; O2SAT 98
[2017-02-15] VITALS: BP 143/64; PULSE 91; RESP 18; TEMP 97.4; O2SAT 98
[2017-02-15 04:00] VITALS: BP 117/58; PULSE 72; RESP 16; TEMP 96.4; O2SAT 98
[2017-02-15] MEDS: [UNRECOGNIZED DRUG - OTHER] IV SCH ×9 (05:31→17:26)
[2017-02-15] MEDS: SODIUM BICARBONATE IV SCH ×9 (05:31→17:26)
[2017-02-15] MEDS: 1/4 SODIUM CHLORIDE IV SCH ×9 (05:31→17:26)
[2017-02-15] MEDS: LEUCOVORIN IV SCH ×4 (05:32→21:48)
[2017-02-15] MEDS: SODIUM CHLORIDE 0.9% IV SCH ×4 (05:32→21:48)
[2017-02-15] MEDS: INSULIN NovoLIN REGULAR SUPPLEMENTAL SCALE SQ SCH ×4 (06:07→20:48)
--- NOTE | 2017-02-15 07:22 | PD.ONC.PN ---
Subjective Subjective Remarks Mr. Ramey reports feeling well, he denies acute complaints and reports no adverse effects related to chemotherapy thus far. He has been walking in the hallways, finishing his food trays, moving his bowels well. He denies difficulty breathing, chest pain, overt bleeding, diarrhea or mouth sores. He denies SERVICING REP symptoms. Objective Data Date Time Temp Pulse Resp B/P Pulse Ox O2 Delivery O2 Flow Rate FiO2 02/15/17 04:00 96.4 72 16 117/58 98 02/15/17 00:00 97.4 91 18 143/64 98 02/14/17 20:15 96.6 75 16 128/58 98 02/14/17 16:00 97.7 85 16 158/72 100 02/14/17 12:00 97.5 73 16 134/56 99 02/14/17 08:00 97.1 76 16 137/66 99 02/15/17 02/15/17 02/15/17 07:00 15:00 23:00 Intake Total 3890 ml Output Total 2400 ml Balance 1490 ml Result Diagram: 02/14/1760402/14/17 0605 Laboratory Results Laboratory Tests Test 02/15/17 05:15 Urine pH 8.0 Administered Medications Medications (Trade) Dose Ordered Sig/Renee Route PRN Reason Start Time Stop Time Status Last Admin Dose Admin Sodium Chloride (NS Flush) 2 ml BID IV FLUSH 02/13/17 09:00 02/13/17 09:00 Docusate Sodium (Colace) 100 mg Q12HR PO 02/13/17 09:00 02/14/17 20:53 Enoxaparin Sodium 40 mg 40 mg Q24H SQ 02/13/17 09:00 02/14/17 08:33 Sodium Bicarbonate/ Sodium Chloride (Sodium Bicarbonate 8.4% Inj/1/2 NS 1000 ml Inj) 1,100 ml @ 83 mls/hr [id number] IV 02/13/17 08:15 02/14/17 13:53 Aspirin (Ecotrin Ec) 81 mg DAILY PO 02/13/17 09:00 02/14/17 08:34 Midodrine (Proamatine) 5 mg BID@,18 PO 02/13/17 09:00 02/14/17 18:27 Glimepiride (Amaryl) 1 mg DAILYAC PO 02/13/17 08:15 02/14/17 08:33 Cholecalciferol (Vitamin D3) 1,000 units DAILY PO 02/13/17 09:00 02/14/17 08:33 Metformin HCl 1000 mg 1,000 mg DAILY PO 02/13/17 09:00 02/14/17 08:34 Sodium Chloride 38.5 meq/Sodium Bicarbonate 100 meq/Sterile Water 1,000 ml @ 170 mls/hr Q5H53M IV 02/14/17 00:30 02/16/17 00:29 02/15/17 05:31 Leucovorin Calcium/Sodium Chloride (Wellcovorin Inj/ NS Inj) 50 ml @ 16.667 mls/ hr Q6H IV 02/14/17 18:00 02/17/17 14:59 02/15/17 05:32 Objective Remarks GENERAL APPEARANCE: Mr. Ramey is an elderly male. He is tall and thin, appears to be in no acute distress, has a pleasant disposition. HEENT: Head is atraumatic, normocephalic. Conjunctivae are not pale. Sclerae are anicteric. EOMI. PERRLA. No pharyngeal erythema. NECK: No palpable cervical or supraclavicular lymphadenopathy. PULMONARY: Good air movement bilaterally. No added breath sounds. CARDIOVASCULAR: Regular rate and rhythm, S1, S2. No obvious murmurs, rubs or gallops. ABDOMEN: Thin belly, soft, nontender, nondistended. No palpable organ enlargement. EXTREMITIES: No pretibial edema. No calf tenderness. SERVICING REP: No focal sensory or motor deficits. Skin: Normal without any lesions, ulceration or bleeding. Psychiatric: Alert and oriented 3. Assessment/Plan Assessment Mr. Ramey is a very pleasant 76-year-old male with a diagnosis of primary SERVICING REP lymphoma. He was diagnosed initially in October 2016 and has thus far completed four cycles of high-dose methotrexate / vincristine / systemic Rituxan as well as intrathecal cytarabine injections. He is tolerating treatment well thus far. He comes in today for an elective admission prior to cycle #5. He at present is without evidence of any new neurologic symptoms or serious adverse effects or dose limiting side effects associated with chemotherapy. Plan 1. Primary SERVICING REP lymphoma:, Day 3 cycle #5 high-dose methotrexate/vincristine. Presently on Leucovorin rescue, MTX levels are pending. I anticipate he should be ready for discharge home on 02/16/2017. He would prefer receiving intrathecal cytarabine injection as an outpatient so I will aim to schedule this early next week. 2. Diabetes: Continue coverage with insulin sliding scale with oral hypoglycemics. 3. Alkalinization: Continue IV bicarbonate, daily urine pH checks, urine pH has been consistently at 8. 4. Continue aspirin for his history of coronary artery disease. 5. Lovenox for DVT prophylaxis at a dose of 40 mg subcutaneous daily. Nas Fish MD Feb 15, 2017 07:22
[2017-02-15 07:50] VITALS: BP 133/63; PULSE 75; RESP 20; TEMP 96.7; O2SAT 99
[2017-02-15] MEDS: CHOLECALCIFEROL (VIT D3) 1000 UNIT TAB PO SCH (08:12)
[2017-02-15] MEDS: GLIMEPIRIDE 1 MG TAB PO SCH (08:12)
[2017-02-15] MEDS: MIDODRINE 5 MG TAB PO SCH ×2 (08:12→17:26)
[2017-02-15] MEDS: DOCUSATE SODIUM 100 MG CAP PO SCH ×2 (08:12→20:37)
[2017-02-15] MEDS: ENOXAPARIN SODIUM 40 MG/0.4 ML SYRINGE SQ SCH (08:12)
[2017-02-15] MEDS: ASPIRIN EC 81 MG TABEC PO SCH (08:12)
[2017-02-15] MEDS: metFORMIN HCL 500 MG TAB PO SCH (08:12)
[2017-02-15] MEDS: SODIUM CHLORIDE 0.9% FLUSH 10 ML FLUSH IV FLUSH SCH ×2 (08:13→20:38)
[2017-02-15 11:50] VITALS: BP 123/59; PULSE 62; RESP 20; TEMP 97.1; O2SAT 100
[2017-02-15] MEDS: SODIUM BICARBONATE 8.4% INJ 100 MEQ in SODIUM CHLOR 0.45% 1000 ML INJ 1,000 ML IV SCH (12:11)
[2017-02-15 15:50] VITALS: BP 119/60; PULSE 71; RESP 20; TEMP 97.1; O2SAT 100
[2017-02-15] MEDS: METOPROLOL SUCCINATE 25 MG EXTENDED RELEASE TAB PO SCH (17:26)
[2017-02-15 20:00] VITALS: BP 147/70; PULSE 69; RESP 18; TEMP 96.9; O2SAT 98
[2017-02-16] VITALS: BP 146/67; PULSE 81; RESP 17; TEMP 96.6; O2SAT 95
[2017-02-16] MEDS: LEUCOVORIN IV SCH ×3 (00:05→11:30)
[2017-02-16] MEDS: SODIUM CHLORIDE 0.9% IV SCH ×3 (00:05→11:30)
[2017-02-16] MEDS: SODIUM BICARBONATE IV SCH ×3 (00:30)
[2017-02-16] MEDS: [UNRECOGNIZED DRUG - OTHER] IV SCH ×3 (00:30)
[2017-02-16] MEDS: 1/4 SODIUM CHLORIDE IV SCH ×3 (00:30)
[2017-02-16] MEDS: SODIUM BICARBONATE 8.4% INJ 100 MEQ in SODIUM CHLOR 0.45% 1000 ML INJ 1,000 ML IV SCH (02:35)
[2017-02-16 05:50] VITALS: BP 139/69; PULSE 79; RESP 17; TEMP 97.8; O2SAT 96
[2017-02-16] MEDS: INSULIN NovoLIN REGULAR SUPPLEMENTAL SCALE SQ SCH ×2 (06:11→11:00)
[2017-02-16] MEDS: GLIMEPIRIDE 1 MG TAB PO SCH (07:37)
[2017-02-16] MEDS: CHOLECALCIFEROL (VIT D3) 1000 UNIT TAB PO SCH (07:37)
[2017-02-16] MEDS: DOCUSATE SODIUM 100 MG CAP PO SCH (07:38)
[2017-02-16] MEDS: MIDODRINE 5 MG TAB PO SCH (07:38)
[2017-02-16] MEDS: metFORMIN HCL 500 MG TAB PO SCH (07:38)
[2017-02-16] MEDS: ASPIRIN EC 81 MG TABEC PO SCH (07:38)
[2017-02-16] MEDS: SODIUM CHLORIDE 0.9% FLUSH 10 ML FLUSH IV FLUSH SCH (07:38)
[2017-02-16] MEDS: ENOXAPARIN SODIUM 40 MG/0.4 ML SYRINGE SQ SCH (07:38)
--- NOTE | 2017-02-16 08:30 | PD.ONC.PN ---
Subjective Subjective Remarks Mr. Ramey denies complaints, he reports having rested well at nighttime, he is eating well, denies nausea, vomiting, diarrhea. He denies febrile illness, or any new PRODUCT DEVELOPMENT SPECIALIST symptoms. He is hoping to be able to go home later today. Objective Data Date Time Temp Pulse Resp B/P Pulse Ox O2 Delivery O2 Flow Rate FiO2 02/16/17 05:50 97.8 79 17 139/69 96 02/16/17 00:00 96.6 81 17 146/67 95 02/15/17 20:00 96.9 69 18 147/70 98 02/15/17 15:50 97.1 71 20 119/60 100 02/15/17 11:50 97.1 62 20 123/59 100 Result Diagram: 02/14/1760402/14/17604 Laboratory Results Laboratory Tests Test 02/16/17 05:30 Urine pH 8.5 Administered Medications Medications (Trade) Dose Ordered Sig/Renee Route PRN Reason Start Time Stop Time Status Last Admin Dose Admin Sodium Chloride (NS Flush) 2 ml BID IV FLUSH 02/13/17 09:00 02/13/17 09:00 Docusate Sodium (Colace) 100 mg Q12HR PO 02/13/17 09:00 02/16/17 07:38 Enoxaparin Sodium 40 mg 40 mg Q24H SQ 02/13/17 09:00 02/16/17 07:38 Sodium Bicarbonate/ Sodium Chloride (Sodium Bicarbonate 8.4% Inj/1/2 NS 1000 ml Inj) 1,100 ml @ 83 mls/hr [id number] IV 02/13/17 08:15 02/14/17 13:53 Aspirin (Ecotrin Ec) 81 mg DAILY PO 02/13/17 09:00 02/16/17 07:38 Midodrine (Proamatine) 5 mg BID@09,18 PO 02/13/17 09:00 02/16/17 07:38 Glimepiride (Amaryl) 1 mg DAILYAC PO 02/13/17 08:15 02/16/17 07:37 Cholecalciferol (Vitamin D3) 1,000 units DAILY PO 02/13/17 09:00 02/16/17 07:37 Metformin HCl 1000 mg 1,000 mg DAILY PO 02/13/17 09:00 02/16/17 07:38 Leucovorin Calcium/Sodium Chloride (Wellcovorin Inj/ NS Inj) 50 ml @ 16.667 mls/ hr Q6H IV 02/14/17 18:00 02/17/17 14:59 02/16/17 05:38 Objective Remarks GENERAL APPEARANCE: Mr. Ramey is an elderly male. He is tall and thin, appears to be in no acute distress, has a pleasant disposition. HEENT: Head is atraumatic, normocephalic. Conjunctivae are not pale. Sclerae are anicteric. EOMI. PERRLA. No pharyngeal erythema. NECK: No palpable cervical or supraclavicular lymphadenopathy. PULMONARY: Good air movement bilaterally. No added breath sounds. CARDIOVASCULAR: Regular rate and rhythm, S1, S2. No obvious murmurs, rubs or gallops. ABDOMEN: Thin belly, soft, nontender, nondistended. No palpable organ enlargement. EXTREMITIES: No pretibial edema. No calf tenderness. PRODUCT DEVELOPMENT SPECIALIST: No focal sensory or motor deficits. Skin: Normal without any lesions, ulceration or bleeding. Psychiatric: Alert and oriented 3. Assessment/Plan Assessment Mr. Ramey is a very pleasant 76-year-old male with a diagnosis of primary PRODUCT DEVELOPMENT SPECIALIST lymphoma. He was diagnosed initially in October 2016 and has thus far completed four cycles of high-dose methotrexate / vincristine / systemic Rituxan as well as intrathecal cytarabine injections. He is tolerating treatment well thus far. He comes in today for an elective admission prior to cycle #5. He at present is without evidence of any new neurologic symptoms or serious adverse effects or dose limiting side effects associated with chemotherapy. Plan 1. Primary PRODUCT DEVELOPMENT SPECIALIST lymphoma:, Day 4 cycle #5 high-dose methotrexate/vincristine. Presently on Leucovorin rescue, MTX levels are pending they had been dropping over the past 48 hours. Level needs to be less than 0.1 before he may be discharged home. He would prefer receiving intrathecal cytarabine injection as an outpatient so I will aim to schedule this early next week. 2. Diabetes: Continue coverage with insulin sliding scale with oral hypoglycemics. 3. Alkalinization: Continue IV bicarbonate, daily urine pH checks, urine pH has been consistently at 8. 4. Continue aspirin for his history of coronary artery disease. 5. Lovenox for DVT prophylaxis at a dose of 40 mg subcutaneous daily. Nas Fish MD Feb 16, 2017 08:30
[2017-02-16 08:47] VITALS: BP 138/68; PULSE 75; RESP 16; TEMP 98.2; O2SAT 100
--- NOTE | 2017-02-16 11:39 | HHI.DS ---
Discharge Summary Admission Date Feb 13, 2017 at 08:16 Discharge Date: Feb 16, 2017 Admitting Diagnosis Primary SENIOR MAJOR GIFTS OFFICER Lymphoma Diabetes HTN (1) Cerebral malignant neoplasm Diagnosis: Principal Procedures Cycle 5 high dose MTX/Vincristine. Brief History Mr. Ramey is a very pleasant 76-year-old male who was diagnosed in October 2016 with a primary SENIOR MAJOR GIFTS OFFICER lymphoma, the lesion primarily involved the occipital lobe. He presented initially with complaints of difficulty balancing. He was found to have no have evidence of systemic disease involvement and a bone marrow biopsy was also noted to be negative. The patient was recommended systemic therapy with high-dose methotrexate, vincristine and intrathecal chemotherapy with cytarabine. He has also been receiving Rituxan. He has been evaluated by a malignant pin inserter regulator at the [facility] who has endorsed this treatment regimen. Restaging imaging scans after three cycles of treatment indicated no evidence of progression. He comes in today for initiation of cycle #5 of a total planned 6 cycles of the current regimen. Thus far Mr. Ramey has tolerated treatment reasonably well though following cycle #4 he did have protracted fatigue, weakness and nausea. CBC/BMP: 02/14/17 0605 02/14/17 0605 Significant Findings Laboratory Tests Test 02/14/17 06:05 Red Blood Count 3.59 MIL/MM3 (4.50-5.90) Hemoglobin 11.8 GM/DL (13.0-17.0) Hematocrit 34.8 % (39.0-51.0) Neutrophils (%) (Auto) 82.9 % (16.0-70.0) Lymphocytes # (Auto) 0.9 TH/MM3 (1.0-4.8) Estimat Glomerular Filtration 76 ML/MIN (>89) Rate Random Glucose 266 MG/DL (74-106) Total Protein 6.3 GM/DL (6.4-8.2) PE at Discharge Pls see my progress note dated 02/16/2017. Hospital Course He was admitted started on sodium bicarb drip, urine pH checked. Chemo started and delivered without complications. Leucovorin infusion started per protocol. MTX levels measured and these decreased appropriately. No acute toxicities appreciated. Pt Condition on Discharge: Good Discharge Disposition: Discharge Home Discharge Instructions DIET: Follow Instructions for: As Tolerated, No Restrictions Speech Therapy-Diet Recommenda: Regular Activities you can perform: Regular-No Restrictions Nas Fish MD Feb 16, 2017 11:39
[2017-02-16 12:05] VITALS: BP 135/61; PULSE 75; RESP 16; TEMP 97.2; O2SAT 100
== END 2017-02-16 13:52 | disposition home or self-care (01) | DRG 847 ==
LOC: HOCA 02-13 06:48 → OBSVTOIN 02-13 08:16
PROVIDERS: ADMIT Internal Medicine Hematology & Oncology; ATTEND Internal Medicine Hematology & Oncology
DX: Z51.11 Encounter for antineoplastic chemotherapy (principal); C83.39 Diffuse large B-cell lymphoma, extranodal and solid organ sites; I38 Endocarditis, valve unspecified; E11.9 Type 2 diabetes mellitus without complications; I10 Essential (primary) hypertension; I25.10 Atherosclerotic heart disease of native coronary artery without angina pectoris; R11.0 Nausea; R53.1 Weakness; Z79.84 Long term (current) use of oral hypoglycemic drugs
CPT/HCPCS: 80053; 80299; 81003; 82948; 85025; J0640; J1100; J1626; J1650; J7060; J9250; J9370

== ENCOUNTER 2017-02-21 09:44 | Day surgery (SDC) | payer MEDICARE, OTHER ==
[~2017-02-21] VITALS: Ht 182.9 cm; Wt 88.2 kg
[2017-02-21 10:17] VITALS: BP 122/68; PULSE 87; RESP 20; TEMP 97.5; O2SAT 99
[2017-02-21] MEDS ORDERED: FISHCAP4 PO (10:52)
[2017-02-21] MEDS ORDERED: SODIUM CHLOR 0.9% 1000 ML INJ 1,000 ML IV SCH (11:00)
[2017-02-21 11:23] LABS: APTT (PATIENT) 28.2 SEC (24.3-30.1); PROTHROMBIN TIME - PATIENT 10.7 SEC (9.8-11.6)
[2017-02-21] MEDS ORDERED: CYTARABINE INJ 100 MG in SYRINGE/BAG 1 EA IT ONE (12:15)
[2017-02-21 13:20] VITALS: BP 139/72; PULSE 82; RESP 18; O2SAT 99
--- NOTE | 2017-02-21 13:26 | PD.RAD ---
Post Procedure Progress Note Pre Procedure Diagnosis: (1) Cerebral malignant neoplasm Post Procedure Diagnosis: (1) Cerebral malignant neoplasm Procedure Date: Feb 21, 2017 Supervising Radiologist: Vicente Sahni Proceduralist/Assist: RT Los(R), RT Talat(R)() Anesthesia: Local Plan of Activity Patient to Unit: ROPU Patient Condition: Good See PACS Report for procedural detail/treatment Spinal Procedure Lumbar Puncture L3-L4 Fluid Removal (CCs): 2 Fluid Description: Clear Puncture Time: 13:08 Findings: Intrathecal chemotherapy Vicente Sahni MD Feb 21, 2017 13:26
[2017-02-21 15:15] VITALS: BP 131/67; PULSE 86; RESP 16; TEMP 97.8; O2SAT 97
--- NOTE | 2017-02-22 10:32 | RADRPT ---
EXAM DATE/TIME: 02/21/2017 13:04 [facility] COMPARISON: LUMBAR PUNCTURE W/CHEMO INJECT, January 25, 2017, 11:10. INDICATIONS : Patient with history of lymphoma in need of lumbar puncture with intrathecal chemotherapy injection. MEDICAL HISTORY : TOWER SUPERVISOR large cell lymphoma, cataracts, HTN, DM, heart valve disease, CAD. SURGICAL HISTORY : Craniotomy with excisional biopsy, cardiac stents, tonsillectomy, colopnoscopy, port placement, bone marrow biopsy, bone marrow aspiration. ENCOUNTER: Initial ACUITY: 4-6 months PAIN SCORE: 0/10 LUMBAR PUNCTURE TIME: 1308 hours FLUORO TIME: 2.5 minutes IMAGE SERIES: 2 ACCESS LEVEL: L3-4 PROCEDURE : Fluoroscopic guided lumbar puncture. Instillation of chemotherapy. The risks, benefits and alternatives to the procedure were explained and verbal and written consent w as obtained. The site was prepped in sterile fashion. Full sterile technique was used, including ca p, mask, sterile gloves and gown and a large sterile sheet. Hand hygiene and 2% chlorhexidine and/or betadine/alcohol prep was utilized per protocol for cutaneous antisepsis. The skin and subcutaneous tissues were infiltrated with local anesthetic solution. With fluoroscopic guidance the lumbar thecal sac was punctured at the level above. The prescribed ch emo therapeutic was injected. The patient tolerated the procedure well and there were no complications. CONCLUSION: Uncomplicated fluoroscopically guided lumbar puncture with chemotherapy injection. Vicente Sahni MD on February 22, 2017 at 10:29 Board Certified Radiologist. This report was verified electronically.
== END 2017-02-21 15:15 | disposition home or self-care (01) ==
LOC: HROP 09:44 → HRIP 09:46 → HROP 15:15
PROVIDERS: ATTEND Internal Medicine Hematology & Oncology
DX: C71.0 Malignant neoplasm of cerebrum, except lobes and ventricles (principal); C83.39 Diffuse large B-cell lymphoma, extranodal and solid organ sites; I10 Essential (primary) hypertension; I25.10 Atherosclerotic heart disease of native coronary artery without angina pectoris; E11.9 Type 2 diabetes mellitus without complications; Z95.5 Presence of coronary angioplasty implant and graft; Z79.01 Long term (current) use of anticoagulants
CPT/HCPCS: 77003; 82948; 85610; 85730; 96450; J1642; J7030; C1755

== ENCOUNTER 2017-03-13 06:57 | Inpatient (IN) | payer MEDICARE, OTHER ==
[~2017-03-13] VITALS: Ht 182.9 cm; Wt 91.0 kg
[~2017-03-13 06:57] MED LIST changes: +FISHCAP4 PO
[2017-03-13 08:00] VITALS: BP 144/63; PULSE 75; RESP 16; TEMP 96.1; O2SAT 100
[2017-03-13] MEDS ORDERED: NALOXONE HCL 0.4 MG/ML AMP IV PRN (08:15)
[2017-03-13] MEDS ORDERED: ACETAMINOPHEN 325 MG TAB PO PRN (08:15)
[2017-03-13] MEDS ORDERED: SENNOSIDES 8.6 MG TAB PO PRN (08:15)
[2017-03-13] MEDS ORDERED: METOCLOPRAMIDE HCL 10 MG/2 ML VIAL IV PUSH PRN (08:15)
[2017-03-13] MEDS ORDERED: ONDANSETRON HCL 4 MG/2 ML VIAL IVP PRN (08:15)
[2017-03-13] MEDS ORDERED: ZOLPIDEM TARTRATE 5 MG TAB PO PRN (08:15)
[2017-03-13] MEDS ORDERED: MAGNESIUM HYDROXIDE SUSP 30 ML CUP PO PRN (08:15)
[2017-03-13] MEDS ORDERED: GLUCAGON 1 MG/ML VIAL OTHER PRN (08:30)
[2017-03-13] MEDS ORDERED: DEXTROSE 50% IN WATER 50 ML VIAL(D50) IV PUSH PRN (08:30)
[2017-03-13] MEDS: GLIMEPIRIDE 1 MG TAB PO SCH (08:30)
[2017-03-13] MEDS ORDERED: PILL SPLITTER OTHER PRN (08:30)
--- NOTE | 2017-03-13 08:34 | MH ---
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 CURRENT TREATMENT The patient is on systemic chemotherapy with high-dose methotrexate/Rituxan/vincristine/intrathecal cytarabine injections. He has thus far completed five out of a total planned of six cycles. CHIEF COMPLAINT Mr. Ramey comes in today for admission for high-dose chemotherapy. He tells me has been well overall though he feels a little slower when he walks. He also reports increasing fatigue. He does, however, deny new RAG CUTTING MACHINE OPERATOR complaints such as focal or sensorimotor deficits. HISTORY OF PRESENT ILLNESS Mr. Ramey is a very pleasant 76-year-old male who was diagnosed in October of 2016 with a primary RAG CUTTING MACHINE OPERATOR lymphoma. The lesion primarily involved the occipital lobe. He presented after he fell while walking. The patient underwent excisional biopsy (craniotomy) in October of 2016 and pathologic findings were consistent with RAG CUTTING MACHINE OPERATOR lymphoma. He underwent systemic staging and a bone marrow biopsy without evidence of systemic involvement. After consultation with malignant community support worker at the [facility] the patient was initiated on high-dose methotrexate/vincristine/Rituxan with intrathecal cytarabine injections following each cycle of chemotherapy. He has thus far tolerated treatment remarkably well and comes in today for his final cycle of planned chemotherapy. Interim scans i.e. MRI of the brain following three cycles indicated no definite evidence of malignancy. PAST MEDICAL HISTORY 1. Primary RAG CUTTING MACHINE OPERATOR lymphoma. 2. Type 2 diabetes. 3. Coronary artery disease. 4. Hypertension. 5. Valvular heart disease. PAST SURGICAL HISTORY 1. Left knee replacement. 2. Craniotomy with excisional biopsy of occipital lobe brain mass. 3. Colonoscopy. 4. Bone marrow biopsy and aspiration. 5. Infusion port placement. 6. Tonsillectomy. FAMILY HISTORY Sister with lung carcinoma. Mother with endometrial carcinoma. SOCIAL HISTORY . 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 His daughter is staying with them from [id number] while he is undergoing treatment. ALLERGIES No known drug allergies. CURRENT OUTPATIENT MEDICATIONS 1. Aspirin 81 mg daily. 2. Vitamin D3 1000 units daily. 3. Colace 100 mg p.o. q.12 hours as needed. 4. Glimepiride 1 mg p.o. daily. 5. Novolin insulin sliding scale. 6. Metformin 1000 mg daily. 7. Metoprolol 12.5 mg daily (succinate). 8. Midodrine 5 mg daily. 9. Zofran as needed 4 mg p.o. 10. Ambien 5 mg p.o. q.h.s. as needed for insomnia. 11. Sodium bicarbonate 650 mg three times a day. REVIEW OF SYSTEMS A 13-point review of systems was obtained. The following are the pertinent positives and negatives: CONSTITUTIONAL: The patient denies fevers, chills, night sweats, weight loss. HEENT: Denies headaches, blurry vision, difficulty swallowing or sore throat. RESPIRATORY: Denies cough, hemoptysis, pleuritic chest pain, PND, orthopnea. GI: Denies nausea, vomiting, diarrhea hematochezia, melena. : Denies dysuria, hematuria, urinary incontinence. RAG CUTTING MACHINE OPERATOR: Denies any focal sensory or motor deficits. SKIN: No complaints. All other review of systems were negative. PHYSICAL EXAMINATION VITAL SIGNS: Height is 182 cm, weight is 88.4 kg, temperature 98.2 degrees Fahrenheit, heart rate 75 beats a minute, respiratory rate 18, blood pressure 130/60, O2 sat is 98% on room air. GENERAL APPEARANCE: Mr. Ramey is a very pleasant 76-year-old male. He is tall, moderate build, in no acute distress. HEENT: Head is atraumatic, normocephalic. Conjunctivae are not pale. Sclerae anicteric, EOMI. PERRLA. Oral exam - no pharyngeal erythema. NECK EXAM: No palpable cervical or supraclavicular lymphadenopathy. RESPIRATORY EXAM: Good air movement bilaterally. Clear breath sounds. CARDIOVASCULAR: Regular rate and rhythm, S1-S2. No obvious murmurs, rubs or gallops. ABDOMINAL EXAM: Thin belly, soft and nontender. No palpable organ enlargement. LOWER EXTREMITIES: No pretibial edema or calf tenderness. RAG CUTTING MACHINE OPERATOR: No focal sensory or motor deficits. LABORATORY FINDINGS Blood work dated 02/27/2017: WBC count 3.4, hemoglobin 10.6 gm/dl, hematocrit 32.3%, platelet count 199, absolute neutrophil count 1.6. Chemistries: Sodium 144, potassium 4.2, chloride 109, bicarbonate 27.4, BUN 13, creatinine 0.91, EGFR 81, random glucose 108, calcium 8.6, total bilirubin 0.4, AST 16, ALT 24, alkaline phosphatase 68, albumin 3.7. ASSESSMENT Mr. Ramey is a very pleasant 76-year-old male with a diagnosis of primary RAG CUTTING MACHINE OPERATOR lymphoma. He was diagnosed in October of 2016 and has thus far received five cycles of high-dose methotrexate averaging 7500 mg (total dose) with each cycle. He receives vincristine, intrathecal chemotherapy and Rituxan with each cycle. I have had to give him treatment delays between the last two cycles to allow full recovery. He has overall tolerated treatment reasonably well other than having had some fatigue and weakness. Interim scans performed after three cycles indicated no evidence of residual or recurrent disease. He will be restaged both with MRI of the brain as well as systemic staging after completion of cycle number six. He comes in today for his final cycle of chemotherapy and is clinically doing well. He did undergo the recommended alkalinization protocol with oral bicarbonate and going into the weekend prior to admission. RECOMMENDATIONS 1. Primary RAG CUTTING MACHINE OPERATOR lymphoma: Proceed with routine lab work including CBC, CMP and urine pH. Should his urine pH be greater than 7, we will initiate methotrexate infusion, he will be dosed at a total dose of 7500 mg which will equal 3750 mg per meter2 on day 1 and vincristine will be delivered to a total dose of 2 mg on day #1. He will be treated with leukovorin rescue IV as per the protocol. Methotrexate levels will be initiated as per the protocol following completion of methotrexate infusions. 2. Diabetes: Continue outpatient medications including NovoLog insulin sliding scale. Fingersticks will be ordered. 3. Hypertension. Continue metoprolol long-acting 12.5 mg twice daily. 4. Continue low-dose aspirin. 5. Lovenox 40 mg subcu for DVT prophylaxis. Future outpatient visits, imaging studies and followup have been scheduled. MD YELITZA Whaley/QUINTON /8:03 AM /8:18 AM
[2017-03-13] MEDS: metFORMIN HCL 500 MG TAB PO SCH (09:00)
[2017-03-13] MEDS: ASPIRIN EC 81 MG TABEC PO SCH (09:00)
[2017-03-13] MEDS: MIDODRINE 5 MG TAB PO SCH ×2 (09:00→21:35)
[2017-03-13] MEDS: CHOLECALCIFEROL (VIT D3) 1000 UNIT TAB PO SCH (09:00)
[2017-03-13] MEDS: SODIUM CHLORIDE 0.9% FLUSH 10 ML FLUSH IV FLUSH SCH ×2 (09:00→21:47)
[2017-03-13] MEDS ORDERED: METOPROLOL SUCCINATE 25 MG EXTENDED RELEASE TAB PO SCH (09:00)
[2017-03-13] MEDS: SODIUM BICARBONATE 8.4% INJ 100 MEQ in SODIUM CHLOR 0.45% 1000 ML INJ 1,000 ML IV SCH (10:16)
[2017-03-13] MEDS: DOCUSATE SODIUM 100 MG CAP PO SCH ×2 (10:16→21:35)
[2017-03-13] MEDS: SODIUM BICARBONATE 650 MG TAB PO SCH ×2 (10:17→21:34)
[2017-03-13] MEDS: ENOXAPARIN SODIUM 40 MG/0.4 ML SYRINGE SQ SCH (10:17)
[2017-03-13 10:22] LABS: AUTOMATED NEUTROPHIL # 3.8 TH/MM3 (1.8-7.7); BASOPHIL # 0.1 TH/MM3 (0-0.2); BASOPHIL % 1.4 % (0.0-2.0); EOSINOPHIL # 0.2 TH/MM3 (0-0.4); EOSINOPHIL % 3.5 % (0.0-4.0); HEMATOCRIT 34.8 % (39.0-51.0); HEMO FLAGS DIFF FINAL; LYMPH % 24.1 % (9.0-44.0); LYMPHOCYTE # 1.7 TH/MM3 (1.0-4.8); MEAN CORPUSCULAR HEMOGLOBIN 31.7 PG (27.0-34.0); MEAN CORPUSCULAR HGB CONC 33.1 % (32.0-36.0); MONO % 15.6 % (0.0-8.0); NEUT % 55.4 % (16.0-70.0); PLATELET COUNT 252 TH/MM3 (150-450); RED BLOOD COUNT 3.63 MIL/MM3 (4.50-5.90); RED CELL DISTRIBUTION WIDTH 16.9 % (11.6-17.2); WHITE BLOOD COUNT 6.9 TH/MM3 (4.0-11.0)
[2017-03-13] MEDS: INSULIN NovoLIN REGULAR SUPPLEMENTAL SCALE SQ SCH ×3 (11:00→21:45)
[2017-03-13 11:38] LABS: ALKALINE PHOSPHATASE 70 U/L (45-117); ALT (GPT) 24 U/L (12-78); ANION GAP 9 MEQ/L (5-15); AST (GOT) 19 U/L (15-37); BICARBONATE 27.1 MEQ/L (21.0-32.0); BLOOD UREA NITROGEN 11 MG/DL (7-18); CHLORIDE 105 MEQ/L (98-107); GLOMERULAR FILTRATION RATE 87 ML/MIN (>89); POTASSIUM 3.9 MEQ/L (3.5-5.1); SODIUM (NA) 141 MEQ/L (136-145); TOTAL BILIRUBIN ADULT 0.3 MG/DL (0.2-1.0)
[2017-03-13] MEDS ORDERED: SODIUM BICARBONATE IV SCH ×6 (12:00→16:00)
[2017-03-13] MEDS ORDERED: [UNRECOGNIZED DRUG - OTHER] IV SCH ×3 (12:00)
[2017-03-13] MEDS ORDERED: 1/4 SODIUM CHLORIDE IV SCH ×6 (12:00→16:00)
[2017-03-13 12:16] VITALS: BP 137/63; PULSE 72; RESP 16; TEMP 96.6; O2SAT 100
[2017-03-13] MEDS ORDERED: GRANISETRON INJ 1 MG, DEXAMETHASONE INJ 20 MG in SODIUM CHLORIDE 0.9% INJ 50 ML IV ONE (15:30)
[2017-03-13] MEDS ORDERED: [UNRECOGNIZED DRUG - OTHER] IV SCH ×3 (16:00)
[2017-03-13] MEDS ORDERED: SODIUM CHLORIDE 0.9% IV PUSH ONE ×2 (16:00)
[2017-03-13] MEDS ORDERED: WATE IV ONE ×2 (16:00)
[2017-03-13] MEDS ORDERED: VINCRISTINE IV ONE ×2 (16:00)
[2017-03-13] MEDS ORDERED: METHOTREXATE IV ONE ×2 (16:00)
[2017-03-13] MEDS ORDERED: VINCRISTINE IV PUSH ONE ×2 (16:00)
[2017-03-13] MEDS ORDERED: SODIUM CHLORIDE IV ONE ×2 (16:00)
[2017-03-13] MEDS ORDERED: DEXTROSE 5% IV ONE ×2 (16:00)
[2017-03-13 16:16] VITALS: BP 176/72; PULSE 66; RESP 18; TEMP 96.4; O2SAT 100
[2017-03-13 17:52] VITALS: BP 139/66
[2017-03-13] MEDS: 1/4 SODIUM CHLORIDE IV SCH ×6 (19:00→23:25)
[2017-03-13] MEDS: SODIUM BICARBONATE IV SCH ×6 (19:00→23:25)
[2017-03-13] MEDS: [UNRECOGNIZED DRUG - OTHER] IV SCH ×6 (19:00→23:25)
[2017-03-13 20:00] VITALS: BP 147/67; PULSE 63; RESP 18; TEMP 96.6; O2SAT 96
[2017-03-13 21:31] VITALS: BP 154/70; PULSE 77; RESP 16; TEMP 96.5; O2SAT 98
[2017-03-13] MEDS: METOPROLOL SUCCINATE 25 MG EXTENDED RELEASE TAB PO SCH (21:34)
[2017-03-13] MEDS: SODIUM CHLORIDE 0.9% FLUSH 10 ML FLUSH IV FLUSH PRN (21:50)
[2017-03-14] VITALS: BP_SYST 129; BP_SYST 143; BP_DIAS 60; BP_DIAS 70; PULSE 77; RESP 18; TEMP 96.5; O2SAT 98
[2017-03-14 04:00] VITALS: BP 124/67; PULSE 93; RESP 18; TEMP 96.6; O2SAT 98
[2017-03-14] MEDS: INSULIN NovoLIN REGULAR SUPPLEMENTAL SCALE SQ SCH ×4 (05:28→20:49)
[2017-03-14] MEDS: 1/4 SODIUM CHLORIDE IV SCH ×9 (05:57→18:00)
[2017-03-14] MEDS: SODIUM BICARBONATE IV SCH ×9 (05:57→18:00)
[2017-03-14] MEDS: [UNRECOGNIZED DRUG - OTHER] IV SCH ×9 (05:57→18:00)
--- NOTE | 2017-03-14 07:23 | PD.ONC.PN ---
Subjective Subjective Remarks Patient was seen and examined, denies acute complaints, tolerated day 1 of methotrexate and vincristine without difficulties. His only complaint is that of feeling "slow". Denies fevers, chills, night sweats, sores in the mouth, neurological symptoms which are new. Objective Data Date Time Temp Pulse Resp B/P Pulse Ox O2 Delivery O2 Flow Rate FiO2 03/14/17 04:00 96.6 93 18 124/67 98 03/14/17 00:00 96.5 77 18 143/70 98 129/60 03/13/17 21:31 96.5 77 16 154/70 98 03/13/17 20:00 96.6 63 18 147/67 96 03/13/17 17:52 139/66 03/13/17 16:16 96.4 66 18 176/72 100 03/13/17 12:16 96.6 72 16 137/63 100 03/13/17 08:00 96.1 75 16 144/63 100 Result Diagram: 03/13/17 0945 03/13/17 0945 Laboratory Results Laboratory Tests Test 03/13/17 03/13/17 03/13/17 03/14/17 09:45 14:00 16:00 06:10 White Blood Count 6.9 TH/MM3 Red Blood Count 3.63 MIL/MM3 Hemoglobin 11.5 GM/DL Hematocrit 34.8 % Mean Corpuscular Volume 96.0 FL Mean Corpuscular Hemoglobin 31.7 PG Mean Corpuscular Hemoglobin 33.1 % Concent Red Cell Distribution Width 16.9 % Platelet Count 252 TH/MM3 Mean Platelet Volume 9.0 FL Neutrophils (%) (Auto) 55.4 % Lymphocytes (%) (Auto) 24.1 % Monocytes (%) (Auto) 15.6 % Eosinophils (%) (Auto) 3.5 % Basophils (%) (Auto) 1.4 % Neutrophils # (Auto) 3.8 TH/MM3 Lymphocytes # (Auto) 1.7 TH/MM3 Monocytes # (Auto) 1.1 TH/MM3 Eosinophils # (Auto) 0.2 TH/MM3 Basophils # (Auto) 0.1 TH/MM3 CBC Comment DIFF FINAL Differential Comment Sodium Level 141 MEQ/L Potassium Level 3.9 MEQ/L Chloride Level 105 MEQ/L Carbon Dioxide Level 27.1 MEQ/L Anion Gap 9 MEQ/L Blood Urea Nitrogen 11 MG/DL Creatinine 0.86 MG/DL Estimat Glomerular Filtration 87 ML/MIN Rate Random Glucose 118 MG/DL Calcium Level 9.2 MG/DL Total Bilirubin 0.3 MG/DL Aspartate Amino Transf 19 U/L (AST/SGOT) Alanine Aminotransferase 24 U/L (ALT/SGPT) Alkaline Phosphatase 70 U/L Total Protein 6.6 GM/DL Albumin 3.8 GM/DL Urine pH 7.0 7.5 8.0 Administered Medications Medications (Trade) Dose Ordered Sig/Renee Route PRN Reason Start Time Stop Time Status Last Admin Dose Admin Sodium Chloride (NS Flush) 2 ml UNSCH PRN IV FLUSH FLUSH AFTER USING IV ACCESS 03/13/17 08:15 03/13/17 21:50 Sodium Chloride (NS Flush) 2 ml BID IV FLUSH 03/13/17 09:00 03/13/17 21:47 Docusate Sodium (Colace) 100 mg Q12HR PO 03/13/17 09:00 03/13/17 21:35 Enoxaparin Sodium 40 mg 40 mg Q24H SQ 03/13/17 09:00 03/13/17 10:17 Sodium Bicarbonate/ Sodium Chloride (Sodium Bicarbonate 8.4% Inj/1/2 NS 1000 ml Inj) 1,100 ml @ 42 mls/hr Q24H IV 03/13/17 09:00 03/13/17 10:16 Sodium Bicarbonate (Sodium Bicarbonate) 650 mg Q12HR PO 03/13/17 09:00 03/13/17 21:34 Midodrine (Proamatine) 5 mg BID PO 03/13/17 09:00 03/13/17 21:35 Metoprolol Succinate 12.5 mg 12.5 mg HS PO 03/13/17 21:00 03/13/17 21:34 Sodium Chloride/ Sodium Bicarbonate/ Sterile Water (Sodium Chloride 23.4% Inj/Sodium Bicarbonate 8.4% Inj/Sterile Water For Inj) 1,000 ml @ 170 mls/hr Q5H53M IV 03/13/17 19:00 03/16/17 18:59 03/14/17 05:57 Objective Remarks GENERAL APPEARANCE: Mr. Ramey is a very pleasant 76-year-old male. He is tall, moderate build, in no acute distress. HEENT: Head is atraumatic, normocephalic. Conjunctivae are not pale. Sclerae anicteric, EOMI. PERRLA. Oral exam - no pharyngeal erythema. NECK EXAM: No palpable cervical or supraclavicular lymphadenopathy. RESPIRATORY EXAM: Good air movement bilaterally. Clear breath sounds. CARDIOVASCULAR: Regular rate and rhythm, S1-S2. No obvious murmurs, rubs or gallops. ABDOMINAL EXAM: Thin belly, soft and nontender. No palpable organ enlargement. LOWER EXTREMITIES: No pretibial edema or calf tenderness. HAND PATTERN MARKER: No focal sensory or motor deficits. Assessment/Plan Assessment Mr. Ramey is a very pleasant 76-year-old male with a diagnosis of primary HAND PATTERN MARKER lymphoma. He was diagnosed in October of 2016 and has thus far received five cycles of high-dose methotrexate averaging 7500 mg (total dose) with each cycle. He receives vincristine, intrathecal chemotherapy and Rituxan with each cycle. I have had to give him treatment delays between the last two cycles to allow full recovery. He has overall tolerated treatment reasonably well other than having had some fatigue and weakness. Interim scans performed after three cycles indicated no evidence of residual or recurrent disease. He will be restaged both with MRI of the brain as well as systemic staging after completion of cycle number six. He comes in today for his final cycle of chemotherapy and is clinically doing well. He did undergo the recommended alkalinization protocol with oral bicarbonate and going into the weekend prior to admission. Plan 1. Primary HAND PATTERN MARKER lymphoma: Day 2 cycle #6 today. On alkalinizing agents, urine is appropriately alkalinized at pH 8. Leucovorin rescue to start later today. Check methotrexate levels per protocol. Blood work was reviewed from 03/13/2017 and this appeared to be within normal range. 2. Diabetes: Continue outpatient medications including NovoLog insulin sliding scale. Fingersticks will be ordered. 3. Hypertension. Continue metoprolol long-acting 12.5 mg twice daily. 4. Continue low-dose aspirin. 5. Lovenox 40 mg subcu for DVT prophylaxis. Nas Fish MD Mar 14, 2017 07:23
[2017-03-14 08:00] VITALS: BP 114/61; PULSE 76; RESP 18; TEMP 97.4; O2SAT 98
[2017-03-14] MEDS: SODIUM BICARBONATE 8.4% INJ 100 MEQ in SODIUM CHLOR 0.45% 1000 ML INJ 1,000 ML IV SCH (09:00)
[2017-03-14] MEDS: SODIUM BICARBONATE 650 MG TAB PO SCH ×2 (09:46→20:43)
[2017-03-14] MEDS: ENOXAPARIN SODIUM 40 MG/0.4 ML SYRINGE SQ SCH (09:46)
[2017-03-14] MEDS: metFORMIN HCL 500 MG TAB PO SCH (09:46)
[2017-03-14] MEDS: MIDODRINE 5 MG TAB PO SCH ×2 (09:46→20:42)
[2017-03-14] MEDS: CHOLECALCIFEROL (VIT D3) 1000 UNIT TAB PO SCH (09:46)
[2017-03-14] MEDS: DOCUSATE SODIUM 100 MG CAP PO SCH ×2 (09:46→20:43)
[2017-03-14] MEDS: GLIMEPIRIDE 1 MG TAB PO SCH (09:46)
[2017-03-14] MEDS: SODIUM CHLORIDE 0.9% FLUSH 10 ML FLUSH IV FLUSH SCH ×2 (09:47→20:45)
[2017-03-14] MEDS: ASPIRIN EC 81 MG TABEC PO SCH (09:47)
[2017-03-14 12:00] VITALS: BP 139/64; PULSE 75; RESP 18; TEMP 96.4; O2SAT 100
--- NOTE | 2017-03-14 15:47 | HHI.PR ---
Addendum to Inpatient Note Addendum Reason: Additional Documentation Additional Information I was asked to see Mr. Ramey at 3:45 due to "flushed cheeks" appearance. Patient's noticed his cheeks were flushed and told patient, who then looked at himself in the mirror and also noted flushed cheek appearance. He noticed no symptoms. He does not feel flushed. He denies feeling light-headed. He denies pain or sores in the mouth. Vitals were checked and are within normal limits. Patient's chart and labs reviewed. Leucovorin rescue to start as scheduled at 6PM tonight. Patient advised to tell nurse if he developed any other symptoms. I called Dr. Fish and updated him as well. Lynda Mesa Mar 14, 2017 15:47
[2017-03-14 16:00] VITALS: BP 127/60; PULSE 75; RESP 18; TEMP 97.2; O2SAT 99
[2017-03-14 17:41] LABS: AUTOMATED NEUTROPHIL # 7.4 TH/MM3 (1.8-7.7); BASOPHIL % 0.2 % (0.0-2.0); HEMATOCRIT 32.2 % (39.0-51.0); HEMO FLAGS DIFF FINAL; LYMPH % 14.9 % (9.0-44.0); LYMPHOCYTE # 1.6 TH/MM3 (1.0-4.8); MEAN CELL VOLUME 94.8 FL (80.0-100.0); MEAN CORPUSCULAR HEMOGLOBIN 31.8 PG (27.0-34.0); MEAN CORPUSCULAR HGB CONC 33.6 % (32.0-36.0); MONO % 14.5 % (0.0-8.0); NEUT % 70.4 % (16.0-70.0); PLATELET COUNT 236 TH/MM3 (150-450); RED CELL DISTRIBUTION WIDTH 16.7 % (11.6-17.2); WHITE BLOOD COUNT 10.6 TH/MM3 (4.0-11.0)
[2017-03-14] MEDS: LEUCOVORIN IV SCH ×2 (18:01→23:59)
[2017-03-14] MEDS: SODIUM CHLORIDE 0.9% IV SCH ×2 (18:01→23:59)
[2017-03-14 19:20] LABS: ALKALINE PHOSPHATASE 59 U/L (45-117); ALT (GPT) 34 U/L (12-78); ANION GAP 10 MEQ/L (5-15); AST (GOT) 28 U/L (15-37); BICARBONATE 29.8 MEQ/L (21.0-32.0); BLOOD UREA NITROGEN 15 MG/DL (7-18); CHLORIDE 105 MEQ/L (98-107); GLOMERULAR FILTRATION RATE 76 ML/MIN (>89); POTASSIUM 3.5 MEQ/L (3.5-5.1); SODIUM (NA) 145 MEQ/L (136-145); TOTAL BILIRUBIN ADULT 0.4 MG/DL (0.2-1.0)
[2017-03-14 20:00] VITALS: BP 109/56; PULSE 71; RESP 18; TEMP 96.8; O2SAT 100
[2017-03-14] MEDS: METOPROLOL SUCCINATE 25 MG EXTENDED RELEASE TAB PO SCH (20:42)
[2017-03-15] VITALS: BP 107/65; PULSE 70; RESP 18; TEMP 96.5; O2SAT 97
[2017-03-15] MEDS: [UNRECOGNIZED DRUG - OTHER] IV SCH ×15 (00:41→23:58)
[2017-03-15] MEDS: 1/4 SODIUM CHLORIDE IV SCH ×15 (00:41→23:58)
[2017-03-15] MEDS: SODIUM BICARBONATE IV SCH ×15 (00:41→23:58)
[2017-03-15 04:00] VITALS: BP 112/51; PULSE 57; RESP 17; TEMP 97.1; O2SAT 97
[2017-03-15] MEDS: SODIUM CHLORIDE 0.9% IV SCH ×4 (05:58→23:58)
[2017-03-15] MEDS: LEUCOVORIN IV SCH ×4 (05:58→23:58)
[2017-03-15] MEDS: SODIUM CHLORIDE 0.9% FLUSH 10 ML FLUSH IV FLUSH PRN (06:01)
[2017-03-15] MEDS: INSULIN NovoLIN REGULAR SUPPLEMENTAL SCALE SQ SCH ×4 (06:06→20:10)
--- NOTE | 2017-03-15 07:44 | PD.ONC.PN ---
Subjective Subjective Remarks Patient seen and examined, reports having had facial flushing and redness as well as flushing on the upper anterior chest yesterday evening. Per his it looked as if "the patient had been sitting out in the sun ". The skin changes have resolved as of this morning. The patient denies acute complaints specifically fevers, chills, night sweats, difficulty breathing, chest pain, nausea vomiting diarrhea or hematochezia, bruising. Objective Data Date Time Temp Pulse Resp B/P Pulse Ox O2 Delivery O2 Flow Rate FiO2 03/15/17 04:00 97.1 57 17 112/51 97 03/15/17 00:00 96.5 70 18 107/65 97 03/14/17 20:00 96.8 71 18 109/56 100 03/14/17 16:00 97.2 75 18 127/60 99 03/14/17 12:00 96.4 75 18 139/64 100 03/14/17 08:00 97.4 76 18 114/61 98 Result Diagram: 03/14/17 1710 03/14/17 1710 Laboratory Results Laboratory Tests Test 03/14/17 03/14/17 03/15/17 17:10 17:55 06:00 White Blood Count 10.6 TH/MM3 Red Blood Count 3.40 MIL/MM3 Hemoglobin 10.8 GM/DL Hematocrit 32.2 % Mean Corpuscular Volume 94.8 FL Mean Corpuscular Hemoglobin 31.8 PG Mean Corpuscular Hemoglobin 33.6 % Concent Red Cell Distribution Width 16.7 % Platelet Count 236 TH/MM3 Mean Platelet Volume 8.9 FL Neutrophils (%) (Auto) 70.4 % Lymphocytes (%) (Auto) 14.9 % Monocytes (%) (Auto) 14.5 % Eosinophils (%) (Auto) 0.0 % Basophils (%) (Auto) 0.2 % Neutrophils # (Auto) 7.4 TH/MM3 Lymphocytes # (Auto) 1.6 TH/MM3 Monocytes # (Auto) 1.5 TH/MM3 Eosinophils # (Auto) 0.0 TH/MM3 Basophils # (Auto) 0.0 TH/MM3 CBC Comment DIFF FINAL Differential Comment Sodium Level 145 MEQ/L Potassium Level 3.5 MEQ/L Chloride Level 105 MEQ/L Carbon Dioxide Level 29.8 MEQ/L Anion Gap 10 MEQ/L Blood Urea Nitrogen 15 MG/DL Creatinine 0.96 MG/DL Estimat Glomerular Filtration 76 ML/MIN Rate Random Glucose 119 MG/DL Calcium Level 9.0 MG/DL Total Bilirubin 0.4 MG/DL Aspartate Amino Transf 28 U/L (AST/SGOT) Alanine Aminotransferase 34 U/L (ALT/SGPT) Alkaline Phosphatase 59 U/L Total Protein 6.3 GM/DL Albumin 3.7 GM/DL Methotrexate Level 4.42 COMMENT Urine pH 8.0 Administered Medications Medications (Trade) Dose Ordered Sig/Renee Route PRN Reason Start Time Stop Time Status Last Admin Dose Admin Sodium Chloride (NS Flush) 2 ml UNSCH PRN IV FLUSH FLUSH AFTER USING IV ACCESS 03/13/17 08:15 03/15/17 06:01 Sodium Chloride (NS Flush) 2 ml BID IV FLUSH 03/13/17 09:00 03/14/17 20:45 Docusate Sodium (Colace) 100 mg Q12HR PO 03/13/17 09:00 03/14/17 20:43 Enoxaparin Sodium (Lovenox Inj) 40 mg Q24H SQ 03/13/17 09:00 03/14/17 09:46 Sodium Bicarbonate (Sodium Bicarbonate) 650 mg Q12HR PO 03/13/17 09:00 03/14/17 20:43 Aspirin (Ecotrin Ec) 81 mg DAILY PO 03/13/17 09:00 03/14/17 09:47 Midodrine (Proamatine) 5 mg BID PO 03/13/17 09:00 03/14/17 20:42 Cholecalciferol (Vitamin D3) 1,000 units DAILY PO 03/13/17 09:00 03/14/17 09:46 Metformin HCl (Glucophage) 1,000 mg DAILY PO 03/13/17 09:00 03/14/17 09:46 Glimepiride (Amaryl) 1 mg DAILYAC PO 03/13/17 08:30 03/14/17 09:46 Metoprolol Succinate 12.5 mg 12.5 mg HS PO 03/13/17 21:00 03/14/17 20:42 Sodium Chloride 38.5 meq/Sodium Bicarbonate 100 meq/Sterile Water 1,000 ml @ 170 mls/hr Q5H53M IV 03/13/17 19:00 03/16/17 18:59 03/15/17 05:58 Leucovorin Calcium/Sodium Chloride (Wellcovorin Inj/ NS Inj) 50 ml @ 16.667 mls/ hr Q6H IV 03/14/17 18:00 03/17/17 14:59 03/15/17 05:58 Objective Remarks GENERAL APPEARANCE: Mr. Ramey is a very pleasant 76-year-old male. He is tall, moderate build, in no acute distress. HEENT: Head is atraumatic, normocephalic. Conjunctivae are not pale. Sclerae anicteric, EOMI. PERRLA. Oral exam - no pharyngeal erythema. NECK EXAM: No palpable cervical or supraclavicular lymphadenopathy. RESPIRATORY EXAM: Good air movement bilaterally. Clear breath sounds. CARDIOVASCULAR: Regular rate and rhythm, S1-S2. No obvious murmurs, rubs or gallops. ABDOMINAL EXAM: Thin belly, soft and nontender. No palpable organ enlargement. LOWER EXTREMITIES: No pretibial edema or calf tenderness. POWER MARKETER: No focal sensory or motor deficits. Assessment/Plan Assessment Mr. Ramey is a very pleasant 76-year-old male with a diagnosis of primary POWER MARKETER lymphoma. He was diagnosed in October of 2016 and has thus far received five cycles of high-dose methotrexate averaging 7500 mg (total dose) with each cycle. He receives vincristine, intrathecal chemotherapy and Rituxan with each cycle. I have had to give him treatment delays between the last two cycles to allow full recovery. He has overall tolerated treatment reasonably well other than having had some fatigue and weakness. Interim scans performed after three cycles indicated no evidence of residual or recurrent disease. He will be restaged both with MRI of the brain as well as systemic staging after completion of cycle number six. He comes in today for his final cycle of chemotherapy and is clinically doing well. He did undergo the recommended alkalinization protocol with oral bicarbonate and going into the weekend prior to admission. Plan 1. Primary POWER MARKETER lymphoma: Day 3 cycle #6 today. On alkalinizing agents, urine is appropriately alkalinized at pH 8. Leucovorin rescue to started 03/14/2017. Methotrexate level last night was 4.42. CBC and CMP reviewed. 2. Diabetes: Continue outpatient medications including NovoLog insulin sliding scale. Fingersticks will be ordered. 3. Hypertension. Continue metoprolol long-acting 12.5 mg twice daily. 4. Continue low-dose aspirin. 5. Lovenox 40 mg subcu for DVT prophylaxis. Nas Fish MD Mar 15, 2017 07:44
[2017-03-15 08:00] VITALS: BP 143/58; PULSE 70; RESP 20; TEMP 96.5; O2SAT 100
[2017-03-15] MEDS: ASPIRIN EC 81 MG TABEC PO SCH (09:28)
[2017-03-15] MEDS: SODIUM BICARBONATE 650 MG TAB PO SCH ×2 (09:29→20:06)
[2017-03-15] MEDS: DOCUSATE SODIUM 100 MG CAP PO SCH ×2 (09:29→20:06)
[2017-03-15] MEDS: metFORMIN HCL 500 MG TAB PO SCH (09:29)
[2017-03-15] MEDS: GLIMEPIRIDE 1 MG TAB PO SCH (09:29)
[2017-03-15] MEDS: CHOLECALCIFEROL (VIT D3) 1000 UNIT TAB PO SCH (09:29)
[2017-03-15] MEDS: SODIUM CHLORIDE 0.9% FLUSH 10 ML FLUSH IV FLUSH SCH ×2 (09:29→20:07)
[2017-03-15] MEDS: MIDODRINE 5 MG TAB PO SCH ×2 (09:29→20:06)
[2017-03-15] MEDS: ENOXAPARIN SODIUM 40 MG/0.4 ML SYRINGE SQ SCH (09:30)
[2017-03-15 16:00] VITALS: BP 137/63; PULSE 70; RESP 18; TEMP 97.3; O2SAT 100
[2017-03-15 20:00] VITALS: BP 116/56; PULSE 77; RESP 17; TEMP 97.7; O2SAT 96
[2017-03-15] MEDS: METOPROLOL SUCCINATE 25 MG EXTENDED RELEASE TAB PO SCH (20:06)
[2017-03-16] VITALS: BP 110/58; PULSE 82; RESP 17; TEMP 97.9; O2SAT 95
[2017-03-16 04:00] VITALS: BP 101/58; PULSE 68; RESP 17; TEMP 97.8; O2SAT 96
[2017-03-16] MEDS: 1/4 SODIUM CHLORIDE IV SCH ×6 (05:55→11:58)
[2017-03-16] MEDS: [UNRECOGNIZED DRUG - OTHER] IV SCH ×6 (05:55→11:58)
[2017-03-16] MEDS: SODIUM BICARBONATE IV SCH ×6 (05:55→11:58)
[2017-03-16] MEDS: SODIUM CHLORIDE 0.9% IV SCH ×2 (05:59→11:58)
[2017-03-16] MEDS: LEUCOVORIN IV SCH ×2 (05:59→11:58)
[2017-03-16] MEDS: INSULIN NovoLIN REGULAR SUPPLEMENTAL SCALE SQ SCH ×2 (06:06→11:00)
[2017-03-16] MEDS: SODIUM BICARBONATE 650 MG TAB PO SCH (08:11)
[2017-03-16] MEDS: ENOXAPARIN SODIUM 40 MG/0.4 ML SYRINGE SQ SCH (08:11)
[2017-03-16] MEDS: CHOLECALCIFEROL (VIT D3) 1000 UNIT TAB PO SCH (08:12)
[2017-03-16] MEDS: SODIUM CHLORIDE 0.9% FLUSH 10 ML FLUSH IV FLUSH SCH (08:12)
[2017-03-16] MEDS: metFORMIN HCL 500 MG TAB PO SCH (08:12)
[2017-03-16] MEDS: ASPIRIN EC 81 MG TABEC PO SCH (08:12)
[2017-03-16] MEDS: GLIMEPIRIDE 1 MG TAB PO SCH (08:12)
[2017-03-16] MEDS: MIDODRINE 5 MG TAB PO SCH (08:12)
[2017-03-16] MEDS: DOCUSATE SODIUM 100 MG CAP PO SCH (08:12)
[2017-03-16 08:17] VITALS: BP 145/65; PULSE 68; RESP 16; TEMP 97.3; O2SAT 100
[2017-03-16 12:10] VITALS: BP 165/68; PULSE 73; RESP 16; TEMP 97.7; O2SAT 99
--- NOTE | 2017-03-16 12:54 | PD.ONC.PN ---
Subjective Subjective Remarks Patient denies acute complaints, reports feeling well this morning. He is eager to go home. Denies fevers, chills, night sweats, chest pain, difficulty breathing, rash, abdominal pain, nausea vomiting diarrhea or paresthesias. Denies any new neurologic symptoms in general. Objective Data Date Time Temp Pulse Resp B/P Pulse Ox O2 Delivery O2 Flow Rate FiO2 03/16/17 12:10 97.7 73 16 165/68 99 03/16/17 08:17 97.3 68 16 145/65 100 03/16/17 04:00 97.8 68 17 101/58 96 03/16/17 00:00 97.9 82 17 110/58 95 03/15/17 20:00 97.7 77 17 116/56 96 03/15/17 16:00 97.3 70 18 137/63 100 03/16/17 03/16/17 03/16/17 07:00 15:00 23:00 Intake Total 4253 ml Output Total 4800 ml Balance -547 ml Result Diagram: 03/14/17 1710 03/14/17 1710 Laboratory Results Laboratory Tests Test 03/15/17 03/16/17 18:35 06:05 Methotrexate Level 0.21 COMMENT Urine pH 8.0 Administered Medications Medications (Trade) Dose Ordered Sig/Renee Route PRN Reason Start Time Stop Time Status Last Admin Dose Admin Sodium Chloride (NS Flush) 2 ml UNSCH PRN IV FLUSH FLUSH AFTER USING IV ACCESS 03/13/17 08:15 03/15/17 06:01 Sodium Chloride (NS Flush) 2 ml BID IV FLUSH 03/13/17 09:00 03/14/17 20:45 Docusate Sodium (Colace) 100 mg Q12HR PO 03/13/17 09:00 03/16/17 08:12 Enoxaparin Sodium (Lovenox Inj) 40 mg Q24H SQ 03/13/17 09:00 03/16/17 08:11 Sodium Bicarbonate (Sodium Bicarbonate) 650 mg Q12HR PO 03/13/17 09:00 03/16/17 08:11 Aspirin (Ecotrin Ec) 81 mg DAILY PO 03/13/17 09:00 03/16/17 08:12 Midodrine (Proamatine) 5 mg BID PO 03/13/17 09:00 03/16/17 08:12 Cholecalciferol (Vitamin D3) 1,000 units DAILY PO 03/13/17 09:00 03/16/17 08:12 Metformin HCl (Glucophage) 1,000 mg DAILY PO 03/13/17 09:00 03/16/17 08:12 Glimepiride (Amaryl) 1 mg DAILYAC PO 03/13/17 08:30 03/16/17 08:12 Metoprolol Succinate 12.5 mg 12.5 mg HS PO 03/13/17 21:00 03/15/17 20:06 Sodium Chloride 38.5 meq/Sodium Bicarbonate 100 meq/Sterile Water 1,000 ml @ 170 mls/hr Q5H53M IV 03/13/17 19:00 03/16/17 18:59 03/16/17 11:58 Leucovorin Calcium/Sodium Chloride (Wellcovorin Inj/ NS Inj) 50 ml @ 16.667 mls/ hr Q6H IV 03/14/17 18:00 03/17/17 14:59 03/16/17 11:58 Objective Remarks GENERAL APPEARANCE: Mr. Ramey is a very pleasant 76-year-old male. He is tall, moderate build, in no acute distress. HEENT: Head is atraumatic, normocephalic. Conjunctivae are not pale. Sclerae anicteric, EOMI. PERRLA. Oral exam - no pharyngeal erythema. NECK EXAM: No palpable cervical or supraclavicular lymphadenopathy. RESPIRATORY EXAM: Good air movement bilaterally. Clear breath sounds. CARDIOVASCULAR: Regular rate and rhythm, S1-S2. No obvious murmurs, rubs or gallops. ABDOMINAL EXAM: Thin belly, soft and nontender. No palpable organ enlargement. LOWER EXTREMITIES: No pretibial edema or calf tenderness. SHEEP BONER: No focal sensory or motor deficits. Assessment/Plan Assessment Mr. Ramey is a very pleasant 76-year-old male with a diagnosis of primary SHEEP BONER lymphoma. He was diagnosed in October of 2016 and has thus far received five cycles of high-dose methotrexate averaging 7500 mg (total dose) with each cycle. He receives vincristine, intrathecal chemotherapy and Rituxan with each cycle. I have had to give him treatment delays between the last two cycles to allow full recovery. He has overall tolerated treatment reasonably well other than having had some fatigue and weakness. Interim scans performed after three cycles indicated no evidence of residual or recurrent disease. He will be restaged both with MRI of the brain as well as systemic staging after completion of cycle number six. He comes in today for his final cycle of chemotherapy and is clinically doing well. He did undergo the recommended alkalinization protocol with oral bicarbonate and going into the weekend prior to admission. Plan 1. Primary SHEEP BONER lymphoma: Day 4 cycle #6 today. On alkalinizing agents, urine is appropriately alkalinized at pH 8. Leucovorin rescue to started 03/14/2017. Methotrexate level last night was 0.21. CBC and CMP reviewed. 2. Diabetes: Continue outpatient medications including NovoLog insulin sliding scale. Fingersticks will be ordered. 3. Hypertension. Continue metoprolol long-acting 12.5 mg twice daily. 4. Continue low-dose aspirin. 5. Lovenox 40 mg subcu for DVT prophylaxis. Disposition: Discharge home today. Schedule for intrathecal cytarabine injection on 03/20/2017. Nas Fish MD Mar 16, 2017 12:54
--- NOTE | 2017-03-16 13:04 | HHI.DS ---
Discharge Summary Admission Date Mar 13, 2017 at 06:57 Discharge Date: Mar 16, 2017 Admitting Diagnosis Primary ARCHITECTURAL EXAMINER lymphoma Inpatient high-dose chemotherapy Type 2 diabetes Hypertension Procedures Cycle #6 high-dose methotrexate/vincristine. CBC/BMP: 03/14/17 1710 03/14/17 1710 Significant Findings Laboratory Tests Test 03/14/17 17:10 Red Blood Count 3.40 MIL/MM3 (4.50-5.90) Hemoglobin 10.8 GM/DL (13.0-17.0) Hematocrit 32.2 % (39.0-51.0) Neutrophils (%) (Auto) 70.4 % (16.0-70.0) Monocytes (%) (Auto) 14.5 % (0.0-8.0) Monocytes # (Auto) 1.5 TH/MM3 (0-0.9) Estimat Glomerular Filtration 76 ML/MIN (>89) Rate Random Glucose 119 MG/DL (74-106) Total Protein 6.3 GM/DL (6.4-8.2) PE at Discharge Please see my progress note dated 03/16/2017. Hospital Course Patient underwent uncomplicated delivery of high dose methotrexate after appropriate systemic alkalinization with oral and intravenous I carbonate. Urine pH levels were checked daily, blood work was checked periodically. He was initiated on leucovorin rescue intravenously as per protocol 24 hours after initiation of high-dose methotrexate infusion. He also received vincristine IV on day 1. After his methotrexate was noted to be safely decreasing and he was stable from a clinical standpoint he was discharged home on 03/16/2017. Outpatient follow-up , imaging studies, blood work as well as intrathecal chemotherapy injections have been arranged. Pt Condition on Discharge: Fair Discharge Disposition: Discharge Home Discharge Instructions DIET: Follow Instructions for: As Tolerated, No Restrictions Speech Therapy-Diet Recommenda: Regular Activities you can perform: Regular-No Restrictions Nas Fish MD Mar 16, 2017 13:04
== END 2017-03-16 15:06 | disposition home or self-care (01) | DRG 847 ==
LOC: HOCB 06:57
PROVIDERS: ADMIT Internal Medicine Hematology & Oncology; ATTEND Internal Medicine Hematology & Oncology
DX: Z51.11 Encounter for antineoplastic chemotherapy (principal); C83.39 Diffuse large B-cell lymphoma, extranodal and solid organ sites; E11.9 Type 2 diabetes mellitus without complications; I25.10 Atherosclerotic heart disease of native coronary artery without angina pectoris; I10 Essential (primary) hypertension; Z79.84 Long term (current) use of oral hypoglycemic drugs; Z79.82 Long term (current) use of aspirin; Z79.4 Long term (current) use of insulin; Z96.652 Presence of left artificial knee joint
CPT/HCPCS: 76937; 80053; 80299; 81003; 82948; 85025; J0640; J1100; J1626; J1650; J7060; J9250; J9370

== ENCOUNTER 2017-03-20 10:10 | Day surgery (SDC) | payer MEDICARE, OTHER ==
[~2017-03-20] VITALS: Ht 182.9 cm; Wt 88.2 kg
[~2017-03-20 10:10] MED LIST changes: -NITR1SUB3 SL
[2017-03-20 10:24] VITALS: BP 143/69; PULSE 83; RESP 20; TEMP 97.6; O2SAT 100
[2017-03-20 11:17] LABS: APTT (PATIENT) 26.1 SEC (24.3-30.1); PROTHROMBIN TIME - PATIENT 10.7 SEC (9.8-11.6)
--- NOTE | 2017-03-20 12:45 | PD.RAD ---
Post Procedure Progress Note Pre Procedure Diagnosis: (1) Cerebral malignant neoplasm Post Procedure Diagnosis: (1) Cerebral malignant neoplasm Procedure Date: March 20, 2017 Supervising Radiologist: Ten Tijerina JR Proceduralist/Assist: Luciana Headley, RT(R), Mary Agustin RT(R)() Anesthesia: Local Plan of Activity Patient to Unit: [facility] Patient Condition: Good See PACS Report for procedural detail/treatment Spinal Procedure Lumbar Puncture L4-L5 Fluid Description: Clear Puncture Time: 12:38 Findings: Clear CSF noted. CSF sampling not requested. Intrathecal chemotherapy instilled. Jr. Breezy,Ten Cline MD March 20, 2017 12:45
[2017-03-20 12:50] VITALS: BP 127/55; PULSE 84; RESP 20; TEMP 98; O2SAT 100
[2017-03-20] MEDS ORDERED: CYTARABINE INJ 100 MG in SYRINGE/BAG 1 EA IT ONE (13:00)
[2017-03-20 13:50] VITALS: BP 124/57; PULSE 79; RESP 18; O2SAT 99
--- NOTE | 2017-03-20 15:12 | RADRPT ---
EXAM DATE/TIME: 03/20/2017 13:07 [facility] COMPARISON: No previous studies available for comparison. INDICATIONS : Patient is in need of a lumbar puncture for intrathecal administration of chemotherapy. MEDICAL HISTORY : History of non-Hodgkin's lymphoma, DM, CAD, HTN, valvular heart disease. SURGICAL HISTORY : History of craniotomy with biopsy, bone marrow biopsy /aspiration, port placement, colonoscopy, left knee replacement, cardiac stents. ENCOUNTER: Subsequent ACUITY: 4-6 months PAIN SCORE: 0/10 LUMBAR PUNCTURE TIME: 1232 hours FLUORO TIME: 0.8 minutes IMAGE SERIES: 0 ACCESS LEVEL: L4-5 PROCEDURE : Fluoroscopic guided lumbar puncture. Instillation of chemotherapy. The risks, benefits and alternatives to the procedure were explained and verbal and written consent w as obtained. The site was prepped in sterile fashion. Full sterile technique was used, including ca p, mask, sterile gloves and gown and a large sterile sheet. Hand hygiene and 2% chlorhexidine and/or betadine/alcohol prep was utilized per protocol for cutaneous antisepsis. The skin and subcutaneous tissues were infiltrated with local anesthetic solution. With fluoroscopic guidance the lumbar thecal sac was punctured at the level above. Clear CSF was note d within the needle. 100 mg cytarabine was injected. The patient tolerated the procedure well and there were no complications. CONCLUSION: Uncomplicated fluoroscopically guided lumbar puncture with chemotherapy injection. Ten Tijerina Jr., MD on March 20, 2017 at 14:50 Board Certified Radiologist. This report was verified electronically.
== END 2017-03-20 15:00 | disposition home or self-care (01) ==
LOC: HROP 10:10 → HRIP 10:13 → HROP 15:00
PROVIDERS: ATTEND Internal Medicine Hematology & Oncology
DX: C83.39 Diffuse large B-cell lymphoma, extranodal and solid organ sites (principal); E11.9 Type 2 diabetes mellitus without complications; I25.10 Atherosclerotic heart disease of native coronary artery without angina pectoris; I38 Endocarditis, valve unspecified; I10 Essential (primary) hypertension; Z95.5 Presence of coronary angioplasty implant and graft; Z01.818 Encounter for other preprocedural examination; Z85.72 Personal history of non-Hodgkin lymphomas
CPT/HCPCS: 77003; 85610; 85730; 96450; J1642

== ENCOUNTER → 2017-06-20 | Day surgery (SDC) | payer MEDICARE, OTHER ==
[~2017-06-20] MED LIST changes: +ACETAMINOPHEN 1000 MG/100 ML VIAL IV ONE; +LACTATED RINGER'S 1000 ML INJ 1,000 ML ONE; +LIDOCAINE 1%/EPINEPHrine 1:100,000 SOLN 20 ML VIAL ONE; +MIDAZOLAM HCL 2 MG/2 ML VIAL ONE; +NEOMYCIN/POLYMYXIN/BACITRACIN OINT 15 GM TUBE ONE; +NEOMYCIN/POLYMYXIN/HYDROCORT OTIC SUSP 10 ML BTL ONE; +PROPOFOL 100 MG/10 ML INJ IV ONE; +ceFAZolin INJ 1,000 MG VIAL ONE
--- NOTE | 2017-06-20 10:54 | TN ---
cc: AIDA KAHN M.D. 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 This required a tissue rearrangement. Frozen section negative by Dr. Tijerina of [facility]. PROCEDURE The patient was properly consented, marked and anesthetized. The skin was sterilized with Microcyn, sterile draping applied and also applied 1% lidocaine epinephrine. Excision was carried out of this lesion located on the right nasal distal dorsum/tip and sent to pathology for frozen section which came back negative. The primary defect 2 x 1-1/2 cm. A V-to-Y tissue rearrangement reconstruction was designed and transferred into the defect for secondary defect of 2 x 3.5 cm. It was inset with 4-0 Monocryl suture and 5-0 fast-absorbing gut. Good viability of tissue was noted at the end of the case. Absorbent dressings applied along with the antibiotic ointment. The patient tolerated the procedure well. MD HUGO Landin/JOHN /10:39 AM /10:48 AM
== END | disposition home or self-care (01) ==
LOC: ESDC 08:35
PROVIDERS: ATTEND Plastic Surgery
DX: D04.39 Carcinoma in situ of skin of other parts of face (principal)
CPT/HCPCS: 00300; 14060; 88305; 88331; J0131; J0690; J2250; J3010; J7120

== ENCOUNTER 2018-07-12 06:44 | Inpatient (IN) ==
--- NOTE | 2018-07-12 07:22 | P.HPIM ---
History of Present Illness Service: Hematology/Oncology Primary Care Physician: Ana Khalil MD Chief Complaint: Here for inpatient chemotherapy. History of Present Illness: Mr. 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 As a part of his initial staging workup he did undergo ultrasound of the scrotum to rule out involvement of the testicle or the spermatic cord. These are not involved. He was treated with high-dose methotrexate/Rituxan/vincristine with intrathecal cytarabine injections. He was treated between October 2016 in March 2017. Subsequent staging studies revealed complete remission. In May 2018 the patient noticed a large mass on the left side of his scrotum, he had this evaluated by his urologist who recommended imaging studies, the mass was confirmed on imaging studies and patient subsequently underwent a left- sided orchiectomy performed on 06/21/2018. Pathologic findings revealed high- grade large B-cell lymphoma (with a Ki-67 proliferation index of 95%). Indicating a Burkitt-like lymphoma. Subsequent staging studies including PET/ CT scan as well as MRI of the brain revealed findings of recurrence intracranially as well as evidence of hypermetabolic lymphadenopathy in the left inguinal area. The patient was offered systemic therapy and the second line setting with high- dose methotrexate coupled with R-CHOP. He comes in today to be admitted for high-dose methotrexate infusion and CHOP. On 07/11/2018 he received his first dose of Rituxan and has been on intermediate high dose dexamethasone for management of vasogenic edema associated with his intracranial lymphoma. Review of Systems Constitutional: Denies anorexia, Denies chills, Denies daytime sleepiness, Denies malaise, Denies night sweats, Denies weakness, Denies weight gain, Denies weight loss Eyes: Denies blind spots, Denies blurry vision, Denies change in vision Ears, Nose, Mouth, and Throat: Denies abnormal hearing, Denies change in voice, Denies sore throat, Denies throat swelling Cardiovascular: Denies chest pain, Denies chest pain at rest, Denies shortness of breath with activity, Denies shortness of breath when lying down Respiratory: Denies cough, Denies shortness of breath, Denies shortness of breath with activity Gastrointestinal: Denies abdominal pain, Denies change in bowel habits, Denies vomiting, Denies vomiting blood Genitourinary: Denies blood in urine, Denies scrotal swelling Comments: Orchiectomy incision in left inguinal area healing well, swelling is decreased. Musculoskeletal: Denies abnormal walking Skin/Breast: Denies acne Neurologic: Denies abnormal hearing Psychiatric: Reports anxiety, Denies abnormal sleep pattern, Denies change in appetite Endocrine: Denies cold intolerance Hematologic/Lymphatic: Denies easy bleeding Allergic/Immunologic: Denies GI upset with certain foods PMFSH - Medical History Medical History: Medical History (Last Updated 07/12/18 @ 08:36 by Nas Fish MD) High grade malignant lymphoma Hypertension Normal colonoscopy Port-A-Cath in place Primary SAW RUNNER lymphoma Type 2 diabetes mellitus Valvular heart disease - Surgical History Surgical History: Surgical History (Last Updated 07/12/18 @ 08:36 by Nas Fish MD) H/O basal cell carcinoma excision H/O craniotomy History of bone marrow biopsy History of left knee replacement History of orchiectomy, unilateral Hx of tonsillectomy - Family History Family History: Family History (Last Updated 07/12/18 @ 08:37 by Nas Fish MD) Sister Cancer - Tobacco History Second Hand Smoke Exposure: No Tobacco Use In Past 30 Days: No Smoking Status: Former smoker (Cigars.) Tobacco Type: Cigars - Alcohol History How Often Do You Have a Drink Containing Alcohol: Monthly or less - Travel History History of Recent Travel: No Recent Travel in the [place] Within the Last 8 Weeks: No Recent Travel Out of the Country Within the Last 8 Weeks: No Medications and Allergies Active Medications: Active Medications Aspirin (Ecotrin) 81 mg PO DAILY ANDRIY Glimepiride (Amaryl) 2 mg PO DAILYAC ANDRIY Sodium Bicarbonate 100 meq/ (Dextrose) 1,000 mls @ 100 mls/hr IV.CONT .Q10H ANDRIY Metoprolol Succinate (Toprol Xl) 12.5 mg PO DAILY ANDRIY Pravastatin Sodium (Pravachol) 10 mg PO DAILY ANDRIY Sitagliptin Phosphate (Januvia) 50 mg PO DAILY ANDRIY Zolpidem Tartrate (Ambien) 10 mg PO HS PRN PRN Reason: SLEEP Allergies Allergy/AdvReac Type Severity Reaction Status Date / Time No Known Allergies Allergy Uncoded 03/13/17 09:46 Exam - Constitutional no acute distress - Routine HEENT Exam Head: Present: normocephalic, atraumatic Eye: Present: EOMI, PERRL, normal accommodation. Absent: conjunctival icterus, scleral injection ENT: Present: mucous membranes moist - Routine Neck Exam Present: supple, full ROM, JVD. Absent: carotid bruit, lymphadenopathy - Routine Chest/Breast/Axilla Exam Chest wall: Absent: tenderness, mass Breast: Absent: tenderness, induration Axillae: Absent: lymphadenopathy, mass - Routine Respiratory Exam Present: CTA bilaterally. Absent: accessory muscle use, respiratory distress, rhonchi, stridor, wheezes, crackles - Routine Cardiovascular Exam Present: RRR, S1, S2. Absent: murmur, gallop, rubs, S3, S4 - Routine Abdominal Exam Present: soft, normoactive bowel sounds. Absent: tenderness, distended, rebound , guarding, firm Comments: Well-healing left inguinal surgical incision, edema and swelling decreased compared to last week. - Routine Extremities Exam Absent: cyanosis, clubbing, edema, full ROM, pulses intact - Routine Skin Exam Present: intact. Absent: cyanosis, erythema, dry, pallor - Routine Neurological Exam Present: alert, oriented X3, CN II-XII intact, normal reflexes. Absent: sensory deficit, motor deficit Results - Labs Labs: Labs dated 07/02/2018: Performed at [facility] CBC: WBC count 9.1, hemoglobin 12.8 g/dL, hematocrit 38.5%, platelet count 346, absolute neutrophil count of 5.9, absolute cell count 2. Chemistries: Sodium 138, potassium 4.1, chloride 105. Bicarbonate 25.2, BUN 15, creatinine 0.89, EGFR 83 mL's per minute, calcium 9.3, total bilirubin 0.3, AST 15, ALT 21 , alkaline phosphatase 89, albumin 3.5. LDH 174. Sed rate 40. - Imaging PET/CT scan dated 07/03/2018 performed at [facility]: Conclusion: Evidence of recurrent tumor with 2 extremely hypermetabolic left external iliac masses measuring up to 3 cm. 2. Interval development of nonmetabolic soft tissue mass in the subcutaneous tissue of the left inguinal region measuring up to 9 cm in size and predominantly appearing as photopenic void. MRI of the brain dated 07/05/2018 with and without contrast: Conclusion: 1. New nodular enhancement involving the lenticulostriate distribution of the left basal ganglia as well as subcortical left parietal region. There is associated edema. The findings are characteristic of intracranial involvement with lymphoma. This is new when compared to prior examination. Caprini VTE Risk Assessment Caprini VTE Risk Assessment: Moderate/High Risk (score >= 2) (On Lovenox 40 mg subcu once daily.) Caprini Risk Assessment Model: Point Value = 1 Point Value = 2 Point Value = 3 Point Value = 5 Age 41-60 Minor surgery BMI > 25 kg/m2 Swollen legs Varicose veins or History of unexplained or recurrent spontaneous Oral contraceptives or hormone replacement Sepsis (< 1 month) Serious lung disease, including pneumonia (< 1 month) Abnormal pulmonary function Acute myocardial infarction Congestive heart failure (< 1 month) History of inflammatory bowel disease Medical patient at bed rest Age 61-74 Arthroscopic surgery Major open surgery (> 45 min) Laparoscopic surgery (> 45 min) Malignancy Confined to bed (> 72 hours) Immobilizing plaster cast Central venous access Age >= 75 History of VTE Family history of VTE Factor V Leiden Prothrombin [id number] Lupus anticoagulant Anticardiolipin antibodies Elevated serum homocysteine Heparin-induced thrombocytopenia Other congenital or acquired thrombophilia Stroke (< 1 month) Elective arthroplasty Hip, pelvis, or leg fracture Acute spinal cord injury (< 1 month) Prophylaxis Regimen: Total Risk Factor Score Risk Level Prophylaxis Regimen 0-1 Low Early ambulation 2 Moderate Order ONE of the following: *Sequential Compression Device (SCD) *Heparin 5000 units SQ BID 3-4 Higher Order ONE of the following medications: *Heparin 5000 units SQ TID *Enoxaparin/Lovenox 40 mg SQ daily (WT < 150 kg, CrCl > 30 mL/min) *Enoxaparin/Lovenox 30 mg SQ daily (WT < 150 kg, CrCl > 10-29 mL/min) *Enoxaparin/Lovenox 30 mg SQ BID (WT < 150 kg, CrCl > 30 mL/min) AND/OR *Sequential Compression Device (SCD) 5 or more Highest Order ONE of the following medications: *Heparin 5000 units SQ TID (Preferred with Epidurals) *Enoxaparin/Lovenox 40 mg SQ daily (WT < 150 kg, CrCl > 30 mL/min) *Enoxaparin/Lovenox 30 mg SQ daily (WT < 150 kg, CrCl > 10-29 mL/min) *Enoxaparin/Lovenox 30 mg SQ BID (WT < 150 kg, CrCl > 30 mL/min) AND *Sequential Compression Device (SCD) Assessment and Plan - Plan Mr. Ramey is a 78-year-old man who is well-known to me from my inpatient and outpatient practice. He was diagnosed in October 2016 with a high-grade primary SAW RUNNER lymphoma (diffuse large B cell histology). He was treated with 6 cycles of high-dose methotrexate, rituximab, vincristine and intrathecal cytarabine. After 6 cycles he was noted to be in remission and after completing treatment in March 2017 had been on observation alone. In May 2018 he developed symptoms of pain in his left inguinal area/scrotum, he noticed a mass in the scrotum on the left side. He underwent left-sided orchiectomy and pathologic findings revealed a high-grade B-cell lymphoma with a very high Ki- 67 proliferation rate. Systemic staging studies including MRI of the brain revealed intracranial recurrence as well as hypermetabolic lymph nodes within the left inguinal lymph node chains. He is being admitted to this facility for high-dose methotrexate therapy, this will be coupled with R-CHOP. Recommendations: 1. High-grade B-cell lymphoma now with relapse after initial diagnosis of primary SAW RUNNER lymphoma was established almost 20 months ago. He is status post Rituxan infusion on 07/11/2018. This was delivered in the outpatient setting. He comes in today for alkalinization of his urine with sodium bicarbonate followed by methotrexate infusion, I will dose him at 2500 mg per metered squared. Obtain echocardiogram to assess cardiac function for planned use of anthracycline systemic therapy. In addition to anthracycline therapy; doxorubicin he will be treated with vincristine and cyclophosphamide. 2. Hydration: With D5W with sodium bicarbonate at 100 cc/h. Check urine pH at the time of admission and then repeat later today. He was on oral bicarbonate tablets leading into this hospitalization. 3. Type 2 diabetes: Continue combination of oral hypoglycemics he had been on at home including Januvia, glimepiride, before meals and at bedtime bedside glucose fingerstick checks. Add on insulin sliding scale coverage if needed. 4. Hypertension: Lisinopril 2.5 mg twice daily, midodrine to be continued. 5. DVT prophylaxis: With Lovenox 40 mg subcu once daily. 6. Access port. 7. Anticipated nausea related to chemotherapy: Will place orders for as needed antiemetic therapy with Zofran. 8. library monitor orders have been placed. 9. Diet: Regular diet. Code Status: Full. Discussed Condition With: The patient. Nursing staff. Patient's and daughter. Discharge Planning: Patient to be discharged home after completion of inpatient chemotherapy infusion. - Attending Attestation I attest I saw this patient personally, history and physical exam performed. Medications reviewed, orders placed. Plan discussed.
[2018-07-12] MEDS ORDERED: Bisacodyl 10 MG Supp RECTAL PRN (08:31)
[2018-07-12 09:26] LABS: Hematocrit 39.6 % (39.0-51.0); Hemoglobin 13.3 gm/dL (13.0-17.0); Lymph # (Auto) 0.6 th/mm3 (1.0-4.8); Lymph % (Auto) 5.6 % (9.0-44.0); Mean Corpuscular HGB Conc 33.7 % (32.0-36.0); Mean Corpuscular Hemoglobin 31.2 pg (27.0-34.0); Mean Corpuscular Volume 92.4 fL (80.0-100.0); Mono # (Auto) 0.9 th/mm3 (0.0-0.9); Neut # (Auto) 8.7 th/mm3 (1.8-7.7); Neut % (Auto) 85.4 % (16.0-70.0); Platelet Count 294 th/mm3 (150-450); Red Blood Count 4.28 mil/mm3 (4.50-5.90); Red Cell Distribution Width 13.7 % (11.6-17.2); White Blood Count 10.3 th/mm3 (4.0-11.0)
[2018-07-12 09:42] LABS: Anion Gap 10 meq/L (5-15); Aspartate Aminotransferase 16 U/L (15-37); Blood Urea Nitrogen 26 mg/dL (7-18); Calcium 9.7 mg/dL (8.5-10.1); Carbon Dioxide 26.2 meq/L (21.0-32.0); Chloride 105 meq/L (98-107); Glomerular Filtration Rate 67 mL/min (>89); Glucose,Random 133 mg/dL (74-106); Sodium 141 meq/L (136-145)
[2018-07-12 09:43] LABS: Alanine Aminotransferase 23 U/L (12-78)
[2018-07-12 09:45] LABS: Alkaline Phosphatase 74 U/L (45-117); Total Protein 7.1 g/dL (6.4-8.2)
[2018-07-12] MEDS: Senna/Docusate Sodium 8.6/50 MG Tablet PO SCH ×2 (10:10→20:30)
[2018-07-12] MEDS: Enoxaparin Inj 40 MG/0.4 ML Syringe SQ SCH (10:10)
[2018-07-12] MEDS: Sodium Bicarbonate 8.4% Inj 100 MEQ in Dextrose 5% in Water Inj 900 ML IV.CONT SCH ×4 (10:11→20:30)
--- NOTE | 2018-07-12 16:56 | ECHRPT ---
Indication: PRE CHEMO, ?EF CONCLUSIONS Normal left ventricular size. Wall thickness is normal. The left ventricular systolic function is low normal with an estimated ejection fraction in the rang e of 50- 55%. The interatrial septum not well visualized. Mild mitral valve regurgitation. Aortic valve sclerosis is present. Mild aortic valve regurgitation. There is mild tricuspid valve regurgitation. The estimated pulmonary arterial pressure is 31 mmHg. Trivial pulmonary valve regurgitation. The inferior vena cava was not well visualized. BP: / HR: Rhythm: Sinus MEASUREMENTS (Male / Female) Normal Values Technical Quality:Fair 2D ECHO LV Diastolic Diameter PLAX 5.0 cm 4.2 - 5.9 / 3.9 - 5.3 cm LV Systolic Diameter PLAX 4.2 cm IVS Diastolic Thickness 0.9 cm 0.6 - 1.0 / 0.6 - 0.9 cm LVPW Diastolic Thickness 0.9 cm 0.6 - 1.0 / 0.6 - 0.9 cm LV Relative Wall Thickness 0.4 RV Internal Dim ED PLAX 2.5 cm LVOT Diameter 2.3 cm Aortic Root Diameter 3.1 cm LA Systolic Diameter LX 3.8 cm 3.0 - 4.0 / 2.7 - 3.8 cm M-MODE AV Cusp Separation MM 2.6 cm DOPPLER AV Peak Velocity 117.0 cm/s AV Peak Gradient 5.5 mmHg AV Mean Gradient 3.0 mmHg AV Velocity Time Integral 31.6 cm AI Peak Velocity 411.0 cm/s AI Peak Gradient 67.6 mmHg AI Pressure Half Time 546.0 ms LVOT Peak Velocity 66.9 cm/s LVOT Peak Gradient 1.8 mmHg LVOT Velocity Time Integral 19.5 cm AV Area Cont Eq vti 2.6 cm AV Area Cont Eq pk 2.4 cm Mitral E Point Velocity 85.9 cm/s Mitral A Point Velocity 95.3 cm/s Mitral E to A Ratio 0.9 LV E' Lateral Velocity 8.8 cm/s Mitral E to LV E' Lateral Ratio 9.8 LV E' Septal Velocity 6.5 cm/s Mitral E to LV E' Septal Ratio 13.2 TR Peak Velocity 229.0 cm/s TR Peak Gradient 21.0 mmHg Right Atrial Pressure 10.0 mmHg Pulmonary Artery Systolic Pressu 31.0 mmHg Right Ventricular Systolic Press 31.0 mmHg PV Peak Velocity 73.7 cm/s PV Peak Gradient 2.2 mmHg FINDINGS LEFT VENTRICLE Normal left ventricular size. Wall thickness is normal. The left ventricular systolic function is low normal with an estimated ejection fraction in the rang e of 50- 55%. RIGHT VENTRICLE Normal right ventricular size and systolic function. LEFT ATRIUM The left atrial size is normal. RIGHT ATRIUM The right atrial size is normal. ATRIAL SEPTUM The interatrial septum not well visualized. AORTA The aortic root and proximal ascending aorta are normal in size on limited imaging. MITRAL VALVE Mild mitral valve regurgitation. AORTIC VALVE Aortic valve sclerosis is present. Mild aortic valve regurgitation. TRICUSPID VALVE There is mild tricuspid valve regurgitation. The estimated pulmonary arterial pressure is 31 mmHg. PULMONARY VALVE Trivial pulmonary valve regurgitation. VESSELS The inferior vena cava was not well visualized. PERICARDIUM No pericardial effusion. Paul Ortiz MD, FACC (Electronically Signed) Final Date:12 July 2018 16:55
[2018-07-12] MEDS ORDERED: Glimepiride 1 MG Tablet PO SCH (17:00)
[2018-07-12] MEDS: Lisinopril 5 MG Tablet PO SCH (17:18)
[2018-07-13 05:56] LABS: Baso % (Auto) 0.1 % (0.0-2.0); Eos % (Auto) 0.4 % (0.0-4.0); Hematocrit 36.3 % (39.0-51.0); Hemoglobin 12.6 gm/dL (13.0-17.0); Lymph # (Auto) 1.8 th/mm3 (1.0-4.8); Lymph % (Auto) 23.5 % (9.0-44.0); Mean Corpuscular HGB Conc 34.7 % (32.0-36.0); Mean Corpuscular Hemoglobin 31.5 pg (27.0-34.0); Mean Corpuscular Volume 90.8 fL (80.0-100.0); Mean Platelet Volume 8.9 fL (7.0-11.0); Mono % (Auto) 13.2 % (0.0-8.0); Neut # (Auto) 4.7 th/mm3 (1.8-7.7); Neut % (Auto) 62.8 % (16.0-70.0); Platelet Count 251 th/mm3 (150-450); Red Blood Count 3.99 mil/mm3 (4.50-5.90); Red Cell Distribution Width 13.5 % (11.6-17.2); White Blood Count 7.5 th/mm3 (4.0-11.0)
[2018-07-13] MEDS: Glimepiride 1 MG Tablet PO SCH (06:05)
[2018-07-13] MEDS: Sodium Bicarbonate 8.4% Inj 100 MEQ in Dextrose 5% in Water Inj 900 ML IV.CONT SCH ×4 (06:05→16:07)
[2018-07-13 06:32] LABS: Alanine Aminotransferase 21 U/L (12-78); Albumin 3.2 g/dL (3.4-5.0); Alkaline Phosphatase 57 U/L (45-117); Anion Gap 8 meq/L (5-15); Aspartate Aminotransferase 14 U/L (15-37); Blood Urea Nitrogen 17 mg/dL (7-18); Calcium 8.4 mg/dL (8.5-10.1); Carbon Dioxide 30.4 meq/L (21.0-32.0); Chloride 100 meq/L (98-107); Glomerular Filtration Rate 84 mL/min (>89); Glucose,Random 92 mg/dL (74-106); Potassium 3.4 meq/L (3.5-5.1); Sodium 138 meq/L (136-145); Total Protein 5.9 g/dL (6.4-8.2)
[2018-07-13] MEDS ORDERED: Glimepiride 2 MG Tablet PO SCH (07:00)
[2018-07-13] MEDS: Senna/Docusate Sodium 8.6/50 MG Tablet PO SCH ×2 (09:09→20:30)
[2018-07-13] MEDS: Enoxaparin Inj 40 MG/0.4 ML Syringe SQ SCH (09:09)
[2018-07-13] MEDS: Lisinopril 5 MG Tablet PO SCH (09:09)
[2018-07-13] MEDS ORDERED: Granisetron Inj 1 MG, Dexamethasone Inj 20 MG in Sodium Chlor 0.9% Inj 50 ML IV.SIG ONE ×2 (10:30)
[2018-07-13] MEDS ORDERED: WATER IV.SIG ONE ×2 (11:00)
[2018-07-13] MEDS ORDERED: DEXTROSE 5% IV.SIG ONE ×2 (11:00)
[2018-07-13] MEDS ORDERED: METHOTREXATE IV.SIG ONE ×2 (11:00)
--- NOTE | 2018-07-13 12:02 | P.PNONC ---
Subjective Interval history: Patient seen and examined, vital signs, labs and medications reviewed. Overall he denies complaints, over the course the past 24 hours he has been on a bicarbonate infusion. He also He also underwent an echocardiogram which revealed an LVEF of 50-55% (in the low normal range). He denies symptoms of fevers, chills, night sweats or any focal aches or pains. Objective Vital Signs/Intake & Output: Vital Signs 07/12/18 15:00 07/12/18 15:49 07/12/18 20:00 Temperature 98.3 F 97.7 F Pulse Rate 69 58 L Respiratory Rate 18 16 Blood Pressure 160/65 H 141/65 H Pulse Oximetry 98 97 07/13/18 00:00 07/13/18 04:00 07/13/18 07:00 Temperature 97.7 F 97.4 F L Pulse Rate 52 L 58 L 60 Respiratory Rate 16 16 Blood Pressure 142/68 H 119/62 Pulse Oximetry 100 99 07/13/18 09:05 Temperature 97.6 F Pulse Rate 63 Respiratory Rate 18 Blood Pressure 139/58 L Pulse Oximetry 100 Intake & Output 07/12/18 07/13/18 07/13/18 18:59 06:59 18:59 Intake Total 5000 / 5000 4000 / 4000 Output Total 1825 / 1825 3075 / 3075 Balance 3175 / 3175 925 / 925 Weight 92 kg Intake: IV 1999 / 1999 Sodium Bicarbonate 8.4% Inj 100 2000 / 2000 MEQ In D5W Inj 900 ML @ 100 mls/hr IV.CONT .Q10H [facility] Rx#: [id number] Oral 5000 / 5000 2000 / 2000 Output: Urine 1825 / 1825 3075 / 3075 Other: Date of Last Bowel Movement 07/11/18 07/11/18 07/13/18 Weight On Admission 92 kg Result Diagrams: 07/13/18 03:50 07/13/18 03:50 Laboratory Results: Laboratory Results - last 24 hr 07/12/18 07/12/18 07/12/18 11:25 12:18 16:52 WBC RBC Hgb Hct MCV MCH MCHC RDW Plt Count MPV Neut % (Auto) Lymph % (Auto) Pitkin % (Auto) Eos % (Auto) Baso % (Auto) Neut # (Auto) Lymph # (Auto) Pitkin # (Auto) Eos # (Auto) Baso # (Auto) WBC Differential Differential Comment Sodium Potassium Chloride Carbon Dioxide Anion Gap BUN Creatinine Estimated GFR POC Glucose 193 H 225 H Random Glucose Calcium Total Bilirubin AST ALT Alkaline Phosphatase Total Protein Albumin Urine pH 5.0 07/12/18 07/12/18 07/13/18 18:42 20:32 03:50 WBC 7.5 RBC 3.99 L Hgb 12.6 L Hct 36.3 L MCV 90.8 MCH 31.5 MCHC 34.7 RDW 13.5 Plt Count 251 MPV 8.9 Neut % (Auto) 62.8 Lymph % (Auto) 23.5 Pitkin % (Auto) 13.2 H Eos % (Auto) 0.4 Baso % (Auto) 0.1 Neut # (Auto) 4.7 Lymph # (Auto) 1.8 Pitkin # (Auto) 1.0 H Eos # (Auto) 0.0 Baso # (Auto) 0.0 WBC Differential . Differential Comment Auto diff final Sodium Potassium Chloride Carbon Dioxide Anion Gap BUN Creatinine Estimated GFR POC Glucose 116 H 128 H Random Glucose Calcium Total Bilirubin AST ALT Alkaline Phosphatase Total Protein Albumin Urine pH 07/13/18 07/13/18 07/13/18 03:50 05:30 08:30 WBC RBC Hgb Hct MCV MCH MCHC RDW Plt Count MPV Neut % (Auto) Lymph % (Auto) Pitkin % (Auto) Eos % (Auto) Baso % (Auto) Neut # (Auto) Lymph # (Auto) Pitkin # (Auto) Eos # (Auto) Baso # (Auto) WBC Differential Differential Comment Sodium 138 Potassium 3.4 L Chloride 100 Carbon Dioxide 30.4 Anion Gap 8 BUN 17 Creatinine 0.88 Estimated GFR 84 L POC Glucose 205 H Random Glucose 92 Calcium 8.4 L D Total Bilirubin 0.6 AST 14 L ALT 21 Alkaline Phosphatase 57 Total Protein 5.9 L D Albumin 3.2 L D Urine pH 8.0 Medications: Active Medications Generic Name Dose Route Start Last Admin Trade Name Freq PRN Reason Stop Dose Admin Aspirin 81 mg 07/12/18 09:00 07/13/18 09:09 Ecotrin PO 81 mg DAILY ANDRIY Administration Enoxaparin Sodium 40 mg 07/12/18 09:00 07/13/18 09:09 Lovenox Inj SQ 40 mg DAILY ANDRIY Administration Glimepiride 1 mg 07/13/18 07:00 07/13/18 06:05 Amaryl PO 1 mg DAILYAC ANDRIY Administration Sodium Bicarbonate 100 meq/ 1,000 mls @ 100 mls/hr 07/12/18 08:00 07/13/18 06 :05 Dextrose IV.CONT 100 mls/hr .Q10H ANDRIY Administration Lisinopril 2.5 mg 07/12/18 18:00 07/13/18 09:09 Prinivil PO 2.5 mg DAILY ANDRIY Administration Metoprolol Succinate 12.5 mg 07/12/18 09:00 07/13/18 09:09 Toprol Xl PO 12.5 mg DAILY ANDRIY Administration Midodrine 5 mg 07/12/18 09:00 07/13/18 09:12 Proamatine PO 5 mg BID ANDRIY Administration Miscellaneous 1 each 07/12/18 09:00 07/13/18 09:10 Pill Splitter OTHER 1 each DAILY ANDRIY Administration Pravastatin Sodium 10 mg 07/12/18 09:00 07/13/18 09:09 Pravachol PO 10 mg DAILY ANDRIY Administration Prednisone 100 mg 07/13/18 10:00 07/13/18 10:40 Deltasone PO 07/17/18 10:01 100 mg Q24H ANDRIY Administration Senna/Docusate Sodium 1 tab 07/12/18 09:00 07/13/18 09:09 Catherine-Colace PO 1 tab BID ANDRIY Administration Sitagliptin Phosphate 50 mg 07/12/18 09:00 07/13/18 09:10 Januvia PO 50 mg DAILY ANDRIY Administration Vitamin D 1,000 unit 07/12/18 09:00 07/13/18 09:09 Vitamin D3 PO 1,000 unit DAILY ANDRIY Administration Objective Remarks: GENERAL: Elderly male, tall, moderate build, appears to be no acute distress. SKIN: Warm and dry. HEAD: Normocephalic. EYES: No scleral icterus. No injection or drainage. NECK: Supple, trachea midline. No JVD or lymphadenopathy. LYMPHATIC: No adenopathy. CARDIOVASCULAR: Regular rate and rhythm without murmurs. RESPIRATORY: Breath sounds equal bilaterally. No accessory muscle use. GASTROINTESTINAL: Abdomen soft, non-tender, nondistended. EXTREMITIES: No cyanosis, or edema. MUSCULOSKELETAL: Adequate muscle tone. NEUROLOGICAL: No obvious focal deficit. Awake, alert, and oriented x3. PSYCHIATRIC: Appropriate mood and affect; insight and judgment normal. Assessment/Plan - Plan Mr. Ramey is a 78-year-old man who is well-known to me from my inpatient and outpatient practice. He was diagnosed in October 2016 with a high-grade primary BAG MAKER lymphoma (diffuse large B cell histology). He was treated with 6 cycles of high-dose methotrexate, rituximab, vincristine and intrathecal cytarabine. After 6 cycles he was noted to be in remission and after completing treatment in March 2017 had been on observation alone. In May 2018 he developed symptoms of pain in his left inguinal area/scrotum, he noticed a mass in the scrotum on the left side. He underwent left-sided orchiectomy and pathologic findings revealed a high-grade B-cell lymphoma with a very high Ki- 67 proliferation rate. Systemic staging studies including MRI of the brain revealed intracranial recurrence as well as hypermetabolic lymph nodes within the left inguinal lymph node chains. The plan is to treat him with high-dose methotrexate with CHOP this hospitalization (Rituxan was infused on 07/11/2018 in the clinic). Recommendations: 1. High-grade B-cell lymphoma now with relapse after initial diagnosis of primary BAG MAKER lymphoma was established almost 20 months ago. He is status post Rituxan infusion on 07/11/2018. This was delivered in the outpatient setting. After 24 hours of hydration with D5w with sodium bicarbonate his urine pH is noted to be 8. Echocardiogram results reviewed, his LVEF is 50-55%. He will be monitored closely for evidence of myocardial toxicity. Proceed with high-dose methotrexate and CHOP today. Daily urine pH checks. Leucovorin to be initiated 24 hours after methotrexate infusion. Methotrexate levels to be monitored per protocol. He will require growth factor support which will be initiated 24 hours after chemotherapy infusion is completed. 2. Hydration: With D5W with sodium bicarbonate at 100 cc/h. 3. Type 2 diabetes: Continue combination of oral hypoglycemics he had been on at home including Januvia, glimepiride, before meals and at bedtime bedside glucose fingerstick checks. Add on insulin sliding scale coverage if needed. 4. Hypertension: Lisinopril 2.5 mg twice daily, midodrine to be continued. 5. DVT prophylaxis: With Lovenox 40 mg subcu once daily. 6. Anticipated nausea related to chemotherapy: Will place orders for as needed antiemetic therapy with Zofran. 7. monitor car operator orders have been placed. 8. Diet: Regular diet.
[2018-07-13] MEDS ORDERED: Dextrose 50% in Water 50 ML Vial IV.PUSH PRN (12:12)
[2018-07-13] MEDS ORDERED: vinCRIStine Inj 2 MG in Sodium Chlor 0.9% Inj 50 ML IV.SIG ONE (14:00)
[2018-07-13] MEDS ORDERED: DOXOrubicin Inj 10 MG/5 ML VIAL IV.PUSH ONE (14:15)
[2018-07-13] MEDS ORDERED: CYCLOPHOSPHAMIDE IV.SIG ONE (14:30)
[2018-07-13] MEDS ORDERED: SODIUM CHLOR 0.9% IV.SIG ONE (14:30)
[2018-07-13] MEDS: Insulin NovoLIN Regular Correctional Sugar Inj SQ SCH ×2 (17:03→20:29)
[2018-07-14] MEDS: Sodium Bicarbonate 8.4% Inj 100 MEQ in Dextrose 5% in Water Inj 900 ML IV.CONT SCH ×6 (02:08→22:34)
[2018-07-14] MEDS: Glimepiride 1 MG Tablet PO SCH (06:09)
[2018-07-14] MEDS ORDERED: Heparin Central Flush 100 UNIT/ML 5 ML Vial IV.FLUSH PRN ×2 (07:24)
[2018-07-14] MEDS: Senna/Docusate Sodium 8.6/50 MG Tablet PO SCH ×2 (08:43→20:32)
[2018-07-14] MEDS: Lisinopril 5 MG Tablet PO SCH (08:43)
[2018-07-14] MEDS: Insulin NovoLIN Regular Correctional Sugar Inj SQ SCH ×4 (08:45→20:38)
[2018-07-14] MEDS: Enoxaparin Inj 40 MG/0.4 ML Syringe SQ SCH (08:45)
[2018-07-14] MEDS ORDERED: Cathflo Activase Inj 2 MG Vial I-CATHETER PRN (09:07)
--- NOTE | 2018-07-14 09:30 | P.PNONC ---
Subjective Interval history: Afebrile Patient tolerated chemotherapy well yesterday Slated to begin leucovorin at 11 AM today Reports he had one incident of confusion overnight but quickly resolved States the same thing happened his last hospitalization Otherwise feeling well. Denies nausea or diarrhea. He has not had any shortness of breath or chest pain. Objective Vital Signs/Intake & Output: Vital Signs 07/13/18 11:00 07/13/18 12:00 07/13/18 15:00 Temperature 98.4 F Pulse Rate 62 64 61 Respiratory Rate 18 Blood Pressure 124/60 Pulse Oximetry 99 07/13/18 15:30 07/13/18 20:00 07/13/18 20:14 Temperature 98.4 F 98.5 F Pulse Rate 57 L 62 62 Respiratory Rate 18 16 Blood Pressure 142/67 H 136/62 Pulse Oximetry 97 98 07/14/18 00:00 07/14/18 04:00 Temperature 98.5 F 98.1 F Pulse Rate 62 84 Respiratory Rate 16 16 Blood Pressure 117/48 L 118/57 L Pulse Oximetry 99 98 Intake & Output 07/13/18 07/14/18 07/14/18 18:59 06:59 18:59 Intake Total 6808 / 6808 2500 / 2500 Output Total 3075 / 3075 1775 / 1775 Balance 3733 / 3733 725 / 725 Weight 202 lb 13.204 oz Intake: IV 1808 / 1808 1500 / 1500 Sodium Bicarbonate 8.4% Inj 100 1000 / 1000 1000 / 1000 MEQ In D5W Inj 900 ML @ 100 mls/hr IV.CONT .Q10H [facility] Rx#: [id number] Cytoxan Inj 1,575 MG In NS Inj 500 / 500 500 ML @ 500 mls/hr IV.SIG ONCE ONE Rx#:[id number] Kytril Inj 1 MG Decadron Inj 20 56 / 56 MG In NS Inj 50 ML @ 224 mls/ hr IV.SIG ONCE ONE Rx#:[id number] Methotrexate PF Inj 5,000 MG In 700 / 700 D5W Inj 500 ML @ 233.333 mls/ hr IV.SIG ONCE ONE Rx#:[id number] Oncovin Inj 2 MG In NS Inj 50 52 / 52 ML @ 312 mls/hr IV.SIG ONCE ONE Rx#:[id number] Oral 5000 / 5000 1000 / 1000 Output: Urine 3075 / 3075 1775 / 1775 Other: Date of Last Bowel Movement 07/13/18 07/12/18 Result Diagrams: 07/13/18 03:50 07/14/18 11:15 Laboratory Results: Laboratory Results - last 24 hr 07/13/18 07/13/18 07/13/18 12:26 16:59 20:28 POC Glucose 236 H 358 H 253 H Urine pH 07/14/18 07/14/18 07/14/18 02:14 05:17 05:55 POC Glucose 94 121 H Urine pH 8.0 07/14/18 08:32 POC Glucose 134 H Urine pH Medications: Active Medications Generic Name Dose Route Start Last Admin Trade Name Freq PRN Reason Stop Dose Admin Aspirin 81 mg 07/12/18 09:00 07/14/18 08:43 Ecotrin PO 81 mg DAILY [facility] Administration Enoxaparin Sodium 40 mg 07/12/18 09:00 07/14/18 08:45 Lovenox Inj SQ 40 mg DAILY [facility] Administration Glimepiride 1 mg 07/13/18 07:00 07/14/18 06:09 Amaryl PO 1 mg DAILYAC [facility] Administration Sodium Bicarbonate 100 meq/ 1,000 mls @ 100 mls/hr 07/12/18 08:00 07/14/18 02 :08 Dextrose IV.CONT 100 mls/hr .Q10H [facility] Administration Insulin Human Regular 0 units 07/13/18 17:00 07/14/18 08:45 Novolin R Correctional Sugar Inj SQ Not Given ACHS [facility] Protocol Lisinopril 2.5 mg 07/12/18 18:00 07/14/18 08:43 Prinivil PO 2.5 mg DAILY [facility] Administration Metoprolol Succinate 12.5 mg 07/12/18 09:00 07/14/18 08:43 Toprol Xl PO 12.5 mg DAILY [facility] Administration Midodrine 5 mg 07/12/18 09:00 07/14/18 08:43 Proamatine PO 5 mg BID AND[facility]Y Administration Miscellaneous 1 each 07/12/18 09:00 07/14/18 08:45 Pill Splitter OTHER 1 each DAILY [facility] Administration Pravastatin Sodium 10 mg 07/12/18 09:00 07/14/18 08:43 Pravachol PO 10 mg DAILY [facility] Administration Prednisone 100 mg 07/13/18 10:00 07/13/18 10:40 Deltasone PO 07/17/18 10:01 100 mg Q24H [facility] Administration Senna/Docusate Sodium 1 tab 07/12/18 09:00 07/14/18 08:43 Catherine-Colace PO 1 tab BID AND[facility] Administration Sitagliptin Phosphate 50 mg 07/12/18 09:00 07/14/18 08:57 Januvia PO Not Given DAILY [facility] Vitamin D 1,000 unit 07/12/18 09:00 07/14/18 08:43 Vitamin D3 PO 1,000 unit DAILY [facility] Administration Objective Remarks: GENERAL: Older male sitting up in chair at bedside eating breakfast talking with his spouse. He appears comfortable and in no acute distress SKIN: Warm and dry. HEAD: Normocephalic. EYES: No scleral icterus. No injection or drainage. NECK: Supple, trachea midline. No JVD or lymphadenopathy. CARDIOVASCULAR: Regular rate and rhythm without murmurs. RESPIRATORY: Breath sounds equal bilaterally. No accessory muscle use. GASTROINTESTINAL: Abdomen soft, non-tender, nondistended. EXTREMITIES: No cyanosis, or edema. MUSCULOSKELETAL: Adequate muscle tone. NEUROLOGICAL: No obvious focal deficit. Awake, alert, and oriented x3. Assessment/Plan - Plan Mr. Ramey is a 78-year-old man who was diagnosed in October 2016 with a high- grade primary GUE[employer]IENCE REPRESENTATIVE lymphoma (diffuse large B cell histology). He was treated with 6 cycles of high-dose methotrexate, rituximab, vincristine and intrathecal cytarabine. After 6 cycles he was noted to be in remission and after completing treatment in March 2017 had been on observation alone. In May 2018 he developed symptoms of pain in his left inguinal area/scrotum, he noticed a mass in the scrotum on the left side. He underwent left-sided orchiectomy and pathologic findings revealed a high-grade B-cell lymphoma with a very high Ki- 67 proliferation rate. Systemic staging studies including MRI of the brain revealed intracranial recurrence as well as hypermetabolic lymph nodes within the left inguinal lymph node chains. 1. High-grade B-cell lymphoma now with relapse after initial diagnosis of primary GUE[employer] EXPERIENCE REPRESENTATIVE lymphoma was established almost 20 months ago. The patient received Rituxan infusion on 07/11/18 in the outpatient setting. He tolerated high-dose methotrexate well yesterday. He also received doxorubicin, vincristine and Cytoxan. His urine pH remains alkaline. Daily methotrexate levels will be measured, first one to be drawn today at 1230. 2. Hydration: With D5W with sodium bicarbonate at 100 cc/h. 3. Type 2 diabetes: Continue combination of oral hypoglycemics he had been on at home including Januvia, glimepiride, before meals and at bedtime bedside glucose fingerstick checks. Continue sliding scale coverage as needed. 4. Hypertension: Lisinopril 2.5 mg twice daily, midodrine to be continued. 5. DVT prophylaxis: With Lovenox 40 mg subcu once daily. 6. Continue supportive care. - Attending Statement The exam, history, and the medical decision-making described in the above note were completed with the assistance of the mid-level provider. I reviewed and agree with the findings presented. I attest that I had a [id number] encounter with the patient on the same day, and personally performed and documented my assessment and findings in the medical record. Patient has one episode of confusion overnight but symptom have resolved. I doubt that this is due to the chemotherapy. He is doing well this morning. Denies any nausea or vomiting. He was started on leucovorin. Continue to monitor methotrexate level.
[2018-07-14] MEDS: LEUCOVORIN IV.SIG SCH ×3 (10:54→22:34)
[2018-07-14] MEDS: SODIUM CHLOR 0.9% IV.SIG SCH ×3 (10:54→22:34)
[2018-07-14 12:39] LABS: Alanine Aminotransferase 33 U/L (12-78); Albumin 3.1 g/dL (3.4-5.0); Anion Gap 8 meq/L (5-15); Aspartate Aminotransferase 23 U/L (15-37); Blood Urea Nitrogen 13 mg/dL (7-18); Carbon Dioxide 31.5 meq/L (21.0-32.0); Chloride 96 meq/L (98-107); Glomerular Filtration Rate 73 mL/min (>89); Glucose,Random 157 mg/dL (74-106); Sodium 135 meq/L (136-145)
[2018-07-14 12:41] LABS: Alkaline Phosphatase 63 U/L (45-117); Total Protein 5.5 g/dL (6.4-8.2)
[2018-07-15] MEDS: LEUCOVORIN IV.SIG SCH ×4 (04:36→22:57)
[2018-07-15] MEDS: SODIUM CHLOR 0.9% IV.SIG SCH ×4 (04:36→22:57)
[2018-07-15 05:53] LABS: Baso % (Auto) 0.1 % (0.0-2.0); Eos % (Auto) 0.1 % (0.0-4.0); Hematocrit 37.2 % (39.0-51.0); Hemoglobin 12.7 gm/dL (13.0-17.0); Lymph # (Auto) 1.2 th/mm3 (1.0-4.8); Lymph % (Auto) 13.6 % (9.0-44.0); Mean Corpuscular Hemoglobin 30.9 pg (27.0-34.0); Mean Corpuscular Volume 90.7 fL (80.0-100.0); Mean Platelet Volume 8.7 fL (7.0-11.0); Mono # (Auto) 0.6 th/mm3 (0.0-0.9); Neut # (Auto) 7.2 th/mm3 (1.8-7.7); Neut % (Auto) 79.2 % (16.0-70.0); Platelet Count 230 th/mm3 (150-450); Red Cell Distribution Width 13.4 % (11.6-17.2); White Blood Count 9.1 th/mm3 (4.0-11.0)
[2018-07-15 06:50] LABS: Calcium 8.4 mg/dL (8.5-10.1); Carbon Dioxide 29.8 meq/L (21.0-32.0); Potassium 3.8 meq/L (3.5-5.1)
[2018-07-15] MEDS: Enoxaparin Inj 40 MG/0.4 ML Syringe SQ SCH (08:03)
[2018-07-15] MEDS: Glimepiride 1 MG Tablet PO SCH (08:03)
[2018-07-15] MEDS: Senna/Docusate Sodium 8.6/50 MG Tablet PO SCH ×2 (08:04→21:58)
[2018-07-15] MEDS: Lisinopril 5 MG Tablet PO SCH (08:04)
[2018-07-15] MEDS: Insulin NovoLIN Regular Correctional Sugar Inj SQ SCH ×4 (08:05→21:57)
--- NOTE | 2018-07-15 09:02 | P.PNONC ---
Subjective Interval history: Afebrile Patient walking the halls this morning States he is feeling well No nausea or diarrhea Objective Vital Signs/Intake & Output: Vital Signs 07/14/18 16:00 07/14/18 20:29 07/15/18 00:23 Temperature 98.2 F 98.1 F Pulse Rate 54 L 63 54 L Respiratory Rate 18 18 16 Blood Pressure 122/64 143/66 H 151/58 H Pulse Oximetry 97 97 100 07/15/18 04:32 Temperature 98.4 F Pulse Rate 58 L Respiratory Rate 16 Blood Pressure 122/58 L Pulse Oximetry 99 Intake & Output 07/14/18 07/15/18 07/15/18 18:59 06:59 18:59 Intake Total 2390 / 2390 1500 / 1500 250 / 250 Output Total 3000 / 3000 1500 / 1500 Balance -610 / -610 0 / 0 250 / 250 Intake: IV 1250 / 1250 1500 / 1500 250 / 250 Sodium Bicarbonate 8.4% Inj 100 1000 / 1000 1000 / 1000 MEQ In D5W Inj 900 ML @ 100 mls/hr IV.CONT .Q10H [facility] Rx#: [id number] Wellcovorin Inj 20 MG In NS Inj 250 / 250 500 / 500 250 / 250 250 ML @ 83.333 mls/hr IV.SIG Q6H [facility] Rx#:[id number] Oral 1140 / 1140 Output: Urine 3000 / 3000 1500 / 1500 Other: Date of Last Bowel Movement 07/14/18 07/14/18 # Bowel Movements 1 Result Diagrams: 07/15/18 04:40 07/15/18 04:40 Laboratory Results: Laboratory Results - last 24 hr 07/14/18 07/14/18 07/14/18 11:15 11:40 12:34 WBC RBC Hgb Hct MCV MCH MCHC RDW Plt Count MPV Neut % (Auto) Lymph % (Auto) [place] % (Auto) Eos % (Auto) Baso % (Auto) Neut # (Auto) Lymph # (Auto) [place] # (Auto) Eos # (Auto) Baso # (Auto) WBC Differential Differential Comment Sodium 135 L Potassium 3.0 L Chloride 96 L Carbon Dioxide 31.5 Anion Gap 8 BUN 13 Creatinine 0.99 Estimated GFR 73 L POC Glucose 144 H Random Glucose 157 H Calcium 8.0 L Total Bilirubin 0.6 AST 23 ALT 33 Alkaline Phosphatase 63 Total Protein 5.5 L Albumin 3.1 L Urine pH Methotrexate 3.30 07/14/18 07/14/18 07/15/18 17:14 20:31 04:40 WBC 9.1 RBC 4.10 L Hgb 12.7 L Hct 37.2 L MCV 90.7 MCH 30.9 MCHC 34.0 RDW 13.4 Plt Count 230 MPV 8.7 Neut % (Auto) 79.2 H Lymph % (Auto) 13.6 [place] % (Auto) 7.0 Eos % (Auto) 0.1 Baso % (Auto) 0.1 Neut # (Auto) 7.2 Lymph # (Auto) 1.2 [place] # (Auto) 0.6 Eos # (Auto) 0.0 Baso # (Auto) 0.0 WBC Differential . Differential Comment Auto diff final Sodium Potassium Chloride Carbon Dioxide Anion Gap BUN Creatinine Estimated GFR POC Glucose 261 H 255 H Random Glucose Calcium Total Bilirubin AST ALT Alkaline Phosphatase Total Protein Albumin Urine pH Methotrexate 07/15/18 07/15/18 04:40 06:00 WBC RBC Hgb Hct MCV MCH MCHC RDW Plt Count MPV Neut % (Auto) Lymph % (Auto) [place] % (Auto) Eos % (Auto) Baso % (Auto) Neut # (Auto) Lymph # (Auto) [place] # (Auto) Eos # (Auto) Baso # (Auto) WBC Differential Differential Comment Sodium 140 Potassium 3.8 D Chloride 102 Carbon Dioxide 29.8 Anion Gap 8 BUN 16 Creatinine 0.88 Estimated GFR 84 L POC Glucose Random Glucose 141 H Calcium 8.4 L Total Bilirubin AST ALT Alkaline Phosphatase Total Protein Albumin Urine pH 8.0 Methotrexate Medications: Active Medications Generic Name Dose Route Start Last Admin Trade Name Freq PRN Reason Stop Dose Admin Alteplase, Recombinant 2 mg 07/14/18 09:07 07/14/18 09:56 Cathflo Activase Inj I-CATHETER 07/16/18 09:06 2 mg UNSCH PRN Administration line occlusion Aspirin 81 mg 07/12/18 09:00 07/15/18 08:04 Ecotrin PO 81 mg DAILY [facility] Administration Enoxaparin Sodium 40 mg 07/12/18 09:00 07/15/18 08:03 Lovenox Inj SQ 40 mg DAILY [facility] Administration Glimepiride 1 mg 07/13/18 07:00 08/26/18 08:03 Amaryl PO 1 mg DAILYAC [facility] Administration Sodium Bicarbonate 100 meq/ 1,000 mls @ 100 mls/hr 07/12/18 08:00 07/14/18 22 :34 Dextrose IV.CONT 100 mls/hr .Q10H [facility] Administration Leucovorin Calcium 20 mg/ 250 mls @ 83.333 mls/hr 07/14/18 11:00 07/15/18 07: 22 Sodium Chloride IV.SIG 07/17/18 07:59 Infused Q6H [facility] Infusion Insulin Human Regular 0 units 07/13/18 17:00 07/15/18 08:05 Novolin R Correctional Sugar Inj SQ Not Given ACHS [facility] Protocol Lisinopril 2.5 mg 07/12/18 18:00 07/15/18 08:04 Prinivil PO 2.5 mg DAILY [facility] Administration Metoprolol Succinate 12.5 mg 07/12/18 09:00 07/15/18 08:04 Toprol Xl PO 12.5 mg DAILY [facility] Administration Midodrine 5 mg 07/12/18 09:00 07/15/18 08:04 Proamatine PO 5 mg BID [facility] Administration Miscellaneous 1 each 07/12/18 09:00 07/15/18 08:04 Pill Splitter OTHER 1 each DAILY [facility] Administration Pravastatin Sodium 10 mg 07/12/18 09:00 07/15/18 08:04 Pravachol PO 10 mg DAILY [facility] Administration Prednisone 100 mg 07/13/18 10:00 07/14/18 09:10 Deltasone PO 07/17/18 10:01 100 mg Q24H [facility] Administration Senna/Docusate Sodium 1 tab 07/12/18 09:00 07/15/18 08:04 Catherine-Colace PO 1 tab BID [facility] Administration Sitagliptin Phosphate 50 mg 07/12/18 09:00 07/15/18 08:04 Januvia PO 50 mg DAILY [facility] Administration Vitamin D 1,000 unit 07/12/18 09:00 07/15/18 08:04 Vitamin D3 PO 1,000 unit DAILY [facility] Administration Objective Remarks: GENERAL: Older male sitting up in chair at bedside talking with his spouse. He appears comfortable and in no acute distress SKIN: Warm and dry. HEAD: Normocephalic. EYES: No scleral icterus. No injection or drainage. NECK: Supple, trachea midline. No JVD or lymphadenopathy. CARDIOVASCULAR: Regular rate and rhythm without murmurs. RESPIRATORY: Breath sounds equal bilaterally. No accessory muscle use. GASTROINTESTINAL: Abdomen soft, non-tender, nondistended. EXTREMITIES: No cyanosis, or edema. MUSCULOSKELETAL: Adequate muscle tone. NEUROLOGICAL: No obvious focal deficit. Awake, alert, and oriented x3. Assessment/Plan - Plan Mr. Ramey is a 78-year-old man who was diagnosed in October 2016 with a high- grade primary [employer]IP[employer] BL[employer] WH[employer] lymphoma (diffuse large B cell histology). He was treated with 6 cycles of high-dose methotrexate, rituximab, vincristine and intrathecal cytarabine. After 6 cycles he was noted to be in remission and after completing treatment in March 2017 had been on observation alone. In May 2018 he developed symptoms of pain in his left inguinal area/scrotum, he noticed a mass in the scrotum on the left side. He underwent left-sided orchiectomy and pathologic findings revealed a high-grade B-cell lymphoma with a very high Ki- 67 proliferation rate. Systemic staging studies including MRI of the brain revealed intracranial recurrence as well as hypermetabolic lymph nodes within the left inguinal lymph node chains. 1. High-grade B-cell lymphoma now with relapse after initial diagnosis of primary STRIP[employer] BLACK [employer] WH[employer] lymphoma was established almost 20 months ago. The patient received Rituxan infusion on 07/11/18 in the outpatient setting. He tolerated high-dose methotrexate well yesterday. He also received doxorubicin, vincristine and Cytoxan. His urine pH remains alkaline. Daily methotrexate levels to be drawn. His methotrexate level at 24 hours was 3.3 micromoles per liter. This is an acceptable level and we will continue the leucovorin rescue at current dosing. 2. Hydration: With D5W with sodium bicarbonate at 100 cc/h. 3. Type 2 diabetes: Continue combination of oral hypoglycemics he had been on at home including Januvia, glimepiride, before meals and at bedtime bedside glucose fingerstick checks. Continue sliding scale coverage as needed. 4. Hypertension: Lisinopril 2.5 mg twice daily, midodrine to be continued. 5. DVT prophylaxis: With Lovenox 40 mg subcu once daily. 6. Continue supportive care. - Attending Statement The exam, history, and the medical decision-making described in the above note were completed with the assistance of the mid-level provider. I reviewed and agree with the findings presented. I attest that I had a [id number] encounter with the patient on the same day, and personally performed and documented my assessment and findings in the medical record. Patient tolerated chemotherapy very well. He is feeling better today. He has no new symptom. Methotrexate level is 3.3. He will continue leucovorin rescue. Continue to monitor methotrexate level. Discussed with patient and family.
[2018-07-15] MEDS: Sodium Bicarbonate 8.4% Inj 100 MEQ in Dextrose 5% in Water Inj 900 ML IV.CONT SCH ×4 (09:36→21:07)
[2018-07-16] MEDS: SODIUM CHLOR 0.9% IV.SIG SCH ×4 (04:48→23:24)
[2018-07-16] MEDS: LEUCOVORIN IV.SIG SCH ×4 (04:48→23:24)
[2018-07-16 06:04] LABS: Baso % (Auto) 0.2 % (0.0-2.0); Eos % (Auto) 0.5 % (0.0-4.0); Hematocrit 35.8 % (39.0-51.0); Hemoglobin 12.4 gm/dL (13.0-17.0); Lymph # (Auto) 1.7 th/mm3 (1.0-4.8); Lymph % (Auto) 17.2 % (9.0-44.0); Mean Corpuscular HGB Conc 34.5 % (32.0-36.0); Mean Corpuscular Volume 89.7 fL (80.0-100.0); Mean Platelet Volume 8.9 fL (7.0-11.0); Mono # (Auto) 0.2 th/mm3 (0.0-0.9); Mono % (Auto) 1.9 % (0.0-8.0); Neut # (Auto) 7.7 th/mm3 (1.8-7.7); Neut % (Auto) 80.2 % (16.0-70.0); Platelet Count 217 th/mm3 (150-450); Red Cell Distribution Width 13.3 % (11.6-17.2); White Blood Count 9.6 th/mm3 (4.0-11.0)
[2018-07-16 06:51] LABS: Anion Gap 9 meq/L (5-15); Blood Urea Nitrogen 14 mg/dL (7-18); Calcium 8.4 mg/dL (8.5-10.1); Carbon Dioxide 31.9 meq/L (21.0-32.0); Chloride 103 meq/L (98-107); Glomerular Filtration Rate Greater Than 89 mL/min (>89); Glucose,Random 104 mg/dL (74-106); Potassium 3.3 meq/L (3.5-5.1); Sodium 144 meq/L (136-145)
[2018-07-16] MEDS: Sodium Bicarbonate 8.4% Inj 100 MEQ in Dextrose 5% in Water Inj 900 ML IV.CONT SCH ×4 (07:32→17:19)
--- NOTE | 2018-07-16 07:42 | P.PNONC ---
Subjective Interval history: Patient seen and examined, vital signs, labs, medications and chemotherapy infusion records reviewed. Chemotherapy infusions were completed on the night of 07/13/2018. The patient has been on leucovorin infusions per protocol. He remains on D5 W with bicarbonate infusion and has had daily methotrexate levels over the past 2 days. Methotrexate level on 07/15/2018 was 0.38. The patient has been hyperglycemic consistently over the past 72 hours, he has been covered with insulin sliding scare coverage. Subjectively he has no major complaints or reported adverse effects or toxicities related to chemotherapy. He would like to go home as soon as possible because he wants the [place] of being back at home. His and daughter had some questions regarding diabetes management at discharge. Next methotrexate level draw is at 12 PM today. Objective Vital Signs/Intake & Output: Vital Signs 07/15/18 08:00 07/15/18 11:20 07/15/18 16:00 Temperature 97.2 F L 98.2 F 97.8 F Pulse Rate 56 L 58 L 61 Respiratory Rate 18 18 18 Blood Pressure 150/58 H 130/58 L 135/53 L Pulse Oximetry 99 99 100 07/15/18 20:00 07/15/18 20:03 07/15/18 21:56 Temperature 98.3 F Pulse Rate 70 61 Respiratory Rate 20 Blood Pressure 161/68 H 159/72 H Pulse Oximetry 98 07/16/18 00:01 07/16/18 00:55 07/16/18 04:00 Temperature 97.9 F Pulse Rate 61 66 60 Respiratory Rate 18 18 Blood Pressure 152/80 H 125/85 Pulse Oximetry 96 99 Intake & Output 07/15/18 07/16/18 07/16/18 18:59 06:59 18:59 Intake Total 2480 / 2480 3010 / 3010 1000 / 1000 Output Total 1350 / 1350 3500 / 3500 Balance 1130 / 1130 -490 / -490 1000 / 1000 Weight 93.2 kg Intake: IV 1500 / 1500 1510 / 1510 1000 / 1000 Sodium Bicarbonate 8.4% Inj 100 1000 / 1000 1000 / 1000 1000 / 1000 MEQ In D5W Inj 900 ML @ 100 mls/hr IV.CONT .Q10H [facility] Rx#: [id number] Wellcovorin Inj 20 MG In NS Inj 500 / 500 510 / 510 250 ML @ 83.333 mls/hr IV.SIG Q6H [facility] Rx#:[id number] Oral 980 / 980 1500 / 1500 Output: Urine 1350 / 1350 3500 / 3500 Other: Date of Last Bowel Movement 07/14/18 07/14/18 Result Diagrams: 07/16/18 04:20 07/16/18 04:20 Laboratory Results: Laboratory Results - last 24 hr 07/15/18 07/15/18 07/15/18 10:11 11:14 16:04 WBC RBC Hgb Hct MCV MCH MCHC RDW Plt Count MPV Neut % (Auto) Lymph % (Auto) [place] % (Auto) Eos % (Auto) Baso % (Auto) Neut # (Auto) Lymph # (Auto) [place] # (Auto) Eos # (Auto) Baso # (Auto) WBC Differential Differential Comment Sodium Potassium Chloride Carbon Dioxide Anion Gap BUN Creatinine Estimated GFR POC Glucose 215 H 297 H Random Glucose Calcium Urine pH Methotrexate 0.36 07/15/18 07/16/18 07/16/18 21:12 04:20 04:20 WBC 9.6 RBC 4.00 L Hgb 12.4 L Hct 35.8 L MCV 89.7 MCH 31.0 MCHC 34.5 RDW 13.3 Plt Count 217 MPV 8.9 Neut % (Auto) 80.2 H Lymph % (Auto) 17.2 [place] % (Auto) 1.9 Eos % (Auto) 0.5 Baso % (Auto) 0.2 Neut # (Auto) 7.7 Lymph # (Auto) 1.7 [place] # (Auto) 0.2 Eos # (Auto) 0.0 Baso # (Auto) 0.0 WBC Differential . Differential Comment Auto diff final Sodium 144 Potassium 3.3 L Chloride 103 Carbon Dioxide 31.9 Anion Gap 9 BUN 14 Creatinine 0.82 Estimated GFR Greater than 89 POC Glucose 247 H Random Glucose 104 Calcium 8.4 L Urine pH Methotrexate 07/16/18 05:55 WBC RBC Hgb Hct MCV MCH MCHC RDW Plt Count MPV Neut % (Auto) Lymph % (Auto) [place] % (Auto) Eos % (Auto) Baso % (Auto) Neut # (Auto) Lymph # (Auto) [place] # (Auto) Eos # (Auto) Baso # (Auto) WBC Differential Differential Comment Sodium Potassium Chloride Carbon Dioxide Anion Gap BUN Creatinine Estimated GFR POC Glucose Random Glucose Calcium Urine pH 8.0 Methotrexate Medications: Active Medications Generic Name Dose Route Start Last Admin Trade Name Stephanie PRN Reason Stop Dose Admin Alteplase, Recombinant 2 mg 07/14/18 09:07 07/14/18 09:56 Cathflo Activase Inj I-CATHETER 07/16/18 09:06 2 mg UNSCH PRN Administration line occlusion Aspirin 81 mg 07/12/18 09:00 07/15/18 08:04 Ecotrin PO 81 mg DAILY [facility] Administration Enoxaparin Sodium 40 mg 07/12/18 09:00 07/15/18 08:03 Lovenox Inj SQ 40 mg DAILY [facility] Administration Glimepiride 1 mg 07/13/18 07:00 07/15/18 08:03 Amaryl PO 1 mg DAILYAC [facility]Y Administration Sodium Bicarbonate 100 meq/ 1,000 mls @ 100 mls/hr 07/12/18 08:00 07/16/18 07 :32 Dextrose IV.CONT 100 mls/hr .Q10H [facility] Administration Leucovorin Calcium 20 mg/ 250 mls @ 83.333 mls/hr 07/14/18 11:00 07/16/18 04: 48 Sodium Chloride IV.SIG 07/17/18 07:59 83.3 mls/hr Q6H [facility] Administration Insulin Human Regular 0 units 07/13/18 17:00 07/15/18 21:57 Novolin R Correctional Sugar Inj SQ 4 units ACHS AND[facility]Y Administration Protocol Lisinopril 2.5 mg 07/12/18 18:00 07/15/18 08:04 Prinivil PO 2.5 mg DAILY [facility] Administration Metoprolol Succinate 12.5 mg 07/12/18 09:00 07/15/18 08:04 Toprol Xl PO 12.5 mg DAILY [facility]Y Administration Midodrine 5 mg 07/12/18 09:00 07/15/18 21:59 Proamatine PO 5 mg BID ANDRIY Administration Miscellaneous 1 each 07/12/18 09:00 07/15/18 08:04 Pill Splitter OTHER 1 each DAILY [facility]Y Administration Pravastatin Sodium 10 mg 07/12/18 09:00 07/15/18 08:04 Pravachol PO 10 mg DAILY AND[facility]Y Administration Prednisone 100 mg 07/13/18 10:00 07/15/18 09:36 Deltasone PO 07/17/18 10:01 100 mg Q24H [facility] Administration Senna/Docusate Sodium 1 tab 07/12/18 09:00 07/15/18 21:58 Catherine-Colace PO 1 tab BID ANDRIY Administration Sitagliptin Phosphate 50 mg 07/12/18 09:00 07/15/18 08:04 Januvia PO 50 mg DAILY ANDRIY Administration Vitamin D 1,000 unit 07/12/18 09:00 07/15/18 08:04 Vitamin D3 PO 1,000 unit DAILY AND[facility]Y Administration Objective Remarks: GENERAL: Elderly male, sitting up in bed, no acute distress.. SKIN: Warm and dry. HEAD: Normocephalic. Oral examination: Early signs of thrush; mostly involving the soft palate. EYES: No scleral icterus. No injection or drainage. NECK: Supple, trachea midline. No JVD or lymphadenopathy. LYMPHATIC: No adenopathy. CARDIOVASCULAR: Regular rate and rhythm without murmurs. RESPIRATORY: Breath sounds equal bilaterally. No accessory muscle use. GASTROINTESTINAL: Abdomen soft, non-tender, nondistended. EXTREMITIES: No cyanosis, or edema. MUSCULOSKELETAL: Adequate muscle tone. NEUROLOGICAL: No obvious focal deficit. Awake, alert, and oriented x3. PSYCHIATRIC: Appropriate mood and affect; insight and judgment normal. Assessment/Plan - Plan Mr. 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 He was treated with 6 cycles of high-dose methotrexate, rituximab, vincristine and intrathecal cytarabine. After 6 cycles he was noted to be in remission and after completing treatment in March 2017 had been on observation alone. In May 2018 he developed symptoms of pain in his left inguinal area/scrotum, he noticed a mass in the scrotum on the left side. He underwent left-sided orchiectomy and pathologic findings revealed a high-grade B-cell lymphoma with a very high Ki- 67 proliferation rate. Systemic staging studies including MRI of the brain revealed intracranial recurrence as well as hypermetabolic lymph nodes within the left inguinal lymph node chains. 1. High-grade B-cell lymphoma now with relapse after initial diagnosis of primary SHIFT COMMANDER lymphoma was established almost 20 months ago. The patient received Rituxan infusion on 07/11/18 in the outpatient setting. Started on second line systemic therapy with high-dose methotrexate with standard dose R- [facility]. Chemotherapy delivered on 07/13/2018. Presently on day 4 prednisone. Initiate Neupogen growth factor support at 480 mcg subcu daily. 2. Hydration: With D5W with sodium bicarbonate at 100 cc/h. 3. Type 2 diabetes: Continue combination of oral hypoglycemics he had been on at home including Januvia, glimepiride, before meals and at bedtime bedside glucose fingerstick checks. Continue sliding scale coverage as needed. 4. Hypertension: Lisinopril 2.5 mg twice daily, midodrine to be continued. 5. DVT prophylaxis: With Lovenox 40 mg subcu once daily. 6. Continue supportive care. 7. Hypokalemia: Potassium chloride 30 mg and slow release daily. 8. Thrush: Initiate nystatin 5 mL swish and swallow 3 times daily. Disposition: Await results of methotrexate levels, if his levels are below 0.1 he may be discharged home later today. He will need outpatient Neupogen injections arranged. He will also need a prescription for insulin with sliding scale instructions. Outpatient follow-up with me in the upcoming week, I will try to schedule him to see me on July 20.
[2018-07-16] MEDS: Lisinopril 5 MG Tablet PO SCH (08:01)
[2018-07-16] MEDS: Senna/Docusate Sodium 8.6/50 MG Tablet PO SCH ×2 (08:02→21:41)
[2018-07-16] MEDS: Glimepiride 1 MG Tablet PO SCH (08:03)
[2018-07-16] MEDS: Enoxaparin Inj 40 MG/0.4 ML Syringe SQ SCH (08:03)
[2018-07-16] MEDS: Insulin NovoLIN Regular Correctional Sugar Inj SQ SCH ×4 (08:12→21:55)
--- NOTE | 2018-07-16 16:57 | P.DS ---
Date of admission: 07/12/18 06:44 Primary care physician: Ana Khalil MD Attending physician on discharge: Nas Fish Anticipated date of discharge: 07/16/18 Brief History from admission: Mr. 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 He underwent systemic staging and was assessed to have primary CLOTH TESTER QUALITY lymphoma. As a part of his initial staging workup he did undergo ultrasound of the scrotum to rule out involvement of the testicle or the spermatic cord. These are not involved. He was treated with high-dose methotrexate/Rituxan/vincristine with intrathecal cytarabine injections. He was treated between October 2016 in March 2017. Subsequent staging studies revealed complete remission. In May 2018 the patient noticed a large mass on the left side of his scrotum, he had this evaluated by his urologist who recommended imaging studies, the mass was confirmed on imaging studies and patient subsequently underwent a left- sided orchiectomy performed on 06/21/2018. Pathologic findings revealed high- grade large B-cell lymphoma (with a Ki-67 proliferation index of 95%). Indicating a Burkitt-like lymphoma. Subsequent staging studies including PET/ CT scan as well as MRI of the brain revealed findings of recurrence intracranially as well as evidence of hypermetabolic lymphadenopathy in the left inguinal area. The patient was offered systemic therapy and the second line setting with high- dose methotrexate coupled with R-CHOP. He comes in today to be admitted for high-dose methotrexate infusion and CHOP. On 07/11/2018 he received his first dose of Rituxan and has been on intermediate high dose dexamethasone for management of vasogenic edema associated with his intracranial lymphoma. Hospital course: Patient was admitted to the hospital on 07/12/2018, he was initiated on IV fluids with D5 bicarbonate for alkalinization of the urine. By the morning of his urine was sufficiently alkalinized to a pH of 8. He was subsequently treated with methotrexate at a dose of 5000 mg, he also received CHOP at the standard dose with his BSA capped at 2 m. The patient overall tolerated treatment without difficulties, he remained afebrile over the hospitalization. He did require potassium supplementation for hypokalemia. And initiation of insulin sliding scale coverage for hyperglycemia associated with corticosteroid therapy. Per protocol, he was initiated on leucovorin rescue 24 hours after completion of methotrexate infusion. Methotrexate levels were monitored until methotrexate level fell below 0.1. DS: Diagnosis - Discharge Diagnosis (1) Primary CLOTH TESTER QUALITY lymphoma of extranodal and solid organ sites Status: Acute (2) Diabetes Status: Acute (3) Hypertension Status: Acute DS: Summary Hospital Course: Please see update in brief history as well as review hospital notes. To summarize patient had an uneventful hospital course where systemic chemotherapy with high-dose methotrexate and standard dose CHOP was delivered. He was hydrated with D5W with bicarbonate. For hyperglycemia he was covered with an insulin sliding scale. For hyperkalemia he was treated with oral potassium replacement. He was maintained on DVT prophylaxis with Lovenox. He will be discharged home when his methotrexate level is less than 0.1. - Time Spent with Patient Total time spent providing and/or coordinating discharge services: Greater than 30 minutes - Quality: AMI Clinical Trial Participant: No - Quality: Stroke Symptom Onset Unknown: No - Quality: VTE Is this test being ordered to rule out VTE?: No Deep Vein Thrombosis/Pulmonary Embolism Present on Admission: No Exam Vital signs: Vital Signs 07/15/18 20:00 07/15/18 20:03 07/15/18 21:56 Temperature 98.3 F Pulse Rate 70 61 Respiratory Rate 20 Blood Pressure 161/68 H 159/72 H Pulse Oximetry 98 07/16/18 00:01 07/16/18 00:55 07/16/18 04:00 Temperature 97.9 F Pulse Rate 61 66 60 Respiratory Rate 18 18 Blood Pressure 152/80 H 125/85 Pulse Oximetry 96 99 07/16/18 08:00 07/16/18 08:05 07/16/18 11:37 Temperature 98.8 F 98.3 F Pulse Rate 66 63 66 Respiratory Rate 20 20 Blood Pressure 152/64 H 143/60 H Pulse Oximetry 100 99 07/16/18 12:41 Temperature Pulse Rate 74 Respiratory Rate Blood Pressure Pulse Oximetry Intake & Output 07/15/18 07/16/18 07/16/18 18:59 06:59 18:59 Intake Total 2480 / 2480 3010 / 3010 1515 / 1515 Output Total 1350 / 1350 3500 / 3500 Balance 1130 / 1130 -490 / -490 1515 / 1515 Weight 93.2 kg Intake: IV 1500 / 1500 1510 / 1510 1515 / 1515 Sodium Bicarbonate 8.4% Inj 100 1000 / 1000 1000 / 1000 1000 / 1000 MEQ In D5W Inj 900 ML @ 100 mls/hr IV.CONT .Q10H ANDRIY Rx#: [id number] Wellcovorin Inj 20 MG In NS Inj 500 / 500 510 / 510 515 / 515 250 ML @ 83.333 mls/hr IV.SIG Q6H ANDRIY Rx#:[id number] Oral 980 / 980 1500 / 1500 Output: Urine 1350 / 1350 3500 / 3500 Other: Date of Last Bowel Movement 07/14/18 07/14/18 07/15/18 Narrative: Please see my progress note dated 07/16/2018. - Constitutional no acute distress - Routine HEENT Exam Head: Present: normocephalic Eye: Present: EOMI, PERRL - Routine Neck Exam Absent: supple, full ROM, JVD - Routine Chest/Breast/Axilla Exam Chest wall: Absent: tenderness Breast: Absent: tenderness - Routine Respiratory Exam Present: CTA bilaterally. Absent: accessory muscle use, wheezes, crackles, distant breath sounds - Routine Cardiovascular Exam Present: RRR, S1, S2 - Routine Abdominal Exam Absent: soft, normoactive bowel sounds, tenderness, distended - Routine Extremities Exam Absent: cyanosis, clubbing, edema - Routine Skin Exam Present: intact - Routine Neurological Exam Present: alert, oriented X3, CN II-XII intact Results Procedures completed during hospitalization: Inpatient delivery of cycle 1 high-dose methotrexate with CHOP chemotherapy. Labs on day of discharge: Labs from last 24 hours 07/16/18 07/16/18 07/16/18 12:20 11:36 07:58 WBC RBC Hgb Hct MCV MCH MCHC RDW Plt Count MPV Neut % (Auto) Lymph % (Auto) [place] % (Auto) Eos % (Auto) Baso % (Auto) Neut # (Auto) Lymph # (Auto) [place] # (Auto) Eos # (Auto) Baso # (Auto) WBC Differential Differential Comment Sodium Potassium Chloride Carbon Dioxide Anion Gap BUN Creatinine Estimated GFR POC Glucose 174 H 163 H Random Glucose Calcium Urine pH Methotrexate Pending 07/16/18 07/16/18 07/16/18 05:55 04:20 04:20 WBC 9.6 RBC 4.00 L Hgb 12.4 L Hct 35.8 L MCV 89.7 MCH 31.0 MCHC 34.5 RDW 13.3 Plt Count 217 MPV 8.9 Neut % (Auto) 80.2 H Lymph % (Auto) 17.2 [place] % (Auto) 1.9 Eos % (Auto) 0.5 Baso % (Auto) 0.2 Neut # (Auto) 7.7 Lymph # (Auto) 1.7 [place] # (Auto) 0.2 Eos # (Auto) 0.0 Baso # (Auto) 0.0 WBC Differential . Differential Comment Auto diff final Sodium 144 Potassium 3.3 L Chloride 103 Carbon Dioxide 31.9 Anion Gap 9 BUN 14 Creatinine 0.82 Estimated GFR Greater than 89 POC Glucose Random Glucose 104 Calcium 8.4 L Urine pH 8.0 Methotrexate 07/15/18 07/15/18 21:12 10:11 WBC RBC Hgb Hct MCV MCH MCHC RDW Plt Count MPV Neut % (Auto) Lymph % (Auto) [place] % (Auto) Eos % (Auto) Baso % (Auto) Neut # (Auto) Lymph # (Auto) [place] # (Auto) Eos # (Auto) Baso # (Auto) WBC Differential Differential Comment Sodium Potassium Chloride Carbon Dioxide Anion Gap BUN Creatinine Estimated GFR POC Glucose 247 H Random Glucose Calcium Urine pH Methotrexate 0.36 - Impressions Patient is safe to discharge as soon as his methotrexate levels are less than 0.1. Outpatient follow-up visits, treatments, blood work and prescriptions have been arranged. Discharge Plan - Discharge Disposition Patient Disposition: 01 Discharge Home - Discharge Condition Condition: Good - Discharge Order Discharge Orders: Discharge Order (Routine); Ordered 07/16/18 Ordered By: Nas Fish - Discharge Details Anticipated Discharge Date: 07/16/18 Discharge Comment: Please review methotrexate level, do not discharge unless methotrexate level is equal to or less than 0.1. - Physicians Team Primary Care Provider: Ana Khalil Attending Provider: Nas Fish - Rxs /Orders / Referrals /Forms Prescriptions: New aspirin 81 mg Tablet,Delayed Release (Dr/Ec) 81 mg PO DAILY RF: 0 cholecalciferol (vitamin D3) [Vitamin D3] 1,000 unit Tablet 1,000 unit PO DAILY RF: 0 glimepiride [Amaryl] 1 mg Tablet 1 mg PO DAILYAC RF: 0 lisinopril 5 mg Tablet 2.5 mg PO DAILY RF: 0 metoprolol succinate 25 mg Tablet Extended Release 24 Hr 12.5 mg PO DAILY RF: 0 midodrine 5 mg Tablet 5 mg PO BID RF: 0 sitagliptin [Januvia] 50 mg Tablet 50 mg PO DAILY RF: 0 Referrals: Ana Khalil MD [Primary Care Provider] - See Instructions
[2018-07-16] MEDS: Nystatin Liq 500,000 UNIT/5 ML UDC SWISH-SWAL SCH ×2 (17:19→21:41)
[2018-07-17] MEDS: Sodium Bicarbonate 8.4% Inj 100 MEQ in Dextrose 5% in Water Inj 900 ML IV.CONT SCH ×2 (03:39)
[2018-07-17] MEDS: LEUCOVORIN IV.SIG SCH (05:24)
[2018-07-17] MEDS: SODIUM CHLOR 0.9% IV.SIG SCH (05:24)
--- NOTE | 2018-07-17 07:14 | P.PNONC ---
Subjective Interval history: Patient seen and examined, vital signs, labs and medications reviewed. Discharge held last night because methotrexate level was above the threshold safe for discharge; his level was 0.12. Since the 0.1 to methotrexate level was drawn the patient has received 3 additional doses of leucovorin. He had an uneventful night, he was noted to be hyperglycemic, he did require insulin sliding scale coverage. This morning he is sitting up at bedside, he is dressed to go home and has his luggage pack. He denies symptoms of fevers, chills, night sweats, he denies symptoms of difficulty breathing, chest pain or overt bleeding. He denies adverse effects related to chemotherapy specifically peripheral neuropathy, nausea, vomiting, worsening headaches. Objective Vital Signs/Intake & Output: Vital Signs 07/16/18 08:00 07/16/18 08:05 07/16/18 11:37 Temperature 98.8 F 98.3 F Pulse Rate 66 63 66 Respiratory Rate 20 20 Blood Pressure 152/64 H 143/60 H Pulse Oximetry 100 99 07/16/18 12:41 07/16/18 16:00 07/16/18 20:11 Temperature 98.1 F Pulse Rate 74 71 72 Respiratory Rate 18 Blood Pressure 153/63 H Pulse Oximetry 99 07/16/18 20:52 07/16/18 21:02 07/16/18 21:03 Temperature 98.3 F Pulse Rate 71 Respiratory Rate 18 Blood Pressure 156/71 H 162/60 H 143/60 H Pulse Oximetry 99 07/16/18 23:24 07/17/18 00:02 07/17/18 03:01 Temperature 98.2 F 97.5 F L Pulse Rate 73 77 73 Respiratory Rate 16 16 Blood Pressure 154/70 H 156/71 H Pulse Oximetry 97 99 07/17/18 03:57 Temperature Pulse Rate 62 Respiratory Rate Blood Pressure Pulse Oximetry Intake & Output 07/16/18 07/17/18 07/17/18 18:59 06:59 18:59 Intake Total 4515 / 4515 1520 / 1520 Output Total 1750 / 1750 2700 / 2700 Balance 2765 / 2765 -1180 / -1180 Weight 94.1 kg Intake: IV 2515 / 2515 1520 / 1520 Sodium Bicarbonate 8.4% Inj 100 2000 / 2000 1000 / 1000 MEQ In D5W Inj 900 ML @ 100 mls/hr IV.CONT .Q10H ANDRIY Rx#: [id number] Wellcovorin Inj 20 MG In NS Inj 515 / 515 520 / 520 250 ML @ 83.333 mls/hr IV.SIG Q6H ANDRIY Rx#:[id number] Oral 1999 Output: Urine 1750 / 1750 2700 / 2700 Other: Date of Last Bowel Movement 07/15/18 07/16/18 # Bowel Movements 1 Result Diagrams: 07/16/18 04:20 07/16/18 04:20 Laboratory Results: Laboratory Results - last 24 hr 07/16/18 07/16/18 07/16/18 05:55 07:58 11:36 POC Glucose 163 H 174 H Urine pH 8.0 Methotrexate 07/16/18 07/16/18 07/16/18 12:20 17:08 21:51 POC Glucose 288 H 245 H Urine pH Methotrexate 0.12 07/17/18 06:00 POC Glucose Urine pH 8.0 Methotrexate Medications: Active Medications Generic Name Dose Route Start Last Admin Trade Name Stephanie PRN Reason Stop Dose Admin Aspirin 81 mg 07/12/18 09:00 07/16/18 08:02 Ecotrin PO 81 mg DAILY ANDRIY Administration Enoxaparin Sodium 40 mg 07/12/18 09:00 07/16/18 08:03 Lovenox Inj SQ 40 mg DAILY ANDRIY Administration Filgrastim 480 mcg 07/16/18 14:00 07/16/18 14:00 Neupogen Inj SQ 480 mcg DAILY@1400 ANDRIY Administration Glimepiride 1 mg 07/13/18 07:00 07/16/18 08:03 Amaryl PO 1 mg DAILYAC ANDRIY Administration Sodium Bicarbonate 100 meq/ 1,000 mls @ 100 mls/hr 07/12/18 08:00 07/17/18 03 :39 Dextrose IV.CONT 100 mls/hr .Q10H ANDRIY Administration Leucovorin Calcium 20 mg/ 250 mls @ 83.333 mls/hr 07/14/18 11:00 07/17/18 05: 24 Sodium Chloride IV.SIG 07/17/18 07:59 83.3 mls/hr Q6H ANDRIY Administration Insulin Human Regular 0 units 07/13/18 17:00 07/16/18 21:55 Novolin R Correctional Sugar Inj SQ 4 units ACHS ANDRIY Administration Protocol Lisinopril 2.5 mg 07/12/18 18:00 07/16/18 08:01 Prinivil PO 2.5 mg DAILY ANDRIY Administration Metoprolol Succinate 12.5 mg 07/12/18 09:00 07/16/18 08:02 Toprol Xl PO 12.5 mg DAILY ANDRIY Administration Midodrine 5 mg 07/12/18 09:00 07/16/18 21:41 Proamatine PO Not Given BID ANDRIY Miscellaneous 1 each 07/12/18 09:00 07/16/18 08:13 Pill Splitter OTHER 1 each DAILY ANDRIY Administration Nystatin 5 ml 07/16/18 18:00 07/16/18 21:41 Mycostatin Liq SWISH-SWAL 5 ml QID ANDRIY Administration Potassium Chloride 30 meq 07/16/18 09:00 07/16/18 08:00 Klor-Con 10 PO 30 meq DAILY ANDRIY Administration Pravastatin Sodium 10 mg 07/12/18 09:00 07/16/18 08:02 Pravachol PO 10 mg DAILY ANDRIY Administration Prednisone 100 mg 07/13/18 10:00 07/16/18 10:22 Deltasone PO 07/17/18 10:01 100 mg Q24H ANDRIY Administration Senna/Docusate Sodium 1 tab 07/12/18 09:00 07/16/18 21:41 Catherine-Colace PO 1 tab BID ANDRIY Administration Sitagliptin Phosphate 50 mg 07/12/18 09:00 07/16/18 08:02 Januvia PO 50 mg DAILY ANDRIY Administration Sodium Chloride 5 ml 07/14/18 07:24 07/16/18 21:44 Ns Flush IV.FLUSH 5 ml UNSCH PRN Administration Flush Infusaport Vitamin D 1,000 unit 07/12/18 09:00 07/16/18 08:02 Vitamin D3 PO 1,000 unit DAILY ANDRIY Administration Objective Remarks: GENERAL: Elderly male, sitting up at bedside, appears to be no acute distress. SKIN: Warm and dry. HEAD: Normocephalic. EYES: No scleral icterus. No injection or drainage. NECK: Supple, trachea midline. No JVD or lymphadenopathy. LYMPHATIC: No adenopathy. CARDIOVASCULAR: Regular rate and rhythm without murmurs. RESPIRATORY: Breath sounds equal bilaterally. No accessory muscle use. GASTROINTESTINAL: Abdomen soft, non-tender, nondistended. EXTREMITIES: No cyanosis, or edema. MUSCULOSKELETAL: Adequate muscle tone. NEUROLOGICAL: No obvious focal deficit. Awake, alert, and oriented x3. PSYCHIATRIC: Appropriate mood and affect; insight and judgment normal. Assessment/Plan (1) Primary MARKETING PROGRAM COORDINATOR lymphoma of extranodal and solid organ sites Code(s): C85.89 - Other specified types of non-Hodgkin lymphoma, extranodal and solid organ sites Status: Acute (2) Diabetes Code(s): E11.9 - Type 2 diabetes mellitus without complications Status: Acute (3) Hypertension Code(s): I10 - Essential (primary) hypertension Status: Acute - Plan Mr. Ramey is a 78-year-old man who was diagnosed in October 2016 with a high- grade primary MARKETING PROGRAM COORDINATOR lymphoma (diffuse large B cell histology). He was treated with 6 cycles of high-dose methotrexate, rituximab, vincristine and intrathecal cytarabine. After 6 cycles he was noted to be in remission and after completing treatment in March 2017 had been on observation alone. In May 2018 he developed symptoms of pain in his left inguinal area/scrotum, he noticed a mass in the scrotum on the left side. He underwent left-sided orchiectomy and pathologic findings revealed a high-grade B-cell lymphoma with a very high Ki- 67 proliferation rate. Systemic staging studies including MRI of the brain revealed intracranial recurrence as well as hypermetabolic lymph nodes within the left inguinal lymph node chains. 1. High-grade B-cell lymphoma now with relapse after initial diagnosis of primary MARKETING PROGRAM COORDINATOR lymphoma was established almost 20 months ago. The patient received Rituxan infusion on 07/11/18 in the outpatient setting. Started on second line systemic therapy with high-dose methotrexate with standard dose R- CHOP. Chemotherapy delivered on 07/13/2018. Presently on day 4 prednisone. Initiate Neupogen growth factor support at 480 mcg subcu daily. 2. Hydration: With D5W with sodium bicarbonate at 100 cc/h. 3. Type 2 diabetes: Continue combination of oral hypoglycemics he had been on at home including Januvia, glimepiride, before meals and at bedtime bedside glucose fingerstick checks. Continue sliding scale coverage as needed. 4. Hypertension: Lisinopril 2.5 mg twice daily, midodrine to be continued. 5. DVT prophylaxis: With Lovenox 40 mg subcu once daily. 6. Continue supportive care. 7. Hypokalemia: Potassium chloride 30 mg and slow release daily. 8. Thrush: Initiate nystatin 5 mL swish and swallow 3 times daily. Disposition: Discharge home today. He has completed prednisone dosing as of this morning. He will be treated with subcutaneous doses of Neupogen throughout this week, remainder of dosing will be delivered in my outpatient clinic in [place]. Insulin prescription has been sent out to his pharmacy. Follow-up with me on 07/20/2018. Clinically he is doing well.
[2018-07-17 09:01] VITALS: BP 141/71; PULSE 85; RESP 18; TEMP 98.2; O2SAT 100
[2018-07-17] MEDS: Glimepiride 1 MG Tablet PO SCH (09:02)
[2018-07-17] MEDS: Senna/Docusate Sodium 8.6/50 MG Tablet PO SCH (09:02)
[2018-07-17] MEDS: Enoxaparin Inj 40 MG/0.4 ML Syringe SQ SCH (09:02)
[2018-07-17] MEDS: Nystatin Liq 500,000 UNIT/5 ML UDC SWISH-SWAL SCH (09:04)
[2018-07-17] MEDS: Lisinopril 5 MG Tablet PO SCH (09:04)
[2018-07-17] MEDS: Insulin NovoLIN Regular Correctional Sugar Inj SQ SCH (10:01)
== END 2018-07-17 10:29 | disposition home or self-care (01) ==
LOC: INTOOBSV 06:44 → OBSVTOIN 06:44 → HCIN 06:44
PROVIDERS: ADMIT Internal Medicine Hematology & Oncology; ATTEND Internal Medicine Hematology & Oncology

== ENCOUNTER 2018-07-22 17:17 | Inpatient (IN) ==
--- NOTE | 2018-07-22 18:29 | ED ---
HPI General Chief complaint: Skin/Abscess/Foreign Body Stated complaint: Rash on groin/ chemo pt Source: patient and family Mode of arrival: ambulatory Limitations: no limitations History of Present Illness HPI narrative: 78-year-old male patient with lymphoma, testicular cancer status post left orchiectomy, currently on chemotherapy, presents to the ER today brought in by family because over the last 3 days he has developed a rash on his testicle that has been getting more irritated and red. He had talked to oncology, Dr. Campbell, and she had sent him in to have this rash evaluated for possibility of infections. He is reporting no fevers or other issues. Related Data Previous Rx's Medication Instructions Recorded aspirin 81 mg PO DAILY tab 07/16/18 cholecalciferol (vitamin D3) 1,000 unit PO DAILY tab 07/16/18 [Vitamin D3] glimepiride [Amaryl] 1 mg PO DAILYAC tab 07/16/18 lisinopril 2.5 mg PO DAILY tab 07/16/18 metoprolol succinate 12.5 mg PO DAILY tab 07/16/18 midodrine 5 mg PO BID tab 07/16/18 sitagliptin [Januvia] 50 mg PO DAILY tab 07/16/18 Allergies Allergy/AdvReac Type Severity Reaction Status Date / Time No Known Allergies Allergy Verified 07/22/18 17:48 Review of Systems ROS: all other systems reviewed are negative [facility] Medical History Medical History High grade malignant lymphoma (Acute) Hypertension (Acute) Normal colonoscopy (Acute) Port-A-Cath in place (Acute) Primary GLOBAL UPSTREAM MARKETING MANAGER lymphoma (Acute) Type 2 diabetes mellitus (Acute) Valvular heart disease (Acute) Surgical History Surgical History H/O basal cell carcinoma excision (Acute) H/O craniotomy (Acute) History of bone marrow biopsy (Acute) History of left knee replacement (Acute) History of orchiectomy, unilateral (Acute) Hx of tonsillectomy (Acute) Family History Family History Sister Cancer Social History Social History Second Hand Smoke Exposure: No Smoking Status: Former smoker Tobacco Type: Cigarettes How Often Do You Have a Drink Containing Alcohol: Never Hx Recent Travel: No Recent Travel in [facility] within the Last 8 Weeks: No Recent Out of Country Travel within the Last 8 Weeks: No Immunization History Tetanus Immunization: Unsure Hx Influenza Vaccine This Season: Yes Exam Narrative Exam Narrative: GENERAL: Well-developed elderly white male patient currently in moderate distress. Awake and oriented 3. SKIN: Focused skin assessment warm/dry. HEAD: Atraumatic. Normocephalic. EYES: Pupils equal and round. No scleral icterus. No injection or drainage. ENT: No nasal bleeding or discharge. Mucous membranes pink and moist. NECK: Trachea midline. No JVD. CARDIOVASCULAR: Regular rate and rhythm. No murmur appreciated. RESPIRATORY: No accessory muscle use. Clear to auscultation. Breath sounds equal bilaterally. GASTROINTESTINAL: Abdomen soft, non-tender, nondistended. Hepatic and splenic margins not palpable. GENITOURINARY: Circumcised. Status post left orchiectomy. There is a mild erythematous rash on the left groin area, and there is a beefy red rash notable to the scrotum, mildly tender to palpation. There is a small 0.5 cm clean- based ulcer at the right part of the glans penis. MUSCULOSKELETAL: No obvious deformities. No clubbing. No cyanosis. No edema. NEUROLOGICAL: Awake and alert. No obvious cranial nerve deficits. Motor grossly within normal limits. Normal speech. PSYCHIATRIC: Appropriate mood and affect; insight and judgment normal. Course Initial Documented Vital Signs Temperature 98.4 F 07/22/18 17:35 Pulse Rate 105 H 07/22/18 17:35 Respiratory Rate 20 07/22/18 17:35 Blood Pressure 119/56 L 07/22/18 17:35 Pulse Oximetry 96 07/22/18 17:35 Last Documented Vital Signs Temperature 98.4 F 07/22/18 17:35 Pulse Rate 105 H 07/22/18 17:35 Respiratory Rate 20 07/22/18 17:35 Blood Pressure 119/56 L 07/22/18 17:35 Pulse Oximetry 98 07/22/18 18:26 Medical Decision Making MDM Narrative Medical decision making narrative: Case was discussed with Dr. Campbell who states that she would do a lab work on the patient and if he is significantly neutropenic, admit him for IV antibiotics. Lab work comes back showing significant neutropenia, pancytopenia, and IV antibiotics were initiated after cultures are drawn. Case is discussed with hospitalist service for admission. Medical Screen Exam Complete: Yes Emergency Medical Condition: Yes Differential Diagnosis Differential Diagnosis: Cellulitis versus fungal rash versus dermatitis Lab Data Result diagrams: 07/22/18 18:30 07/22/18 18:30 Lab Results 07/22/18 07/22/18 07/22/18 Range/Units 18:30 18:30 18:30 CBC w Diff Slide review pending WBC 1.2 L (4.0-11.0) th/mm3 RBC 3.48 L (4.50-5.90) mil/mm3 Hgb 10.6 L (13.0-17.0) gm/dL Hct 32.4 L (39.0-51.0) % MCV 93.1 (80.0-100.0) fL MCH 30.6 (27.0-34.0) pg MCHC 32.8 (32.0-36.0) % RDW 12.5 (11.6-17.2) % Plt Count 75 L D (150-450) th/mm3 MPV 8.3 (7.0-11.0) fL WBC Differential Manual diff final Seg Neuts % (Manual) 25 (16-70) % Band Neuts % (Manual) 3 (0-6) % Lymphocytes % (Manual) 60 H (9-44) % Monocytes % (Manual) 5 (0-8) % Eosinophils % (Manual) 7 H (0-4) % Abs Neuts (Manual) 0.3 L* (1.8-7.7) th/mm3 Differential Comment . Platelet Estimate Low L (Normal) Platelet Morphology Normal (Normal) Ovalocytes 1+ H (None) Sodium 135 L (136-145) meq/L Potassium 3.7 (3.5-5.1) meq/L Chloride 101 (98-107) meq/L Carbon Dioxide 26.0 (21.0-32.0) meq/L Anion Gap 8 (5-15) meq/L BUN 14 (7-18) mg/dL Creatinine 0.95 (0.60-1.30) mg/dL Estimated GFR 77 L (>89) mL/min Random Glucose 122 H (74-106) mg/dL Lactic Acid 1.2 (0.4-2.0) mmol/L Calcium 8.6 (8.5-10.1) mg/dL Total Bilirubin 0.5 (0.2-1.0) mg/dL AST 12 L (15-37) U/L ALT 29 (12-78) U/L Alkaline Phosphatase 62 (45-117) U/L Total Protein 5.9 L (6.4-8.2) g/dL Albumin 3.0 L (3.4-5.0) g/dL Discharge Plan Discharge Disposition Patient Disposition: 30 Still Patient Discharge Condition Condition: Stable Discharge Details Anticipated Discharge Date: 07/22/18 Diagnosis: Cellulitis of scrotum, Neutropenia Physicians Team ED Provider: Sarita Jain Primary Care Provider: UNKNOWN, Rxs /Orders / Referrals /Forms Prescriptions: No Action midodrine 5 mg Tablet 5 mg PO BID RF: 0 aspirin 81 mg Tablet,Delayed Release (Dr/Ec) 81 mg PO DAILY RF: 0 glimepiride [Amaryl] 1 mg Tablet 1 mg PO DAILYAC RF: 0 lisinopril 5 mg Tablet 2.5 mg PO DAILY RF: 0 metoprolol succinate 25 mg Tablet Extended Release 24 Hr 12.5 mg PO DAILY RF: 0 cholecalciferol (vitamin D3) [Vitamin D3] 1,000 unit Tablet 1,000 unit PO DAILY RF: 0 sitagliptin [Januvia] 50 mg Tablet 50 mg PO DAILY RF: 0 Status ED Status: In Room
[2018-07-22 18:48] LABS: Hematocrit 32.4 % (39.0-51.0); Hemoglobin 10.6 gm/dL (13.0-17.0); Mean Corpuscular HGB Conc 32.8 % (32.0-36.0); Mean Corpuscular Hemoglobin 30.6 pg (27.0-34.0); Mean Corpuscular Volume 93.1 fL (80.0-100.0); Mean Platelet Volume 8.3 fL (7.0-11.0); Platelet Count 75 th/mm3 (150-450); Red Blood Count 3.48 mil/mm3 (4.50-5.90); Red Cell Distribution Width 12.5 % (11.6-17.2); White Blood Count 1.2 th/mm3 (4.0-11.0)
[2018-07-22 18:58] LABS: Chloride 101 meq/L (98-107); Potassium 3.7 meq/L (3.5-5.1); Sodium 135 meq/L (136-145)
[2018-07-22 19:01] LABS: Anion Gap 8 meq/L (5-15); Calcium 8.6 mg/dL (8.5-10.1)
[2018-07-22 19:02] LABS: Blood Urea Nitrogen 14 mg/dL (7-18); Glucose,Random 122 mg/dL (74-106)
[2018-07-22 19:04] LABS: Alanine Aminotransferase 29 U/L (12-78); Aspartate Aminotransferase 12 U/L (15-37)
[2018-07-22 19:05] LABS: Glomerular Filtration Rate 77 mL/min (>89)
[2018-07-22 19:06] LABS: Total Protein 5.9 g/dL (6.4-8.2)
[2018-07-22 19:07] LABS: Alkaline Phosphatase 62 U/L (45-117)
[2018-07-22 19:08] LABS: Eosinophils 7 % (0-4); Lymphocytes 60 % (9-44); Monocytes 5 % (0-8)
[2018-07-22 19:11] LABS: Ovalocytes 1+; Platelet Morphology Normal (Normal)
--- NOTE | 2018-07-22 19:37 | XR ---
EXAM DATE: 07/22/2018 7:34 PM EDT AGE/SEX: 78 years / Male INDICATIONS: Post chemo rash. CLINICAL DATA: This is the patient's initial encounter. Patient reports that signs and symptoms have been present for 1 day and indicates a pain score of 0/10. MEDICAL/SURGICAL HISTORY: Diabetes. Brain mass. Heart disease. None. COMPARISON: [facility], CHEST PA & LAT, 09/12/2016. . FINDINGS: The lungs are clear without infiltrate, nodule, or mass. There is no appreciable pleural effusion for technique. Heart and mediastinum are unremarkable. Right IJ [id number] is present w ith tip overlapping the expected region of the SVC. CONCLUSION: No acute cardiopulmonary disease. Electronically signed by: Obdulio Thomas MD 07/22/2018 7:36 PM EDT
[2018-07-22] MEDS ORDERED: Acetaminophen 325 MG Tablet PO PRN (20:01)
[2018-07-22 20:05] LABS: Bilirubin,Urine Negative (Negative); Clarity,Urine Clear (Clear); Color,Urine Yellow (Yellw/Straw); Glucose,Urine (UA) Negative (Negative); Leukocyte Esterase,Urine Negative (Negative); Nitrite,Urine Negative (Negative); Specific Gravity,Urine Less/Equal 1.005 (1.002-1.035)
[2018-07-22 20:09] LABS: RBC,Urine 0-3 /hpf (0-3); Squamous Epithelial Cell,Urine 0-5 /hpf (0-5); WBC,Urine 0-5 /hpf (0-5)
[2018-07-22] MEDS: Sod Chloride 0.9% Inj 1,000 ML IV.CONT SCH (20:39)
[2018-07-23] MEDS: Sod Chloride 0.9% Inj 1,000 ML IV.CONT SCH (06:05)
[2018-07-23 06:25] LABS: Baso % (Auto) 1.1 % (0.0-2.0); Eos # (Auto) 0.1 th/mm3 (0.0-0.4); Eos % (Auto) 5.9 % (0.0-4.0); Hematocrit 31.5 % (39.0-51.0); Hemoglobin 10.4 gm/dL (13.0-17.0); Lymph # (Auto) 0.8 th/mm3 (1.0-4.8); Lymph % (Auto) 60.2 % (9.0-44.0); Mean Corpuscular Hemoglobin 30.9 pg (27.0-34.0); Mean Corpuscular Volume 93.5 fL (80.0-100.0); Mean Platelet Volume 8.9 fL (7.0-11.0); Mono # (Auto) 0.1 th/mm3 (0.0-0.9); Mono % (Auto) 8.2 % (0.0-8.0); Neut % (Auto) 24.6 % (16.0-70.0); Platelet Count 65 th/mm3 (150-450); Red Blood Count 3.37 mil/mm3 (4.50-5.90); Red Cell Distribution Width 12.3 % (11.6-17.2); White Blood Count 1.4 th/mm3 (4.0-11.0)
[2018-07-23 06:37] LABS: Potassium 3.9 meq/L (3.5-5.1)
[2018-07-23 06:40] LABS: Calcium 8.4 mg/dL (8.5-10.1)
[2018-07-23 06:41] LABS: Carbon Dioxide 27.8 meq/L (21.0-32.0)
[2018-07-23 06:48] LABS: Neut # (Auto) 0.4 th/mm3 (1.8-7.7)
[2018-07-23] MEDS ORDERED: Glimepiride 1 MG Tablet PO SCH (07:00)
[2018-07-23 07:12] LABS: Eosinophils 7 % (0-4); Lymphocytes 61 % (9-44); Monocytes 7 % (0-8)
[2018-07-23 07:18] LABS: Dohle Bodies Present; Ovalocytes 1+; Platelet Morphology Normal (Normal); Rouleaux Present
[2018-07-23] MEDS ORDERED: Lisinopril 5 MG Tablet PO SCH (09:00)
--- NOTE | 2018-07-23 09:25 | P.CON ---
History of Present Illness Service: Hematology/oncology. Consult date: 07/23/18 Reason for Consult: Patient with diagnosis of primary ROASTER HELPER lymphoma. Primary Care Provider: UNKNOWN Family Provider: UNKNOWN Chief Complaint: Redness and discomfort involving the scrotum. Generalized weakness. History of Present Illness: Mr. Ramey is a very pleasant 78-year-old man who is well-known to me from outpatient practice, this patient has a diagnosis of primary ROASTER HELPER lymphoma which was initially diagnosed in October 2016. Diagnosis was established after craniotomy and excisional biopsy, pathologic findings are most consistent with a diffuse large B-cell lymphoma. The patient was staged initially and was found to have no evidence of systemic disease involvement. He was treated with 6 cycles of high-dose methotrexate, vincristine and intrathecal cytarabine injections as well as rituximab. Treatment was concluded in March 2017, he was left without evidence of measurable disease intracranially and systemically. The patient remained in remission up until May 2018, he noticed at that time a mass involving his left scrotum. He underwent a left inguinal orchiectomy, pathologic findings were consistent with a high-grade lymphoma (B-cell). 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 Systemic staging revealed findings of intensely hypermetabolic left inguinal lymph nodes as well as recurrent intracranial disease as well. The patient was initiated on second line palliative systemic therapy with high-dose methotrexate in combination with R-CHOP. Treatment was delivered in the third week of June 2018. The patient tolerated treatment initially well, he was seen by me in the neck on , his only complaint was generalized fatigue. Over the weekend the patient developed redness and discomfort involving his scrotum, he denies having had additional scrotal symptoms such as pain or mass like sensation. He does also note having a small ulceration at the tip of his penis. Patient denies having had fevers or chills, he does however report feeling generally weak, his tells me he slept most the day on Monday. The patient spoke to my on-call associate who advised application of miconazole cream to the scrotal area which did result in some improvement, however due to progressive fatigue and weakness he was advised to come into the emergency department. Since admission he has been on treatment with IV cefepime. He is noted to have progressive cytopenias with progressively declining platelet counts as well as WBC count. Review of Systems Constitutional: Reports fatigue, Reports lack of energy, Reports malaise, Denies anorexia, Denies body ache(s), Denies chills, Denies daytime sleepiness, Denies fever(s), Denies headache(s) Eyes: Denies blind spots, Denies blurry vision, Denies bulging eyes, Denies change in vision, Denies double vision, Denies discharge Ears, Nose, Mouth, and Throat: Denies abnormal hearing, Denies change in voice, Denies sore throat Comments: Ulcers on the inside of the cheek as well as in the roof of the mouth. Cardiovascular: Denies chest pain, Denies chest pain at rest, Denies excessive sweating, Denies fast heart rate, Denies shortness of breath, Denies shortness of breath when lying down, Denies shortness of breath causing sudden awakening Respiratory: Denies change in phlegm color, Denies chest congestion, Denies cough, Denies coughing up blood, Denies excessive phlegm production, Denies shortness of breath, Denies shortness of breath with activity Gastrointestinal: Denies abdominal pain, Denies black, tarry stools, Denies bloating, Denies heartburn, Denies pain with swallowing, Denies vomiting Genitourinary: Denies blood in urine, Denies difficulty urinating Musculoskeletal: Denies abnormal walking, Denies back pain, Denies body aches Comments: Red rash over the scrotal area. Neurologic: Reports tremor(s), Reports weakness, Denies abnormal hearing, Denies abnormal speech, Denies dizziness Psychiatric: Reports anxiety, Denies abnormal sleep pattern, Denies change in appetite Endocrine: Denies cold intolerance Hematologic/Lymphatic: Denies easy bleeding Allergic/Immunologic: Denies GI upset with certain foods PMFSH - History History Provided By: Patient - Medical History Medical History: Medical History (Last Reviewed 07/22/18 @ 18:32 by Sarita Jain MD) High grade malignant lymphoma Hypertension Normal colonoscopy Port-A-Cath in place Primary ROASTER HELPER lymphoma Type 2 diabetes mellitus Valvular heart disease - Surgical History Surgical History: Surgical History (Last Reviewed 07/22/18 @ 18:32 by Sarita Jain MD) H/O basal cell carcinoma excision H/O craniotomy History of bone marrow biopsy History of left knee replacement History of orchiectomy, unilateral Hx of tonsillectomy - Family History Family History: Family History (Last Reviewed 07/22/18 @ 18:32 by Sarita Jain MD) Sister Cancer - Tobacco History Second Hand Smoke Exposure: No Tobacco Use In Past 30 Days: No Smoking Status: Former smoker Tobacco Type: Cigarettes - Alcohol History How Often Do You Have a Drink Containing Alcohol: Never - Substance Use History Substance History: No History of Abuse - Travel History History of Recent Travel: No Recent Travel in the [place] Within the Last 8 Weeks: No Recent Travel Out of the Country Within the Last 8 Weeks: No - Immunization History Tetanus Immunization: >5 Years Hx Influenza Vaccine This Season: Yes Medications and Allergies Active Medications: Active Medications Acetaminophen (Tylenol) 650 mg PO Q4H PRN PRN Reason: Temp > 100.4 Aspirin (Ecotrin) 81 mg PO DAILY [facility] Filgrastim (Neupogen Inj) 480 mcg SQ ONCE ONE Stop: 07/23/18 10:01 Glimepiride (Amaryl) 1 mg PO DAILYAC [facility] Cefepime HCl 2,000 mg/ Sodium (Chloride) 100 mls @ 200 mls/hr IV.SIG Q8H [facility] Last Infusion: 07/23/18 03:53 Dose: Infused Sodium Chloride (Ns Inj) 1,000 mls @ 100 mls/hr IV.CONT .Q10H [facility] Last Infusion: 07/23/18 06:16 Dose: Infused Lisinopril (Prinivil) 2.5 mg PO DAILY [facility] Metoprolol Succinate (Toprol Xl) 12.5 mg PO DAILY [facility] Ondansetron HCl (Zofran Inj) 4 mg IV.PUSH Q6H PRN PRN Reason: NAUSEA OR VOMITING Sitagliptin Phosphate (Januvia) 50 mg PO DAILY [facility] Vitamin D (Vitamin D3) 1,000 unit PO DAILY [facility] Allergies Allergy/AdvReac Type Severity Reaction Status Date / Time No Known Allergies Allergy Verified 07/22/18 17:48 Home Medications Medication Instructions Recorded Confirmed Type acarbose 50 mg PO DAILY 07/22/18 07/22/18 History cyanocobalamin (vitamin B-12) 1,000 mcg PO DAILY 07/22/18 07/22/18 History [Vitamin B-12] simvastatin 10 mg PO QPM 07/22/18 07/22/18 History sitagliptin-metformin [Janumet] 1 tab PO DAILY 07/22/18 07/22/18 History Physical Exam Vital signs: Vital Signs 07/22/18 17:35 07/22/18 18:26 07/22/18 20:22 Temperature 98.4 F Pulse Rate 105 H 77 Respiratory Rate 20 18 Blood Pressure 119/56 L 107/50 L Pulse Oximetry 96 98 97 07/22/18 22:00 07/23/18 00:00 07/23/18 04:00 Temperature 97.6 F 98.2 F 97.7 F Pulse Rate 82 79 77 Respiratory Rate 16 16 16 Blood Pressure 117/57 L 120/59 L 114/53 L Pulse Oximetry 96 97 97 Intake & Output 07/22/18 07/23/18 07/23/18 18:59 06:59 18:59 Intake Total 1200 / 1200 Balance 1200 / 1200 Weight 89.5 kg 95.6 kg Intake: IV 1200 / 1200 NS Inj 1,000 ML @ 100 mls/hr IV 1000 / 1000 .CONT .Q10H [facility] Rx#:[id number] Maxipime Inj 2,000 MG In NS Inj 200 / 200 100 ML @ 200 mls/hr IV.SIG Q8H [facility] Rx#:[id number] Other: Weight On Admission 95.6 kg - Constitutional no acute distress - Routine HEENT Exam Head: Absent: normocephalic Eye: Present: EOMI, PERRL, normal accommodation. Absent: conjunctival icterus, scleral injection ENT: Present: mucous membranes moist - Routine Neck Exam Present: supple, full ROM, lymphadenopathy. Absent: JVD, carotid bruit, normal carotid upstroke - Routine Respiratory Exam Present: accessory muscle use, CTA bilaterally. Absent: rales, respiratory distress, rhonchi, stridor, wheezes, crackles - Routine Cardiovascular Exam Present: RRR, S1, S2. Absent: murmur, gallop, rubs, S3, S4 - Routine Abdominal Exam Present: soft. Absent: normoactive bowel sounds, tenderness - Routine Exam Groin: Absent: inguinal hernia, inguinal lymphadenopathy Comments: Scrotal erythema, no masses noted, no tenderness. Tip of the penis has a small 2 mm ulceration which does not appear to be associated with erythema. No purulent discharge noted. No discharge noted from the external urethral meatus. - Routine Extremities Exam Present: full ROM, pulses intact, normal capillary refill. Absent: cyanosis, clubbing, edema, AV fistula - Routine Skin Exam Present: intact. Absent: cyanosis - Routine Neurological Exam Present: alert, oriented X3, CN II-XII intact - Detailed Neurological Exam: Coma Scale Eye Opening: Spontaneous Verbal Response: Oriented Motor Response: Obey commands [place] Coma Scale Total: 15 - Routine Psychiatric Exam Present: normal affect, good insight Assessment and Plan - Plan Mr. Ramey is a very pleasant 78-year-old man with a relapsed high-grade lymphoma (B-cell), initial diagnosis was established in October 2016. After completing initial treatment in March 2017 he was found to be in complete remission and was on observation between March 2017 and June 2018. After presenting with relapsed disease which manifested as a large and rapidly growing left inguinal mass which was treated with inguinal orchiectomy, he underwent staging studies which revealed left inguinal disease burden involving inguinal lymph nodes as well as intracranial recurrence. He was initiated on second line therapy with high-dose methotrexate and R-CHOP. Treatment was completed a little over 1 week ago. Over the past 48 hours the patient developed redness and itching of the scrotal area, he was assessed to have cellulitis and was admitted to this facility on IV antibiotic therapy. He has also been applying antifungal ointment to the scrotal area. The patient reports significant improvement in the erythema and irritation of the scrotum since presenting to the hospital. In fact tells me he is eager to go home today if possible. Recommendations: 1. Primary RO[employer] HELPER lymphoma with relapse: He is not due for cycle #2 until next week. Will await count recovery before initiation of cycle #2. 2. Mild neutropenia: He will be dosed with Neupogen 480 mcg subcu 1 today, CBC has been ordered for tomorrow in my clinic in [place], he will be dosed with Neupogen again on 07/24/2018. 3. Thrombocytopenia: Platelet counts continue to decline which indicates his counts have not yet reached linh. Continue monitoring, no intervention necessary at this time. 4. Suspected cellulitis of the scrotum: No evidence of Franki's gangrene. I suspect this may have been related to a fungal infection, the patient is diabetic and had been on high-dose corticosteroids as a part of his chemotherapy regimen. I have advised him to continue topical antifungal cream, in addition to which I will start him on oral fluconazole. He should be clear for discharge should he continue to remain stable. It may be reasonable to empirically put him on an oral antibiotic for bacterial coverage as well. Disposition: He should be clear for discharge from an oncology standpoint, he is very reliable patient and will be into my clinic tomorrow for blood work and Neupogen injections. With oral fluconazole and oral Keflex he should be covered reasonably well.
[2018-07-23] MEDS ORDERED: Fluconazole 100 MG Tablet PO SCH (10:00)
[2018-07-23 10:08] VITALS: BP 113/51; PULSE 85; RESP 18; TEMP 98.3; O2SAT 95
--- NOTE | 2018-07-23 11:51 | P.HP ---
History of Present Illness Service: Hospitalist Primary Care Physician: UNKNOWN Chief Complaint: Redness and discomfort involving the scrotum. Generalized weakness. History of Present Illness: Mr. 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 Patient denies any fever or chills. He denies any drainage from the scrotal erythema. Patient denies any chest pain, shortness of breath, abdominal pain. No changes in bowel or bladder habits. ED workup indicated neutropenia with neutrophil count 400. Patient was evaluated by hematology oncology who recommended outpatient follow-up with topical antifungal and antibacterial. 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 Social history: Patient denies using alcohol, tobacco, illicit drugs. Family history: No family history of Alzheimer's or Parkinson's. Sister had cancer Inpatient Certification: I certify that the inpatient services were ordered in accordance with Medicare regulations governing the order. This includes certification that hospital inpatient services are reasonable and necessary and in the case of services not specified as inpatient-only under 42 CFR 419.22(n), that they are appropriately provided as inpatient services in accordance to with the 2-midnight benchmark under 43 CFR 412.3(e) Estimated Total Length of Stay (Days): 2 Plans for Post Hospital Care: Home Review of Systems All other systems reviewed negative except as stated in HPI PMFSH - History History Provided By: Patient - Medical History Medical History: Medical History (Last Reviewed 07/22/18 @ 18:32 by Sarita Jain MD) High grade malignant lymphoma Hypertension Normal colonoscopy Port-A-Cath in place Primary 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 lymphoma Type 2 diabetes mellitus Valvular heart disease - Surgical History Surgical History: Surgical History (Last Reviewed 07/22/18 @ 18:32 by Sarita Jain MD) H/O basal cell carcinoma excision H/O craniotomy History of bone marrow biopsy History of left knee replacement History of orchiectomy, unilateral Hx of tonsillectomy - Family History Family History: Family History (Last Reviewed 07/22/18 @ 18:32 by Sarita Jain MD) Sister Cancer - Tobacco History Second Hand Smoke Exposure: No Tobacco Use In Past 30 Days: No Smoking Status: Former smoker Tobacco Type: Cigarettes - Alcohol History How Often Do You Have a Drink Containing Alcohol: Never - Substance Use History Substance History: No History of Abuse - Travel History History of Recent Travel: No Recent Travel in the [place] Within the Last 8 Weeks: No Recent Travel Out of the Country Within the Last 8 Weeks: No - Immunization History Tetanus Immunization: >5 Years Hx Influenza Vaccine This Season: Yes Medications and Allergies Active Medications: Active Medications Acetaminophen (Tylenol) 650 mg PO Q4H PRN PRN Reason: Temp > 100.4 Aspirin (Ecotrin) 81 mg PO DAILY [facility] Last Admin: 07/23/18 09:13 Dose: 81 mg Fluconazole (Diflucan) 150 mg PO DAILY [facility] Last Admin: 07/23/18 10:05 Dose: 150 mg Glimepiride (Amaryl) 1 mg PO DAILYAC [facility] Last Admin: 07/23/18 09:27 Dose: 1 mg Cefepime HCl 2,000 mg/ Sodium (Chloride) 100 mls @ 200 mls/hr IV.SIG Q8H [facility] Last Admin: 07/23/18 11:14 Dose: 200 mls/hr Sodium Chloride (Ns Inj) 1,000 mls @ 100 mls/hr IV.CONT .Q10H [facility] Last Infusion: 07/23/18 06:16 Dose: Infused Lisinopril (Prinivil) 2.5 mg PO DAILY [facility] Last Admin: 07/23/18 09:13 Dose: 2.5 mg Metoprolol Succinate (Toprol Xl) 12.5 mg PO DAILY [facility] Last Admin: 07/23/18 09:28 Dose: 12.5 mg Miscellaneous (Pill Splitter) 1 each OTHER UNSCH PRN PRN Reason: SEE LABEL COMMENTS Ondansetron HCl (Zofran Inj) 4 mg IV.PUSH Q6H PRN PRN Reason: NAUSEA OR VOMITING Sitagliptin Phosphate (Januvia) 50 mg PO DAILY [facility] Last Admin: 07/23/18 09:27 Dose: 50 mg Vitamin D (Vitamin D3) 1,000 unit PO DAILY [facility] Last Admin: 07/23/18 09:13 Dose: 1,000 unit Allergies Allergy/AdvReac Type Severity Reaction Status Date / Time No Known Allergies Allergy Verified 07/22/18 17:48 Home Medications Medication Instructions Recorded Confirmed Type acarbose 50 mg PO DAILY 07/22/18 07/22/18 History cyanocobalamin (vitamin B-12) 1,000 mcg PO DAILY 07/22/18 07/22/18 History [Vitamin B-12] simvastatin 10 mg PO QPM 07/22/18 07/22/18 History sitagliptin-metformin [Janumet] 1 tab PO DAILY 07/22/18 07/22/18 History Exam Vital signs: Vital Signs 07/22/18 17:35 07/22/18 18:26 07/22/18 20:22 Temperature 98.4 F Pulse Rate 105 H 77 Respiratory Rate 20 18 Blood Pressure 119/56 L 107/50 L Pulse Oximetry 96 98 97 07/22/18 22:00 07/23/18 00:00 07/23/18 04:00 Temperature 97.6 F 98.2 F 97.7 F Pulse Rate 82 79 77 Respiratory Rate 16 16 16 Blood Pressure 117/57 L 120/59 L 114/53 L Pulse Oximetry 96 97 97 07/23/18 08:00 Temperature 98.3 F Pulse Rate 85 Respiratory Rate 18 Blood Pressure 113/51 L Pulse Oximetry 95 Intake & Output 07/22/18 07/23/18 07/23/18 18:59 06:59 18:59 Intake Total 1200 / 1200 Balance 1200 / 1200 Weight 89.5 kg 95.6 kg Intake: IV 1200 / 1200 NS Inj 1,000 ML @ 100 mls/hr IV 1000 / 1000 .CONT .Q10H ANDRIY Rx#:[id number] Maxipime Inj 2,000 MG In NS Inj 200 / 200 100 ML @ 200 mls/hr IV.SIG Q8H ANDRIY Rx#:[id number] Other: Weight On Admission 95.6 kg Narrative: GENERAL: This is a well-nourished, well-developed patient, in no apparent distress. SKIN: No rashes, ecchymoses or lesions. Warm and dry. Scrotal area is mildly erythematous. Barrier cream and antifungal cream applied. No swelling noted. HEAD: Atraumatic. Normocephalic. No temporal or scalp tenderness. EYES: Pupils equal round and reactive. No injection or drainage. ENT: Nose without bleeding, purulent drainage or septal hematoma. Airway patent. NECK: Trachea midline. No lymphadenopathy. Supple, nontender, no meningeal signs. CARDIOVASCULAR: Regular rate and rhythm without murmurs, gallops, or rubs. No JVD. RESPIRATORY: Clear to auscultation. Breath sounds equal bilaterally. No wheezes , rales, or rhonchi. GASTROINTESTINAL: Abdomen soft, non-tender, nondistended. No guarding. MUSCULOSKELETAL: Extremities without clubbing, cyanosis, or edema. NEUROLOGICAL: Awake and alert. Cranial nerves II through XII intact. No focal neurological deficits. Normal speech. Results - Labs CBC & Chem 7: 07/23/18 05:53 07/23/18 05:53 Labs: Laboratory Results - last 24 hr 07/22/18 07/22/18 07/22/18 18:30 18:30 18:30 CBC w Diff Slide review pending WBC 1.2 L RBC 3.48 L Hgb 10.6 L Hct 32.4 L MCV 93.1 MCH 30.6 MCHC 32.8 RDW 12.5 Plt Count 75 L D MPV 8.3 Neut % (Auto) Lymph % (Auto) Gove % (Auto) Eos % (Auto) Baso % (Auto) Neut # (Auto) Lymph # (Auto) Gove # (Auto) Eos # (Auto) Baso # (Auto) WBC Differential Manual diff final Seg Neuts % (Manual) 25 Band Neuts % (Manual) 3 Lymphocytes % (Manual) 60 H Monocytes % (Manual) 5 Eosinophils % (Manual) 7 H Abs Neuts (Manual) 0.3 L* Differential Comment . Dohle Bodies Platelet Estimate Low L Platelet Morphology Normal Ovalocytes 1+ H Rouleaux Sodium 135 L Potassium 3.7 Chloride 101 Carbon Dioxide 26.0 Anion Gap 8 BUN 14 Creatinine 0.95 Estimated GFR 77 L POC Glucose Random Glucose 122 H Lactic Acid 1.2 Calcium 8.6 Total Bilirubin 0.5 AST 12 L ALT 29 Alkaline Phosphatase 62 Total Protein 5.9 L Albumin 3.0 L Urine Color Urine Clarity Urine pH Ur Specific [place] Urine Protein Urine Glucose (UA) Urine Ketones Urine Occult Blood Urine Nitrate Urine Bilirubin Urine Urobilinogen Ur Leukocyte Esterase Urine RBC Urine WBC Ur Squamous Epith Cells Micro UA Comment Ur Microscopic Review Urine Culture Comments 07/22/18 07/22/18 07/23/18 19:50 22:54 05:53 CBC w Diff Slide review pending WBC 1.4 L RBC 3.37 L Hgb 10.4 L Hct 31.5 L MCV 93.5 MCH 30.9 MCHC 33.0 RDW 12.3 Plt Count 65 L MPV 8.9 Neut % (Auto) 24.6 Lymph % (Auto) 60.2 H Gove % (Auto) 8.2 H Eos % (Auto) 5.9 H Baso % (Auto) 1.1 Neut # (Auto) 0.4 L* Lymph # (Auto) 0.8 L Gove # (Auto) 0.1 Eos # (Auto) 0.1 Baso # (Auto) 0.0 WBC Differential Manual diff final Seg Neuts % (Manual) 18 Band Neuts % (Manual) 7 H Lymphocytes % (Manual) 61 H Monocytes % (Manual) 7 Eosinophils % (Manual) 7 H Abs Neuts (Manual) 0.4 L* Differential Comment . Dohle Bodies Present H Platelet Estimate Low L Platelet Morphology Normal Ovalocytes 1+ H Rouleaux Present H Sodium Potassium Chloride Carbon Dioxide Anion Gap BUN Creatinine Estimated GFR POC Glucose 106 Random Glucose Lactic Acid Calcium Total Bilirubin AST ALT Alkaline Phosphatase Total Protein Albumin Urine Color Yellow Urine Clarity Clear Urine pH 6.0 Ur Specific [place] Less/equal 1.005 Urine Protein Negative Urine Glucose (UA) Negative Urine Ketones Negative Urine Occult Blood Negative Urine Nitrate Negative Urine Bilirubin Negative Urine Urobilinogen 2.0 H Ur Leukocyte Esterase Negative Urine RBC 0-3 Urine WBC 0-5 Ur Squamous Epith Cells 0-5 Micro UA Comment Culture not ind Ur Microscopic Review Microscopic reviewed Urine Culture Comments Culture not ind 07/23/18 07/23/18 05:53 07:55 CBC w Diff WBC RBC Hgb Hct MCV MCH MCHC RDW Plt Count MPV Neut % (Auto) Lymph % (Auto) Gove % (Auto) Eos % (Auto) Baso % (Auto) Neut # (Auto) Lymph # (Auto) Gove # (Auto) Eos # (Auto) Baso # (Auto) WBC Differential Seg Neuts % (Manual) Band Neuts % (Manual) Lymphocytes % (Manual) Monocytes % (Manual) Eosinophils % (Manual) Abs Neuts (Manual) Differential Comment Dohle Bodies Platelet Estimate Platelet Morphology Ovalocytes Rouleaux Sodium 140 Potassium 3.9 Chloride 106 Carbon Dioxide 27.8 Anion Gap 6 BUN 11 Creatinine 0.85 Estimated GFR 87 L POC Glucose 207 H Random Glucose 102 Lactic Acid Calcium 8.4 L Total Bilirubin AST ALT Alkaline Phosphatase Total Protein Albumin Urine Color Urine Clarity Urine pH Ur Specific [place] Urine Protein Urine Glucose (UA) Urine Ketones Urine Occult Blood Urine Nitrate Urine Bilirubin Urine Urobilinogen Ur Leukocyte Esterase Urine RBC Urine WBC Ur Squamous Epith Cells Micro UA Comment Ur Microscopic Review Urine Culture Comments - Imaging Impressions Chest X-Ray 07/22/18 18:26 CONCLUSION: No acute cardiopulmonary disease. Caprini VTE Risk Assessment Caprini VTE Risk Assessment: No/Low Risk (score <= 1) Caprini Risk Assessment Model: Point Value = 1 Point Value = 2 Point Value = 3 Point Value = 5 Age 41-60 Minor surgery BMI > 25 kg/m2 Swollen legs Varicose veins or History of unexplained or recurrent spontaneous Oral contraceptives or hormone replacement Sepsis (< 1 month) Serious lung disease, including pneumonia (< 1 month) Abnormal pulmonary function Acute myocardial infarction Congestive heart failure (< 1 month) History of inflammatory bowel disease Medical patient at bed rest Age 61-74 Arthroscopic surgery Major open surgery (> 45 min) Laparoscopic surgery (> 45 min) Malignancy Confined to bed (> 72 hours) Immobilizing plaster cast Central venous access Age >= 75 History of VTE Family history of VTE Factor V Leiden Prothrombin [id number] Lupus anticoagulant Anticardiolipin antibodies Elevated serum homocysteine Heparin-induced thrombocytopenia Other congenital or acquired thrombophilia Stroke (< 1 month) Elective arthroplasty Hip, pelvis, or leg fracture Acute spinal cord injury (< 1 month) Prophylaxis Regimen: Total Risk Factor Score Risk Level Prophylaxis Regimen 0-1 Low Early ambulation 2 Moderate Order ONE of the following: *Sequential Compression Device (SCD) *Heparin 5000 units SQ BID 3-4 Higher Order ONE of the following medications: *Heparin 5000 units SQ TID *Enoxaparin/Lovenox 40 mg SQ daily (WT < 150 kg, CrCl > 30 mL/min) *Enoxaparin/Lovenox 30 mg SQ daily (WT < 150 kg, CrCl > 10-29 mL/min) *Enoxaparin/Lovenox 30 mg SQ BID (WT < 150 kg, CrCl > 30 mL/min) AND/OR *Sequential Compression Device (SCD) 5 or more Highest Order ONE of the following medications: *Heparin 5000 units SQ TID (Preferred with Epidurals) *Enoxaparin/Lovenox 40 mg SQ daily (WT < 150 kg, CrCl > 30 mL/min) *Enoxaparin/Lovenox 30 mg SQ daily (WT < 150 kg, CrCl > 10-29 mL/min) *Enoxaparin/Lovenox 30 mg SQ BID (WT < 150 kg, CrCl > 30 mL/min) AND *Sequential Compression Device (SCD) Assessment and Plan - Plan Mr. 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 No fever or chills. No swelling or drainage in the scrotal area. Probable scrotal cellulitis -Hematology oncology evaluated patient and recommended topical as well as oral antifungal and antibacterial. -Probably topical antifungal as well as oral empiric antibacterial (Augmentin ) would be sufficient. 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 Fish (Heme/onc). Full code. Discharge patient to home Condition on discharge: Improved Regular Diet as tolerated Ad Yaneli activity Rx written: Augmentin BID X 7 days. Follow-up with primary care physician and Oncologist as needed.
--- NOTE | 2018-07-23 13:15 | ECG ---
Date Performed: 07/22/2018 Time Performed: 18:33:39 PTAGE: 78 years EKG: Sinus rhythm NORMAL ECG Since PREVIOUS TRACING , no significant serial change noted PREVIOUS TRACIN07/19/2010 06.55 DOCTOR: Aminta Conde Interpretating Date/Time 07/23/2018 13:14:47
== END 2018-07-23 12:11 | disposition home or self-care (01) ==
LOC: PHED 17:17 → PHEDA 19:24 → PH3 21:28
PROVIDERS: ADMIT Hospitalist; ATTEND Hospitalist

== ENCOUNTER 2018-08-07 06:42 | Inpatient (IN) ==
[2018-08-07] MEDS ORDERED: Bisacodyl 10 MG Supp RECTAL PRN (07:25)
[2018-08-07] MEDS ORDERED: Dextrose 50% in Water 50 ML Vial IV.PUSH PRN (07:37)
--- NOTE | 2018-08-07 08:04 | P.HPIM ---
History of Present Illness Service: Hematology/oncology. 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 History of Present Illness: Mr. 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 He underwent systemic staging and was assessed to have primary SUPPLEMENTAL MANAGER lymphoma. As a part of his initial staging workup he did undergo ultrasound of the scrotum to rule out involvement of the testicle or the spermatic cord. These are not involved. He was treated with high-dose methotrexate/Rituxan/vincristine with intrathecal cytarabine injections. He was treated between October 2016 in March 2017. Subsequent staging studies revealed complete remission. In May 2018 the patient noticed a large mass on the left side of his scrotum, he had this evaluated by his urologist who recommended imaging studies, the mass was confirmed on imaging studies and patient subsequently underwent a left- sided orchiectomy performed on 06/21/2018. Pathologic findings revealed high- grade large B-cell lymphoma (with a Ki-67 proliferation index of 95%). Indicating a Burkitt-like lymphoma. Subsequent staging studies including PET/ CT scan as well as MRI of the brain revealed findings of recurrence intracranially as well as evidence of hypermetabolic lymphadenopathy in the left inguinal area. Patient received his first cycle of systemic chemotherapy consisting of Rituxan , high-dose methotrexate and CHOP in late June 2018. He comes in today for cycle #2 high-dose methotrexate. He received cycle 2 R CHOP on 08/06/2018 in the outpatient clinic. He reports no acute complaints at this time. He specifically denies SUPPLEMENTAL MANAGER complaints such as headaches, tremors, seizures or focal sensorimotor deficits. In fact, the patient reports having had a good weekend, he ate well, walked in his neighborhood and was without treatment-related adverse effects. - Diagnosis (1) Primary SUPPLEMENTAL MANAGER lymphoma of extranodal and solid organ sites (2) Diabetes (3) Hypertension Inpatient Certification: I certify that the inpatient services were ordered in accordance with Medicare regulations governing the order. This includes certification that hospital inpatient services are reasonable and necessary and in the case of services not specified as inpatient-only under 42 CFR 419.22(n), that they are appropriately provided as inpatient services in accordance to with the 2-midnight benchmark under 43 CFR 412.3(e) Estimated Total Length of Stay (Days): 5 Plans for Post Hospital Care: Home Review of Systems Constitutional: Reports fatigue, Denies anorexia, Denies chills, Denies excessive sweating Eyes: Denies blind spots, Denies double vision, Denies dry eyes, Denies sensitivity to light Ears, Nose, Mouth, and Throat: Denies abnormal hearing, Denies change in voice, Denies difficulty swallowing, Denies mouth lesions, Denies mouth pain Respiratory: Denies cough, Denies shortness of breath, Denies shortness of breath with activity Gastrointestinal: Denies abdominal pain, Denies bloating, Denies bright, red blood in stools, Denies change in bowel habits, Denies vomiting, Denies vomiting blood Genitourinary: Denies blood in urine Musculoskeletal: Denies abnormal walking, Denies back pain, Denies muscle weakness, Denies stiffness Skin/Breast: Denies acne, Denies yellowing of the skin Neurologic: Denies abnormal hearing, Denies abnormal walking, Denies tingling/ numbness/burning sensations Psychiatric: Reports anxiety, Reports change in appetite, Denies abnormal sleep pattern Endocrine: Denies cold intolerance Hematologic/Lymphatic: Denies easy bleeding Allergic/Immunologic: Denies GI upset with certain foods PMFSH - History History Provided By: Patient - Medical History Medical History: Medical History (Last Reviewed 08/07/18 @ 07:50 by Nas Fish MD) High grade malignant lymphoma Hypertension Normal colonoscopy Port-A-Cath in place Primary SUPPLEMENTAL MANAGER lymphoma Type 2 diabetes mellitus Valvular heart disease - Surgical History Surgical History: Surgical History (Last Reviewed 08/07/18 @ 07:50 by Nas Fish MD) H/O basal cell carcinoma excision H/O craniotomy History of bone marrow biopsy History of left knee replacement History of orchiectomy, unilateral Hx of tonsillectomy - Family History Family History: Family History (Last Reviewed 08/07/18 @ 07:50 by Nas Fish MD) Sister Cancer - Social History I have reviewed the patient's Social History: Yes - Tobacco History Second Hand Smoke Exposure: No Smoking Status: Former smoker Tobacco Type: Cigarettes - Alcohol History How Often Do You Have a Drink Containing Alcohol: Never - Substance Use History Substance History: No History of Abuse - Travel History History of Recent Travel: No Medications and Allergies Active Medications: Active Medications Al Hydroxide/Mg Hydroxide (Milk Of Magnesia Liq) 30 ml PO Q12H PRN PRN Reason: Mild Constipation Aspirin (Ecotrin) 81 mg PO DAILY ANDRIY Bisacodyl (Dulcolax Supp) 10 mg RECTAL DAILY PRN PRN Reason: SEVERE CONSITIPATION Dextrose (D50w Vial) 50 ml IV.PUSH UNSCH PRN PRN Reason: PER HYPOGLYCEMIA PROTOCOL Glucagon (Glucagon Inj) 1 mg OTHER PRN PRN PRN Reason: for Hypoglycemia Protocol Sodium Bicarbonate 75 meq/ (Sodium Chloride) 1,000 mls @ 100 mls/hr IV.CONT .Q10H ANDRIY Insulin Aspart (Novolog Insulin Correctional Sugar Inj) 0 unit SQ ACHS ANDRIY; Protocol Lactulose (Lactulose Liq) 30 ml PO DAILY PRN PRN Reason: SEVERE CONSITIPATION Lisinopril (Prinivil) 2.5 mg PO DAILY [facility] Metformin HCl (Glucophage) 500 mg PO BIDPC [facility] Metoprolol Succinate (Toprol Xl) 12.5 mg PO DAILY [facility] Midodrine (Proamatine) 5 mg PO BID [facility] Prednisone (Deltasone) 100 mg PO DAILY [facility] Stop: 08/11/18 23:59 Senna/Docusate Sodium (Catherine-Colace) 1 tab PO BID [facility] Sennosides (Senokot) 17.2 mg PO Q12H PRN PRN Reason: Moderate Constipation Sitagliptin Phosphate (Januvia) 50 mg PO DAILY [facility] Vitamin D (Vitamin D3) 1,000 unit PO DAILY [facility] Allergies Allergy/AdvReac Type Severity Reaction Status Date / Time No Known Allergies Allergy Verified 07/22/18 17:48 Home Medications Medication Instructions Recorded Confirmed Type acarbose 50 mg PO DAILY 07/22/18 07/22/18 History cyanocobalamin (vitamin B-12) 1,000 mcg PO DAILY 07/22/18 07/22/18 History [Vitamin B-12] simvastatin 10 mg PO QPM 07/22/18 07/22/18 History sitagliptin-metformin [Janumet] 1 tab PO DAILY 07/22/18 07/22/18 History Exam - Constitutional no acute distress - Routine HEENT Exam Head: Present: normocephalic. Absent: cushingoid faces Eye: Present: EOMI, PERRL ENT: Present: mucous membranes moist - Routine Neck Exam Present: supple, full ROM. Absent: normal carotid upstroke, lymphadenopathy - Routine Chest/Breast/Axilla Exam Chest wall: Absent: tenderness Breast: Absent: tenderness Axillae: Absent: lymphadenopathy - Routine Respiratory Exam Present: CTA bilaterally. Absent: accessory muscle use, rales, respiratory distress, rhonchi, stridor, wheezes, crackles, distant breath sounds - Routine Cardiovascular Exam Present: RRR, S1, S2. Absent: murmur, gallop, rubs, S3, S4, click - Routine Abdominal Exam Present: soft - Routine Extremities Exam Absent: cyanosis - Routine Skin Exam Present: intact. Absent: cyanosis, rash - Routine Neurological Exam Present: alert, oriented X3, CN II-XII intact. Absent: sensory deficit, motor deficit, normal reflexes Results - Labs Labs: Labs dated 07/30/2018: WBC count 9.8, hemoglobin 11.1 g/dL, hematocrit 33.8%, platelet count 382, absolute neutrophil count 6.8, absolute cell count 1.4. Chemistries: Sodium 136, potassium 4.3, chloride 102, bicarb 26, BUN 10, creatinine 1, EGFR 72, random glucose 207, lactic acid 1.2, AST 13, ALT 24, alkaline phosphatase 99 , albumin 3.3. Caprini VTE Risk Assessment Caprini VTE Risk Assessment: Moderate/High Risk (score >= 2) Caprini Risk Assessment Model: Point Value = 1 Point Value = 2 Point Value = 3 Point Value = 5 Age 41-60 Minor surgery BMI > 25 kg/m2 Swollen legs Varicose veins or History of unexplained or recurrent spontaneous Oral contraceptives or hormone replacement Sepsis (< 1 month) Serious lung disease, including pneumonia (< 1 month) Abnormal pulmonary function Acute myocardial infarction Congestive heart failure (< 1 month) History of inflammatory bowel disease Medical patient at bed rest Age 61-74 Arthroscopic surgery Major open surgery (> 45 min) Laparoscopic surgery (> 45 min) Malignancy Confined to bed (> 72 hours) Immobilizing plaster cast Central venous access Age >= 75 History of VTE Family history of VTE Factor V Leiden Prothrombin [id number] Lupus anticoagulant Anticardiolipin antibodies Elevated serum homocysteine Heparin-induced thrombocytopenia Other congenital or acquired thrombophilia Stroke (< 1 month) Elective arthroplasty Hip, pelvis, or leg fracture Acute spinal cord injury (< 1 month) Prophylaxis Regimen: Total Risk Factor Score Risk Level Prophylaxis Regimen 0-1 Low Early ambulation 2 Moderate Order ONE of the following: *Sequential Compression Device (SCD) *Heparin 5000 units SQ BID 3-4 Higher Order ONE of the following medications: *Heparin 5000 units SQ TID *Enoxaparin/Lovenox 40 mg SQ daily (WT < 150 kg, CrCl > 30 mL/min) *Enoxaparin/Lovenox 30 mg SQ daily (WT < 150 kg, CrCl > 10-29 mL/min) *Enoxaparin/Lovenox 30 mg SQ BID (WT < 150 kg, CrCl > 30 mL/min) AND/OR *Sequential Compression Device (SCD) 5 or more Highest Order ONE of the following medications: *Heparin 5000 units SQ TID (Preferred with Epidurals) *Enoxaparin/Lovenox 40 mg SQ daily (WT < 150 kg, CrCl > 30 mL/min) *Enoxaparin/Lovenox 30 mg SQ daily (WT < 150 kg, CrCl > 10-29 mL/min) *Enoxaparin/Lovenox 30 mg SQ BID (WT < 150 kg, CrCl > 30 mL/min) AND *Sequential Compression Device (SCD) Patient on Lovenox 40 mg subcu once daily. Assessment and Plan - Assessment (1) Primary SUPPLEMENTAL MANAGER lymphoma of extranodal and solid organ sites Code(s): C85.89 - Other specified types of non-Hodgkin lymphoma, extranodal and solid organ sites Status: Acute (2) Diabetes Code(s): E11.9 - Type 2 diabetes mellitus without complications Status: Acute (3) Hypertension Code(s): I10 - Essential (primary) hypertension Status: Acute - Plan 78-year-old male with relapsed high-grade diffuse large B-cell lymphoma/primary SUPPLEMENTAL MANAGER lymphoma. Presented with testicular relapse in May 2018, status post 1 cycle of high-dose methotrexate in combination with R-CHOP. Presents for cycle #2 high-dose methotrexate. Recommendations: 1. Relapsed high-grade lymphoma (triple hit): Proceed with cycle 2 high-dose methotrexate at a dose of 2500 mg per metered squared. He received cycle number 2R CHOP in the outpatient setting on 08/06/2018. He will be initiated on prednisone 100 mg p.o. daily for the next 5 days starting today. 2. Diabetes: Fingerstick bedside glucose checks before meals and at bedtime. Insulin sliding scale coverage has been ordered. Outpatient metformin and sitagliptin have also been resumed. 3. Initiate hydration with normal saline with sodium bicarbonate. 4. Check urine pH, initiate methotrexate once urine pH is at or greater than 7. 5. Hypertension: Continue outpatient antihypertensives including metoprolol and lisinopril. 6. DVT prophylaxis: With Lovenox 40 mg subcu daily. 7. Initiate methotrexate level checks as per protocol after completion of infusion. 8. Leucovorin rescue to start as per high-dose methotrexate protocol beginning 24 hours after start of methotrexate. He will be dosed with 20 mg IV every 6 hours for up to 12 doses. 9. Repeat CBC and CMP levels today. Code Status: Full. Discussed Condition With: The patient, his , his daughters. Patient's nurse. Discharge Planning: Patient will be discharged home upon completion of treatment. (2) Diabetes Qualifiers: Diabetes mellitus type: type 2 Diabetes mellitus senior care insulin use: without parts counterman use Diabetes mellitus complication status: without complication Qualified Code(s): E11.9 - Type 2 diabetes mellitus without complications (3) Hypertension Qualifiers: Hypertension type: essential hypertension Qualified Code(s): I10 - Essential (primary) hypertension
[2018-08-07 08:25] LABS: Baso % (Auto) 0.2 % (0.0-2.0); Hematocrit 28.5 % (39.0-51.0); Hemoglobin 9.7 gm/dL (13.0-17.0); Lymph # (Auto) 0.9 th/mm3 (1.0-4.8); Lymph % (Auto) 7.1 % (9.0-44.0); Mean Corpuscular HGB Conc 34.2 % (32.0-36.0); Mean Corpuscular Hemoglobin 31.1 pg (27.0-34.0); Mean Corpuscular Volume 90.9 fL (80.0-100.0); Mono # (Auto) 1.7 th/mm3 (0.0-0.9); Mono % (Auto) 13.7 % (0.0-8.0); Neut # (Auto) 9.9 th/mm3 (1.8-7.7); Platelet Count 433 th/mm3 (150-450); Red Blood Count 3.13 mil/mm3 (4.50-5.90); Red Cell Distribution Width 13.8 % (11.6-17.2); White Blood Count 12.5 th/mm3 (4.0-11.0)
[2018-08-07 08:38] LABS: Anion Gap 11 meq/L (5-15); Aspartate Aminotransferase 12 U/L (15-37); Blood Urea Nitrogen 14 mg/dL (7-18); Calcium 8.2 mg/dL (8.5-10.1); Carbon Dioxide 22.9 meq/L (21.0-32.0); Chloride 101 meq/L (98-107); Glomerular Filtration Rate Greater Than 89 mL/min (>89); Glucose,Random 207 mg/dL (74-106); Potassium 3.7 meq/L (3.5-5.1); Sodium 135 meq/L (136-145)
[2018-08-07 08:40] LABS: Alanine Aminotransferase 17 U/L (12-78)
[2018-08-07 08:41] LABS: Alkaline Phosphatase 98 U/L (45-117); Total Protein 6.1 g/dL (6.4-8.2)
[2018-08-07] MEDS: Insulin NovoLOG Aspart Correctional Sugar Inj SQ SCH ×5 (08:59→22:45)
[2018-08-07] MEDS: Enoxaparin Inj 40 MG/0.4 ML Syringe SQ SCH (09:19)
[2018-08-07] MEDS: Senna/Docusate Sodium 8.6/50 MG Tablet PO SCH ×2 (09:23→21:26)
[2018-08-07] MEDS ORDERED: SODIUM CHLORIDE IV.CONT SCH ×2 (10:00→14:00)
[2018-08-07] MEDS ORDERED: SODIUM BICARBONATE IV.CONT SCH ×2 (10:00→14:00)
[2018-08-07] MEDS ORDERED: [UNRECOGNIZED DRUG - OTHER] IV.CONT SCH ×2 (10:00→14:00)
[2018-08-07] MEDS: Sodium Bicarbonate 8.4% Inj 75 MEQ in Sod Chloride 0.9% Inj 925 ML IV.CONT SCH (11:21)
[2018-08-07] MEDS ORDERED: Granisetron Inj 1 MG, Dexamethasone Inj 20 MG in Sodium Chlor 0.9% Inj 50 ML IV.SIG ONE ×2 (13:30)
[2018-08-07] MEDS ORDERED: DEXTROSE 5% IV.SIG ONE ×2 (14:00)
[2018-08-07] MEDS ORDERED: WATER IV.SIG ONE ×2 (14:00)
[2018-08-07] MEDS ORDERED: METHOTREXATE IV.SIG ONE ×2 (14:00)
[2018-08-07] MEDS: SODIUM CHLORIDE IV.CONT SCH ×2 (15:08→19:29)
[2018-08-07] MEDS: SODIUM BICARBONATE IV.CONT SCH ×2 (15:08→19:29)
[2018-08-07] MEDS: [UNRECOGNIZED DRUG - OTHER] IV.CONT SCH ×2 (15:08→19:29)
[2018-08-07] MEDS: Lisinopril 5 MG Tablet PO SCH (17:10)
[2018-08-08] MEDS: Sodium Bicarbonate 8.4% Inj 75 MEQ in Sod Chloride 0.9% Inj 925 ML IV.CONT SCH ×3 (00:35→16:16)
[2018-08-08] MEDS: SODIUM BICARBONATE IV.CONT SCH (01:42)
[2018-08-08] MEDS: SODIUM CHLORIDE IV.CONT SCH (01:42)
[2018-08-08] MEDS: [UNRECOGNIZED DRUG - OTHER] IV.CONT SCH (01:42)
--- NOTE | 2018-08-08 07:15 | P.PNONC ---
Subjective Interval history: Patient seen and examined, vital signs, labs, medications and chemotherapy administration notes reviewed. Patient was initiated on high-dose methotrexate at approximately 10 PM on the night of 08/07/2018. He completed infusion a little bit after 1 AM on the morning of 08/08/2018. He reports feeling well this morning, he denies adverse effects related to treatment. He specifically denies fevers, chills, difficulty breathing, nausea or vomiting. Objective Vital Signs/Intake & Output: Vital Signs 08/07/18 08:00 08/07/18 08:49 08/07/18 12:00 Temperature 97.5 F L 98.0 F Pulse Rate 55 L 55 L 79 Respiratory Rate 16 16 Blood Pressure 141/79 H 112/63 Pulse Oximetry 100 100 08/07/18 13:47 08/07/18 15:00 08/07/18 16:00 Temperature 98.1 F Pulse Rate 62 72 71 Respiratory Rate 16 Blood Pressure 151/68 H Pulse Oximetry 100 08/07/18 20:00 08/07/18 20:12 08/07/18 22:20 Temperature 98.5 F Pulse Rate 77 75 Respiratory Rate 18 Blood Pressure 135/63 138/62 Pulse Oximetry 99 08/08/18 00:05 08/08/18 00:17 08/08/18 03:34 Temperature 98.5 F 97.9 F Pulse Rate 78 76 70 Respiratory Rate 16 Blood Pressure 146/65 H 151/62 H Pulse Oximetry 97 98 08/08/18 04:00 08/08/18 04:06 Temperature Pulse Rate 68 Respiratory Rate 16 Blood Pressure Pulse Oximetry Intake & Output 08/07/18 08/08/18 08/08/18 18:59 06:59 18:59 Intake Total 4655.625 / 4655.625 3251 / 3251 Output Total 3175 / 3175 5700 / 5700 Balance 1480.625 / 1480.625 -2449 / -2449 Weight 93.8 kg 93.1 kg Intake: IV 1109.625 / 1682.258 0238 / 3011 Sodium Chloride 23.4% Inj 38.5 1109.625 / 9585.078 8587 / 2200 MEQ Sodium Bicarbonate 8.4% Inj 100 MEQ In Sterile Water for Inj 1,000 ML @ 170 mls/hr IV. CONT .Q6H32M [facility] Rx#:[id number] Kytril Inj 1 MG Decadron Inj 20 56 / 56 MG In NS Inj 50 ML @ 336 mls/ hr IV.SIG ONCE ONE Rx#:[id number] Methotrexate PF Inj 5,000 MG In 755 / 755 D5W Inj 500 ML @ 233.333 mls/ hr IV.SIG ONCE ONE Rx#:[id number] Oral 3546 / 3546 240 / 240 Output: Urine 3175 / 3175 5700 / 5700 Other: Date of Last Bowel Movement 08/06/18 08/07/18 # Bowel Movements 1 Weight On Admission 88.904 kg Result Diagrams: 08/07/18 08:10 08/07/18 08:10 Laboratory Results: Laboratory Results - last 24 hr 08/07/18 08/07/18 08/07/18 08:10 08:10 08:10 WBC 12.5 H RBC 3.13 L Hgb 9.7 L Hct 28.5 L MCV 90.9 MCH 31.1 MCHC 34.2 RDW 13.8 Plt Count 433 MPV 8.0 Neut % (Auto) 79.0 H Lymph % (Auto) 7.1 L [place] % (Auto) 13.7 H Eos % (Auto) 0.0 Baso % (Auto) 0.2 Neut # (Auto) 9.9 H Lymph # (Auto) 0.9 L [place] # (Auto) 1.7 H Eos # (Auto) 0.0 Baso # (Auto) 0.0 WBC Differential . Differential Comment Auto diff final Sodium 135 L Potassium 3.7 Chloride 101 Carbon Dioxide 22.9 Anion Gap 11 BUN 14 Creatinine 0.82 Estimated GFR Greater than 89 POC Glucose Random Glucose 207 H Calcium 8.2 L Total Bilirubin 0.3 AST 12 L ALT 17 Alkaline Phosphatase 98 Total Protein 6.1 L Albumin 3.0 L Urine pH 5.0 08/07/18 08/07/18 08/07/18 11:39 13:27 16:54 WBC RBC Hgb Hct MCV MCH MCHC RDW Plt Count MPV Neut % (Auto) Lymph % (Auto) [place] % (Auto) Eos % (Auto) Baso % (Auto) Neut # (Auto) Lymph # (Auto) [place] # (Auto) Eos # (Auto) Baso # (Auto) WBC Differential Differential Comment Sodium Potassium Chloride Carbon Dioxide Anion Gap BUN Creatinine Estimated GFR POC Glucose 152 H 255 H Random Glucose Calcium Total Bilirubin AST ALT Alkaline Phosphatase Total Protein Albumin Urine pH 6.0 08/07/18 08/07/18 17:25 22:20 WBC RBC Hgb Hct MCV MCH MCHC RDW Plt Count MPV Neut % (Auto) Lymph % (Auto) [place] % (Auto) Eos % (Auto) Baso % (Auto) Neut # (Auto) Lymph # (Auto) [place] # (Auto) Eos # (Auto) Baso # (Auto) WBC Differential Differential Comment Sodium Potassium Chloride Carbon Dioxide Anion Gap BUN Creatinine Estimated GFR POC Glucose 210 H Random Glucose Calcium Total Bilirubin AST ALT Alkaline Phosphatase Total Protein Albumin Urine pH 7.0 Medications: Active Medications Generic Name Dose Route Start Last Admin Trade Name Freq PRN Reason Stop Dose Admin Aspirin 81 mg 08/07/18 09:00 08/07/18 09:33 Ecotrin PO Not Given DAILY ANDRIY Enoxaparin Sodium 40 mg 08/07/18 09:00 08/07/18 09:19 Lovenox Inj SQ 40 mg DAILY ANDRIY Administration Sodium Bicarbonate 75 meq/ 1,000 mls @ 100 mls/hr 08/07/18 08:00 08/08/18 05: 30 Sodium Chloride IV.CONT Not Given .Q10H ANDRIY Sodium Chloride 38.5 meq/ 1,109.625 mls @ 170 mls/hr 08/07/18 17:00 08/08/18 01:42 Sodium Bicarbonate 100 meq/ IV.CONT 08/11/18 16:59 170 mls/hr Sterile Water .Q6H32M ANDRIY Administration Insulin Aspart 0 unit 08/07/18 08:00 08/07/18 22:45 Novolog Insulin Correctional Sugar Inj SQ 4 unit ACHS ANDRIY Administration Protocol Lisinopril 2.5 mg 08/07/18 18:00 08/07/18 17:10 Prinivil PO 2.5 mg DAILY ANDRIY Administration Metformin HCl 500 mg 08/07/18 18:00 08/07/18 17:10 Glucophage PO 500 mg BIDPC ANDRIY Administration Metoprolol Succinate 12.5 mg 08/07/18 18:00 08/07/18 17:11 Toprol Xl PO 12.5 mg DAILY@1800 ANDRIY Administration Midodrine 5 mg 08/07/18 09:00 08/07/18 22:24 Proamatine PO Not Given BID ANDRIY Prednisone 100 mg 08/07/18 09:00 08/07/18 09:18 Deltasone PO 08/11/18 23:59 100 mg DAILY ANDRIY Administration Senna/Docusate Sodium 1 tab 08/07/18 09:00 08/07/18 21:26 Catherine-Colace PO Not Given BID ANDRIY Vitamin D 1,000 unit 08/07/18 09:00 08/07/18 09:33 Vitamin D3 PO Not Given DAILY ANDRIY Objective Remarks: GENERAL: Elderly male, laying in bed, no acute distress,Face appears to be somewhat flushed. Well-nourished, well-developed patient. SKIN: Warm and dry. HEAD: Normocephalic. EYES: No scleral icterus. No injection or drainage. NECK: Supple, trachea midline. No JVD or lymphadenopathy. LYMPHATIC: No adenopathy. CARDIOVASCULAR: Regular rate and rhythm without murmurs. RESPIRATORY: Breath sounds equal bilaterally. No accessory muscle use. GASTROINTESTINAL: Abdomen soft, non-tender, nondistended. EXTREMITIES: No cyanosis, or edema. MUSCULOSKELETAL: Adequate muscle tone. NEUROLOGICAL: No obvious focal deficit. Awake, alert, and oriented x3. PSYCHIATRIC: Appropriate mood and affect; insight and judgment normal. 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 Presented with testicular relapse in May 2018, status post 1 cycle of high-dose methotrexate in combination with R-CHOP. Presents for cycle #2 high-dose methotrexate. Recommendations: 1. 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 Status post cycle 2 high-dose methotrexate and R- CHOP. He completed methotrexate early this morning. Leucovorin rescue scheduled to start at approximately 10 PM tonight. 2. Continue systemic alkalinization with sodium bicarbonate infusion. Continue checking daily urine pH levels. 3. Type 2 diabetes: Continue insulin coverage before meals and at bedtime, at site fingerstick glucose checks. Continue outpatient sitagliptin and metformin. 4. Hypertension: Continue low-dose lisinopril and metoprolol, blood pressure is reasonably well-controlled. 5. Patient will remain on prednisone 100 mg daily as a part of his R CHOP regimen. 6. G-CSF growth factor support: Will be initiated as methotrexate levels declined. 7. Lovenox 40 mg subcu once daily for DVT prophylaxis. 8. Diet: Regular diet. 9. Repeat CBC and CMP levels in the morning of 08/09/2018. (2) Diabetes Qualifiers: Diabetes mellitus type: type 2 Diabetes mellitus intermediate accountant insulin use: without intermediate accountant use Diabetes mellitus complication status: without complication Qualified Code(s): E11.9 - Type 2 diabetes mellitus without complications (3) Hypertension Qualifiers: Hypertension type: essential hypertension Qualified Code(s): I10 - Essential (primary) hypertension
[2018-08-08] MEDS: Insulin NovoLOG Aspart Correctional Sugar Inj SQ SCH ×4 (10:00→20:33)
[2018-08-08] MEDS: Enoxaparin Inj 40 MG/0.4 ML Syringe SQ SCH (10:02)
[2018-08-08] MEDS: Lisinopril 5 MG Tablet PO SCH (10:03)
[2018-08-08] MEDS: Senna/Docusate Sodium 8.6/50 MG Tablet PO SCH ×2 (10:03→20:31)
[2018-08-08] MEDS: LEUCOVORIN IV.SIG SCH (22:20)
[2018-08-08] MEDS: SODIUM CHLOR 0.9% IV.SIG SCH (22:20)
[2018-08-09] MEDS: Sodium Bicarbonate 8.4% Inj 75 MEQ in Sod Chloride 0.9% Inj 925 ML IV.CONT SCH (03:43)
[2018-08-09] MEDS: SODIUM CHLOR 0.9% IV.SIG SCH ×7 (03:46→21:59)
[2018-08-09] MEDS: LEUCOVORIN IV.SIG SCH ×7 (03:46→21:59)
[2018-08-09] MEDS: SODIUM CHLORIDE IV.CONT SCH ×4 (04:02→11:12)
[2018-08-09] MEDS: SODIUM BICARBONATE IV.CONT SCH ×4 (04:02→11:12)
[2018-08-09] MEDS: [UNRECOGNIZED DRUG - OTHER] IV.CONT SCH ×4 (04:02→11:12)
[2018-08-09 06:06] LABS: Baso % (Auto) 0.1 % (0.0-2.0); Hematocrit 26.4 % (39.0-51.0); Lymph # (Auto) 0.9 th/mm3 (1.0-4.8); Lymph % (Auto) 10.8 % (9.0-44.0); Mean Corpuscular HGB Conc 34.1 % (32.0-36.0); Mean Corpuscular Hemoglobin 31.1 pg (27.0-34.0); Mean Corpuscular Volume 91.5 fL (80.0-100.0); Mean Platelet Volume 8.2 fL (7.0-11.0); Mono # (Auto) 0.5 th/mm3 (0.0-0.9); Neut % (Auto) 83.1 % (16.0-70.0); Platelet Count 389 th/mm3 (150-450); Red Blood Count 2.89 mil/mm3 (4.50-5.90); Red Cell Distribution Width 14.1 % (11.6-17.2); White Blood Count 8.4 th/mm3 (4.0-11.0)
[2018-08-09 06:48] LABS: Alanine Aminotransferase 14 U/L (12-78); Albumin 2.5 g/dL (3.4-5.0); Alkaline Phosphatase 65 U/L (45-117); Anion Gap 8 meq/L (5-15); Aspartate Aminotransferase 13 U/L (15-37); Blood Urea Nitrogen 15 mg/dL (7-18); Calcium 7.9 mg/dL (8.5-10.1); Chloride 109 meq/L (98-107); Glomerular Filtration Rate Greater Than 89 mL/min (>89); Glucose,Random 86 mg/dL (74-106); Potassium 3.4 meq/L (3.5-5.1); Sodium 146 meq/L (136-145)
[2018-08-09] MEDS: Insulin NovoLOG Aspart Correctional Sugar Inj SQ SCH ×4 (07:37→20:42)
--- NOTE | 2018-08-09 08:14 | P.PNONC ---
Subjective Interval history: Patient seen and examined, vital signs, labs, medications reviewed. Overnight events reviewed. Subjectively; patient reports feeling well, he denies nausea, vomiting, fevers, chills, abdominal pain. He tells me he tolerated systemic chemotherapy well. He completed his second dose of leucovorin rescue this morning. First set of methotrexate levels were drawn last night at about 10 PM. Results are pending at this time. Patient requests resumption of outpatient lisinopril 2.5 mg once daily in the evenings. Objective Vital Signs/Intake & Output: Vital Signs 08/08/18 12:00 08/08/18 16:00 08/08/18 20:00 Temperature 98.2 F 97.8 F 98.0 F Pulse Rate 77 86 74 Respiratory Rate 18 18 16 Blood Pressure 156/67 H 153/69 H 142/67 H Pulse Oximetry 98 99 97 08/09/18 00:00 08/09/18 04:00 08/09/18 07:00 Temperature 98.6 F Pulse Rate 72 61 58 L Respiratory Rate 16 Blood Pressure 143/71 H Pulse Oximetry 98 Intake & Output 08/08/18 08/09/18 08/09/18 18:59 06:59 18:59 Intake Total 1109.625 / 1109.625 740 / 740 260 / 260 Output Total 2100 / 2100 Balance 1109.625 / 1109.625 -1360 / -1360 260 / 260 Weight 93.3 kg Intake: IV 1109.625 / 1109.625 260 / 260 260 / 260 Sodium Chloride 23.4% Inj 38.5 1109.625 / 1109.625 MEQ Sodium Bicarbonate 8.4% Inj 100 MEQ In Sterile Water for Inj 1,000 ML @ 170 mls/hr IV. CONT .Q6H32M [facility] Rx#:[id number] Wellcovorin Inj 20 MG In NS Inj 260 / 260 260 / 260 250 ML @ 83.333 mls/hr IV.SIG Q6H [facility] Rx#:[id number] Oral 480 / 480 Output: Urine 2100 / 2100 Other: Date of Last Bowel Movement 08/08/18 08/08/18 Result Diagrams: 08/09/18 04:00 08/09/18 04:00 Laboratory Results: Laboratory Results - last 24 hr 08/08/18 08/08/18 08/08/18 07:30 08:27 11:51 WBC RBC Hgb Hct MCV MCH MCHC RDW Plt Count MPV Neut % (Auto) Lymph % (Auto) [place] % (Auto) Eos % (Auto) Baso % (Auto) Neut # (Auto) Lymph # (Auto) [place] # (Auto) Eos # (Auto) Baso # (Auto) WBC Differential Differential Comment Sodium Potassium Chloride Carbon Dioxide Anion Gap BUN Creatinine Estimated GFR POC Glucose 201 H 276 H Random Glucose Calcium Total Bilirubin AST ALT Alkaline Phosphatase Total Protein Albumin Urine pH 8.0 08/08/18 08/08/18 08/09/18 16:52 20:29 04:00 WBC 8.4 RBC 2.89 L Hgb 9.0 L Hct 26.4 L MCV 91.5 MCH 31.1 MCHC 34.1 RDW 14.1 Plt Count 389 MPV 8.2 Neut % (Auto) 83.1 H Lymph % (Auto) 10.8 [place] % (Auto) 6.0 Eos % (Auto) 0.0 Baso % (Auto) 0.1 Neut # (Auto) 7.0 Lymph # (Auto) 0.9 L [place] # (Auto) 0.5 Eos # (Auto) 0.0 Baso # (Auto) 0.0 WBC Differential . Differential Comment Auto diff final Sodium Potassium Chloride Carbon Dioxide Anion Gap BUN Creatinine Estimated GFR POC Glucose 252 H 184 H Random Glucose Calcium Total Bilirubin AST ALT Alkaline Phosphatase Total Protein Albumin Urine pH 08/09/18 08/09/18 08/09/18 04:00 06:30 07:31 WBC RBC Hgb Hct MCV MCH MCHC RDW Plt Count MPV Neut % (Auto) Lymph % (Auto) [place] % (Auto) Eos % (Auto) Baso % (Auto) Neut # (Auto) Lymph # (Auto) [place] # (Auto) Eos # (Auto) Baso # (Auto) WBC Differential Differential Comment Sodium 146 H D Potassium 3.4 L Chloride 109 H D Carbon Dioxide 29.0 Anion Gap 8 BUN 15 Creatinine 0.62 Estimated GFR Greater than 89 POC Glucose 106 Random Glucose 86 D Calcium 7.9 L Total Bilirubin 0.4 AST 13 L ALT 14 Alkaline Phosphatase 65 Total Protein 5.0 L D Albumin 2.5 L Urine pH 8.0 Medications: Active Medications Generic Name Dose Route Start Last Admin Trade Name Freq PRN Reason Stop Dose Admin Aspirin 81 mg 08/07/18 09:00 08/08/18 10:03 Ecotrin PO 81 mg DAILY [facility] Administration Enoxaparin Sodium 40 mg 08/07/18 09:00 08/08/18 10:02 Lovenox Inj SQ 40 mg DAILY [facility] Administration Sodium Bicarbonate 75 meq/ 1,000 mls @ 100 mls/hr 08/07/18 08:00 08/09/18 03: 43 Sodium Chloride IV.CONT Not Given .Q10H [facility] Sodium Chloride 38.5 meq/ 1,109.625 mls @ 170 mls/hr 08/07/18 17:00 08/09/18 05:38 Sodium Bicarbonate 100 meq/ IV.CONT 08/11/18 16:59 Not Given Sterile Water .Q6H32M [facility] Leucovorin Calcium 20 mg/ 250 mls @ 83.333 mls/hr 08/08/18 22:00 08/09/18 07: 26 Sodium Chloride IV.SIG 08/11/18 18:59 Infused Q6H [facility] Infusion Insulin Aspart 0 unit 08/07/18 08:00 08/09/18 07:37 Novolog Insulin Correctional Sugar Inj SQ Not Given ACHS [facility] Protocol Lisinopril 2.5 mg 08/07/18 18:00 08/08/18 10:03 Prinivil PO 2.5 mg DAILY [facility] Administration Metformin HCl 500 mg 08/07/18 18:00 08/08/18 17:52 Glucophage PO 500 mg BIDPC [facility] Administration Metoprolol Succinate 12.5 mg 08/07/18 18:00 08/08/18 17:52 Toprol Xl PO 12.5 mg DAILY@1800 [facility] Administration Midodrine 5 mg 08/07/18 09:00 08/08/18 20:31 Proamatine PO 5 mg BID [facility] Administration Prednisone 100 mg 08/07/18 09:00 08/08/18 10:02 Deltasone PO 08/11/18 23:59 100 mg DAILY [facility] Administration Senna/Docusate Sodium 1 tab 08/07/18 09:00 08/08/18 20:31 Catherine-Colace PO 1 tab BID [facility] Administration Sitagliptin Phosphate 50 mg 08/08/18 09:00 08/08/18 10:03 Januvia PO 50 mg DAILY [facility] Administration Vitamin D 1,000 unit 08/07/18 09:00 08/08/18 13:05 Vitamin D3 PO 1,000 unit DAILY [facility] Administration Objective Remarks: GENERAL: Elderly male, tall, moderate build, appears to be in no acute distress , well-nourished, well-developed patient. SKIN: Warm and dry. HEAD: Normocephalic. EYES: Conjunctivae are mildly pale, no scleral icterus. No injection or drainage. NECK: Supple, trachea midline. No JVD or lymphadenopathy. LYMPHATIC: No adenopathy. CARDIOVASCULAR: Regular rate and rhythm without murmurs. RESPIRATORY: Breath sounds equal bilaterally. No accessory muscle use. GASTROINTESTINAL: Abdomen soft, non-tender, nondistended. EXTREMITIES: No cyanosis, or edema. MUSCULOSKELETAL: Adequate muscle tone. NEUROLOGICAL: No obvious focal deficit. Awake, alert, and oriented x3. PSYCHIATRIC: Appropriate mood and affect; insight and judgment normal. 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 Presented with testicular relapse in May 2018, status post 1 cycle of high-dose methotrexate in combination with R-CHOP. Presents for cycle #2 high-dose methotrexate. Recommendations: 1. 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 Status post cycle 2 high-dose methotrexate and R- CHOP. He completed methotrexate early this morning. Leucovorin rescue scheduled to start at approximately 10 PM tonight. 2. Continue systemic alkalinization with sodium bicarbonate infusion. Continue checking daily urine pH levels. Urine pH levels have been around 8. 3. Type 2 diabetes: Continue insulin coverage before meals and at bedtime, at site fingerstick glucose checks. Continue outpatient sitagliptin and metformin. 4. Hypertension: Continue low-dose lisinopril (lisinopril was resumed at 2.5 mg once daily in the evenings) and metoprolol, blood pressure is reasonably well -controlled. 5. Patient will remain on prednisone 100 mg daily as a part of his R CHOP regimen. 6. G-CSF growth factor support: Will be initiated as methotrexate levels decline. 7. Lovenox 40 mg subcu once daily for DVT prophylaxis. 8. Diet: Regular diet. 9. Repeat CBC and CMP levels reviewed. 10. Hypernatremia and hyperchloremia: Will transition from normal saline with sodium bicarbonate to D5W with bicarbonate. 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
[2018-08-09] MEDS: Enoxaparin Inj 40 MG/0.4 ML Syringe SQ SCH (08:24)
[2018-08-09] MEDS: Senna/Docusate Sodium 8.6/50 MG Tablet PO SCH ×2 (08:24→20:32)
[2018-08-09] MEDS: Lisinopril 5 MG Tablet PO SCH (08:25)
[2018-08-09] MEDS: Nystatin Liq 500,000 UNIT/5 ML UDC SWISH-SWAL SCH ×4 (08:29→20:32)
[2018-08-09] MEDS ORDERED: Lisinopril 5 MG Tablet PO SCH (09:00)
[2018-08-09] MEDS: Sodium Bicarbonate 8.4% Inj 75 MEQ in Dextrose 5% in Water Inj 925 ML IV.CONT SCH ×4 (11:10→22:12)
[2018-08-09] MEDS ORDERED: Melatonin 5 MG Tablet PO PRN (21:00)
[2018-08-10] MEDS: LEUCOVORIN IV.SIG SCH ×2 (04:05→10:03)
[2018-08-10] MEDS: SODIUM CHLOR 0.9% IV.SIG SCH ×2 (04:05→10:03)
--- NOTE | 2018-08-10 08:04 | P.PNONC ---
Subjective Interval history: Patient seen, examined, labs reviewed, medications reviewed, overnight events reviewed. Subjectively; patient reports having had a comfortable night last night, he denies having had acute events over the past 24 hours specifically fevers, chills, chest pain, palpitations or overt bleeding. He denies major adverse effects related to systemic chemotherapy. He was a little concerned about his bedside blood glucose level being as high as 319 midday yesterday. He was appropriately covered with sliding scale insulin coverage. Patient remains on leucovorin rescue. Methotrexate level drawn on 08/08/2018 at 10 PM was 2.3 umol/L. Objective Vital Signs/Intake & Output: Vital Signs 08/09/18 08:12 08/09/18 11:00 08/09/18 11:08 Temperature 97.2 F L 98.4 F Pulse Rate 61 72 69 Respiratory Rate 18 18 Blood Pressure 142/62 H 124/67 Pulse Oximetry 100 98 08/09/18 15:00 08/09/18 16:10 08/09/18 20:00 Temperature 98.4 F 97.9 F Pulse Rate 58 L 66 69 Respiratory Rate 18 16 Blood Pressure 151/72 H 141/63 H Pulse Oximetry 100 99 08/10/18 00:00 08/10/18 04:00 08/10/18 07:00 Temperature 98.1 F 98.2 F Pulse Rate 64 58 L 65 Respiratory Rate 16 16 Blood Pressure 151/71 H 149/60 H Pulse Oximetry 99 95 Intake & Output 08/09/18 08/10/18 08/10/18 18:59 06:59 18:59 Intake Total 4819.625 / 4819.625 1740 / 1740 250 / 250 Output Total 3375 / 3375 3600 / 3600 Balance 1444.625 / 1444.625 -1860 / -1860 250 / 250 Weight 93.6 kg Intake: IV 1619.625 / 1941.074 0444 / 1500 250 / 250 Sodium Bicarbonate 8.4% Inj 75 1000 / 1000 MEQ In D5W Inj 925 ML @ 84 mls/ hr IV.CONT .[id number] [facility] Rx#: [id number] Sodium Chloride 23.4% Inj 38.5 1109.625 / 1109.625 MEQ Sodium Bicarbonate 8.4% Inj 100 MEQ In Sterile Water for Inj 1,000 ML @ 170 mls/hr IV. CONT .Q6H32M [facility] Rx#:[id number] Wellcovorin Inj 20 MG In NS Inj 510 / 510 500 / 500 250 / 250 250 ML @ 83.333 mls/hr IV.SIG Q6H [facility] Rx#:[id number] Oral 3200 / 3200 240 / 240 Output: Urine 3375 / 3375 3600 / 3600 Other: Date of Last Bowel Movement 08/09/18 08/09/18 # Bowel Movements 1 Result Diagrams: 08/09/18 04:00 08/09/18 04:00 Laboratory Results: Laboratory Results - last 24 hr 08/08/18 08/09/18 08/09/18 22:07 09:24 11:46 POC Glucose 227 H Urine pH Methotrexate 2.30 Cancelled 08/09/18 08/09/18 08/10/18 17:00 20:38 04:14 POC Glucose 264 H 319 H 187 H Urine pH Methotrexate 08/10/18 05:45 POC Glucose Urine pH 8.0 Methotrexate Medications: Active Medications Generic Name Dose Route Start Last Admin Trade Name Freq PRN Reason Stop Dose Admin Aspirin 81 mg 08/07/18 09:00 08/09/18 08:25 Ecotrin PO 81 mg DAILY [facility] Administration Enoxaparin Sodium 40 mg 08/07/18 09:00 08/09/18 08:24 Lovenox Inj SQ 40 mg DAILY [facility] Administration Leucovorin Calcium 20 mg/ 250 mls @ 83.333 mls/hr 08/08/18 22:00 08/10/18 07: 00 Sodium Chloride IV.SIG 08/11/18 18:59 Infused Q6H [facility] Infusion Sodium Bicarbonate 75 meq/ 1,000 mls @ 84 mls/hr 08/09/18 10:30 08/09/18 22: 12 Dextrose IV.CONT 84 mls/hr .[id number] [facility] Administration Insulin Aspart 0 unit 08/07/18 08:00 08/09/18 20:42 Novolog Insulin Correctional Sugar Inj SQ 10 unit ACHS [facility] Administration Protocol Lisinopril 2.5 mg 08/07/18 18:00 08/09/18 08:25 Prinivil PO 2.5 mg DAILY [facility] Administration Melatonin 5 mg 08/09/18 21:00 08/09/18 22:17 Melatonin PO 5 mg HS PRN Administration INSOMNIA Metformin HCl 500 mg 08/07/18 18:00 08/09/18 17:05 Glucophage PO 500 mg BIDPC [facility] Administration Metoprolol Succinate 12.5 mg 08/07/18 18:00 08/09/18 17:05 Toprol Xl PO 12.5 mg DAILY@1800 [facility] Administration Midodrine 5 mg 08/07/18 09:00 08/09/18 20:32 Proamatine PO 5 mg BID [facility] Administration Nystatin 5 ml 08/09/18 09:00 08/09/18 20:32 Mycostatin Liq SWISH-SWAL 5 ml QID [facility] Administration Prednisone 100 mg 08/07/18 09:00 08/09/18 08:24 Deltasone PO 08/11/18 23:59 100 mg DAILY [facility] Administration Senna/Docusate Sodium 1 tab 08/07/18 09:00 08/09/18 20:32 Catherine-Colace PO 1 tab BID [facility] Administration Sitagliptin Phosphate 50 mg 08/08/18 09:00 08/09/18 08:25 Januvia PO 50 mg DAILY [facility] Administration Vitamin D 1,000 unit 08/07/18 09:00 08/09/18 08:25 Vitamin D3 PO 1,000 unit DAILY [facility] Administration Objective Remarks: GENERAL: Elderly male, tall, moderate build, appears to be in no acute distress , well-nourished, well-developed patient. SKIN: Warm and dry. HEAD: Normocephalic. EYES: Conjunctivae are mildly pale, no scleral icterus. No injection or drainage. NECK: Supple, trachea midline. No JVD or lymphadenopathy. LYMPHATIC: No adenopathy. CARDIOVASCULAR: Regular rate and rhythm without murmurs. RESPIRATORY: Breath sounds equal bilaterally. No accessory muscle use. GASTROINTESTINAL: Abdomen soft, non-tender, nondistended. EXTREMITIES: No cyanosis, or edema. MUSCULOSKELETAL: Adequate muscle tone. NEUROLOGICAL: No obvious focal deficit. Awake, alert, and oriented x3. PSYCHIATRIC: Appropriate mood and affect; insight and judgment normal. Assessment/Plan (1) Primary GENERAL DOC lymphoma of extranodal and solid organ sites Code(s): C85.89 - Other specified types of non-Hodgkin lymphoma, extranodal and solid organ sites Status: Acute (2) Diabetes Code(s): E11.9 - Type 2 diabetes mellitus without complications Status: Acute (3) Hypertension Code(s): I10 - Essential (primary) hypertension Status: Acute - Plan 78-year-old male with relapsed high-grade diffuse large B-cell lymphoma/primary GENERAL DOC lymphoma. Presented with testicular relapse in May 2018, status post 1 cycle of high-dose methotrexate in combination with R-CHOP. Admitted to the hospital for cycle #2 high-dose methotrexate. Recommendations: 1. 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 Status post cycle 2 high-dose methotrexate and R-CHOP. He completed methotrexate early this morning. Presently on leucovorin rescue. The goal is to repeat daily methotrexate levels until methotrexate levels are less than 0.1 umol/L. He will remain on leucovorin rescue up until then. Once patient's methotrexate levels are in target range she may be discharged home. I anticipate discharge on Monday evening; 08/11/2018. Patient will continue prednisone 100 mg p.o. daily until 08/11/2018 (this will be day 5). 2. Continue systemic alkalinization with D5W with sodium bicarbonate infusion. Continue checking daily urine pH levels. Urine pH levels have been around 8. 3. Type 2 diabetes: Continue insulin coverage before meals and at bedtime, at site fingerstick glucose checks. Continue outpatient sitagliptin and metformin. 4. Hypertension: Continue low-dose lisinopril (lisinopril was resumed at 2.5 mg once daily in the evenings) and metoprolol, blood pressure is reasonably well -controlled. 5. Patient will remain on prednisone 100 mg daily as a part of his R CHOP regimen. 6. G-CSF growth factor support: Neupogen 480 mcg subcu initiated today, continue daily dosing while he remains hospitalized. Neupogen injections will be resumed in the outpatient setting. 7. Lovenox 40 mg subcu once daily for DVT prophylaxis. 8. Diet: Regular diet. 9. Repeat CBC and CMP levels reviewed. 10. Hypernatremia and hyperchloremia: Will transition from normal saline with sodium bicarbonate to D5W with bicarbonate. (2) Diabetes Qualifiers: Diabetes mellitus type: type 2 Diabetes mellitus residential insulin use: without residential use Diabetes mellitus complication status: without complication Qualified Code(s): E11.9 - Type 2 diabetes mellitus without complications (3) Hypertension Qualifiers: Hypertension type: essential hypertension Qualified Code(s): I10 - Essential (primary) hypertension
[2018-08-10 08:18] VITALS: RESP 18
[2018-08-10] MEDS: Senna/Docusate Sodium 8.6/50 MG Tablet PO SCH (08:20)
[2018-08-10] MEDS: Insulin NovoLOG Aspart Correctional Sugar Inj SQ SCH ×2 (08:20→11:57)
[2018-08-10] MEDS: Nystatin Liq 500,000 UNIT/5 ML UDC SWISH-SWAL SCH ×2 (08:20→12:12)
[2018-08-10] MEDS: Enoxaparin Inj 40 MG/0.4 ML Syringe SQ SCH (08:20)
[2018-08-10] MEDS: Lisinopril 5 MG Tablet PO SCH (08:21)
[2018-08-10 09:34] LABS: Anion Gap 10 meq/L (5-15); Aspartate Aminotransferase 17 U/L (15-37); Blood Urea Nitrogen 14 mg/dL (7-18); Calcium 8.3 mg/dL (8.5-10.1); Carbon Dioxide 29.8 meq/L (21.0-32.0); Chloride 102 meq/L (98-107); Glomerular Filtration Rate 89 mL/min (>89); Glucose,Random 157 mg/dL (74-106); Potassium 3.3 meq/L (3.5-5.1); Sodium 142 meq/L (136-145)
[2018-08-10 09:35] LABS: Alanine Aminotransferase 24 U/L (12-78)
[2018-08-10 09:38] LABS: Alkaline Phosphatase 78 U/L (45-117); Total Protein 5.7 g/dL (6.4-8.2)
[2018-08-10] MEDS: Sodium Bicarbonate 8.4% Inj 75 MEQ in Dextrose 5% in Water Inj 925 ML IV.CONT SCH ×2 (10:20)
[2018-08-10 11:49] VITALS: BP 151/73; PULSE 70; TEMP 97.7; O2SAT 98
--- NOTE | 2018-08-10 14:44 | P.DS ---
Date of admission: 08/07/18 06:42 Primary care physician: Ana Khalil MD Attending physician on discharge: Nas Fish Anticipated date of discharge: 08/10/18 Brief History from admission: Mr. 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 He underwent systemic staging and was assessed to have primary MANAGER IMAGE lymphoma. As a part of his initial staging workup he did undergo ultrasound of the scrotum to rule out involvement of the testicle or the spermatic cord. These are not involved. He was treated with high-dose methotrexate/Rituxan/vincristine with intrathecal cytarabine injections. He was treated between October 2016 in March 2017. Subsequent staging studies revealed complete remission. In May 2018 the patient noticed a large mass on the left side of his scrotum, he had this evaluated by his urologist who recommended imaging studies, the mass was confirmed on imaging studies and patient subsequently underwent a left- sided orchiectomy performed on 06/21/2018. Pathologic findings revealed high- grade large B-cell lymphoma (with a Ki-67 proliferation index of 95%). Indicating a Burkitt-like lymphoma. Subsequent staging studies including PET/ CT scan as well as MRI of the brain revealed findings of recurrence intracranially as well as evidence of hypermetabolic lymphadenopathy in the left inguinal area. Patient received his first cycle of systemic chemotherapy consisting of Rituxan , high-dose methotrexate and CHOP in late June 2018. He comes in today for cycle #2 high-dose methotrexate. He received cycle 2 R CHOP on 08/06/2018 in the outpatient clinic. He reports no acute complaints at this time. He specifically denies MANAGER IMAGE complaints such as headaches, tremors, seizures or focal sensorimotor deficits. In fact, the patient reports having had a good weekend, he ate well, walked in his neighborhood and was without treatment-related adverse effects. Patient was admitted to the hospital on 08/07/2018, high-dose methotrexate was delivered on the night of 08/07/2018. After completion of therapy he was initiated on leucovorin rescue on the night of 08/08/2018. Methotrexate levels were drawn, on the morning of 08/10/2018 methotrexate level was noted to be 0.09. During the hospitalization the patient was maintained on sodium bicarbonate infusion for appropriate alkalinization. He was continued on oral hypo-glycemic agents with insulin coverage. He was maintained on his oral hypertension medications which include lisinopril and metoprolol. Patient's hospitalization was uncomplicated. He is being discharged home on with outpatient follow-up instructions. Patient update on day of discharge: Please see above. Physical exam dictated on the encounter from 08/10/2018. DS: Diagnosis - Discharge Diagnosis (1) Primary MANAGER IMAGE lymphoma of extranodal and solid organ sites Status: Acute (2) Diabetes Status: Acute (3) Hypertension Status: Acute DS: Summary Hospital Course: Uncomplicated delivery of high-dose methotrexate which was delivered on 2017. High-dose methotrexate was followed by leucovorin rescue. Methotrexate levels were monitored closely. Urine pH was monitored closely. Patient's diabetes was managed with a combination of oral hypoglycemics as well as insulin sliding scale coverage. Blood pressure was monitored closely, outpatient antihypertensives were continued. On 08/10/2018 he was initiated on Neupogen for growth factor support. Overall he had a fairly uncomplicated hospitalization. - Time Spent with Patient Total time spent providing and/or coordinating discharge services: Greater than 30 minutes - Quality: AMI Clinical Trial Participant: No - Quality: VTE Deep Vein Thrombosis/Pulmonary Embolism Present on Admission: No Exam Vital signs: Vital Signs 08/09/18 15:00 08/09/18 16:10 08/09/18 20:00 Temperature 98.4 F 97.9 F Pulse Rate 58 L 66 69 Respiratory Rate 18 16 Blood Pressure 151/72 H 141/63 H Pulse Oximetry 100 99 08/10/18 00:00 08/10/18 04:00 08/10/18 07:00 Temperature 98.1 F 98.2 F Pulse Rate 64 58 L 65 Respiratory Rate 16 16 Blood Pressure 151/71 H 149/60 H Pulse Oximetry 99 95 08/10/18 08:17 08/10/18 08:26 08/10/18 11:00 Temperature 98.5 F Pulse Rate 65 68 Respiratory Rate 18 Blood Pressure 152/74 H Pulse Oximetry 99 08/10/18 11:47 Temperature 97.7 F Pulse Rate 70 Respiratory Rate 18 Blood Pressure 151/73 H Pulse Oximetry 98 Intake & Output 08/09/18 08/10/18 08/10/18 18:59 06:59 18:59 Intake Total 4819.625 / 4819.625 1740 / 1740 1500 / 1500 Output Total 3375 / 3375 3600 / 3600 Balance 1444.625 / 1444.625 -1860 / -1860 1500 / 1500 Weight 93.6 kg Intake: IV 1619.625 / 1199.586 1742 / 1500 1500 / 1500 Sodium Bicarbonate 8.4% Inj 75 1000 / 1000 1000 / 1000 MEQ In D5W Inj 925 ML @ 84 mls/ hr IV.CONT .[id number] ANDRIY Rx#: [id number] Sodium Chloride 23.4% Inj 38.5 1109.625 / 1109.625 MEQ Sodium Bicarbonate 8.4% Inj 100 MEQ In Sterile Water for Inj 1,000 ML @ 170 mls/hr IV. CONT .Q6H32M ANDRIY Rx#:[id number] Wellcovorin Inj 20 MG In NS Inj 510 / 510 500 / 500 500 / 500 250 ML @ 83.333 mls/hr IV.SIG Q6H ANDRIY Rx#:[id number] Oral 3200 / 3200 240 / 240 Output: Urine 3375 / 3375 3600 / 3600 Other: Date of Last Bowel Movement 08/09/18 08/09/18 08/09/18 # Bowel Movements 1 Narrative: Elderly male, no acute distress. I documented a full physical examination on my note dated 08/10/2018. Please see that. - Constitutional no acute distress - Routine HEENT Exam Head: Present: normocephalic Eye: Present: EOMI, PERRL - Routine Neck Exam Present: supple. Absent: lymphadenopathy - Routine Chest/Breast/Axilla Exam Chest wall: Absent: tenderness Breast: Absent: tenderness Axillae: Absent: lymphadenopathy - Routine Respiratory Exam Present: CTA bilaterally. Absent: accessory muscle use - Routine Cardiovascular Exam Present: RRR, S1, S2. Absent: murmur, gallop, rubs, S3, S4 - Routine Abdominal Exam Present: soft. Absent: normoactive bowel sounds, rigid - Routine Extremities Exam Absent: cyanosis, clubbing, calf tenderness - Routine Skin Exam Present: intact - Routine Neurological Exam Present: alert, oriented X3, CN II-XII intact. Absent: sensory deficit, motor deficit Results Procedures completed during hospitalization: No invasive procedures performed. Completed studies during hospitalization: No imaging studies performed in this hospitalization. Labs on day of discharge: Labs from last 24 hours 08/10/18 08/10/18 08/10/18 11:54 08:21 08:21 Sodium 142 Potassium 3.3 L Chloride 102 Carbon Dioxide 29.8 Anion Gap 10 BUN 14 Creatinine 0.84 Estimated GFR 89 POC Glucose 327 H Random Glucose 157 H Calcium 8.3 L Total Bilirubin 0.8 AST 17 ALT 24 Alkaline Phosphatase 78 Total Protein 5.7 L D Albumin 3.0 L Urine pH Methotrexate 0.09 08/10/18 08/10/18 08/10/18 08:10 05:45 04:14 Sodium Potassium Chloride Carbon Dioxide Anion Gap BUN Creatinine Estimated GFR POC Glucose 194 H 187 H Random Glucose Calcium Total Bilirubin AST ALT Alkaline Phosphatase Total Protein Albumin Urine pH 8.0 Methotrexate 08/09/18 08/09/18 20:38 17:00 Sodium Potassium Chloride Carbon Dioxide Anion Gap BUN Creatinine Estimated GFR POC Glucose 319 H 264 H Random Glucose Calcium Total Bilirubin AST ALT Alkaline Phosphatase Total Protein Albumin Urine pH Methotrexate - Impressions Please see my note dated 08/10/2018. Discharge Plan - Discharge Disposition Patient Disposition: 01 Discharge Home - Discharge Condition Condition: Fair - Discharge Order Discharge Orders: Discharge Order (Routine); Ordered 08/10/18 Ordered By: Nas Fish - Physicians Team Primary Care Provider: Ana Khalil Attending Provider: Nas Fish - Rxs /Orders / Referrals /Forms Prescriptions: New aspirin 81 mg Tablet,Delayed Release (Dr/Ec) 81 mg PO DAILY RF: 0 lisinopril 5 mg Tablet 2.5 mg PO DAILY RF: 0 metoprolol succinate 25 mg Tablet Extended Release 24 Hr 12.5 mg PO DAILY@1800 RF: 0 midodrine 5 mg Tablet 5 mg PO BID RF: 0 nystatin 100,000 unit/mL Suspension 5 ml SWISH-SWAL QID RF: 0 prednisone 50 mg Tablet 100 mg PO DAILY RF: 0 Continue acarbose 50 mg Tablet 50 mg PO DAILY cholecalciferol (vitamin D3) [Vitamin D3] 1,000 unit Tablet 1,000 unit PO DAILY RF: 0 glimepiride [Amaryl] 1 mg Tablet 1 mg PO DAILYAC RF: 0 metoprolol succinate 25 mg Tablet Extended Release 24 Hr 12.5 mg PO DAILY RF: 0 omega 8-qbw-cvd-fish oil [Fish Oil] 1,000 mg (120 mg-180 mg) Capsule 1,000 mg PO DAILY simvastatin 10 mg Tablet 10 mg PO QPM sitagliptin-metformin [Janumet] 50-500 mg Tablet 1 tab PO DAILY Discontinued aspirin 81 mg Tablet,Delayed Release (Dr/Ec) 81 mg PO DAILY RF: 0 cyanocobalamin (vitamin B-12) [Vitamin B-12] 1,000 mcg Tablet 1,000 mcg PO DAILY lisinopril 5 mg Tablet 2.5 mg PO DAILY RF: 0 midodrine 5 mg Tablet 5 mg PO BID RF: 0 Referrals: Ana Khalil MD [Primary Care Provider] - See Instructions
== END 2018-08-10 15:23 | disposition home or self-care (01) ==
LOC: HCIN 06:42
PROVIDERS: ADMIT Internal Medicine Hematology & Oncology; ATTEND Internal Medicine Hematology & Oncology
CPT/HCPCS: 80053; 80299; 81002; 81003; 82948; 82962; 85025; 96367; 96375; 96411; 96413; 96415; 96417; J0640; J1100; J1441; J1442; J1626; J1642; J1650; J1815; J7030; J7040; J7050; J7060; J7070; J7506; J7512; J9000; J9070; J9250; J9310; J9370

== ENCOUNTER 2018-09-04 06:38 | Inpatient (IN) ==
[2018-09-04] MEDS ORDERED: Acetaminophen 325 MG Tablet PO PRN (07:05)
[2018-09-04] MEDS ORDERED: Bisacodyl 10 MG Supp RECTAL PRN (07:05)
[2018-09-04] MEDS ORDERED: Enoxaparin Inj 40 MG/0.4 ML Syringe SQ SCH (07:15)
--- NOTE | 2018-09-04 07:23 | P.HPIM ---
History of Present Illness Service: Hematology/Oncology Primary Care Physician: Ana Khalil MD Chief Complaint: Here for cycle 3 high dose Methotrexate. History of Present Illness: Mr. 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 He underwent systemic staging and was found to have no additional areas of disease involvement, therefore he was assessed to have primary GIFT BASKET PACKER lymphoma. As a part of his initial staging workup he did undergo ultrasound of the scrotum to rule out involvement of the testicle or the spermatic cord. These were not involved at initial presentation. He was treated with high-dose methotrexate/Rituxan/vincristine with intrathecal cytarabine injections. He was treated between October 2016 in March 2017. Subsequent staging studies revealed complete remission (systemic staging as well as MRI brain). In May 2018 the patient noticed a rapidly enlarging mass on the left side of his scrotum (involving his left testicle), he had this evaluated by his urologist who recommended imaging studies, the mass was confirmed on imaging studies and patient subsequently underwent a left-sided orchiectomy performed on 06/21/2018. Pathologic findings revealed high-grade Burkitt-like large B-cell lymphoma (with a Ki-67 proliferation index of 95%). Subsequent staging studies including PET/CT scan as well as MRI of the brain revealed findings of recurrence intracranially as well as evidence of hypermetabolic lymphadenopathy in the left inguinal area. The patient was advised second line systemic chemotherapy consisting of Rituxan , high-dose methotrexate and CHOP, he was initiated on treatment in June 2018. He has thus far received 2 cycles of systemic chemotherapy. He has tolerated treatment without significant difficulties. On 09/03/2018 he received cycle number 3 R CHOP. He presents today for high- dose methotrexate cycle #3. Inpatient Certification: I certify that the inpatient services were ordered in accordance with Medicare regulations governing the order. This includes certification that hospital inpatient services are reasonable and necessary and in the case of services not specified as inpatient-only under 42 CFR 419.22(n), that they are appropriately provided as inpatient services in accordance to with the 2-midnight benchmark under 43 CFR 412.3(e) Estimated Total Length of Stay (Days): 5 Plans for Post Hospital Care: Home Review of Systems Constitutional: Denies anorexia, Denies chills, Denies fatigue, Denies fever(s) , Denies headache(s), Denies lack of energy, Denies malaise, Denies weakness Eyes: Denies change in vision, Denies double vision Ears, Nose, Mouth, and Throat: Denies abnormal hearing, Denies change in voice, Denies difficulty swallowing, Denies headache(s), Denies sore throat, Denies throat swelling Cardiovascular: Denies chest pain, Denies fast heart rate, Denies irregular heart rhythm, Denies shortness of breath, Denies shortness of breath with activity, Denies shortness of breath when lying down, Denies shortness of breath causing sudden awakening Respiratory: Denies chest congestion, Denies cough, Denies shortness of breath, Denies shortness of breath with activity Gastrointestinal: Denies abdominal pain, Denies change in bowel habits, Denies coffee ground vomit, Denies heartburn, Denies incontinent of stools, Denies loose stools, Denies vomiting, Denies vomiting blood Genitourinary: Denies blood in urine, Denies urinary frequency Musculoskeletal: Denies abnormal walking Skin/Breast: Denies skin ulcer, Denies sores, Denies yellowing of the skin Neurologic: Denies abnormal hearing, Denies abnormal speech, Denies abnormal walking, Denies seizure-like activity, Denies tingling, Denies tingling/numbness /burning sensations, Denies tremor(s), Denies weakness Psychiatric: Reports anxiety Endocrine: Denies cold intolerance Hematologic/Lymphatic: Denies easy bleeding Allergic/Immunologic: Denies GI upset with certain foods PMFSH - History History Provided By: Patient, Family Member, Significant Other - Medical History Medical History: Medical History (Last Reviewed 09/04/18 @ 07:16 by Nas Fish MD) High grade malignant lymphoma Hypertension Normal colonoscopy Port-A-Cath in place Primary GIFT BASKET PACKER lymphoma Type 2 diabetes mellitus Valvular heart disease - Surgical History Surgical History: Surgical History (Last Reviewed 09/04/18 @ 07:16 by Nas Fish MD) H/O basal cell carcinoma excision H/O craniotomy History of bone marrow biopsy History of left knee replacement History of orchiectomy, unilateral Hx of tonsillectomy - Family History Family History: Family History (Last Reviewed 09/04/18 @ 07:16 by Nas Fish MD) Sister Cancer - Social History I have reviewed the patient's Social History: Yes - Tobacco History Second Hand Smoke Exposure: No Smoking Status: Former smoker Tobacco Type: Cigarettes - Alcohol History How Often Do You Have a Drink Containing Alcohol: Monthly or less - Substance Use History Substance History: No History of Abuse - Travel History History of Recent Travel: No Medications and Allergies Active Medications: Active Medications Acetaminophen (Tylenol) 650 mg PO Q4H PRN PRN Reason: Temp > 100.4 Al Hydroxide/Mg Hydroxide (Milk Of Magnesia Liq) 30 ml PO Q12H PRN PRN Reason: Mild Constipation Bisacodyl (Dulcolax Supp) 10 mg RECTAL DAILY PRN PRN Reason: SEVERE CONSITIPATION Enoxaparin Sodium (Lovenox Inj) 40 mg SQ Q24H ANDRIY Lactulose (Lactulose Liq) 30 ml PO DAILY PRN PRN Reason: SEVERE CONSITIPATION Allergies Allergy/AdvReac Type Severity Reaction Status Date / Time No Known Allergies Allergy Verified 07/22/18 17:48 Home Medications Medication Instructions Recorded Confirmed Type acarbose 50 mg PO DAILY 07/22/18 08/07/18 History simvastatin 10 mg PO QPM 07/22/18 08/07/18 History sitagliptin-metformin [Janumet] 1 tab PO DAILY 07/22/18 08/07/18 History omega 1-fkh-dbe-fish oil [Fish Oil] 1,000 mg PO DAILY 08/07/18 08/07/18 History Results - Labs Labs: Labs dated 09/03/2018: CBC: WBC count 5.8, hemoglobin 11 g/dL, hematocrit 34.6%, MCV 95.9, platelet count 296, absolute neutrophil count 3.7, absolute lymphocyte count 1. CMP dated 08/31/2018: Sodium 140, potassium 4, chloride 106, bicarb 25.5, BUN 15, creatinine 0.89, EGFR 89 mL's per minute, random glucose 154, calcium 8.7, total bilirubin 0.5, AST 20, ALT 26, alkaline phosphatase 72, albumin 3.5. Caprini VTE Risk Assessment Caprini VTE Risk Assessment: Moderate/High Risk (score >= 2) (Initiated on Lovenox for DVT prophylaxis.) Caprini Risk Assessment Model: Point Value = 1 Point Value = 2 Point Value = 3 Point Value = 5 Age 41-60 Minor surgery BMI > 25 kg/m2 Swollen legs Varicose veins or History of unexplained or recurrent spontaneous Oral contraceptives or hormone replacement Sepsis (< 1 month) Serious lung disease, including pneumonia (< 1 month) Abnormal pulmonary function Acute myocardial infarction Congestive heart failure (< 1 month) History of inflammatory bowel disease Medical patient at bed rest Age 61-74 Arthroscopic surgery Major open surgery (> 45 min) Laparoscopic surgery (> 45 min) Malignancy Confined to bed (> 72 hours) Immobilizing plaster cast Central venous access Age >= 75 History of VTE Family history of VTE Factor V Leiden Prothrombin [id number] Lupus anticoagulant Anticardiolipin antibodies Elevated serum homocysteine Heparin-induced thrombocytopenia Other congenital or acquired thrombophilia Stroke (< 1 month) Elective arthroplasty Hip, pelvis, or leg fracture Acute spinal cord injury (< 1 month) Prophylaxis Regimen: Total Risk Factor Score Risk Level Prophylaxis Regimen 0-1 Low Early ambulation 2 Moderate Order ONE of the following: *Sequential Compression Device (SCD) *Heparin 5000 units SQ BID 3-4 Higher Order ONE of the following medications: *Heparin 5000 units SQ TID *Enoxaparin/Lovenox 40 mg SQ daily (WT < 150 kg, CrCl > 30 mL/min) *Enoxaparin/Lovenox 30 mg SQ daily (WT < 150 kg, CrCl > 10-29 mL/min) *Enoxaparin/Lovenox 30 mg SQ BID (WT < 150 kg, CrCl > 30 mL/min) AND/OR *Sequential Compression Device (SCD) 5 or more Highest Order ONE of the following medications: *Heparin 5000 units SQ TID (Preferred with Epidurals) *Enoxaparin/Lovenox 40 mg SQ daily (WT < 150 kg, CrCl > 30 mL/min) *Enoxaparin/Lovenox 30 mg SQ daily (WT < 150 kg, CrCl > 10-29 mL/min) *Enoxaparin/Lovenox 30 mg SQ BID (WT < 150 kg, CrCl > 30 mL/min) AND *Sequential Compression Device (SCD) Assessment and Plan - Plan 78-year-old male with relapsed high-grade diffuse large B-cell lymphoma/primary GIFT BASKET PACKER lymphoma initially diagnosed in October 2016. Treated with first-line combination systemic chemotherapy consisting of high-dose methotrexate, vincristine, rituximab and intrathecal cytarabine between October 2016 in March 2017. 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 Systemic staging studies revealed inguinal lymphadenopathy as well as intracranial relapse. Pathologic findings were consistent with a triple hit high-grade diffuse large B -cell lymphoma. 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 The patient comes in today for cycle #3 high-dose methotrexate, he completed cycle number 3R CHOP in the outpatient clinic yesterday. Thus far he has tolerated treatment without significant difficulties and is doing well from a clinical standpoint. The patient has no residual symptoms of gait unsteadiness or trembling of his right hand, symptoms which were very prominent before initiation of second line therapy. Recommendations: 1. Relapsed high-grade lymphoma (triple hit): Proceed with cycle 3 high-dose methotrexate at a dose of 2500 mg per metered squared. He received cycle number 3 R-CHOP in the outpatient setting on September 03, 2018. He will be initiated on prednisone 100 mg p.o. daily for the next 5 days starting today. 2. Diabetes: Fingerstick bedside glucose checks before meals and at bedtime. Insulin sliding scale coverage has been ordered. Outpatient metformin and sitagliptin have also been resumed. 3. Initiate hydration with normal saline with sodium bicarbonate. 4. Check urine pH, initiate methotrexate once urine pH is at or greater than 7. 5. Hypertension: Continue outpatient antihypertensives including metoprolol and lisinopril. 6. DVT prophylaxis: With Lovenox 40 mg subcu daily. 7. Initiate methotrexate level checks as per protocol after completion of infusion. 8. Leucovorin rescue to start as per high-dose methotrexate protocol beginning 24 hours after start of methotrexate. He will be dosed with 20 mg IV every 6 hours for up to 12 doses. 9. Repeat CBC and CMP levels tomorrow a.m. H&P: Quality - VTE Is this test being ordered to rule out VTE?: No Capturing Platelet Monitoring Protocol: Following clinical path Deep Vein Thrombosis/Pulmonary Embolism Present on Admission: No
[2018-09-04] MEDS ORDERED: Dextrose 50% in Water 50 ML Vial IV.PUSH PRN (07:44)
[2018-09-04] MEDS: Sodium Bicarbonate 8.4% Inj 100 MEQ in Sodium Chloride 0.45 % Inj 900 ML IV.CONT SCH ×2 (09:15→13:55)
[2018-09-04] MEDS: Glimepiride 1 MG Tablet PO SCH ×2 (10:34→16:41)
[2018-09-04] MEDS: Insulin NovoLOG Aspart Correctional Sugar Inj SQ SCH ×4 (10:34→21:48)
[2018-09-04] MEDS: Sodium Bicarbonate 8.4% Inj 75 MEQ in Sodium Chloride 0.45 % Inj 925 ML IV.CONT SCH ×2 (10:35→23:02)
[2018-09-04] MEDS: Senna/Docusate Sodium 8.6/50 MG Tablet PO SCH ×2 (10:57→21:42)
[2018-09-04] MEDS: Enoxaparin Inj 40 MG/0.4 ML Syringe SQ SCH (11:01)
[2018-09-04 11:47] LABS: Baso % (Auto) 0.2 % (0.0-2.0); Hematocrit 30.6 % (39.0-51.0); Hemoglobin 10.7 gm/dL (13.0-17.0); Lymph # (Auto) 1.1 th/mm3 (1.0-4.8); Lymph % (Auto) 10.7 % (9.0-44.0); Mean Corpuscular HGB Conc 35.1 % (32.0-36.0); Mean Corpuscular Hemoglobin 32.7 pg (27.0-34.0); Mean Corpuscular Volume 93.1 fL (80.0-100.0); Mean Platelet Volume 9.2 fL (7.0-11.0); Mono # (Auto) 1.9 th/mm3 (0.0-0.9); Mono % (Auto) 18.7 % (0.0-8.0); Neut # (Auto) 7.3 th/mm3 (1.8-7.7); Neut % (Auto) 70.4 % (16.0-70.0); Platelet Count 254 th/mm3 (150-450); Red Blood Count 3.28 mil/mm3 (4.50-5.90); Red Cell Distribution Width 16.6 % (11.6-17.2); White Blood Count 10.3 th/mm3 (4.0-11.0)
[2018-09-04 11:52] LABS: Albumin 3.4 g/dL (3.4-5.0); Anion Gap 10 meq/L (5-15); Aspartate Aminotransferase 15 U/L (15-37); Blood Urea Nitrogen 14 mg/dL (7-18); Calcium 8.7 mg/dL (8.5-10.1); Carbon Dioxide 24.2 meq/L (21.0-32.0); Chloride 103 meq/L (98-107); Glomerular Filtration Rate 80 mL/min (>89); Glucose,Random 190 mg/dL (74-106); Potassium 3.7 meq/L (3.5-5.1); Sodium 137 meq/L (136-145)
[2018-09-04 11:53] LABS: Alanine Aminotransferase 29 U/L (12-78)
[2018-09-04 11:55] LABS: Alkaline Phosphatase 73 U/L (45-117); Total Protein 6.2 g/dL (6.4-8.2)
[2018-09-04] MEDS ORDERED: Granisetron Inj 1 MG, Dexamethasone Inj 20 MG in Sodium Chlor 0.9% Inj 50 ML IV.SIG ONE ×4 (13:30→17:30)
[2018-09-04] MEDS ORDERED: DEXTROSE 5% IV.SIG ONE ×4 (14:00→18:00)
[2018-09-04] MEDS ORDERED: METHOTREXATE IV.SIG ONE ×4 (14:00→18:00)
[2018-09-04] MEDS ORDERED: WATER IV.SIG ONE ×4 (14:00→18:00)
[2018-09-04] MEDS: SODIUM CHLORIDE IV.CONT SCH (17:05)
[2018-09-04] MEDS: [UNRECOGNIZED DRUG - OTHER] IV.CONT SCH (17:05)
[2018-09-04] MEDS: SODIUM BICARBONATE IV.CONT SCH (17:05)
[2018-09-05] MEDS: [UNRECOGNIZED DRUG - OTHER] IV.CONT SCH ×4 (00:32→22:05)
[2018-09-05] MEDS: SODIUM CHLORIDE IV.CONT SCH ×4 (00:32→22:05)
[2018-09-05] MEDS: SODIUM BICARBONATE IV.CONT SCH ×4 (00:32→22:05)
[2018-09-05 04:47] LABS: Hematocrit 29.1 % (39.0-51.0); Hemoglobin 10.4 gm/dL (13.0-17.0); Lymph # (Auto) 0.6 th/mm3 (1.0-4.8); Lymph % (Auto) 8.6 % (9.0-44.0); Mean Corpuscular HGB Conc 35.7 % (32.0-36.0); Mean Corpuscular Hemoglobin 32.7 pg (27.0-34.0); Mean Corpuscular Volume 91.4 fL (80.0-100.0); Mono # (Auto) 0.8 th/mm3 (0.0-0.9); Mono % (Auto) 11.1 % (0.0-8.0); Neut # (Auto) 5.5 th/mm3 (1.8-7.7); Neut % (Auto) 80.3 % (16.0-70.0); Platelet Count 214 th/mm3 (150-450); Red Blood Count 3.18 mil/mm3 (4.50-5.90); Red Cell Distribution Width 16.3 % (11.6-17.2); White Blood Count 6.8 th/mm3 (4.0-11.0)
[2018-09-05 05:33] LABS: Albumin 3.1 g/dL (3.4-5.0); Anion Gap 5 meq/L (5-15); Aspartate Aminotransferase 15 U/L (15-37); Blood Urea Nitrogen 15 mg/dL (7-18); Calcium 8.5 mg/dL (8.5-10.1); Carbon Dioxide 31.8 meq/L (21.0-32.0); Chloride 109 meq/L (98-107); Glomerular Filtration Rate Greater Than 89 mL/min (>89); Glucose,Random 161 mg/dL (74-106); Potassium 3.5 meq/L (3.5-5.1); Sodium 146 meq/L (136-145)
[2018-09-05 05:36] LABS: Alanine Aminotransferase 25 U/L (12-78); Alkaline Phosphatase 61 U/L (45-117); Total Protein 5.5 g/dL (6.4-8.2)
--- NOTE | 2018-09-05 07:26 | P.PNONC ---
Subjective Interval history: Patient seen and examined, vital signs, labs, medications and chemo administration orders and records reviewed. Subjectively; patient reports having had a great deal of diuresis overnight. He tells me he tolerated methotrexate infusion without difficulty. He tells me though he did move his bowels yesterday, he would like some sort of stool softeners to help prevent constipation. Objective Vital Signs/Intake & Output: Vital Signs 09/04/18 12:00 09/04/18 15:05 09/04/18 20:00 Temperature 97.8 F Pulse Rate 60 61 78 Respiratory Rate 18 18 Blood Pressure 142/64 H 140/75 Pulse Oximetry 99 98 09/04/18 21:30 09/05/18 00:00 09/05/18 04:00 Temperature 98.0 F 97.9 F Pulse Rate 79 73 73 Respiratory Rate 18 16 Blood Pressure 157/77 H 159/66 H Pulse Oximetry 98 97 09/05/18 04:25 Temperature 98.5 F Pulse Rate 70 Respiratory Rate 16 Blood Pressure 128/63 Pulse Oximetry 98 Intake & Output 09/04/18 09/05/18 09/05/18 18:59 06:59 18:59 Intake Total 2836 / 2836 2751.625 / 2751.625 Output Total 3700 / 3700 500 / 500 Balance -864 / -864 2251.625 / 2251.625 Weight 94.1 kg 94.4 kg Intake: IV 1856 / 1856 2271.625 / 2271.625 Sodium Bicarbonate 8.4% Inj 100 1800 / 1800 MEQ In 1/2 Normal Saline Inj 900 ML @ 250 mls/hr IV.CONT . Q4H [facility] Rx#:[id number] Sodium Chloride 23.4% Inj 38.5 1109.625 / 1109.625 MEQ Sodium Bicarbonate 8.4% Inj 100 MEQ In Sterile Water for Inj 1,000 ML @ 150 mls/hr IV. CONT .Q7H24M [facility] Rx#:[id number] Kytril Inj 1 MG Decadron Inj 20 56 / 56 MG In NS Inj 50 ML @ 336 mls/ hr IV.SIG ONCE ONE Rx#:[id number] Methotrexate PF Inj 5,300 MG In 1162 / 1162 D5W Inj 950 ML @ 387.333 mls/ hr IV.SIG ONCE ONE Rx#:[id number] Oral 980 / 980 480 / 480 Output: Urine 3700 / 3700 500 / 500 Other: Date of Last Bowel Movement 09/03/18 09/04/18 Weight On Admission 93.894 kg Result Diagrams: 09/05/18 04:30 09/05/18 04:30 Laboratory Results: Laboratory Results - last 24 hr 09/04/18 09/04/18 09/04/18 07:55 07:55 07:55 WBC 10.3 D RBC 3.28 L Hgb 10.7 L Hct 30.6 L MCV 93.1 MCH 32.7 MCHC 35.1 RDW 16.6 Plt Count 254 MPV 9.2 Neut % (Auto) 70.4 H Lymph % (Auto) 10.7 [place] % (Auto) 18.7 H Eos % (Auto) 0.0 Baso % (Auto) 0.2 Neut # (Auto) 7.3 Lymph # (Auto) 1.1 [place] # (Auto) 1.9 H Eos # (Auto) 0.0 Baso # (Auto) 0.0 WBC Differential . Differential Comment Auto diff final Sodium 137 Potassium 3.7 Chloride 103 Carbon Dioxide 24.2 Anion Gap 10 BUN 14 Creatinine 0.92 Estimated GFR 80 L POC Glucose Random Glucose 190 H Calcium 8.7 Total Bilirubin 0.4 AST 15 ALT 29 Alkaline Phosphatase 73 Total Protein 6.2 L Albumin 3.4 Urine pH 5.0 09/04/18 09/04/18 09/04/18 11:42 13:30 16:19 WBC RBC Hgb Hct MCV MCH MCHC RDW Plt Count MPV Neut % (Auto) Lymph % (Auto) [place] % (Auto) Eos % (Auto) Baso % (Auto) Neut # (Auto) Lymph # (Auto) [place] # (Auto) Eos # (Auto) Baso # (Auto) WBC Differential Differential Comment Sodium Potassium Chloride Carbon Dioxide Anion Gap BUN Creatinine Estimated GFR POC Glucose 167 H 288 H Random Glucose Calcium Total Bilirubin AST ALT Alkaline Phosphatase Total Protein Albumin Urine pH 7.0 09/04/18 09/05/18 09/05/18 21:39 04:30 04:30 WBC 6.8 RBC 3.18 L Hgb 10.4 L Hct 29.1 L MCV 91.4 MCH 32.7 MCHC 35.7 RDW 16.3 Plt Count 214 MPV 8.0 Neut % (Auto) 80.3 H Lymph % (Auto) 8.6 L [place] % (Auto) 11.1 H Eos % (Auto) 0.0 Baso % (Auto) 0.0 Neut # (Auto) 5.5 Lymph # (Auto) 0.6 L [place] # (Auto) 0.8 Eos # (Auto) 0.0 Baso # (Auto) 0.0 WBC Differential . Differential Comment Auto diff final Sodium 146 H Potassium 3.5 Chloride 109 H Carbon Dioxide 31.8 Anion Gap 5 BUN 15 Creatinine 0.83 Estimated GFR Greater than 89 POC Glucose 329 H Random Glucose 161 H Calcium 8.5 Total Bilirubin 0.6 AST 15 ALT 25 Alkaline Phosphatase 61 Total Protein 5.5 L D Albumin 3.1 L Urine pH Medications: Active Medications Generic Name Dose Route Start Last Admin Trade Name Freq PRN Reason Stop Dose Admin Aspirin 81 mg 09/04/18 09:00 09/04/18 10:56 Ecotrin PO Not Given DAILY [facility] Enoxaparin Sodium 40 mg 09/04/18 08:00 09/04/18 11:01 Lovenox Inj SQ 40 mg Q24H [facility] Administration Glimepiride 1 mg 09/04/18 08:00 09/04/18 16:41 Amaryl PO 1 mg BIDAC [facility] Administration Sodium Bicarbonate 75 meq/ 1,000 mls @ 84 mls/hr 09/04/18 09:00 09/04/18 23: 02 Sodium Chloride IV.CONT Not Given .[id number] [facility] Sodium Chloride 38.5 meq/ 1,109.625 mls @ 150 mls/hr 09/04/18 17:00 09/05/18 00:32 Sodium Bicarbonate 100 meq/ IV.CONT 09/08/18 20:00 150 mls/hr Sterile Water .Q7H24M [facility] Administration Insulin Aspart 0 unit 09/04/18 08:00 09/04/18 21:48 Novolog Insulin Correctional Sugar Inj SQ 10 unit ACHS [facility] Administration Protocol Metformin HCl 500 mg 09/04/18 09:00 09/04/18 10:56 Glucophage PO Not Given DAILY [facility] Metoprolol Succinate 12.5 mg 09/04/18 09:00 09/04/18 10:57 Toprol Xl PO Not Given DAILY [facility] Midodrine 5 mg 09/04/18 09:00 09/04/18 21:43 Proamatine PO Not Given BID [facility] Pravastatin Sodium 10 mg 09/04/18 21:00 09/04/18 21:42 Pravachol PO 10 mg HS [facility] Administration Prednisone 100 mg 09/04/18 09:00 09/04/18 10:57 Deltasone PO 09/08/18 23:59 100 mg DAILY [facility] Administration Senna/Docusate Sodium 1 tab 09/04/18 09:00 09/04/18 21:42 Catherine-Colace PO 1 tab BID [facility] Administration Sitagliptin Phosphate 50 mg 09/04/18 09:00 09/04/18 10:57 Januvia PO Not Given DAILY [facility] Objective Remarks: GENERAL: Elderly male, sitting up on the bedside, well-nourished, well- developed patient. SKIN: Warm and dry, some erythema over the forehead and cheeks. HEAD: Normocephalic. EYES: No scleral icterus. No injection or drainage. NECK: Supple, trachea midline. No JVD or lymphadenopathy. LYMPHATIC: No adenopathy. CARDIOVASCULAR: Regular rate and rhythm without murmurs. RESPIRATORY: Breath sounds equal bilaterally. No accessory muscle use. GASTROINTESTINAL: Abdomen soft, non-tender, nondistended. EXTREMITIES: No cyanosis, or edema. MUSCULOSKELETAL: Adequate muscle tone. NEUROLOGICAL: No obvious focal deficit. Awake, alert, and oriented x3. PSYCHIATRIC: Appropriate mood and affect; insight and judgment normal. 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 Treated with first-line combination systemic chemotherapy consisting of high-dose methotrexate, vincristine, rituximab and intrathecal cytarabine between October 2016 in March 2017. 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 Systemic staging studies revealed inguinal lymphadenopathy as well as intracranial relapse. Pathologic findings were consistent with a triple hit high-grade diffuse large B -cell lymphoma. After consulting with the patient's community health consultant malignant campus chaplain at the [facility] he was advised initiation of high-dose methotrexate in combination with R-CHOP. The patient comes in today for cycle #3 high-dose methotrexate, he completed cycle number 3R CHOP in the outpatient clinic yesterday. Thus far he has tolerated treatment without significant difficulties and is doing well from a clinical standpoint. The patient has no residual symptoms of gait unsteadiness or trembling of his right hand, symptoms which were very prominent before initiation of second line therapy. Plan: 1. Relapsed high-grade diffuse large B-cell lymphoma (triple hit): Status post high-dose methotrexate on 09/04/2018; chemotherapy was administered at 5 PM. He will be initiated on leucovorin rescue later today. Methotrexate levels will be drawn and assessed per protocol. 2. Type 2 diabetes: Continue before meals and at bedtime bedside glucose finger checks. He is on outpatient oral hypoglycemics with an insulin supplemental sliding scale. 3. Hypertension: Continue outpatient metoprolol 12.5 mg once daily. 4. DVT prophylaxis: With Lovenox 40 mg subcu once daily. 5. Urine alkalinization with half-normal saline with sodium bicarbonate. Daily urine pH checks have been ordered. 6. Constipation: Initiate senna Colace twice daily as needed. Repeat labs will be scheduled for 09/07/2018.
[2018-09-05] MEDS: Sodium Bicarbonate 8.4% Inj 75 MEQ in Sodium Chloride 0.45 % Inj 925 ML IV.CONT SCH ×2 (08:15→10:40)
[2018-09-05] MEDS: Insulin NovoLOG Aspart Correctional Sugar Inj SQ SCH ×4 (08:21→20:10)
[2018-09-05] MEDS: Glimepiride 1 MG Tablet PO SCH ×2 (08:21→17:02)
[2018-09-05] MEDS: Senna/Docusate Sodium 8.6/50 MG Tablet PO SCH ×2 (08:22→20:10)
[2018-09-05] MEDS: Enoxaparin Inj 40 MG/0.4 ML Syringe SQ SCH (08:33)
[2018-09-05] MEDS: LEUCOVORIN IV.SIG SCH ×2 (17:04→23:02)
[2018-09-05] MEDS: SODIUM CHLOR 0.9% IV.SIG SCH ×2 (17:04→23:02)
[2018-09-06] MEDS: SODIUM BICARBONATE IV.CONT SCH ×3 (05:08→23:06)
[2018-09-06] MEDS: [UNRECOGNIZED DRUG - OTHER] IV.CONT SCH ×3 (05:08→23:06)
[2018-09-06] MEDS: LEUCOVORIN IV.SIG SCH ×4 (05:08→23:07)
[2018-09-06] MEDS: SODIUM CHLORIDE IV.CONT SCH ×3 (05:08→23:06)
[2018-09-06] MEDS: SODIUM CHLOR 0.9% IV.SIG SCH ×4 (05:08→23:07)
[2018-09-06] MEDS: Insulin NovoLOG Aspart Correctional Sugar Inj SQ SCH ×4 (08:12→20:04)
--- NOTE | 2018-09-06 08:37 | P.PNONC ---
Subjective Interval history: Patient seen and examined earlier this morning. He reports having had an uneventful night, he continues to diurese. He denies acute toxicities related to chemotherapy administered. He specifically denies nausea or vomiting, diarrhea, overt bleeding, headaches, difficulty breathing, chest pain. Objective Vital Signs/Intake & Output: Vital Signs 09/05/18 12:00 09/05/18 16:00 09/05/18 20:00 Temperature 98 F 98.6 F 98.7 F Pulse Rate 80 84 71 Respiratory Rate 18 18 18 Blood Pressure 139/70 144/63 H 135/62 Pulse Oximetry 98 99 99 09/06/18 00:00 09/06/18 04:00 09/06/18 07:00 Temperature 97.9 F 98.3 F Pulse Rate 63 72 69 Respiratory Rate 16 16 Blood Pressure 149/67 H 146/65 H Pulse Oximetry 99 100 09/06/18 07:57 Temperature 98.6 F Pulse Rate 63 Respiratory Rate 18 Blood Pressure 143/64 H Pulse Oximetry 98 Intake & Output 09/05/18 09/06/18 09/06/18 18:59 06:59 18:59 Intake Total 2219.250 / 2219.250 3279.250 / 3279.250 Output Total 6700 / 6700 Balance 2219.250 / 2219.250 -3420.750 / -3420.750 Weight 94.6 kg Intake: IV 2219.250 / 2219.250 2319.250 / 2319.250 Sodium Chloride 23.4% Inj 38.5 2219.250 / 2219.250 2219.250 / 2219.250 MEQ Sodium Bicarbonate 8.4% Inj 100 MEQ In Sterile Water for Inj 1,000 ML @ 150 mls/hr IV. CONT .Q7H24M [facility] Rx#:[id number] Wellcovorin Inj 20 MG In NS Inj 100 / 100 50 ML @ 16.667 mls/hr IV.SIG Q6H [facility] Rx#:[id number] Oral 960 / 960 Output: Urine 6700 / 6700 Other: Date of Last Bowel Movement 09/05/18 09/05/18 Result Diagrams: 09/05/18 04:30 09/05/18 04:30 Laboratory Results: Laboratory Results - last 24 hr 09/05/18 09/05/18 09/05/18 12:17 16:59 16:59 POC Glucose 368 H 383 H Urine pH Methotrexate 2.40 09/05/18 09/06/18 09/06/18 20:07 06:00 07:59 POC Glucose 206 H 85 Urine pH 8.0 Methotrexate Medications: Active Medications Generic Name Dose Route Start Last Admin Trade Name Darciq PRN Reason Stop Dose Admin Aspirin 81 mg 09/04/18 09:00 09/05/18 08:22 Ecotrin PO 81 mg DAILY [facility] Administration Enoxaparin Sodium 40 mg 09/04/18 08:00 09/05/18 08:33 Lovenox Inj SQ 40 mg Q24H [facility] Administration Glimepiride 1 mg 09/04/18 08:00 09/05/18 17:02 Amaryl PO 1 mg BIDAC [facility] Administration Leucovorin Calcium 20 mg/ 50 mls @ 16.667 mls/hr 09/05/18 18:00 09/06/18 05: 08 Sodium Chloride IV.SIG 09/08/18 14:59 16.67 mls/hr Q6H [facility] Administration Sodium Chloride 38.5 meq/ 1,109.625 mls @ 150 mls/hr 09/04/18 17:00 09/06/18 05:08 Sodium Bicarbonate 100 meq/ IV.CONT 09/08/18 20:00 170 mls/hr Sterile Water .Q7H24M [facility] Administration Insulin Aspart 0 unit 09/04/18 08:00 09/06/18 08:12 Novolog Insulin Correctional Sugar Inj SQ Not Given ACHS [facility] Protocol Metformin HCl 500 mg 09/04/18 09:00 09/05/18 08:21 Glucophage PO 500 mg DAILY [facility] Administration Metoprolol Succinate 12.5 mg 09/04/18 09:00 09/05/18 08:22 Toprol Xl PO 12.5 mg DAILY [facility] Administration Midodrine 5 mg 09/04/18 09:00 09/06/18 08:12 Proamatine PO Not Given BID [facility] Pravastatin Sodium 10 mg 09/04/18 21:00 09/05/18 20:10 Pravachol PO 10 mg HS [facility] Administration Prednisone 100 mg 09/04/18 09:00 09/05/18 08:22 Deltasone PO 09/08/18 23:59 100 mg DAILY [facility] Administration Senna/Docusate Sodium 1 tab 09/04/18 09:00 09/05/18 20:10 Catherine-Colace PO 1 tab BID [facility] Administration Sitagliptin Phosphate 50 mg 09/04/18 09:00 09/05/18 08:22 Januvia PO 50 mg DAILY [facility] Administration Objective Remarks: GENERAL: Elderly male, sitting up on the bedside, well-nourished, well- developed patient. SKIN: Warm and dry, some erythema over the forehead and cheeks. HEAD: Normocephalic. EYES: No scleral icterus. No injection or drainage. NECK: Supple, trachea midline. No JVD or lymphadenopathy. LYMPHATIC: No adenopathy. CARDIOVASCULAR: Regular rate and rhythm without murmurs. RESPIRATORY: Breath sounds equal bilaterally. No accessory muscle use. GASTROINTESTINAL: Abdomen soft, non-tender, nondistended. EXTREMITIES: No cyanosis, or edema. MUSCULOSKELETAL: Adequate muscle tone. NEUROLOGICAL: No obvious focal deficit. Awake, alert, and oriented x3. PSYCHIATRIC: Appropriate mood and affect; insight and judgment normal. 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 Treated with first-line combination systemic chemotherapy consisting of high-dose methotrexate, vincristine, rituximab and intrathecal cytarabine between October 2016 in March 2017. 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 Systemic staging studies revealed inguinal lymphadenopathy as well as intracranial relapse. Pathologic findings were consistent with a triple hit high-grade diffuse large B -cell lymphoma. After consulting with the patient's fashion consultant selling malignant traffic control operator at the [facility] he was advised initiation of high-dose methotrexate in combination with R-CHOP. The patient comes in today for cycle #3 high-dose methotrexate, he completed cycle number 3R CHOP in the outpatient clinic yesterday. Thus far he has tolerated treatment without significant difficulties and is doing well from a clinical standpoint. The patient has no residual symptoms of gait unsteadiness or trembling of his right hand, symptoms which were very prominent before initiation of second line therapy. Plan: 1. Relapsed high-grade diffuse large B-cell lymphoma (triple hit): Status post high-dose methotrexate on 09/04/2018; chemotherapy was administered at 5 PM. He will be initiated on leucovorin rescue has been initiated. Methotrexate levels will be drawn and assessed per protocol, levels last night at 2.4. 2. Type 2 diabetes: Continue before meals and at bedtime bedside glucose finger checks. He is on outpatient oral hypoglycemics with an insulin supplemental sliding scale. 3. Hypertension: Continue outpatient metoprolol 12.5 mg once daily. 4. DVT prophylaxis: With Lovenox 40 mg subcu once daily. 5. Urine alkalinization with half-normal saline with sodium bicarbonate. Daily urine pH checks have been ordered. 6. Constipation: As needed senna Colace twice daily as needed for constipation. Repeat labs will be scheduled for 09/07/2018.
[2018-09-06] MEDS: Senna/Docusate Sodium 8.6/50 MG Tablet PO SCH ×2 (09:27→20:04)
[2018-09-06] MEDS: Enoxaparin Inj 40 MG/0.4 ML Syringe SQ SCH (09:27)
[2018-09-06] MEDS: Glimepiride 1 MG Tablet PO SCH ×2 (09:30→16:30)
[2018-09-07] MEDS: SODIUM CHLOR 0.9% IV.SIG SCH ×2 (05:06→11:00)
[2018-09-07] MEDS: LEUCOVORIN IV.SIG SCH ×2 (05:06→11:00)
[2018-09-07] MEDS: [UNRECOGNIZED DRUG - OTHER] IV.CONT SCH ×2 (05:08→11:33)
[2018-09-07] MEDS: SODIUM BICARBONATE IV.CONT SCH ×2 (05:08→11:33)
[2018-09-07] MEDS: SODIUM CHLORIDE IV.CONT SCH ×2 (05:08→11:33)
--- NOTE | 2018-09-07 08:59 | P.PNONC ---
Subjective Interval history: Patient was seen and examined, vital signs, labs, medications and overnight events reviewed. Subjectively; patient reports feeling well, he denies acute toxicities related to treatment. Methotrexate level was drawn earlier this morning. Objective Vital Signs/Intake & Output: Vital Signs 09/06/18 11:00 09/06/18 11:10 09/06/18 15:00 Temperature 98.2 F Pulse Rate 78 79 70 Respiratory Rate 18 Blood Pressure 125/65 Pulse Oximetry 98 09/06/18 15:08 09/06/18 20:00 09/06/18 23:56 Temperature 98.4 F 98.7 F Pulse Rate 67 68 75 Respiratory Rate 18 18 Blood Pressure 138/67 143/71 H Pulse Oximetry 99 99 09/07/18 00:00 09/07/18 04:00 Temperature 98.4 F 97.9 F Pulse Rate 80 69 Respiratory Rate 18 18 Blood Pressure 172/86 H 147/70 H Pulse Oximetry 98 Intake & Output 09/06/18 09/07/18 09/07/18 18:59 06:59 18:59 Intake Total 4959.625 / 4959.625 2799.250 / 2799.250 Output Total 5150 / 5150 4150 / 4150 Balance -190.375 / -190.375 -1350.750 / -1350.750 Weight 96.6 kg Intake: IV 1209.625 / 4972.506 5110.250 / 2319.250 Sodium Chloride 23.4% Inj 38.5 1109.625 / 8878.157 4305.250 / 2219.250 MEQ Sodium Bicarbonate 8.4% Inj 100 MEQ In Sterile Water for Inj 1,000 ML @ 150 mls/hr IV. CONT .Q7H24M [facility] Rx#:[id number] Wellcovorin Inj 20 MG In NS Inj 100 / 100 100 / 100 50 ML @ 16.667 mls/hr IV.SIG Q6H [facility] Rx#:[id number] Oral 3750 / 3750 480 / 480 Output: Urine 5150 / 5150 4150 / 4150 Other: Date of Last Bowel Movement 09/05/18 09/06/18 Result Diagrams: 09/05/18 04:30 09/05/18 04:30 Laboratory Results: Laboratory Results - last 24 hr 09/06/18 09/06/18 09/06/18 11:14 16:21 20:03 POC Glucose 169 H 355 H 247 H Urine pH 09/07/18 06:00 POC Glucose Urine pH 8.0 Medications: Active Medications Generic Name Dose Route Start Last Admin Trade Name Stephanie PRN Reason Stop Dose Admin Aspirin 81 mg 09/04/18 09:00 09/06/18 09:26 Ecotrin PO 81 mg DAILY [facility] Administration Enoxaparin Sodium 40 mg 09/04/18 08:00 09/06/18 09:27 Lovenox Inj SQ 40 mg Q24H [facility] Administration Glimepiride 1 mg 09/04/18 08:00 09/06/18 16:30 Amaryl PO 1 mg BIDAC [facility] Administration Leucovorin Calcium 20 mg/ 50 mls @ 16.667 mls/hr 09/05/18 18:00 09/07/18 05: 06 Sodium Chloride IV.SIG 09/08/18 14:59 17 mls/hr Q6H [facility] Administration Sodium Chloride 38.5 meq/ 1,109.625 mls @ 150 mls/hr 09/04/18 17:00 09/07/18 05:08 Sodium Bicarbonate 100 meq/ IV.CONT 09/08/18 20:00 170 mls/hr Sterile Water .Q7H24M [facility] Administration Insulin Aspart 0 unit 09/04/18 08:00 09/06/18 20:04 Novolog Insulin Correctional Sugar Inj SQ 4 unit ACHS [facility] Administration Protocol Metformin HCl 500 mg 09/04/18 09:00 09/06/18 09:26 Glucophage PO 500 mg DAILY [facility] Administration Metoprolol Succinate 12.5 mg 09/04/18 09:00 09/06/18 09:27 Toprol Xl PO 12.5 mg DAILY [facility] Administration Midodrine 5 mg 09/04/18 09:00 09/06/18 22:10 Proamatine PO Not Given BID [facility] Pravastatin Sodium 10 mg 09/04/18 21:00 09/06/18 20:04 Pravachol PO 10 mg HS [facility] Administration Prednisone 100 mg 09/04/18 09:00 09/06/18 09:26 Deltasone PO 09/08/18 23:59 100 mg DAILY [facility] Administration Senna/Docusate Sodium 1 tab 09/04/18 09:00 09/06/18 20:04 Catherine-Colace PO 1 tab BID [facility] Administration Sitagliptin Phosphate 50 mg 10/16/18 09:00 09/06/18 09:27 Januvia PO 50 mg DAILY [facility] Administration Objective Remarks: GENERAL: Elderly male, sitting up on the bedside, well-nourished, well- developed patient. SKIN: Warm and dry, some erythema over the forehead and cheeks. HEAD: Normocephalic. EYES: No scleral icterus. No injection or drainage. NECK: Supple, trachea midline. No JVD or lymphadenopathy. LYMPHATIC: No adenopathy. CARDIOVASCULAR: Regular rate and rhythm without murmurs. RESPIRATORY: Breath sounds equal bilaterally. No accessory muscle use. GASTROINTESTINAL: Abdomen soft, non-tender, nondistended. EXTREMITIES: No cyanosis, or edema. MUSCULOSKELETAL: Adequate muscle tone. NEUROLOGICAL: No obvious focal deficit. Awake, alert, and oriented x3. PSYCHIATRIC: Appropriate mood and affect; insight and judgment normal. 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 Treated with first-line combination systemic chemotherapy consisting of high-dose methotrexate, vincristine, rituximab and intrathecal cytarabine between October 2016 in March 2017. 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 Systemic staging studies revealed inguinal lymphadenopathy as well as intracranial relapse. Pathologic findings were consistent with a triple hit high-grade diffuse large B -cell lymphoma. After consulting with the patient's outside sales consultant malignant roll setter at the [facility] he was advised initiation of high-dose methotrexate in combination with R-CHOP. The patient comes in today for cycle #3 high-dose methotrexate, he completed cycle number 3R CHOP in the outpatient clinic yesterday. Thus far he has tolerated treatment without significant difficulties and is doing well from a clinical standpoint. The patient has no residual symptoms of gait unsteadiness or trembling of his right hand, symptoms which were very prominent before initiation of second line therapy. Plan: 1. Relapsed high-grade diffuse large B-cell lymphoma (triple hit): Status post high-dose methotrexate on 09/04/2018; chemotherapy was administered at 5 PM. He will be initiated on leucovorin rescue has been initiated. Clinically doing very well. Without adverse effects. Methotrexate levels will be drawn and assessed per protocol, methotrexate level redrawn this morning. Leucovorin continues. I expect methotrexate level to be resulted by later this afternoon. If his level is less than 0.1 I will discharge him home tonight. 2. Type 2 diabetes: Continue before meals and at bedtime bedside glucose finger checks. He is on outpatient oral hypoglycemics with an insulin supplemental sliding scale. 3. Hypertension: Continue outpatient metoprolol 12.5 mg once daily. 4. DVT prophylaxis: With Lovenox 40 mg subcu once daily. 5. Urine alkalinization with half-normal saline with sodium bicarbonate. Daily urine pH checks have been ordered. 6. Constipation: As needed senna Colace twice daily as needed for constipation. Repeat labs will be scheduled for 09/07/2018.
[2018-09-07] MEDS: Senna/Docusate Sodium 8.6/50 MG Tablet PO SCH (09:35)
[2018-09-07] MEDS: Glimepiride 1 MG Tablet PO SCH ×2 (09:36→17:00)
[2018-09-07] MEDS: Enoxaparin Inj 40 MG/0.4 ML Syringe SQ SCH (09:36)
[2018-09-07] MEDS: Insulin NovoLOG Aspart Correctional Sugar Inj SQ SCH ×3 (09:44→18:11)
[2018-09-07 14:45] VITALS: TEMP 98.5; O2SAT 98
--- NOTE | 2018-09-07 16:28 | P.DS ---
Date of admission: 09/04/18 06:38 Primary care physician: Ana Khalil MD Attending physician on discharge: Nas Fish Anticipated date of discharge: 09/07/18 Brief History from admission: Mr. 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 As a part of his initial staging workup he did undergo ultrasound of the scrotum to rule out involvement of the testicle or the spermatic cord. These were not involved at initial presentation. He was treated with high-dose methotrexate/Rituxan/vincristine with intrathecal cytarabine injections. He was treated between October 2016 in March 2017. Subsequent staging studies revealed complete remission (systemic staging as well as MRI brain). In May 2018 the patient noticed a rapidly enlarging mass on the left side of his scrotum (involving his left testicle), he had this evaluated by his urologist who recommended imaging studies, the mass was confirmed on imaging studies and patient subsequently underwent a left-sided orchiectomy performed on 06/21/2018. Pathologic findings revealed high-grade Burkitt-like large B-cell lymphoma (with a Ki-67 proliferation index of 95%). Subsequent staging studies including PET/CT scan as well as MRI of the brain revealed findings of recurrence intracranially as well as evidence of hypermetabolic lymphadenopathy in the left inguinal area. The patient was advised second line systemic chemotherapy consisting of Rituxan , high-dose methotrexate and CHOP, he was initiated on treatment in June 2018. He has thus far received 2 cycles of systemic chemotherapy. He has tolerated treatment without significant difficulties. On 09/03/2018 he received cycle number 3 R CHOP. He presented for cycle #3 high -dose methotrexate. This was delivered on 09/04/2018. Patient update on day of discharge: Clinically, the patient was doing very well this morning. He was eager to go home later this afternoon. He tolerated chemotherapy without significant adverse effects. He did receive prednisone as per treatment protocol, this did result in anticipated hyperglycemia and hypertension. 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 He was initiated on sodium bicarbonate infusion for appropriate urine alkalinization. Once urine pH was noted to be at 7 he was initiated on high-dose methotrexate which was dosed at 2500 mg per metered squared (total dose of 5300 mg). He received a single dose on the evening of 09/04/2018. Following infusion of methotrexate he was initiated on leucovorin rescue as per protocol 48 hours after initiation of treatment. Methotrexate levels were drawn as per protocol. While in the hospital he was maintained on bicarbonate containing maintenance fluids. For management of his diabetes in addition to continuing home oral hypoglycemics he was initiated on an insulin sliding scale for correction of hyperglycemia. For management of his hypertension he was maintained on metoprolol. Overall the patient tolerated treatment without significant difficulties. Repeat methotrexate levels drawn on the morning of 09/07/2018 his methotrexate level was noted to be 0.06. He was cleared for discharge and will be going home with outpatient follow-up. - Time Spent with Patient Total time spent providing and/or coordinating discharge services: Greater than 30 minutes - Quality: AMI Clinical Trial Participant: No - Quality: VTE Is this test being ordered to rule out VTE?: No Capturing Platelet Monitoring Protocol: Following clinical path Deep Vein Thrombosis/Pulmonary Embolism Present on Admission: No Exam Vital signs: Vital Signs 09/06/18 20:00 09/06/18 23:56 09/07/18 00:00 Temperature 98.7 F 98.4 F Pulse Rate 68 75 80 Respiratory Rate 18 18 Blood Pressure 143/71 H 172/86 H Pulse Oximetry 99 98 09/07/18 04:00 09/07/18 08:00 09/07/18 09:10 Temperature 97.9 F 97.6 F Pulse Rate 69 71 76 Respiratory Rate 18 17 Blood Pressure 147/70 H 163/71 H Pulse Oximetry 100 09/07/18 12:00 Temperature 98.5 F Pulse Rate 70 Respiratory Rate 16 Blood Pressure 155/71 H Pulse Oximetry 98 Intake & Output 09/06/18 09/07/18 09/07/18 18:59 06:59 18:59 Intake Total 4959.625 / 4959.625 2799.250 / 2799.250 1159.625 / 1159.625 Output Total 5150 / 5150 4150 / 4150 Balance -190.375 / -190.375 -1350.750 / -1767.574 4114.625 / 1159.625 Weight 96.6 kg Intake: IV 1209.625 / 0279.522 7237.250 / 2319.250 1159.625 / 1159.625 Sodium Chloride 23.4% Inj 38.5 1109.625 / 7592.926 5235.250 / 2219.250 1109.625 / 1109.625 MEQ Sodium Bicarbonate 8.4% Inj 100 MEQ In Sterile Water for Inj 1,000 ML @ 150 mls/hr IV. CONT .Q7H24M [facility] Rx#:[id number] Wellcovorin Inj 20 MG In NS Inj 100 / 100 100 / 100 50 / 50 50 ML @ 16.667 mls/hr IV.SIG Q6H [facility] Rx#:[id number] Oral 3750 / 3750 480 / 480 Output: Urine 5150 / 5150 4150 / 4150 Other: Date of Last Bowel Movement 09/05/18 09/06/18 09/05/18 Narrative: Physical examination was performed. This was performed on the morning of 09/07/2018. Physical exam has been documented in the progress note dated 09/07/2018. Results Procedures completed during hospitalization: No invasive procedures were performed this hospitalization. The patient received cycle #3 high-dose methotrexate Labs on day of discharge: Labs from last 24 hours 09/07/18 09/07/18 09/07/18 12:43 09:33 08:19 POC Glucose 182 H 217 H Urine pH Methotrexate 0.06 09/07/18 09/06/18 09/06/18 06:00 20:03 16:21 POC Glucose 247 H 355 H Urine pH 8.0 Methotrexate Discharge Plan - Discharge Disposition Patient Disposition: 01 Discharge Home - Discharge Condition Condition: Good - Discharge Order Discharge Orders: Discharge Order (Routine); Ordered 09/07/18 Ordered By: Nas Fish - Physicians Team Primary Care Provider: Ana Khalil Attending Provider: Nas Fish - Rxs /Orders / Referrals /Forms Prescriptions: New aspirin 81 mg Tablet,Delayed Release (Dr/Ec) 81 mg PO DAILY RF: 0 glimepiride [Amaryl] 1 mg Tablet 1 mg PO BIDAC RF: 0 metoprolol succinate 25 mg Tablet Extended Release 24 Hr 12.5 mg PO DAILY RF: 0 midodrine 5 mg Tablet 5 mg PO BID RF: 0 Continue cholecalciferol (vitamin D3) [Vitamin D3] 1,000 unit Tablet 1,000 unit PO DAILY RF: 0 glimepiride [Amaryl] 1 mg Tablet 1 mg PO DAILYAC RF: 0 omega 1-omr-hmi-fish oil [Fish Oil] 1,000 mg (120 mg-180 mg) Capsule 1,000 mg PO DAILY simvastatin 10 mg Tablet 10 mg PO QPM sitagliptin-metformin [Janumet] 50-500 mg Tablet 1 tab PO DAILY No Action aspirin 81 mg Tablet,Delayed Release (Dr/Ec) 81 mg PO DAILY RF: 0 metoprolol succinate 25 mg Tablet Extended Release 24 Hr 12.5 mg PO DAILY RF: 0 midodrine 5 mg Tablet 5 mg PO BID RF: 0 Referrals: Ana Khalil MD [Primary Care Provider] - See Instructions
[2018-09-07] MEDS ORDERED: Heparin Central Flush 100 UNIT/ML 5 ML Vial IV.FLUSH PRN ×2 (16:56)
[2018-09-07 20:30] VITALS: BP 140/65; PULSE 78; RESP 17
== END 2018-09-07 18:20 | disposition home or self-care (01) ==
LOC: HCIN 06:38 → HCIS 08:40 → HCIN 08:47
PROVIDERS: ADMIT Internal Medicine Hematology & Oncology; ATTEND Internal Medicine Hematology & Oncology
CPT/HCPCS: 80053; 80299; 81002; 81003; 82948; 82962; 85025; J0640; J1100; J1441; J1442; J1626; J1642; J1650; J1815; J7070; J7506; J7512; J9250

== ENCOUNTER 2018-10-02 06:44 | Inpatient (IN) ==
[2018-10-02] MEDS ORDERED: Acetaminophen 325 MG Tablet PO PRN (07:11)
[2018-10-02] MEDS ORDERED: Dextrose 50% in Water 50 ML Vial IV.PUSH PRN ×2 (07:11→09:16)
[2018-10-02] MEDS ORDERED: Bisacodyl 10 MG Supp RECTAL PRN (07:11)
[2018-10-02] MEDS ORDERED: Zolpidem Tartrate 5 MG Tablet PO PRN (07:11)
--- NOTE | 2018-10-02 07:44 | P.HPIM ---
History of Present Illness Service: Hematology/oncology. Primary Care Physician: Linden Bentley MD Chief Complaint: Presents for chemotherapy. History of Present Illness: Mr. Ramey is a very pleasant 78-year-old male with a diagnosis of relapsed high-grade primary MANAGER QUALITY COMPLIANCE lymphoma (diffuse large B-cell histology). He relapsed intracranially as well as testicular relapse in the summer 2017. His initial diagnosis was established in October 2016. He is currently on treatment with high-dose methotrexate in combination with R-CHOP; he has completed 3 cycles of this. Restaging PET CT imaging performed in early September and restaging MRI of the brain performed in early September indicates excellent response to therapy without evidence of residual disease. Subjectively; the patient denies acute complaints other than generally feeling weak, he reports some unsteadiness in his balance but denies having had fallen. He specifically denies B type symptoms of fevers, chills, night sweats or unintended weight loss. He received his fourth cycle R CHOP on 10/01/2018 in my outpatient center. He comes in today for high-dose methotrexate. Inpatient Certification: I certify that the inpatient services were ordered in accordance with Medicare regulations governing the order. This includes certification that hospital inpatient services are reasonable and necessary and in the case of services not specified as inpatient-only under 42 CFR 419.22(n), that they are appropriately provided as inpatient services in accordance to with the 2-midnight benchmark under 43 CFR 412.3(e) Estimated Total Length of Stay (Days): 5 Plans for Post Hospital Care: Home Review of Systems Constitutional: Reports lack of energy, Denies anorexia, Denies chills, Denies weakness, Denies weight gain, Denies weight loss Eyes: Denies change in vision Ears, Nose, Mouth, and Throat: Denies change in voice, Denies sore throat, Denies throat swelling Cardiovascular: Denies chest pain, Denies shortness of breath, Denies shortness of breath with activity, Denies shortness of breath when lying down Respiratory: Denies change in phlegm color, Denies chest congestion, Denies cough, Denies coughing up blood Gastrointestinal: Denies abdominal pain, Denies belching, Denies black, tarry stools, Denies bloating, Denies difficulty swallowing, Denies vomiting blood Genitourinary: Denies blood in urine Musculoskeletal: Denies abnormal walking, Denies back pain, Denies body aches Skin/Breast: Denies bleeding lesions, Denies boil Neurologic: Reports unsteadiness, Reports weakness, Denies confusion, Denies dizziness, Denies lack of coordination, Denies memory loss, Denies tingling, Denies tremor(s) Psychiatric: Denies anxiety, Denies change in appetite Endocrine: Denies cold intolerance Hematologic/Lymphatic: Denies easy bleeding Allergic/Immunologic: Denies GI upset with certain foods PMFSH - History History Provided By: Patient, Family Member, Significant Other - Medical / Surgical Hx Neg / Unobtainable Medical Problems Denied: Yes - Medical History Medical History: Medical History (Last Reviewed 10/02/18 @ 10:02 by Nas Fish MD) High grade malignant lymphoma Hypertension Normal colonoscopy Port-A-Cath in place Primary MANAGER QUALITY COMPLIANCE lymphoma Type 2 diabetes mellitus Valvular heart disease - Surgical History Surgical History: Surgical History (Last Reviewed 10/02/18 @ 10:02 by Nas Fish MD) H/O basal cell carcinoma excision H/O craniotomy History of bone marrow biopsy History of left knee replacement History of orchiectomy, unilateral Hx of tonsillectomy - Family History Family History: Family History (Last Reviewed 10/02/18 @ 10:02 by Nas Fish MD) Sister Cancer - Social History I have reviewed the patient's Social History: Yes - Tobacco History Second Hand Smoke Exposure: No Tobacco Use In Past 30 Days: No Smoking Status: Former smoker Tobacco Type: Cigarettes - Alcohol History How Often Do You Have a Drink Containing Alcohol: Monthly or less - Substance Use History Substance History: No History of Abuse - Travel History History of Recent Travel: No Medications and Allergies Active Medications: Active Medications Acetaminophen (Tylenol) 650 mg PO Q4H PRN PRN Reason: Temp > 100.4 Al Hydroxide/Mg Hydroxide (Milk Of Magnesia Liq) 30 ml PO Q12H PRN PRN Reason: Mild Constipation Bisacodyl (Dulcolax Supp) 10 mg RECTAL DAILY PRN PRN Reason: SEVERE CONSITIPATION Dextrose (D50w Vial) 50 ml IV.PUSH UNSCH PRN PRN Reason: PER HYPOGLYCEMIA PROTOCOL Enoxaparin Sodium (Lovenox Inj) 40 mg SQ Q24H [facility] Glucagon (Glucagon Inj) 1 mg OTHER PRN PRN PRN Reason: for Hypoglycemia Protocol Sodium Bicarbonate 100 meq/ (Dextrose) 1,000 mls @ 84 mls/hr IV.CONT .[id number] [facility] Lactulose (Lactulose Liq) 30 ml PO DAILY PRN PRN Reason: SEVERE CONSITIPATION Ondansetron HCl (Zofran Inj) 4 mg IV.PUSH Q6H PRN PRN Reason: NAUSEA OR VOMITING Senna/Docusate Sodium (Catherine-Colace) 1 tab PO BID [facility] Sennosides (Senokot) 17.2 mg PO Q12H PRN PRN Reason: Moderate Constipation Zolpidem Tartrate (Ambien) 5 mg PO HS PRN PRN Reason: INSOMNIA Allergies Allergy/AdvReac Type Severity Reaction Status Date / Time No Known Allergies Allergy Verified 07/22/18 17:48 Home Medications Medication Instructions Recorded Confirmed Type simvastatin 10 mg PO QPM 07/22/18 09/04/18 History sitagliptin-metformin [Janumet] 1 tab PO BID 07/22/18 09/04/18 History omega 4-scl-zme-fish oil [Fish Oil] 1,000 mg PO DAILY 08/07/18 09/04/18 History acarbose 50 mg PO DAILY 10/02/18 10/02/18 History Exam Narrative: Elderly male, tall, moderate build, appears to be no acute distress is a pleasant disposition. HEENT: Head atraumatic was felt, old craniotomy incision scar noted. Oral exam: No pharyngeal erythema neck exam no palpable cervical supraclavicular lymphadenopathy. Respiratory: Good air movement bilaterally not breath sounds. Cardiovascular: Regular rate and rhythm, S1-S2 no obvious murmurs rubs gallops. Abdominal exam: Protuberant belly, soft and nontender nondistended palpable organ enlargement, specifically no hepatosplenomegaly. Lower tremors no pretibial edema no calf tenderness. MANAGER QUALITY COMPLIANCE: No focal sensorimotor deficit. Skin examination: Nonfocal. Results - Labs CBC & Chem 7: 10/02/18 08:00 10/02/18 08:00 Caprini VTE Risk Assessment Caprini VTE Risk Assessment: Moderate/High Risk (score >= 2) (On Lovenox.) Caprini Risk Assessment Model: Point Value = 1 Point Value = 2 Point Value = 3 Point Value = 5 Age 41-60 Minor surgery BMI > 25 kg/m2 Swollen legs Varicose veins or History of unexplained or recurrent spontaneous Oral contraceptives or hormone replacement Sepsis (< 1 month) Serious lung disease, including pneumonia (< 1 month) Abnormal pulmonary function Acute myocardial infarction Congestive heart failure (< 1 month) History of inflammatory bowel disease Medical patient at bed rest Age 61-74 Arthroscopic surgery Major open surgery (> 45 min) Laparoscopic surgery (> 45 min) Malignancy Confined to bed (> 72 hours) Immobilizing plaster cast Central venous access Age >= 75 History of VTE Family history of VTE Factor V Leiden Prothrombin [id number] Lupus anticoagulant Anticardiolipin antibodies Elevated serum homocysteine Heparin-induced thrombocytopenia Other congenital or acquired thrombophilia Stroke (< 1 month) Elective arthroplasty Hip, pelvis, or leg fracture Acute spinal cord injury (< 1 month) Prophylaxis Regimen: Total Risk Factor Score Risk Level Prophylaxis Regimen 0-1 Low Early ambulation 2 Moderate Order ONE of the following: *Sequential Compression Device (SCD) *Heparin 5000 units SQ BID 3-4 Higher Order ONE of the following medications: *Heparin 5000 units SQ TID *Enoxaparin/Lovenox 40 mg SQ daily (WT < 150 kg, CrCl > 30 mL/min) *Enoxaparin/Lovenox 30 mg SQ daily (WT < 150 kg, CrCl > 10-29 mL/min) *Enoxaparin/Lovenox 30 mg SQ BID (WT < 150 kg, CrCl > 30 mL/min) AND/OR *Sequential Compression Device (SCD) 5 or more Highest Order ONE of the following medications: *Heparin 5000 units SQ TID (Preferred with Epidurals) *Enoxaparin/Lovenox 40 mg SQ daily (WT < 150 kg, CrCl > 30 mL/min) *Enoxaparin/Lovenox 30 mg SQ daily (WT < 150 kg, CrCl > 10-29 mL/min) *Enoxaparin/Lovenox 30 mg SQ BID (WT < 150 kg, CrCl > 30 mL/min) AND *Sequential Compression Device (SCD) Assessment and Plan - Plan Is a 78-year-old male well-known to me. He has a diagnosis of diffuse large B- cell lymphoma which presented as primary MANAGER QUALITY COMPLIANCE lymphoma in October 2016.Mr. Ramey he is status post first-line systemic therapy which consisted of methotrexate, rituximab, vincristine. He did have a good response to initial treatment but relapsed in the summer 2017. He is now on high-dose methotrexate with R-CHOP. He comes in today for cycle #4 high-dose methotrexate. Restaging scans performed earlier this month indicate excellent response to treatment without evidence of residual disease. Other than weakness he is without significant adverse effects. Plan: 1. Relapsed diffuse large B-cell lymphoma/Primary MANAGER QUALITY COMPLIANCE lymphoma: Proceed with high-dose methotrexate at a dose of approximately 2500 mg per metered squared. 2. He has been initiated on sodium bicarbonate infusion for appropriate systemic alkalinization. Repeat urine pH later this afternoon to ensure pH level of the urine is greater than or equal to 7. 3. Diabetes: Bedside fingerstick glucose assessment before meals and before bedtime. Continue oral hypoglycemic agents and initiate insulin sliding scale. 4. Hypertension: Continue outpatient antihypertensives. 5. DVT prophylaxis with Lovenox.
[2018-10-02 08:56] LABS: Baso % (Auto) 0.2 % (0.0-2.0); Eos % (Auto) 0.2 % (0.0-4.0); Hematocrit 30.8 % (39.0-51.0); Hemoglobin 10.6 gm/dL (13.0-17.0); Lymph # (Auto) 0.9 th/mm3 (1.0-4.8); Mean Corpuscular HGB Conc 34.5 % (32.0-36.0); Mean Corpuscular Hemoglobin 32.9 pg (27.0-34.0); Mean Corpuscular Volume 95.3 fL (80.0-100.0); Mean Platelet Volume 8.6 fL (7.0-11.0); Mono # (Auto) 1.4 th/mm3 (0.0-0.9); Mono % (Auto) 16.5 % (0.0-8.0); Neut # (Auto) 5.9 th/mm3 (1.8-7.7); Neut % (Auto) 72.1 % (16.0-70.0); Platelet Count 222 th/mm3 (150-450); Red Blood Count 3.23 mil/mm3 (4.50-5.90); Red Cell Distribution Width 15.3 % (11.6-17.2); White Blood Count 8.2 th/mm3 (4.0-11.0)
[2018-10-02] MEDS ORDERED: Sodium Bicarbonate 8.4% Inj 100 MEQ in Dextrose 5% in Water Inj 900 ML IV.CONT SCH ×2 (09:00)
[2018-10-02 09:16] LABS: Albumin 3.4 g/dL (3.4-5.0); Anion Gap 13 meq/L (5-15); Aspartate Aminotransferase 15 U/L (15-37); Blood Urea Nitrogen 16 mg/dL (7-18); Calcium 8.7 mg/dL (8.5-10.1); Carbon Dioxide 21.1 meq/L (21.0-32.0); Chloride 101 meq/L (98-107); Glomerular Filtration Rate 73 mL/min (>89); Glucose,Random 150 mg/dL (74-106); Potassium 3.9 meq/L (3.5-5.1); Sodium 135 meq/L (136-145)
[2018-10-02 09:17] LABS: Alanine Aminotransferase 22 U/L (12-78)
[2018-10-02 09:19] LABS: Alkaline Phosphatase 87 U/L (45-117); Total Protein 6.4 g/dL (6.4-8.2)
[2018-10-02] MEDS: Enoxaparin Inj 40 MG/0.4 ML Syringe SQ SCH (09:36)
[2018-10-02] MEDS: Senna/Docusate Sodium 8.6/50 MG Tablet PO SCH ×2 (09:37→20:13)
[2018-10-02] MEDS: Insulin NovoLIN Regular Correctional Sugar Inj SQ SCH ×3 (11:51→20:20)
[2018-10-02] MEDS: SODIUM CHLORIDE IV.CONT SCH ×3 (15:00→19:16)
[2018-10-02] MEDS: [UNRECOGNIZED DRUG - OTHER] IV.CONT SCH ×3 (15:00→19:16)
[2018-10-02] MEDS: SODIUM BICARBONATE IV.CONT SCH ×3 (15:00→19:16)
[2018-10-02] MEDS ORDERED: Granisetron Inj 1 MG, Dexamethasone Inj 20 MG in Sodium Chlor 0.9% Inj 50 ML IV.SIG ONE ×2 (17:30)
[2018-10-02] MEDS ORDERED: METHOTREXATE IV.SIG ONE ×2 (18:00)
[2018-10-02] MEDS ORDERED: WATER IV.SIG ONE ×2 (18:00)
[2018-10-02] MEDS ORDERED: DEXTROSE 5% IV.SIG ONE ×2 (18:00)
[2018-10-02] MEDS: Glimepiride 1 MG Tablet PO SCH (18:23)
[2018-10-03] MEDS: [UNRECOGNIZED DRUG - OTHER] IV.CONT SCH ×4 (01:53→20:46)
[2018-10-03] MEDS: SODIUM CHLORIDE IV.CONT SCH ×4 (01:53→20:46)
[2018-10-03] MEDS: SODIUM BICARBONATE IV.CONT SCH ×4 (01:53→20:46)
[2018-10-03 05:40] LABS: Hemoglobin 10.4 gm/dL (13.0-17.0); Lymph # (Auto) 0.5 th/mm3 (1.0-4.8); Mean Corpuscular Hemoglobin 33.1 pg (27.0-34.0); Mean Corpuscular Volume 92.1 fL (80.0-100.0); Mean Platelet Volume 8.1 fL (7.0-11.0); Mono # (Auto) 0.7 th/mm3 (0.0-0.9); Mono % (Auto) 8.7 % (0.0-8.0); Neut # (Auto) 6.3 th/mm3 (1.8-7.7); Neut % (Auto) 84.3 % (16.0-70.0); Platelet Count 208 th/mm3 (150-450); Red Blood Count 3.15 mil/mm3 (4.50-5.90); Red Cell Distribution Width 15.3 % (11.6-17.2); White Blood Count 7.5 th/mm3 (4.0-11.0)
[2018-10-03 06:10] LABS: Anion Gap 8 meq/L (5-15); Aspartate Aminotransferase 20 U/L (15-37); Blood Urea Nitrogen 14 mg/dL (7-18); Calcium 8.6 mg/dL (8.5-10.1); Carbon Dioxide 29.7 meq/L (21.0-32.0); Chloride 106 meq/L (98-107); Glomerular Filtration Rate Greater Than 89 mL/min (>89); Glucose,Random 168 mg/dL (74-106); Potassium 3.6 meq/L (3.5-5.1); Sodium 144 meq/L (136-145)
[2018-10-03 06:11] LABS: Alanine Aminotransferase 23 U/L (12-78)
[2018-10-03 06:14] LABS: Alkaline Phosphatase 68 U/L (45-117); Total Protein 5.7 g/dL (6.4-8.2)
[2018-10-03] MEDS: Enoxaparin Inj 40 MG/0.4 ML Syringe SQ SCH (07:09)
--- NOTE | 2018-10-03 07:16 | P.PNONC ---
Subjective Interval history: Patient seen and examined, vital signs, labs and medications reviewed. Patient received methotrexate dose last night, infusion was started at approximately 7 PM last night. Infusion was completed at approximately 11 PM last night. Subjectively; patient denies acute complaints he reports tolerating treatment reasonably well. He denies difficulty breathing, fevers or chills, overt bleeding, chest pain, nausea, vomiting or diarrhea. Objective Vital Signs/Intake & Output: Vital Signs 10/02/18 07:37 10/02/18 11:00 10/02/18 11:45 Temperature 97.6 F 97.7 F Pulse Rate 74 69 76 Respiratory Rate 18 18 Blood Pressure 128/67 146/68 H Pulse Oximetry 100 100 10/02/18 15:00 10/02/18 15:34 10/02/18 19:44 Temperature 98.2 F 97.7 F Pulse Rate 78 60 88 Respiratory Rate 18 Blood Pressure 124/56 L 130/49 L Pulse Oximetry 100 99 10/02/18 20:04 10/02/18 23:00 10/02/18 23:05 Temperature 97.6 F Pulse Rate 73 61 61 Respiratory Rate 18 Blood Pressure 136/64 Pulse Oximetry 97 10/03/18 04:01 10/03/18 05:11 Temperature 97.9 F Pulse Rate 78 76 Respiratory Rate 17 Blood Pressure 127/63 Pulse Oximetry 99 Intake & Output 10/02/18 10/03/18 10/03/18 18:59 06:59 18:59 Intake Total 6000 / 6000 4823.250 / 4823.250 1109.65 / 1109.65 Output Total 5075 / 5075 4975 / 4975 Balance 925 / 925 -151.750 / -030.250 8992.65 / 1109.65 Weight 95.2 kg 92.7 kg Intake: IV 3983.250 / 3983.250 1109.65 / 1109.65 Sodium Bicarbonate 8.4% Inj 100 1000 / 1000 MEQ In D5W Inj 900 ML @ 84 mls /hr IV.CONT .[id number] [facility] Rx#: [id number] Sodium Chloride 23.4% Inj 38.5 2219.250 / 2219.250 1109.65 / 1109.65 MEQ Sodium Bicarbonate 8.4% Inj 100 MEQ In Sterile Water for Inj 1,000 ML @ 150 mls/hr IV. CONT .Q7H24M [facility] Rx#:[id number] Kytril Inj 1 MG Decadron Inj 20 56 / 56 MG In NS Inj 50 ML @ 336 mls/ hr IV.SIG ONCE ONE Rx#:[id number] Methotrexate PF Inj 5,200 MG In 708 / 708 D5W Inj 500 ML @ 236 mls/hr IV .SIG ONCE ONE Rx#:[id number] Oral 6000 / 6000 840 / 840 Output: Urine 5075 / 5075 4975 / 4975 Other: Date of Last Bowel Movement 10/02/18 10/02/18 Weight On Admission 95.2 kg Result Diagrams: 10/03/18 05:18 10/03/18 05:18 Laboratory Results: Laboratory Results - last 24 hr 10/02/18 10/02/18 10/02/18 08:00 08:00 08:00 WBC 8.2 RBC 3.23 L Hgb 10.6 L Hct 30.8 L MCV 95.3 MCH 32.9 MCHC 34.5 RDW 15.3 Plt Count 222 MPV 8.6 Prelim Diff (Auto) Neut % (Auto) 72.1 H Lymph % (Auto) 11.0 [place] % (Auto) 16.5 H Eos % (Auto) 0.2 Baso % (Auto) 0.2 Neut # (Auto) 5.9 Lymph # (Auto) 0.9 L [place] # (Auto) 1.4 H Eos # (Auto) 0.0 Baso # (Auto) 0.0 WBC Differential . Differential Comment Auto diff final Sodium 135 L Potassium 3.9 Chloride 101 Carbon Dioxide 21.1 Anion Gap 13 BUN 16 Creatinine 0.99 Estimated GFR 73 L POC Glucose Random Glucose 150 H Calcium 8.7 Total Bilirubin 0.3 AST 15 ALT 22 Alkaline Phosphatase 87 Total Protein 6.4 Albumin 3.4 Urine pH 5.0 10/02/18 10/02/18 10/02/18 13:40 17:25 20:18 WBC RBC Hgb Hct MCV MCH MCHC RDW Plt Count MPV Prelim Diff (Auto) Neut % (Auto) Lymph % (Auto) [place] % (Auto) Eos % (Auto) Baso % (Auto) Neut # (Auto) Lymph # (Auto) [place] # (Auto) Eos # (Auto) Baso # (Auto) WBC Differential Differential Comment Sodium Potassium Chloride Carbon Dioxide Anion Gap BUN Creatinine Estimated GFR POC Glucose 170 H Random Glucose Calcium Total Bilirubin AST ALT Alkaline Phosphatase Total Protein Albumin Urine pH 6.0 7.0 10/03/18 10/03/18 10/03/18 05:18 05:18 05:18 WBC 7.5 RBC 3.15 L Hgb 10.4 L Hct 29.0 L MCV 92.1 MCH 33.1 MCHC 36.0 RDW 15.3 Plt Count 208 MPV 8.1 Prelim Diff (Auto) Slide review pending Neut % (Auto) 84.3 H Lymph % (Auto) 7.0 L [place] % (Auto) 8.7 H Eos % (Auto) 0.0 Baso % (Auto) 0.0 Neut # (Auto) 6.3 Lymph # (Auto) 0.5 L [place] # (Auto) 0.7 Eos # (Auto) 0.0 Baso # (Auto) 0.0 WBC Differential Differential Comment . Sodium 144 Potassium 3.6 Chloride 106 Carbon Dioxide 29.7 Anion Gap 8 BUN 14 Creatinine 0.80 Estimated GFR Greater than 89 POC Glucose Random Glucose 168 H Calcium 8.6 Total Bilirubin 0.4 AST 20 ALT 23 Alkaline Phosphatase 68 Total Protein 5.7 L D Albumin 3.0 L Urine pH 7.0 Medications: Active Medications Generic Name Dose Route Start Last Admin Trade Name Freq PRN Reason Stop Dose Admin Enoxaparin Sodium 40 mg 10/02/18 07:15 10/03/18 07:09 Lovenox Inj SQ 40 mg Q24H [facility] Administration Glimepiride 1 mg 10/02/18 17:00 10/02/18 18:23 Amaryl PO 1 mg BIDAC ANDRIY Administration Sodium Chloride 38.5 meq/ 1,109.625 mls @ 150 mls/hr 10/02/18 18:00 10/03/18 07:13 Sodium Bicarbonate 100 meq/ IV.CONT 170 mls/hr Sterile Water .Q7H24M [facility] Administration Insulin Human Regular 0 units 10/02/18 12:00 10/02/18 20:20 Novolin R Correctional Sugar Inj SQ 1 units ACHS ANDRIY Administration Protocol Metformin HCl 500 mg 10/02/18 18:00 10/02/18 18:23 Glucophage PO 500 mg BIDPC AND[facility]Y Administration Midodrine 5 mg 10/02/18 21:00 10/02/18 20:13 Proamatine PO 5 mg BID AND[facility]Y Administration Pravastatin Sodium 20 mg 10/02/18 18:00 10/02/18 18:23 Pravachol PO 20 mg DAILY@1800 AND[facility] Administration Senna/Docusate Sodium 1 tab 10/02/18 09:00 10/02/18 20:13 Catherine-Colace PO 1 tab BID [facility] Administration Sitagliptin Phosphate 50 mg 10/02/18 21:00 10/02/18 20:13 Januvia PO 50 mg BID [facility] Administration Objective Remarks: Elderly male, tall, moderate build, appears to be no acute distress is a pleasant disposition. HEENT: Head atraumatic was felt, old craniotomy incision scar noted. Oral exam: No pharyngeal erythema neck exam no palpable cervical supraclavicular lymphadenopathy. Respiratory: Good air movement bilaterally not breath sounds. Cardiovascular: Regular rate and rhythm, S1-S2 no obvious murmurs rubs gallops. Abdominal exam: Protuberant belly, soft and nontender nondistended palpable organ enlargement, specifically no hepatosplenomegaly. Lower tremors no pretibial edema no calf tenderness. TRANSLATOR: No focal sensorimotor deficit. Skin examination: Nonfocal. Assessment/Plan - Plan Is a 78-year-old male well-known to me. He has a diagnosis of diffuse large B- cell lymphoma which presented as primary TRANSLATOR lymphoma in October 2016.Mr. Ramey he is status post first-line systemic therapy which consisted of methotrexate, rituximab, vincristine. He did have a good response to initial treatment but relapsed in the summer 2017. He is now on high-dose methotrexate with R-CHOP. He comes in today for cycle #4 high-dose methotrexate. Restaging scans performed earlier this month indicate excellent response to treatment without evidence of residual disease. Other than weakness he is without significant adverse effects. Plan: 1. Relapsed diffuse large B-cell lymphoma/Primary TRANSLATOR lymphoma: He received methotrexate infusion on the night of 10/02/2018. 2. He has been initiated on sodium bicarbonate infusion for appropriate systemic alkalinization. Daily urine pH levels have been ordered. 3. Diabetes: Bedside fingerstick glucose assessment before meals and before bedtime. Continue oral hypoglycemic agents and initiate insulin sliding scale. 4. Hypertension: Continue outpatient antihypertensives. 5. DVT prophylaxis with Lovenox. 6. Leucovorin rescue will be started as per protocol later tonight at approximately 7 PM.
[2018-10-03] MEDS: Senna/Docusate Sodium 8.6/50 MG Tablet PO SCH ×2 (08:51→20:41)
[2018-10-03] MEDS: Glimepiride 1 MG Tablet PO SCH ×2 (08:52→16:20)
[2018-10-03] MEDS: Insulin NovoLIN Regular Correctional Sugar Inj SQ SCH ×4 (08:56→20:43)
[2018-10-03] MEDS: SODIUM CHLOR 0.9% IV.SIG SCH (19:21)
[2018-10-03] MEDS: LEUCOVORIN IV.SIG SCH (19:21)
[2018-10-04] MEDS: SODIUM BICARBONATE IV.CONT SCH ×4 (01:00→19:37)
[2018-10-04] MEDS: SODIUM CHLOR 0.9% IV.SIG SCH ×4 (01:00→19:35)
[2018-10-04] MEDS: [UNRECOGNIZED DRUG - OTHER] IV.CONT SCH ×4 (01:00→19:37)
[2018-10-04] MEDS: LEUCOVORIN IV.SIG SCH ×4 (01:00→19:35)
[2018-10-04] MEDS: SODIUM CHLORIDE IV.CONT SCH ×4 (01:00→19:37)
[2018-10-04] MEDS: Enoxaparin Inj 40 MG/0.4 ML Syringe SQ SCH (07:59)
[2018-10-04] MEDS: Insulin NovoLIN Regular Correctional Sugar Inj SQ SCH ×4 (07:59→20:59)
[2018-10-04] MEDS: Glimepiride 1 MG Tablet PO SCH ×2 (07:59→17:21)
--- NOTE | 2018-10-04 08:42 | P.PNONC ---
Subjective Interval history: Patient reports feeling well, he denies acute complaints at this time. He reports having had a comfortable night last night. He specifically denies fevers, chills, difficulty breathing, chest pain, palpitations, abdominal pain, nausea, vomiting, mouth sores or diarrhea. Objective Vital Signs/Intake & Output: Vital Signs 10/03/18 12:00 10/03/18 15:23 10/03/18 18:10 Temperature 98 F Pulse Rate 67 77 69 Respiratory Rate 18 Blood Pressure 141/67 H Pulse Oximetry 99 10/03/18 20:00 10/04/18 00:00 10/04/18 04:00 Temperature 97.7 F 97.6 F 98.2 F Pulse Rate 81 90 70 Respiratory Rate 16 15 16 Blood Pressure 128/57 L 131/59 L 130/57 L Pulse Oximetry 98 100 97 10/04/18 07:00 10/04/18 07:54 Temperature 97.7 F Pulse Rate 74 68 Respiratory Rate 18 Blood Pressure 145/69 H Pulse Oximetry 100 Intake & Output 10/03/18 10/04/18 10/04/18 18:59 06:59 18:59 Intake Total 4609.275 / 4609.275 1610 / 1610 1109.625 / 1109.625 Output Total 4600 / 4600 5350 / 5350 Balance 9.275 / 9.275 -3740 / -3740 1109.625 / 1109.625 Weight 95.2 kg Intake: IV 3319.275 / 3319.275 1210 / 1210 1109.625 / 1109.625 Sodium Chloride 23.4% Inj 38.5 3319.275 / 3319.275 1100 / 1100 1109.625 / 1109.625 MEQ Sodium Bicarbonate 8.4% Inj 100 MEQ In Sterile Water for Inj 1,000 ML @ 150 mls/hr IV. CONT .Q7H24M [facility] Rx#:[id number] Wellcovorin Inj 20 MG In NS Inj 110 / 110 50 ML @ 16.667 mls/hr IV.SIG Q6H [facility] Rx#:[id number] Oral 1290 / 1290 400 / 400 Output: Urine 4600 / 4600 5350 / 5350 Other: # Voids 14 2 Date of Last Bowel Movement 10/03/18 10/03/18 10/04/18 # Bowel Movements 1 Result Diagrams: 10/03/18 05:18 10/03/18 05:18 Laboratory Results: Laboratory Results - last 24 hr 10/03/18 10/03/18 10/03/18 11:16 16:20 17:20 POC Glucose 266 H 204 H Urine pH Methotrexate 4.50 10/03/18 10/04/18 10/04/18 20:40 04:27 07:58 POC Glucose 246 H 142 H Urine pH 8.0 Methotrexate Medications: Active Medications Generic Name Dose Route Start Last Admin Trade Name Freq PRN Reason Stop Dose Admin Aspirin 81 mg 10/03/18 09:00 10/03/18 08:51 Ecotrin PO 81 mg DAILY ANDRIY Administration Enoxaparin Sodium 40 mg 10/02/18 07:15 10/04/18 07:59 Lovenox Inj SQ 40 mg Q24H ANDRIY Administration Glimepiride 1 mg 10/02/18 17:00 10/04/18 07:59 Amaryl PO 1 mg BIDAC ANDRIY Administration Sodium Chloride 38.5 meq/ 1,109.625 mls @ 150 mls/hr 10/02/18 18:00 10/04/18 07:59 Sodium Bicarbonate 100 meq/ IV.CONT 170 mls/hr Sterile Water .Q7H24M AND[facility]Y Administration Leucovorin Calcium 20 mg/ 50 mls @ 16.667 mls/hr 10/03/18 20:00 10/04/18 07: 59 Sodium Chloride IV.SIG 10/06/18 16:59 16.67 mls/hr Q6H ANDRIY Administration Insulin Human Regular 0 units 10/02/18 12:00 10/04/18 07:59 Novolin R Correctional Sugar Inj SQ Not Given ACHS [facility] Protocol Metformin HCl 500 mg 10/02/18 18:00 10/03/18 17:06 Glucophage PO 500 mg BIDPC ANDRIY Administration Metoprolol Succinate 12.5 mg 10/03/18 09:00 10/03/18 08:51 Toprol Xl PO 12.5 mg DAILY ANDRIY Administration Midodrine 5 mg 10/02/18 21:00 10/03/18 20:41 Proamatine PO 5 mg BID ANDRIY Administration Pravastatin Sodium 20 mg 10/02/18 18:00 10/03/18 17:06 Pravachol PO 20 mg DAILY@1800 AND[facility]Y Administration Prednisone 100 mg 10/03/18 09:00 10/03/18 08:52 Deltasone PO 100 mg DAILY ANDRIY Administration Senna/Docusate Sodium 1 tab 10/02/18 09:00 10/03/18 20:41 Catherine-Colace PO 1 tab BID ANDRIY Administration Sitagliptin Phosphate 50 mg 10/02/18 21:00 10/03/18 20:41 Januvia PO 50 mg BID ANDRIY Administration Vitamin D 1,000 unit 10/03/18 09:00 10/03/18 08:52 Vitamin D3 PO 1,000 unit DAILY ANDRIY Administration Objective Remarks: Elderly male, tall, moderate build, appears to be no acute distress is a pleasant disposition. HEENT: Head atraumatic was felt, old craniotomy incision scar noted. Oral exam: No pharyngeal erythema neck exam no palpable cervical supraclavicular lymphadenopathy. Respiratory: Good air movement bilaterally not breath sounds. Cardiovascular: Regular rate and rhythm, S1-S2 no obvious murmurs rubs gallops. Abdominal exam: Protuberant belly, soft and nontender nondistended palpable organ enlargement, specifically no hepatosplenomegaly. Lower tremors no pretibial edema no calf tenderness. PARIMUTUEL CLERK: No focal sensorimotor deficit. Skin examination: Nonfocal. Assessment/Plan - Plan Is a 78-year-old male well-known to me. 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 Ramey he is status post first-line systemic therapy which consisted of methotrexate, rituximab, vincristine. He did have a good response to initial treatment but relapsed in the summer 2017. He is now on high-dose methotrexate with R-CHOP. Presently in the hospital for cycle #4 high-dose methotrexate. Restaging scans performed earlier this month indicate excellent response to treatment without evidence of residual disease. Other than weakness he is without significant adverse effects. Plan: 1. Relapsed diffuse large B-cell lymphoma/Primary PARIMUTUEL CLERK lymphoma: He received methotrexate infusion on the night of 10/02/2018. Methotrexate level from last night was 4.5. He remains on leucovorin rescue per protocol. Continue prednisone 100 mg p.o. daily. 2. He is currently on sodium bicarbonate infusion for appropriate systemic alkalinization. Daily urine pH levels have been ordered; urine pH level has been at goal. 3. Diabetes: Bedside fingerstick glucose assessment before meals and before bedtime. Continue oral hypoglycemic agents and initiate insulin sliding scale. 4. Hypertension: Continue outpatient antihypertensives. 5. DVT prophylaxis with Lovenox. 6. Continue leucovorin rescue, repeat methotrexate levels tomorrow morning at 7 AM. Disposition: He will be clear for discharge once his methotrexate level is less than or equal to 0.1.
[2018-10-04] MEDS: Senna/Docusate Sodium 8.6/50 MG Tablet PO SCH ×2 (09:21→20:59)
[2018-10-05] MEDS: SODIUM CHLOR 0.9% IV.SIG SCH ×3 (01:36→14:13)
[2018-10-05] MEDS: SODIUM BICARBONATE IV.CONT SCH ×2 (01:36→14:19)
[2018-10-05] MEDS: [UNRECOGNIZED DRUG - OTHER] IV.CONT SCH ×2 (01:36→14:19)
[2018-10-05] MEDS: LEUCOVORIN IV.SIG SCH ×3 (01:36→14:13)
[2018-10-05] MEDS: SODIUM CHLORIDE IV.CONT SCH ×2 (01:36→14:19)
[2018-10-05] MEDS: Enoxaparin Inj 40 MG/0.4 ML Syringe SQ SCH (06:58)
--- NOTE | 2018-10-05 08:10 | P.PNONC ---
Subjective Interval history: Patient was seen and examined. Vs, labs, medications reviewed. Patient denies acute complaints at this time he reports tolerating treatment well. He is looking forward to going home later today. Objective Vital Signs/Intake & Output: Vital Signs 10/04/18 11:00 10/04/18 11:29 10/04/18 15:00 Temperature 98.2 F Pulse Rate 65 70 86 Respiratory Rate 18 Blood Pressure 129/58 L Pulse Oximetry 99 10/04/18 15:04 10/04/18 20:00 10/05/18 00:00 Temperature 97.9 F 98 F 97.7 F Pulse Rate 81 73 69 Respiratory Rate 18 16 15 Blood Pressure 147/63 H 150/74 H 150/81 H Pulse Oximetry 99 100 96 10/05/18 04:00 Temperature 97.9 F Pulse Rate 70 Respiratory Rate 16 Blood Pressure 148/63 H Pulse Oximetry 100 Intake & Output 10/04/18 10/05/18 10/05/18 18:59 06:59 18:59 Intake Total 9309.250 / 9309.250 2576.625 / 2576.625 Output Total 5325 / 5325 5280 / 5280 Balance 3984.250 / 3984.250 -2703.375 / -2703.375 Weight 95.3 kg Intake: IV 2329.250 / 2329.250 2336.625 / 2336.625 Sodium Chloride 23.4% Inj 38.5 2219.250 / 2219.250 2219.625 / 2219.625 MEQ Sodium Bicarbonate 8.4% Inj 100 MEQ In Sterile Water for Inj 1,000 ML @ 150 mls/hr IV. CONT .Q7H24M [facility] Rx#:[id number] Wellcovorin Inj 20 MG In NS Inj 110 / 110 117 / 117 50 ML @ 16.667 mls/hr IV.SIG Q6H [facility] Rx#:[id number] Oral 6980 / 6980 240 / 240 Output: Urine 5325 / 5325 5280 / 5280 Other: Date of Last Bowel Movement 10/04/18 10/04/18 Result Diagrams: 10/03/18 05:18 10/03/18 05:18 Laboratory Results: Laboratory Results - last 24 hr 10/03/18 10/04/18 10/04/18 17:20 07:58 17:13 POC Glucose 142 H 369 H Urine pH Methotrexate 4.50 10/04/18 10/05/18 20:58 05:35 POC Glucose 221 H Urine pH 8.0 Methotrexate Medications: Active Medications Generic Name Dose Route Start Last Admin Trade Name Stephanie PRN Reason Stop Dose Admin Aspirin 81 mg 10/03/18 09:00 10/04/18 09:19 Ecotrin PO 81 mg DAILY ANDRIY Administration Enoxaparin Sodium 40 mg 10/02/18 07:15 10/05/18 06:58 Lovenox Inj SQ 40 mg Q24H ANDRIY Administration Glimepiride 1 mg 10/02/18 17:00 10/04/18 17:21 Amaryl PO 1 mg BIDAC ANDRIY Administration Sodium Chloride 38.5 meq/ 1,109.625 mls @ 150 mls/hr 10/02/18 18:00 10/05/18 01:36 Sodium Bicarbonate 100 meq/ IV.CONT 170 mls/hr Sterile Water .Q7H24M AND[facility]Y Administration Leucovorin Calcium 20 mg/ 50 mls @ 16.667 mls/hr 10/03/18 20:00 10/05/18 05: 05 Sodium Chloride IV.SIG 10/06/18 16:59 Infused Q6H ANDRIY Infusion Insulin Human Regular 0 units 10/02/18 12:00 10/04/18 20:59 Novolin R Correctional Sugar Inj SQ 3 units ACHS [facility] Administration Protocol Metformin HCl 500 mg 10/02/18 18:00 10/04/18 17:21 Glucophage PO 500 mg BIDPC ANDRIY Administration Metoprolol Succinate 12.5 mg 10/03/18 09:00 10/04/18 09:19 Toprol Xl PO 12.5 mg DAILY ANDRIY Administration Midodrine 5 mg 10/02/18 21:00 10/04/18 20:59 Proamatine PO 5 mg BID ANDRIY Administration Pravastatin Sodium 20 mg 10/02/18 18:00 10/04/18 17:21 Pravachol PO 20 mg DAILY@1800 ANDRIY Administration Prednisone 100 mg 10/03/18 09:00 10/04/18 09:19 Deltasone PO 100 mg DAILY ANDRIY Administration Senna/Docusate Sodium 1 tab 10/02/18 09:00 10/04/18 20:59 Catherine-Colace PO 1 tab BID ANDRIY Administration Sitagliptin Phosphate 50 mg 10/02/18 21:00 10/04/18 20:59 Januvia PO 50 mg BID ANDRIY Administration Vitamin D 1,000 unit 10/03/18 09:00 10/04/18 09:20 Vitamin D3 PO 1,000 unit DAILY ANDRIY Administration Objective Remarks: Elderly male, tall, moderate build, appears to be no acute distress is a pleasant disposition. HEENT: Head atraumatic was felt, old craniotomy incision scar noted. Oral exam: No pharyngeal erythema neck exam no palpable cervical supraclavicular lymphadenopathy. Respiratory: Good air movement bilaterally not breath sounds. Cardiovascular: Regular rate and rhythm, S1-S2 no obvious murmurs rubs gallops. Abdominal exam: Protuberant belly, soft and nontender nondistended palpable organ enlargement, specifically no hepatosplenomegaly. Lower tremors no pretibial edema no calf tenderness. CHILD MONITOR: No focal sensorimotor deficit. Skin examination: Nonfocal. Assessment/Plan - Plan Is a 78-year-old male well-known to me. 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 Ramey he is status post first-line systemic therapy which consisted of methotrexate, rituximab, vincristine. He did have a good response to initial treatment but relapsed in the summer 2017. He is now on high-dose methotrexate with R-CHOP. Presently in the hospital for cycle #4 high-dose methotrexate. Restaging scans performed earlier this month indicate excellent response to treatment without evidence of residual disease. Other than weakness he is without significant adverse effects. Plan: 1. Relapsed diffuse large B-cell lymphoma/Primary CHILD MONITOR lymphoma: He received methotrexate infusion on the night of 10/02/2018. Methotrexate level was drawn earlier today, levels are pending. He remains on leucovorin rescue per protocol. Continue prednisone 100 mg p.o. daily. 2. He is currently on sodium bicarbonate infusion for appropriate systemic alkalinization. Daily urine pH levels have been ordered; urine pH level has been at goal. 3. Diabetes: Bedside fingerstick glucose assessment before meals and before bedtime. Continue oral hypoglycemic agents and initiate insulin sliding scale. 4. Hypertension: Continue outpatient antihypertensives. 5. DVT prophylaxis with Lovenox. 6. Continue leucovorin rescue. Disposition: He will be clear for discharge once his methotrexate level is less than or equal to 0.1. Await methotrexate levels which were drawn this morning. Should his level be at goal or lower he will be discharged later today. The patient understands he needs to continue taking prednisone 100 mg daily up until 10/07/2018. He has enough prednisone tablets at home for dosing. Neupogen injection for 480 mcg x1 today.
[2018-10-05] MEDS: Glimepiride 1 MG Tablet PO SCH (08:59)
[2018-10-05] MEDS: Insulin NovoLIN Regular Correctional Sugar Inj SQ SCH ×2 (08:59→12:19)
[2018-10-05] MEDS: Senna/Docusate Sodium 8.6/50 MG Tablet PO SCH (09:02)
--- NOTE | 2018-10-05 15:43 | P.DS ---
Date of admission: 10/02/18 06:44 Primary care physician: Linden Bentley MD Attending physician on discharge: Nas Fish Anticipated date of discharge: 10/05/18 Brief History from admission: Mr. Ramey is a very pleasant 78-year-old male with a diagnosis of relapsed high-grade primary BLANKER PRESS OPERATOR lymphoma (diffuse large B-cell histology). He relapsed intracranially as well as testicular relapse in the summer 2017. His initial diagnosis was established in October 2016. He is currently on treatment with high-dose methotrexate in combination with R-CHOP; he has completed 3 cycles of this. Restaging PET CT imaging performed in early September and restaging MRI of the brain performed in early September indicates excellent response to therapy without evidence of residual disease. Subjectively; the patient denies acute complaints other than generally feeling weak, he reports some unsteadiness in his balance but denies having had fallen. He specifically denies B type symptoms of fevers, chills, night sweats or unintended weight loss. He received his fourth cycle R CHOP on 10/01/2018 in my outpatient center. He comes in today for high-dose methotrexate. Patient update on day of discharge: Quiet thank you Patient tolerated cycle 4 high-dose methotrexate without difficulty. He was hydrated with sodium bicarbonate,Urine pH levels were monitored, after methotrexate was infused methotrexate levels were also monitored. This morning repeat methotrexate level was noted to be 1. 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 He was initiated on sodium bicarbonate infusion. Urine pH was monitored, urine pH was noted to be 7 or higher he was treated with high-dose methotrexate at 2500 mg per metered squared. Following completion of methotrexate infusion on the evening of 10/02/2018. He was initiated on leucovorin rescue on the night of 10/03/2018. Methotrexate levels were monitored as per protocol. Tolerated treatment without significant adverse effects. - Time Spent with Patient Total time spent providing and/or coordinating discharge services: Greater than 30 minutes - Quality: AMI Clinical Trial Participant: No - Quality: VTE Deep Vein Thrombosis/Pulmonary Embolism Present on Admission: No Exam Vital signs: Vital Signs 10/04/18 20:00 10/05/18 00:00 10/05/18 04:00 Temperature 98 F 97.7 F 97.9 F Pulse Rate 73 69 70 Respiratory Rate 16 15 16 Blood Pressure 150/74 H 150/81 H 148/63 H Pulse Oximetry 100 96 100 10/05/18 08:00 10/05/18 08:47 10/05/18 12:00 Temperature 98 F 98.2 F Pulse Rate 65 66 70 Respiratory Rate 16 16 Blood Pressure 184/92 H 152/73 H Pulse Oximetry 100 100 Intake & Output 10/04/18 10/05/18 10/05/18 18:59 06:59 18:59 Intake Total 9309.250 / 9309.250 2576.625 / 2576.625 700 / 700 Output Total 5325 / 5325 5280 / 5280 3300 / 3300 Balance 3984.250 / 3984.250 -2703.375 / -2703.375 -2600 / -2600 Weight 95.3 kg Intake: IV 2329.250 / 2329.250 2336.625 / 2336.625 50 / 50 Sodium Chloride 23.4% Inj 38.5 2219.250 / 2219.250 2219.625 / 2219.625 0 / 0 MEQ Sodium Bicarbonate 8.4% Inj 100 MEQ In Sterile Water for Inj 1,000 ML @ 150 mls/hr IV. CONT .Q7H24M [facility] Rx#:[id number] Wellcovorin Inj 20 MG In NS Inj 110 / 110 117 / 117 50 / 50 50 ML @ 16.667 mls/hr IV.SIG Q6H ANDRIY Rx#:[id number] Oral 6980 / 6980 240 / 240 650 / 650 Output: Urine 5325 / 5325 5280 / 5280 3300 / 3300 Other: Date of Last Bowel Movement 10/04/18 10/04/18 10/05/18 # Bowel Movements 1 Narrative: Elderly male, tall, moderate build, appears to be no acute distress is a pleasant disposition. HEENT: Head atraumatic was felt, old craniotomy incision scar noted. Oral exam: No pharyngeal erythema neck exam no palpable cervical supraclavicular lymphadenopathy. Respiratory: Good air movement bilaterally not breath sounds. Cardiovascular: Regular rate and rhythm, S1-S2 no obvious murmurs rubs gallops. Abdominal exam: Protuberant belly, soft and nontender nondistended palpable organ enlargement, specifically no hepatosplenomegaly. Lower tremors no pretibial edema no calf tenderness. BLANKER PRESS OPERATOR: No focal sensorimotor deficit. Skin examination: Nonfocal. - Constitutional no acute distress - Routine HEENT Exam Head: Present: normocephalic Eye: Present: EOMI, PERRL - Routine Neck Exam Present: supple - Routine Chest/Breast/Axilla Exam Chest wall: Absent: tenderness Breast: Absent: tenderness Axillae: Absent: lymphadenopathy - Routine Respiratory Exam Present: CTA bilaterally - Routine Cardiovascular Exam Present: RRR, S1, S2 - Routine Abdominal Exam Present: soft - Routine Extremities Exam Absent: cyanosis - Routine Skin Exam Present: intact - Routine Neurological Exam Present: alert, oriented X3, CN II-XII intact Results Procedures completed during hospitalization: No procedures were performed. Patient did receive cycle 4 high-dose methotrexate. Pending studies at discharge: None Labs on day of discharge: Labs from last 24 hours 10/05/18 10/05/18 10/05/18 11:56 08:42 06:59 POC Glucose 204 H 99 Urine pH Methotrexate 0.10 10/05/18 10/04/18 10/04/18 05:35 20:58 17:13 POC Glucose 221 H 369 H Urine pH 8.0 Methotrexate - Impressions 78-year-old man with diagnosis of relapsed high-grade diffuse large B-cell lymphoma/primary BLANKER PRESS OPERATOR lymphoma. Presents for high-dose methotrexate after having received R-CHOP the day prior to admission. Discharge Plan - Discharge Disposition Patient Disposition: 01 Discharge Home - Discharge Condition Condition: Good - Discharge Order Discharge Orders: Discharge Order (Routine); Ordered 10/05/18 Ordered By: Nas Fish - Discharge Details Anticipated Discharge Date: 10/05/18 Discharge Comment: Clear for discharge. - Physicians Team Primary Care Provider: Linden Bentley Attending Provider: Nas Fish - Rxs /Orders / Referrals /Forms Prescriptions: New acetaminophen 325 mg Tablet 650 mg PO Q4H PRN (Reason: Temp > 100.4) RF: 0 aspirin 81 mg Tablet,Delayed Release (Dr/Ec) 81 mg PO DAILY RF: 0 cholecalciferol (vitamin D3) [Vitamin D3] 1,000 unit Tablet 1,000 unit PO DAILY RF: 0 metoprolol succinate 25 mg Tablet Extended Release 24 Hr 12.5 mg PO DAILY RF: 0 midodrine 5 mg Tablet 5 mg PO BID RF: 0 pravastatin 20 mg Tablet 20 mg PO DAILY@1800 RF: 0 prednisone 50 mg Tablet 100 mg PO DAILY RF: 0 Continue acarbose 50 mg Tablet 50 mg PO DAILY aspirin 81 mg Tablet,Delayed Release (Dr/Ec) 81 mg PO DAILY RF: 0 cholecalciferol (vitamin D3) [Vitamin D3] 1,000 unit Tablet 1,000 unit PO DAILY RF: 0 metoprolol succinate 25 mg Tablet Extended Release 24 Hr 12.5 mg PO DAILY RF: 0 midodrine 5 mg Tablet 5 mg PO BID RF: 0 omega [id number]-fish oil [Fish Oil] 1,000 mg (120 mg-180 mg) Capsule 1,000 mg PO DAILY sitagliptin-metformin [Janumet] 50-500 mg Tablet 1 tab PO BID Discontinued glimepiride [Amaryl] 1 mg Tablet 1 mg PO BIDAC RF: 0 simvastatin 10 mg Tablet 10 mg PO QPM Referrals: Linden Bentley MD [Primary Care Provider] - See Instructions
[2018-10-05] MEDS ORDERED: Heparin Central Flush 100 UNIT/ML 5 ML Vial IV.FLUSH STA (15:45)
== END 2018-10-05 16:45 | disposition home or self-care (01) ==
LOC: HCIN 06:44
PROVIDERS: ADMIT Internal Medicine Hematology & Oncology; ATTEND Internal Medicine Hematology & Oncology

== ENCOUNTER 2018-10-30 06:46 | Inpatient (IN) ==
[2018-10-30] MEDS ORDERED: Acetaminophen 325 MG Tablet PO PRN (07:12)
[2018-10-30] MEDS ORDERED: Bisacodyl 10 MG Supp RECTAL PRN (07:12)
[2018-10-30] MEDS ORDERED: Dextrose 50% in Water 50 ML Vial IV.PUSH PRN ×2 (07:18→11:46)
--- NOTE | 2018-10-30 07:57 | P.HPIM ---
History of Present Illness Service: Hematology/oncology. Primary Care Physician: Linden Bentely MD Chief Complaint: Patient presents for inpatient high-dose chemotherapy. History of Present Illness: Mr. 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 He relapsed intracranially as well as testicular relapse in the summer 2017. His initial diagnosis was established in October 2016 when he presented with a solitary brain lesion which was biopsied and found to be consistent with primary GROUND SUPPORT EQUIPMENT FITTER lymphoma (diffuse large B cell variant) after having received first-line systemic therapy consisting of rituximab, vincristine and high-dose methotrexate he achieved remission. Patient was found to have relapsed disease in the summer 2017 when he presented with a left-sided scrotal mass, he underwent a left inguinal orchiectomy. Pathologic findings are consistent with relapsed high-grade lymphoma. Systemic staging including brain imaging revealed intracranial recurrence as well. He was initiated on second line systemic therapy consisting of high-dose methotrexate/R CHOP. He comes in today for cycle #5 high-dose methotrexate. He received his fifth cycle of R CHOP at the outpatient clinic on 10/29/2018. The patient did undergo restaging imaging scans including PET/CT imaging and MRI of the brain following 3 cycles and was found to have no evidence of detectable disease. Overall, he seems to be tolerating treatment reasonably well, he does report increased fatigue and lack of ambition but continues to perform independently as far as ADLs are concerned, he maintains a good appetite and is able to walk between 30 minutes to 60 minutes almost daily. Inpatient Certification: I certify that the inpatient services were ordered in accordance with Medicare regulations governing the order. This includes certification that hospital inpatient services are reasonable and necessary and in the case of services not specified as inpatient-only under 42 CFR 419.22(n), that they are appropriately provided as inpatient services in accordance to with the 2-midnight benchmark under 43 CFR 412.3(e) Estimated Total Length of Stay (Days): 5 Plans for Post Hospital Care: Home Review of Systems Constitutional: Reports fatigue, Reports weakness, Denies anorexia, Denies chills, Denies fever(s), Denies headache(s), Denies night sweats, Denies weight loss Eyes: Denies blind spots, Denies change in vision, Denies double vision, Denies loss of vision Ears, Nose, Mouth, and Throat: Denies abnormal hearing, Denies change in voice, Denies sore throat, Denies throat swelling Cardiovascular: Denies chest pain, Denies shortness of breath, Denies shortness of breath with activity, Denies shortness of breath when lying down Respiratory: Denies chest congestion, Denies cough, Denies coughing up blood, Denies shortness of breath, Denies snoring Gastrointestinal: Denies abdominal pain, Denies black, tarry stools, Denies change in bowel habits, Denies feeling full early, Denies heartburn, Denies vomiting Genitourinary: Denies blood in urine, Denies urinary incontinence, Denies urinary urgency Musculoskeletal: Reports joint pain, Denies abnormal walking, Denies back pain, Denies body aches, Denies joint swelling Skin/Breast: Denies breast pain, Denies rash, Denies skin pain, Denies skin ulcer Neurologic: Denies abnormal movements, Denies abnormal speech, Denies abnormal walking, Denies localized weakness, Denies tremor(s) Psychiatric: Denies anxiety, Denies change in appetite Endocrine: Denies cold intolerance Hematologic/Lymphatic: Denies easy bleeding Allergic/Immunologic: Denies GI upset with certain foods PMFSH - History History Provided By: Patient, Family Member, Significant Other - Medical History Medical History: Medical History (Last Reviewed 10/30/18 @ 07:47 by Nas Fish MD) High grade malignant lymphoma Hypertension Normal colonoscopy Port-A-Cath in place Primary GROUND SUPPORT EQUIPMENT FITTER lymphoma Type 2 diabetes mellitus Valvular heart disease - Surgical History Surgical History: Surgical History (Last Reviewed 10/30/18 @ 07:47 by aNs Fish MD) H/O basal cell carcinoma excision H/O craniotomy History of bone marrow biopsy History of left knee replacement History of orchiectomy, unilateral Hx of tonsillectomy - Family History Family History: Family History (Last Reviewed 10/30/18 @ 07:47 by Nas Fish MD) Sister Cancer - Social History I have reviewed the patient's Social History: Yes - Tobacco History Second Hand Smoke Exposure: No Smoking Status: Former smoker Tobacco Type: Cigarettes - Alcohol History How Often Do You Have a Drink Containing Alcohol: Monthly or less - Substance Use History Substance History: No History of Abuse - Travel History History of Recent Travel: No Medications and Allergies Active Medications: Active Medications Acetaminophen (Tylenol) 650 mg PO Q4H PRN PRN Reason: Temp > 100.4 Al Hydroxide/Mg Hydroxide (Milk Of Magnesia Liq) 30 ml PO Q12H PRN PRN Reason: Mild Constipation Bisacodyl (Dulcolax Supp) 10 mg RECTAL DAILY PRN PRN Reason: SEVERE CONSITIPATION Dextrose (D50w Vial) 50 ml IV.PUSH UNSCH PRN PRN Reason: PER HYPOGLYCEMIA PROTOCOL Enoxaparin Sodium (Lovenox Inj) 40 mg SQ Q24H ANDRIY Glucagon (Glucagon Inj) 1 mg OTHER PRN PRN PRN Reason: for Hypoglycemia Protocol Sodium Bicarbonate 75 meq/ (Dextrose) 1,000 mls @ 100 mls/hr IV.CONT .Q10H ANDRIY Insulin Human Regular (Novolin R Correctional Sugar Inj) 0 units SQ ACHS ANDRIY; Protocol Lactulose (Lactulose Liq) 30 ml PO DAILY PRN PRN Reason: SEVERE CONSITIPATION Ondansetron HCl (Zofran Inj) 4 mg IV.PUSH Q6H PRN PRN Reason: NAUSEA OR VOMITING Senna/Docusate Sodium (Catherine-Colace) 1 tab PO BID [facility] Sennosides (Senokot) 17.2 mg PO Q12H PRN PRN Reason: Moderate Constipation Sodium Chloride (Ns Flush) 2 ml IV.FLUSH PRN PRN PRN Reason: FLUSH AFTER USING IV ACCESS Sodium Chloride (Ns Flush) 2 ml IV.FLUSH BID ANDRIY Zolpidem Tartrate (Ambien) 5 mg PO HS PRN PRN Reason: INSOMNIA Allergies Allergy/AdvReac Type Severity Reaction Status Date / Time No Known Allergies Allergy Verified 07/22/18 17:48 Home Medications Medication Instructions Recorded Confirmed Type sitagliptin-metformin [Janumet] 1 tab PO BID 07/22/18 10/02/18 History omega 8-fut-uos-fish oil [Fish Oil] 1,000 mg PO DAILY 08/07/18 10/02/18 History acarbose 50 mg PO DAILY 10/02/18 10/02/18 History Exam Narrative: General physical appearance: Patient is an elderly male, he is tall, he is of moderate build, he appears to be no acute distress, he has alopecia of chemotherapy. HEENT: Head atraumatic normocephalic, conjunctivae are non-pale sclerae anicteric, EOMI, PERRLA, oral exam no pharyngeal erythema, moist mucous membranes, no pharyngeal erythema. No palpable cervical supraclavicular adenopathy. Respiratory: Good air movement bilaterally no added breath sounds. Cardiovascular: Regular rate rhythm S1-S2 no obvious murmurs rubs gallops. Equal and adequate peripheral pulses. Abdominal examination: Thin abdomen, soft, nontender, nondistended no palpable organ enlargement no evidence of hepatosplenomegaly. Lower extremities no pretibial edema no calf tenderness. GROUND SUPPORT EQUIPMENT FITTER: No focal sensorimotor deficits. Skin examination: Some erythema of the face with skin dryness and skin flaking. Exam otherwise nonfocal. Right-sided infusion port noted along the right upper chest. Results - Labs Labs: Labs dated 10/29/2018: CBC: W BC count 7.1, hemoglobin 10.6 g/dL, hematocrit 32%, platelet count 294, absolute neutrophil count 4.9, absolute lymphocyte count 0.9. Chemistries: Sodium 139, potassium 4.2, chloride 105, bicarb 26, BUN 14, creatinine 0.94, EGFR 78, random glucose 259, calcium 8.6, total bilirubin 0.3, AST 18, ALT 21, alkaline phosphatase 85, albumin 3.1. Caprini VTE Risk Assessment Caprini VTE Risk Assessment: Moderate/High Risk (score >= 2) (On Lovenox 40 mg subcu once daily.) Caprini Risk Assessment Model: Point Value = 1 Point Value = 2 Point Value = 3 Point Value = 5 Age 41-60 Minor surgery BMI > 25 kg/m2 Swollen legs Varicose veins or History of unexplained or recurrent spontaneous Oral contraceptives or hormone replacement Sepsis (< 1 month) Serious lung disease, including pneumonia (< 1 month) Abnormal pulmonary function Acute myocardial infarction Congestive heart failure (< 1 month) History of inflammatory bowel disease Medical patient at bed rest Age 61-74 Arthroscopic surgery Major open surgery (> 45 min) Laparoscopic surgery (> 45 min) Malignancy Confined to bed (> 72 hours) Immobilizing plaster cast Central venous access Age >= 75 History of VTE Family history of VTE Factor V Leiden Prothrombin [id number] Lupus anticoagulant Anticardiolipin antibodies Elevated serum homocysteine Heparin-induced thrombocytopenia Other congenital or acquired thrombophilia Stroke (< 1 month) Elective arthroplasty Hip, pelvis, or leg fracture Acute spinal cord injury (< 1 month) Prophylaxis Regimen: Total Risk Factor Score Risk Level Prophylaxis Regimen 0-1 Low Early ambulation 2 Moderate Order ONE of the following: *Sequential Compression Device (SCD) *Heparin 5000 units SQ BID 3-4 Higher Order ONE of the following medications: *Heparin 5000 units SQ TID *Enoxaparin/Lovenox 40 mg SQ daily (WT < 150 kg, CrCl > 30 mL/min) *Enoxaparin/Lovenox 30 mg SQ daily (WT < 150 kg, CrCl > 10-29 mL/min) *Enoxaparin/Lovenox 30 mg SQ BID (WT < 150 kg, CrCl > 30 mL/min) AND/OR *Sequential Compression Device (SCD) 5 or more Highest Order ONE of the following medications: *Heparin 5000 units SQ TID (Preferred with Epidurals) *Enoxaparin/Lovenox 40 mg SQ daily (WT < 150 kg, CrCl > 30 mL/min) *Enoxaparin/Lovenox 30 mg SQ daily (WT < 150 kg, CrCl > 10-29 mL/min) *Enoxaparin/Lovenox 30 mg SQ BID (WT < 150 kg, CrCl > 30 mL/min) AND *Sequential Compression Device (SCD) Assessment and Plan - Plan Mr. Ramey Is a 78-year-old male with a diagnosis of high-grade primary GROUND SU[employer] EQUIPMENT FITTER lymphoma initially diagnosed in October 2016. He was treated with first-line systemic therapy consisting of methotrexate, vincristine and rituximab. After completing treatment in the spring 2016 he was in remission, he remained in remission up until the summer 2017 when he relapsed with both intracranial and extracranial recurrence of high-grade lymphoma. The extracranial recurrence was in the left testicle and left inguinal lymph node chains. He is presently on second line systemic therapy consisting of high-dose methotrexate and R-CHOP , he comes in today for cycle #5 high-dose methotrexate after having received cycle number 5 R-CHOP in the outpatient clinic on 10/29/2018. The plan is to treat him with a total of 6 cycles of the current regimen. Additional medical comorbid conditions include type 2 diabetes. Plan: 1. Primary GROUND SU[employer] EQUIPMENT FITTER lymphoma: Proceed with systemic alkalinization protocol with IV bicarbonate infusion, obtain urine pH levels periodically over the course of today. He will start high-dose methotrexate once his urine pH is equal to or higher than 7. Following delivery of high-dose methotrexate the patient will be initiated on the leucovorin rescue which will start 24 hours after initiation of methotrexate infusion. Methotrexate levels will be measured per protocol, he will continue leucovorin until his methotrexate level is less than 0.1. At which point the patient is usually discharged home. As a part of his R CHOP regimen he will be initiated on prednisone 100 mg p.o. daily as of today. He will continue prednisone for total of 5 days. 2. Diabetes: Continue outpatient oral hypoglycemics including Janumet, in addition he will be on an insulin regular sliding scale protocol with fingerstick glucose checks before meals and at bedtime. 3. Hypertension: Continue outpatient metoprolol 12.5 mg twice daily. 4. Hyperlipidemia: Continue simvastatin /formulary statin. 5. DVT prophylaxis with Lovenox 40 mg subcu once daily. 6. Routine monitoring of CBC and CMP levels while in the hospital. Code Status: CODE STATUS: Full. Discussed Condition With: Patient's nurse. Patient, his and daughter.
[2018-10-30] MEDS: Insulin NovoLIN Regular Correctional Sugar Inj SQ SCH ×4 (08:03→21:18)
[2018-10-30] MEDS: Enoxaparin Inj 40 MG/0.4 ML Syringe SQ SCH (08:03)
[2018-10-30] MEDS: Glimepiride 1 MG Tablet PO SCH ×2 (08:33→16:55)
[2018-10-30] MEDS: Senna/Docusate Sodium 8.6/50 MG Tablet PO SCH ×2 (08:33→21:19)
[2018-10-30] MEDS: Sodium Bicarbonate 8.4% Inj 75 MEQ in Dextrose 5% in Water Inj 925 ML IV.CONT SCH ×4 (09:36→18:47)
[2018-10-30] MEDS: SODIUM CHLORIDE IV.CONT SCH ×4 (10:25→19:14)
[2018-10-30] MEDS: [UNRECOGNIZED DRUG - OTHER] IV.CONT SCH ×4 (10:25→19:14)
[2018-10-30] MEDS: SODIUM BICARBONATE IV.CONT SCH ×4 (10:25→19:14)
[2018-10-30] MEDS ORDERED: Dexamethasone Inj 20 MG, Granisetron Inj 1 MG in Sodium Chlor 0.9% Inj 50 ML IV.SIG ONE ×2 (13:30)
[2018-10-30] MEDS ORDERED: DEXTROSE 5% IV.SIG ONE ×2 (14:00)
[2018-10-30] MEDS ORDERED: METHOTREXATE IV.SIG ONE ×2 (14:00)
[2018-10-30] MEDS ORDERED: WATER IV.SIG ONE ×2 (14:00)
[2018-10-30] MEDS ORDERED: Zolpidem Tartrate 5 MG Tablet PO PRN (21:00)
[2018-10-31] MEDS: SODIUM CHLORIDE IV.CONT SCH ×5 (01:44→23:53)
[2018-10-31] MEDS: [UNRECOGNIZED DRUG - OTHER] IV.CONT SCH ×5 (01:44→23:53)
[2018-10-31] MEDS: SODIUM BICARBONATE IV.CONT SCH ×5 (01:44→23:53)
[2018-10-31 06:28] LABS: Baso % (Auto) 0.1 % (0.0-2.0); Hematocrit 26.8 % (39.0-51.0); Hemoglobin 9.8 gm/dL (13.0-17.0); Lymph # (Auto) 0.6 th/mm3 (1.0-4.8); Lymph % (Auto) 7.7 % (9.0-44.0); Mean Corpuscular Hemoglobin 33.5 pg (27.0-34.0); Mean Corpuscular Volume 91.8 fL (80.0-100.0); Mean Platelet Volume 8.2 fL (7.0-11.0); Mono # (Auto) 1.1 th/mm3 (0.0-0.9); Mono % (Auto) 14.4 % (0.0-8.0); Neut # (Auto) 5.8 th/mm3 (1.8-7.7); Neut % (Auto) 77.8 % (16.0-70.0); Platelet Count 232 th/mm3 (150-450); Red Blood Count 2.92 mil/mm3 (4.50-5.90); Red Cell Distribution Width 14.5 % (11.6-17.2); White Blood Count 7.5 th/mm3 (4.0-11.0)
[2018-10-31 06:31] LABS: Anion Gap 7 meq/L (5-15); Aspartate Aminotransferase 15 U/L (15-37); Blood Urea Nitrogen 16 mg/dL (7-18); Calcium 8.9 mg/dL (8.5-10.1); Carbon Dioxide 29.5 meq/L (21.0-32.0); Chloride 107 meq/L (98-107); Glomerular Filtration Rate 79 mL/min (>89); Glucose,Random 238 mg/dL (74-106); Mean Corpuscular HGB Conc 36.5 % (32.0-36.0); Potassium 3.7 meq/L (3.5-5.1); Sodium 143 meq/L (136-145)
[2018-10-31 06:32] LABS: Alanine Aminotransferase 23 U/L (12-78)
[2018-10-31 06:34] LABS: Alkaline Phosphatase 76 U/L (45-117); Total Protein 5.6 g/dL (6.4-8.2)
--- NOTE | 2018-10-31 07:34 | P.PNONC ---
Subjective Interval history: Patient seen and examined, vital signs, labs, medications reviewed. Chemotherapy administration records also reviewed. Patient did receive methotrexate infusion last night. Subjectively; this morning he denies acute complaints, he does report some dryness of the skin on his face which is typical for the day after chemotherapy delivery. He tells me he slept comfortably, denies difficulty breathing, denies soreness in his throat, denies chest pain, denies diarrhea or overt bleeding. He does report having had some constipation yesterday which was resolved with milk of magnesia. Objective Vital Signs/Intake & Output: Vital Signs 10/30/18 07:40 10/30/18 11:02 10/30/18 11:36 Temperature 97.8 F 97.4 F L Pulse Rate 68 93 H 74 Respiratory Rate 18 18 Blood Pressure 123/57 L 138/68 Pulse Oximetry 100 100 10/30/18 11:56 10/30/18 15:25 10/30/18 16:00 Temperature 97.5 F L Pulse Rate 76 96 H Respiratory Rate 18 Blood Pressure 135/69 Pulse Oximetry 100 100 10/30/18 19:08 10/30/18 19:25 10/30/18 20:00 Temperature 98 F Pulse Rate 64 60 Respiratory Rate 17 Blood Pressure 144/67 H Pulse Oximetry 100 98 10/30/18 23:00 10/30/18 23:53 10/31/18 04:53 Temperature 97.6 F Pulse Rate 63 74 78 Respiratory Rate 18 Blood Pressure 142/70 H Pulse Oximetry 99 10/31/18 05:06 10/31/18 05:22 Temperature 97.9 F Pulse Rate 81 70 Respiratory Rate 18 Blood Pressure 124/62 Pulse Oximetry 97 Intake & Output 10/30/18 10/31/18 10/31/18 18:59 06:59 18:59 Intake Total 5385.625 / 5385.625 5928.875 / 5928.875 Output Total 3100 / 3100 8800 / 8800 Balance 2285.625 / 2285.625 -2871.125 / -2871.125 Weight 94.8 kg 93.2 kg Intake: IV 1165.625 / 8284.965 6565.875 / 5028.875 Sodium Bicarbonate 8.4% Inj 75 1000 / 1000 MEQ In D5W Inj 925 ML @ 100 mls /hr IV.CONT .Q10H ANDRIY Rx#: [id number] Sodium Chloride 23.4% Inj 38.5 1109.625 / 5333.615 2362.875 / 3328.875 MEQ Sodium Bicarbonate 8.4% Inj 100 MEQ In Sterile Water for Inj 1,000 ML @ 150 mls/hr IV. CONT .Q7H24M [facility] Rx#:[id number] Decadron Inj 20 MG Kytril Inj 1 56 / 56 MG In NS Inj 50 ML @ 336 mls/ hr IV.SIG ONCE ONE Rx#:[id number] Methotrexate PF Inj 5,000 MG In 700 / 700 D5W Inj 500 ML @ 233.333 mls/ hr IV.SIG ONCE ONE Rx#:[id number] Oral 4220 / 4220 900 / 900 Output: Urine 3100 / 3100 8800 / 8800 Other: Date of Last Bowel Movement 10/30/18 10/30/18 Weight On Admission 94.8 kg Result Diagrams: 10/31/18 05:38 10/31/18 05:38 Laboratory Results: Laboratory Results - last 24 hr 10/30/18 10/30/18 10/30/18 08:00 08:40 11:38 WBC RBC Hgb Hct MCV MCH MCHC RDW Plt Count MPV Prelim Diff (Auto) Neut % (Auto) Lymph % (Auto) Dodge % (Auto) Eos % (Auto) Baso % (Auto) Neut # (Auto) Lymph # (Auto) Dodge # (Auto) Eos # (Auto) Baso # (Auto) Differential Comment Sodium Potassium Chloride Carbon Dioxide Anion Gap BUN Creatinine Estimated GFR POC Glucose 184 H 223 H Random Glucose Calcium Total Bilirubin AST ALT Alkaline Phosphatase Total Protein Albumin Urine pH 5.0 10/30/18 10/30/18 10/30/18 12:55 16:50 17:00 WBC RBC Hgb Hct MCV MCH MCHC RDW Plt Count MPV Prelim Diff (Auto) Neut % (Auto) Lymph % (Auto) Dodge % (Auto) Eos % (Auto) Baso % (Auto) Neut # (Auto) Lymph # (Auto) Dodge # (Auto) Eos # (Auto) Baso # (Auto) Differential Comment Sodium Potassium Chloride Carbon Dioxide Anion Gap BUN Creatinine Estimated GFR POC Glucose 241 H Random Glucose Calcium Total Bilirubin AST ALT Alkaline Phosphatase Total Protein Albumin Urine pH 5.0 7.0 10/30/18 10/31/18 10/31/18 21:13 05:30 05:38 WBC 7.5 RBC 2.92 L Hgb 9.8 L Hct 26.8 L MCV 91.8 D MCH 33.5 MCHC 36.5 H RDW 14.5 Plt Count 232 MPV 8.2 Prelim Diff (Auto) Slide review pending Neut % (Auto) 77.8 H Lymph % (Auto) 7.7 L Dodge % (Auto) 14.4 H Eos % (Auto) 0.0 Baso % (Auto) 0.1 Neut # (Auto) 5.8 Lymph # (Auto) 0.6 L Dodge # (Auto) 1.1 H Eos # (Auto) 0.0 Baso # (Auto) 0.0 Differential Comment . Sodium Potassium Chloride Carbon Dioxide Anion Gap BUN Creatinine Estimated GFR POC Glucose 236 H Random Glucose Calcium Total Bilirubin AST ALT Alkaline Phosphatase Total Protein Albumin Urine pH 7.0 10/31/18 05:38 WBC RBC Hgb Hct MCV MCH MCHC RDW Plt Count MPV Prelim Diff (Auto) Neut % (Auto) Lymph % (Auto) Dodge % (Auto) Eos % (Auto) Baso % (Auto) Neut # (Auto) Lymph # (Auto) Dodge # (Auto) Eos # (Auto) Baso # (Auto) Differential Comment Sodium 143 Potassium 3.7 Chloride 107 Carbon Dioxide 29.5 Anion Gap 7 BUN 16 Creatinine 0.93 Estimated GFR 79 L POC Glucose Random Glucose 238 H Calcium 8.9 Total Bilirubin 0.4 AST 15 ALT 23 Alkaline Phosphatase 76 Total Protein 5.6 L Albumin 3.0 L Urine pH Medications: Active Medications Generic Name Dose Route Start Last Admin Trade Name Freq PRN Reason Stop Dose Admin Al Hydroxide/Mg Hydroxide 30 ml 10/30/18 07:12 10/30/18 12:10 Milk Of Magnesia Liq PO 30 ml Q12H PRN Administration Mild Constipation Aspirin 81 mg 10/30/18 09:00 10/30/18 08:33 Ecotrin PO Not Given DAILY ANDRIY Atorvastatin Calcium 10 mg 10/30/18 09:00 10/30/18 08:33 Lipitor PO Not Given DAILY [facility] Enoxaparin Sodium 40 mg 10/30/18 07:15 10/30/18 08:03 Lovenox Inj SQ 40 mg Q24H ANDRIY Administration Glimepiride 1 mg 10/30/18 08:00 10/30/18 16:55 Amaryl PO 1 mg BIDAC ANDRIY Administration Sodium Chloride 38.5 meq/ 1,109.625 mls @ 150 mls/hr 10/30/18 14:00 10/31/18 05:34 Sodium Bicarbonate 100 meq/ IV.CONT 170 mls/hr Sterile Water .Q7H24M ANDRIY Administration Insulin Human Regular 0 units 10/30/18 08:00 10/30/18 21:18 Novolin R Correctional Sugar Inj SQ 4 units ACHS ANDRIY Administration Protocol Metformin HCl 500 mg 10/30/18 09:00 10/30/18 17:48 Glucophage PO 500 mg BIDPC ANDRIY Administration Metoprolol Succinate 12.5 mg 10/30/18 18:00 10/30/18 17:48 Toprol Xl PO 12.5 mg DAILY ANDRIY Administration Midodrine 5 mg 10/30/18 09:00 10/30/18 21:22 Proamatine PO Not Given BID ANDRIY Prednisone 100 mg 10/30/18 09:00 10/30/18 09:36 Deltasone PO 11/03/18 09:00 100 mg DAILY ANDRIY Administration Senna/Docusate Sodium 1 tab 10/30/18 09:00 10/30/18 21:19 Catherine-Colace PO 1 tab BID ANDRIY Administration Sitagliptin Phosphate 50 mg 10/30/18 09:00 10/30/18 21:21 Januvia PO 50 mg BID ANDRIY Administration Sodium Chloride 2 ml 10/30/18 09:00 10/30/18 21:10 Ns Flush IV.FLUSH Not Given BID ANDIRY Objective Remarks: General physical appearance: Patient is an elderly male, he is tall, he is of moderate build, he appears to be no acute distress, he has alopecia of chemotherapy. HEENT: Head atraumatic normocephalic, conjunctivae are non-pale sclerae anicteric, EOMI, PERRLA, oral exam no pharyngeal erythema, moist mucous membranes, no pharyngeal erythema. No palpable cervical supraclavicular adenopathy. Respiratory: Good air movement bilaterally no added breath sounds. Cardiovascular: Regular rate rhythm S1-S2 no obvious murmurs rubs gallops. Equal and adequate peripheral pulses. Abdominal examination: Thin abdomen, soft, nontender, nondistended no palpable organ enlargement no evidence of hepatosplenomegaly. Lower extremities no pretibial edema no calf tenderness. GUILLOTINE TRIMMER: No focal sensorimotor deficits. Skin examination: Some erythema of the face with skin dryness and skin flaking. Exam otherwise nonfocal. Right-sided infusion port noted along the right upper chest. Assessment/Plan - Plan Mr. Ramey Is a 78-year-old male with a diagnosis of high-grade primary GUILLOTINE TRIMMER lymphoma initially diagnosed in October 2016. He was treated with first-line systemic therapy consisting of methotrexate, vincristine and rituximab. After completing treatment in the spring 2016 he was in remission, he remained in remission up until the summer 2017 when he relapsed with both intracranial and extracranial recurrence of high-grade lymphoma. The extracranial recurrence was in the left testicle and left inguinal lymph node chains. He is presently on second line systemic therapy consisting of high-dose methotrexate and R-CHOP , he comes in today for cycle #5 high-dose methotrexate after having received cycle number 5 R-CHOP in the outpatient clinic on 10/29/2018. The plan is to treat him with a total of 6 cycles of the current regimen. Additional medical comorbid conditions include type 2 diabetes. Cycle 5 high-dose methotrexate was delivered on 10/30/2018. Plan: 1. Primary GUILLOTINE TRIMMER lymphoma: Restaging MRI of the brain performed after cycle #3 indicated no evidence of residual disease. He is now status post 5 cycles of high-dose methotrexate in combination with R-CHOP. I plan to treat him with a total of 6 cycles followed by observation. Continue monitoring urine pH levels. Leucovorin rescue to be initiated per protocol 24 hours after initiation of methotrexate infusion; I anticipate this will happen later this evening. Methotrexate levels per protocol. 2. Diabetes: I anticipate elevated fingerstick glucose levels due to the patient being on high-dose prednisone at this time. To compensate for hyperglycemia he is on an insulin regular sliding scale with Accu-Cheks before meals and before bedtime. I have admitted the 3 AM fingerstick check to avoid hypoglycemia. He remains on sitagliptin and metformin as well as glimepiride. 3. Hypertension: Continue outpatient metoprolol 12.5 mg twice daily. Blood pressures are reasonably well controlled. 4. Hyperlipidemia: On atorvastatin 10 mg once daily. 5. DVT prophylaxis with Lovenox 40 mg subcu once daily. 6. Routine monitoring of CBC and CMP levels while in the hospital.
[2018-10-31 07:50] LABS: Acanthocytes Occ; Ovalocytes 1+; Platelet Estimate Normal (Normal); Platelet Morphology Normal (Normal)
[2018-10-31] MEDS: Senna/Docusate Sodium 8.6/50 MG Tablet PO SCH ×2 (08:29→20:23)
[2018-10-31] MEDS: Glimepiride 1 MG Tablet PO SCH ×2 (08:29→17:44)
[2018-10-31] MEDS: Enoxaparin Inj 40 MG/0.4 ML Syringe SQ SCH (08:30)
[2018-10-31] MEDS: Insulin NovoLIN Regular Correctional Sugar Inj SQ SCH ×4 (08:31→20:24)
[2018-10-31] MEDS: SODIUM CHLOR 0.9% IV.SIG SCH ×3 (18:22→23:52)
[2018-10-31] MEDS: LEUCOVORIN IV.SIG SCH ×3 (18:22→23:52)
[2018-11-01] MEDS: SODIUM CHLOR 0.9% IV.SIG SCH ×4 (05:52→23:56)
[2018-11-01] MEDS: LEUCOVORIN IV.SIG SCH ×4 (05:52→23:56)
--- NOTE | 2018-11-01 07:24 | P.PNONC ---
Subjective Interval history: Patient seen and examined this morning, vital signs, labs and medications reviewed, leucovorin administration records reviewed as well. Methotrexate level was drawn yesterday morning, levels are still pending at this time. Subjectively; patient denies acute complaints, he reports feeling well, he is eating well, denies mouth sores, denies diarrhea, denies difficulty breathing, denies fevers or chills. He tells me he has been walking in the room and in the hallways. He denies acute toxicities related to systemic therapy. Objective Vital Signs/Intake & Output: Vital Signs 10/31/18 08:00 10/31/18 10:04 10/31/18 11:53 Temperature 97.6 F 97.8 F Pulse Rate 71 75 Respiratory Rate 18 Blood Pressure 149/80 H Pulse Oximetry 100 100 99 10/31/18 12:10 10/31/18 16:00 10/31/18 20:00 Temperature 97.2 F L 98 F Pulse Rate 77 66 81 Respiratory Rate 18 16 Blood Pressure 116/54 L 120/57 L Pulse Oximetry 99 99 11/01/18 00:00 11/01/18 04:00 Temperature 98 F 98 F Pulse Rate 65 54 L Respiratory Rate 15 16 Blood Pressure 127/60 154/70 H Pulse Oximetry 98 100 Intake & Output 10/31/18 11/01/18 11/01/18 18:59 06:59 18:59 Intake Total 6294.250 / 6294.250 1704.625 / 1704.625 Output Total 5575 / 5575 5050 / 5050 Balance 719.250 / 719.250 -3345.375 / -3345.375 Weight 95.1 kg Intake: IV 2219.250 / 2219.250 1224.625 / 1224.625 Sodium Chloride 23.4% Inj 38.5 2219.250 / 2219.250 1109.625 / 1109.625 MEQ Sodium Bicarbonate 8.4% Inj 100 MEQ In Sterile Water for Inj 1,000 ML @ 150 mls/hr IV. CONT .Q7H24M ANDRIY Rx#:[id number] Wellcovorin Inj 20 MG In NS Inj 115 / 115 50 ML @ 16.667 mls/hr IV.SIG Q6H ANDRIY Rx#:[id number] Oral 4075 / 4075 480 / 480 Output: Urine 5575 / 5575 5050 / 5050 Other: Date of Last Bowel Movement 10/29/18 10/31/18 Result Diagrams: 10/31/18 05:38 10/31/18 05:38 Laboratory Results: Laboratory Results - last 24 hr 10/31/18 10/31/18 10/31/18 05:38 08:04 11:52 WBC Differential . Diff Scan Auto diff confirmed Platelet Estimate Normal Platelet Morphology Normal Ovalocytes 1+ H Acanthocytes (Spur) Occ H POC Glucose 225 H 203 H 10/31/18 10/31/18 16:55 20:21 WBC Differential Diff Scan Platelet Estimate Platelet Morphology Ovalocytes Acanthocytes (Spur) POC Glucose 211 H 290 H Medications: Active Medications Generic Name Dose Route Start Last Admin Trade Name Freq PRN Reason Stop Dose Admin Al Hydroxide/Mg Hydroxide 30 ml 10/30/18 07:12 10/30/18 12:10 Milk Of Magnesia Liq PO 30 ml Q12H PRN Administration Mild Constipation Aspirin 81 mg 10/30/18 09:00 10/31/18 08:29 Ecotrin PO 81 mg DAILY ANDRIY Administration Atorvastatin Calcium 10 mg 10/30/18 09:00 10/31/18 08:28 Lipitor PO 10 mg DAILY ANDRIY Administration Enoxaparin Sodium 40 mg 10/30/18 07:15 10/31/18 08:30 Lovenox Inj SQ 40 mg Q24H ANDRIY Administration Glimepiride 1 mg 10/30/18 08:00 10/31/18 17:44 Amaryl PO 1 mg BIDAC ANDRIY Administration Sodium Chloride 38.5 meq/ 1,109.625 mls @ 150 mls/hr 10/30/18 14:00 10/31/18 23:53 Sodium Bicarbonate 100 meq/ IV.CONT 170 mls/hr Sterile Water .Q7H24M ANDRIY Administration Leucovorin Calcium 20 mg/ 50 mls @ 16.667 mls/hr 11/01/18 00:00 11/01/18 05: 52 Sodium Chloride IV.SIG 11/03/18 14:59 16.67 mls/hr Q6H ANDRIY Administration Insulin Human Regular 0 units 10/30/18 08:00 10/31/18 20:24 Novolin R Correctional Sugar Inj SQ 7 units ACHS ANDRIY Administration Protocol Metformin HCl 500 mg 10/30/18 09:00 10/31/18 17:44 Glucophage PO 500 mg BIDPC ANDRIY Administration Metoprolol Succinate 12.5 mg 10/30/18 18:00 10/31/18 08:29 Toprol Xl PO 12.5 mg DAILY ANDRIY Administration Midodrine 5 mg 10/30/18 09:00 10/31/18 20:23 Proamatine PO 5 mg BID ANDRIY Administration Prednisone 100 mg 10/30/18 09:00 10/31/18 08:28 Deltasone PO 11/03/18 09:00 100 mg DAILY ANDRIY Administration Senna/Docusate Sodium 1 tab 10/30/18 09:00 10/31/18 20:23 Catherine-Colace PO 1 tab BID ANDRIY Administration Sitagliptin Phosphate 50 mg 10/30/18 09:00 10/31/18 20:23 Januvia PO 50 mg BID ANDRIY Administration Sodium Chloride 2 ml 10/30/18 09:00 10/31/18 20:25 Ns Flush IV.FLUSH Not Given BID ANDRIY Objective Remarks: General physical appearance: Patient is an elderly male, he is tall, he is of moderate build, he appears to be no acute distress, he has alopecia of chemotherapy. HEENT: Head atraumatic normocephalic, conjunctivae are non-pale sclerae anicteric, EOMI, PERRLA, oral exam no pharyngeal erythema, moist mucous membranes, no pharyngeal erythema. No palpable cervical supraclavicular adenopathy. Respiratory: Good air movement bilaterally no added breath sounds. Cardiovascular: Regular rate rhythm S1-S2 no obvious murmurs rubs gallops. Equal and adequate peripheral pulses. Abdominal examination: Thin abdomen, soft, nontender, nondistended no palpable organ enlargement no evidence of hepatosplenomegaly. Lower extremities no pretibial edema no calf tenderness. 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 Skin examination: Some erythema of the face with skin dryness and skin flaking. Exam otherwise nonfocal. Right-sided infusion port noted along the right upper chest. Assessment/Plan - Plan Mr. 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 He was treated with first-line systemic therapy consisting of methotrexate, vincristine and rituximab. After completing treatment in the spring 2016 he was in remission, he remained in remission up until the summer 2017 when he relapsed with both intracranial and extracranial recurrence of high-grade lymphoma. The extracranial recurrence was in the left testicle and left inguinal lymph node chains. He is presently on second line systemic therapy consisting of high-dose methotrexate and R-CHOP , he comes in today for cycle #5 high-dose methotrexate after having received cycle number 5 R-CHOP in the outpatient clinic on 10/29/2018. The plan is to treat him with a total of 6 cycles of the current regimen. Additional medical comorbid conditions include type 2 diabetes. Cycle 5 high-dose methotrexate was delivered on 10/30/2018. Plan: 1. Primary MEDIA SUPERVISOR lymphoma: Restaging MRI of the brain performed after cycle #3 indicated no evidence of residual disease. He is now status post 5 cycles of high-dose methotrexate in combination with R-CHOP. I plan to treat him with a total of 6 cycles followed by observation. Continue monitoring urine pH levels. Continue leucovorin rescue per protocol. Await methotrexate level results. As scheduled next methotrexate level drawn to be performed at 6 AM on the morning of 11/02/2018. 2. Diabetes: Glucose levels have been reviewed, he is on the insulin correction sliding scale. As well as oral hypoglycemics. 3. Hypertension: Continue outpatient metoprolol 12.5 mg twice daily. Blood pressures remain reasonably well controlled. 4. Hyperlipidemia: On atorvastatin 10 mg once daily. 5. DVT prophylaxis with Lovenox 40 mg subcu once daily. 6. CBC and CMP have been ordered to be drawn this morning.
[2018-11-01] MEDS: Senna/Docusate Sodium 8.6/50 MG Tablet PO SCH ×2 (09:25→21:00)
[2018-11-01] MEDS: Enoxaparin Inj 40 MG/0.4 ML Syringe SQ SCH (09:25)
[2018-11-01] MEDS: Glimepiride 1 MG Tablet PO SCH ×2 (09:25→18:00)
[2018-11-01] MEDS: Insulin NovoLIN Regular Correctional Sugar Inj SQ SCH ×4 (09:27→21:04)
[2018-11-01 10:20] LABS: Eos # (Auto) 0.1 th/mm3 (0.0-0.4); Eos % (Auto) 1.2 % (0.0-4.0); Hematocrit 27.8 % (39.0-51.0); Hemoglobin 9.9 gm/dL (13.0-17.0); Lymph # (Auto) 1.1 th/mm3 (1.0-4.8); Lymph % (Auto) 13.1 % (9.0-44.0); Mean Corpuscular HGB Conc 35.6 % (32.0-36.0); Mean Corpuscular Hemoglobin 33.6 pg (27.0-34.0); Mean Corpuscular Volume 94.5 fL (80.0-100.0); Mean Platelet Volume 8.3 fL (7.0-11.0); Mono # (Auto) 0.6 th/mm3 (0.0-0.9); Mono % (Auto) 6.8 % (0.0-8.0); Neut # (Auto) 6.5 th/mm3 (1.8-7.7); Neut % (Auto) 78.9 % (16.0-70.0); Platelet Count 214 th/mm3 (150-450); Red Blood Count 2.94 mil/mm3 (4.50-5.90); Red Cell Distribution Width 15.2 % (11.6-17.2); White Blood Count 8.2 th/mm3 (4.0-11.0)
[2018-11-01 10:56] LABS: Albumin 3.1 g/dL (3.4-5.0); Anion Gap 7 meq/L (5-15); Aspartate Aminotransferase 21 U/L (15-37); Blood Urea Nitrogen 15 mg/dL (7-18); Calcium 8.9 mg/dL (8.5-10.1); Carbon Dioxide 32.3 meq/L (21.0-32.0); Chloride 104 meq/L (98-107); Glomerular Filtration Rate 82 mL/min (>89); Glucose,Random 138 mg/dL (74-106); Sodium 143 meq/L (136-145)
[2018-11-01 11:00] LABS: Alanine Aminotransferase 31 U/L (12-78); Alkaline Phosphatase 82 U/L (45-117); Total Protein 5.7 g/dL (6.4-8.2)
[2018-11-01] MEDS: SODIUM CHLORIDE IV.CONT SCH ×2 (14:22→21:05)
[2018-11-01] MEDS: SODIUM BICARBONATE IV.CONT SCH ×2 (14:22→21:05)
[2018-11-01] MEDS: [UNRECOGNIZED DRUG - OTHER] IV.CONT SCH ×2 (14:22→21:05)
[2018-11-02 00:48] VITALS: O2SAT 100
[2018-11-02] MEDS: LEUCOVORIN IV.SIG SCH ×2 (05:01→11:31)
[2018-11-02] MEDS: SODIUM CHLORIDE IV.CONT SCH ×3 (05:01→09:09)
[2018-11-02] MEDS: SODIUM CHLOR 0.9% IV.SIG SCH ×2 (05:01→11:31)
[2018-11-02] MEDS: SODIUM BICARBONATE IV.CONT SCH ×3 (05:01→09:09)
[2018-11-02] MEDS: [UNRECOGNIZED DRUG - OTHER] IV.CONT SCH ×3 (05:01→09:09)
[2018-11-02 05:28] VITALS: RESP 16
[2018-11-02] MEDS: Enoxaparin Inj 40 MG/0.4 ML Syringe SQ SCH (07:55)
[2018-11-02] MEDS: Glimepiride 1 MG Tablet PO SCH (07:57)
[2018-11-02] MEDS: Insulin NovoLIN Regular Correctional Sugar Inj SQ SCH ×2 (07:57→11:55)
[2018-11-02] MEDS: Senna/Docusate Sodium 8.6/50 MG Tablet PO SCH (08:00)
--- NOTE | 2018-11-02 08:37 | P.PNONC ---
Subjective Interval history: Patient seen and examined this morning, vital signs, labs and medications reviewed. Subjectively; patient reports feeling well, he denies major adverse effects related to treatment rendered. Fingerstick glucose levels have been noted to be elevated, he has been requiring additional insulin coverage with a sliding scale. Patient reports eating well, he continues to ambulate, he denies acute toxicity such as mouth sores, diarrhea, nausea, vomiting. He denies overt bleeding. Patient and his are looking forward to going home today. He just completed his seventh bag of leucovorin at about 6 AM this morning. Methotrexate level was drawn at 6:30 AM this morning. Objective Vital Signs/Intake & Output: Vital Signs 11/01/18 09:17 11/01/18 11:38 11/01/18 13:00 Temperature 98.4 F 98.2 F Pulse Rate 71 96 H 81 Respiratory Rate 16 16 Blood Pressure 127/62 163/76 H Pulse Oximetry 100 100 11/01/18 15:37 11/01/18 17:00 11/01/18 20:00 Temperature 98.5 F 97.9 F Pulse Rate 59 L 74 68 Respiratory Rate 16 16 Blood Pressure 140/56 L 151/68 H Pulse Oximetry 100 95 11/02/18 00:00 11/02/18 04:00 Temperature 98.1 F 98 F Pulse Rate 65 65 Respiratory Rate 15 16 Blood Pressure 169/71 H 144/65 H Pulse Oximetry 100 100 Intake & Output 11/01/18 11/02/18 11/02/18 18:59 06:59 18:59 Intake Total 2029 / 2029 2829.250 / 2829.250 Output Total 5450 / 5450 5875 / 5875 Balance -3420 / -3420 -3045.750 / -3045.750 Weight 95.9 kg Intake: IV 110 / 110 2329.250 / 2329.250 Sodium Chloride 23.4% Inj 38.5 2219.250 / 2219.250 MEQ Sodium Bicarbonate 8.4% Inj 100 MEQ In Sterile Water for Inj 1,000 ML @ 150 mls/hr IV. CONT .Q7H24M ANDRIY Rx#:[id number] Wellcovorin Inj 20 MG In NS Inj 110 / 110 110 / 110 50 ML @ 16.667 mls/hr IV.SIG Q6H ANDRIY Rx#:[id number] Oral 1920 / 1920 500 / 500 Output: Urine 5450 / 5450 5875 / 5875 Other: Date of Last Bowel Movement 11/01/18 11/01/18 # Bowel Movements 1 Result Diagrams: 11/01/18 09:45 11/01/18 09:45 Laboratory Results: Laboratory Results - last 24 hr 11/01/18 11/01/18 11/01/18 06:15 09:45 09:45 WBC 8.2 RBC 2.94 L Hgb 9.9 L Hct 27.8 L MCV 94.5 MCH 33.6 MCHC 35.6 RDW 15.2 Plt Count 214 MPV 8.3 Neut % (Auto) 78.9 H Lymph % (Auto) 13.1 Amador % (Auto) 6.8 Eos % (Auto) 1.2 Baso % (Auto) 0.0 Neut # (Auto) 6.5 Lymph # (Auto) 1.1 Amador # (Auto) 0.6 Eos # (Auto) 0.1 Baso # (Auto) 0.0 WBC Differential . Differential Comment Auto diff final Sodium 143 Potassium 3.0 L Chloride 104 Carbon Dioxide 32.3 H Anion Gap 7 BUN 15 Creatinine 0.90 Estimated GFR 82 L POC Glucose Random Glucose 138 H D Calcium 8.9 Total Bilirubin 0.5 AST 21 ALT 31 Alkaline Phosphatase 82 Total Protein 5.7 L Albumin 3.1 L Urine pH 8.0 Methotrexate 11/01/18 11/01/18 11/01/18 12:06 17:48 20:59 WBC RBC Hgb Hct MCV MCH MCHC RDW Plt Count MPV Neut % (Auto) Lymph % (Auto) Amador % (Auto) Eos % (Auto) Baso % (Auto) Neut # (Auto) Lymph # (Auto) Amador # (Auto) Eos # (Auto) Baso # (Auto) WBC Differential Differential Comment Sodium Potassium Chloride Carbon Dioxide Anion Gap BUN Creatinine Estimated GFR POC Glucose 132 H 350 H 288 H Random Glucose Calcium Total Bilirubin AST ALT Alkaline Phosphatase Total Protein Albumin Urine pH Methotrexate 11/02/18 11/02/18 11/02/18 05:45 06:00 07:54 WBC RBC Hgb Hct MCV MCH MCHC RDW Plt Count MPV Neut % (Auto) Lymph % (Auto) Amador % (Auto) Eos % (Auto) Baso % (Auto) Neut # (Auto) Lymph # (Auto) Amador # (Auto) Eos # (Auto) Baso # (Auto) WBC Differential Differential Comment Sodium Potassium Chloride Carbon Dioxide Anion Gap BUN Creatinine Estimated GFR POC Glucose 147 H Random Glucose Calcium Total Bilirubin AST ALT Alkaline Phosphatase Total Protein Albumin Urine pH 8.0 Methotrexate Cancelled Medications: Active Medications Generic Name Dose Route Start Last Admin Trade Name Freq PRN Reason Stop Dose Admin Al Hydroxide/Mg Hydroxide 30 ml 10/30/18 07:12 10/30/18 12:10 Milk Of Magnesia Liq PO 30 ml Q12H PRN Administration Mild Constipation Aspirin 81 mg 10/30/18 09:00 11/01/18 09:25 Ecotrin PO 81 mg DAILY ANDRIY Administration Atorvastatin Calcium 10 mg 10/30/18 09:00 11/02/18 08:00 Lipitor PO 10 mg DAILY ANDRIY Administration Enoxaparin Sodium 40 mg 10/30/18 07:15 11/02/18 07:55 Lovenox Inj SQ 40 mg Q24H ANDRIY Administration Glimepiride 1 mg 10/30/18 08:00 11/02/18 07:57 Amaryl PO 1 mg BIDAC ANDRIY Administration Sodium Chloride 38.5 meq/ 1,109.625 mls @ 150 mls/hr 10/30/18 14:00 11/02/18 05:28 Sodium Bicarbonate 100 meq/ IV.CONT Not Given Sterile Water .Q7H24M ANDRIY Leucovorin Calcium 20 mg/ 50 mls @ 16.667 mls/hr 11/01/18 00:00 11/02/18 05: 01 Sodium Chloride IV.SIG 11/03/18 14:59 16.7 mls/hr Q6H ANDRIY Administration Insulin Human Regular 0 units 10/30/18 08:00 11/02/18 07:57 Novolin R Correctional Sugar Inj SQ Not Given ACHS [facility] Protocol Metformin HCl 500 mg 10/30/18 09:00 11/02/18 08:00 Glucophage PO 500 mg BIDPC ANDRIY Administration Metoprolol Succinate 12.5 mg 10/30/18 18:00 11/02/18 08:00 Toprol Xl PO 12.5 mg DAILY ANDRIY Administration Midodrine 5 mg 10/30/18 09:00 11/02/18 08:01 Proamatine PO Not Given BID ANDRIY Prednisone 100 mg 10/30/18 09:00 11/02/18 08:00 Deltasone PO 11/03/18 09:00 100 mg DAILY ANDRIY Administration Senna/Docusate Sodium 1 tab 10/30/18 09:00 11/02/18 08:00 Catherine-Colace PO 1 tab BID ANDRIY Administration Sitagliptin Phosphate 50 mg 10/30/18 09:00 11/02/18 08:00 Januvia PO 50 mg BID ANDRIY Administration Sodium Chloride 2 ml 10/30/18 09:00 11/01/18 21:05 Ns Flush IV.FLUSH Not Given BID ANDRIY Objective Remarks: General physical appearance: Patient is an elderly male, he is tall, he is of moderate build, he appears to be no acute distress, he has alopecia of chemotherapy. HEENT: Head atraumatic normocephalic, conjunctivae are non-pale sclerae anicteric, EOMI, PERRLA, oral exam no pharyngeal erythema, moist mucous membranes, no pharyngeal erythema. No palpable cervical supraclavicular adenopathy. Respiratory: Good air movement bilaterally no added breath sounds. Cardiovascular: Regular rate rhythm S1-S2 no obvious murmurs rubs gallops. Equal and adequate peripheral pulses. Abdominal examination: Thin abdomen, soft, nontender, nondistended no palpable organ enlargement no evidence of hepatosplenomegaly. Lower extremities no pretibial edema no calf tenderness. 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 Skin examination: Some erythema of the face with skin dryness and skin flaking. Exam otherwise nonfocal. Right-sided infusion port noted along the right upper chest. Assessment/Plan - Plan Mr. Ramey Is a 78-year-old male with a diagnosis of high-grade primary LIFT TRUCK MECHANIC lymphoma initially diagnosed in October 2016. He was treated with first-line systemic therapy consisting of methotrexate, vincristine and rituximab. After completing treatment in the spring 2016 he was in remission, he remained in remission up until the summer 2017 when he relapsed with both intracranial and extracranial recurrence of high-grade lymphoma. The extracranial recurrence was in the left testicle and left inguinal lymph node chains. He is presently on second line systemic therapy consisting of high-dose methotrexate and R-CHOP , he comes in today for cycle #5 high-dose methotrexate after having received cycle number 5 R-CHOP in the outpatient clinic on 10/29/2018. The plan is to treat him with a total of 6 cycles of the current regimen. Additional medical comorbid conditions include type 2 diabetes. Cycle 5 high-dose methotrexate was delivered on 10/30/2018. Plan: 1. Primary LIFT TRUCK MECHANIC lymphoma: Restaging MRI of the brain performed after cycle #3 indicated no evidence of residual disease. He is now status post 5 cycles of high-dose methotrexate in combination with R-CHOP. I plan to treat him with a total of 6 cycles followed by observation. Continue monitoring urine pH levels. Continue leucovorin rescue per protocol. Await methotrexate levels which were drawn on the morning of 11/02/2018; if methotrexate level is equal to or less than 0.1 patient will be cleared for discharge home. I have advised the patient to take one final dose of prednisone 100 mg p.o. x1 on the morning of 11/03/2018. 2. Diabetes: Glucose levels have been reviewed, he is on the insulin correction sliding scale. As well as oral hypoglycemics. 3. Hypertension: Continue outpatient metoprolol 12.5 mg twice daily. Blood pressures remain reasonably well controlled. 4. Hyperlipidemia: On atorvastatin 10 mg once daily. 5. DVT prophylaxis with Lovenox 40 mg subcu once daily. Disposition: Await methotrexate levels, clear for discharge from our standpoint if methotrexate level is at or lower than goal. I have dosed him with Neupogen 480 mcg subcu x1 now.
[2018-11-02 11:48] VITALS: BP 178/76; TEMP 98.2
--- NOTE | 2018-11-02 13:07 | P.DS ---
Date of admission: 10/30/18 06:46 Primary care physician: Linden Bentley MD Attending physician on discharge: Nas Fish Anticipated date of discharge: 11/02/18 Brief History from admission: Mr. Ramey is a very pleasant 78-year-old male with a diagnosis of relapsed high-grade primary BOUFFANT CURTAIN MACHINE TENDER lymphoma (diffuse large B-cell histology). He relapsed intracranially as well as testicular relapse in the summer 2017. His initial diagnosis was established in October 2016 when he presented with a solitary brain lesion which was biopsied and found to be consistent with primary BOUFFANT CURTAIN MACHINE TENDER lymphoma (diffuse large B cell variant) after having received first-line systemic therapy consisting of rituximab, vincristine and high-dose methotrexate he achieved remission. Patient was found to have relapsed disease in the summer 2017 when he presented with a left-sided scrotal mass, he underwent a left inguinal orchiectomy. Pathologic findings are consistent with relapsed high-grade lymphoma. Systemic staging including brain imaging revealed intracranial recurrence as well. He was initiated on second line systemic therapy consisting of high-dose methotrexate/R CHOP. He comes in today for cycle #5 high-dose methotrexate. He received his fifth cycle of R CHOP at the outpatient clinic on 10/29/2018. The patient did undergo restaging imaging scans including PET/CT imaging and MRI of the brain following 3 cycles and was found to have no evidence of detectable disease. Overall, he seems to be tolerating treatment reasonably well, he does report increased fatigue and lack of ambition but continues to perform independently as far as ADLs are concerned, he maintains a good appetite and is able to walk between 30 minutes to 60 minutes almost daily. Patient update on day of discharge: Patient doing very well from a clinical standpoint. He was examined at bedside this morning. Methotrexate level drawn this morning was noted to be 0.1. Clear for discharge from oncologic standpoint. DS: Diagnosis - Discharge Diagnosis (1) Primary BOUFFANT CURTAIN MACHINE TENDER lymphoma of extranodal and solid organ sites Status: Chronic Diagnosis: Principal (2) Diabetes Status: Chronic Diagnosis: Secondary DS: Summary Hospital Course: Patient admitted to the hospital on 10/30/2018 for high-dose methotrexate. After appropriate alkalinization with sodium bicarbonate infusion and urine pH assessment. He was treated with methotrexate to total dose of 5000 mg IV on 09/2018. He was subsequently initiated on leucovorin rescue as per protocol. Methotrexate levels are measured until his methotrexate level was noted to be 0.1. - Time Spent with Patient Total time spent providing and/or coordinating discharge services: Less than 30 minutes - Quality: AMI Clinical Trial Participant: No - Quality: VTE Deep Vein Thrombosis/Pulmonary Embolism Present on Admission: No Exam Vital signs: Vital Signs 11/01/18 13:00 11/01/18 15:37 11/01/18 17:00 Temperature 98.5 F Pulse Rate 81 59 L 74 Respiratory Rate 16 Blood Pressure 140/56 L Pulse Oximetry 100 11/01/18 20:00 11/02/18 00:00 11/02/18 04:00 Temperature 97.9 F 98.1 F 98 F Pulse Rate 68 65 65 Respiratory Rate 16 15 16 Blood Pressure 151/68 H 169/71 H 144/65 H Pulse Oximetry 95 100 100 11/02/18 08:00 11/02/18 11:33 Temperature 97.9 F 98.2 F Pulse Rate 76 84 Respiratory Rate 16 16 Blood Pressure 146/56 H 178/76 H Pulse Oximetry 100 100 Intake & Output 11/01/18 11/02/18 11/02/18 18:59 06:59 18:59 Intake Total 2029 / 2029 2829.250 / 2829.250 1164.625 / 1164.625 Output Total 5450 / 5450 5875 / 5875 Balance -3420 / -3420 -3045.750 / -3045.750 1164.625 / 1164.625 Weight 95.9 kg Intake: IV 110 / 110 2329.250 / 2329.250 1164.625 / 1164.625 Sodium Chloride 23.4% Inj 38.5 2219.250 / 2219.250 1109.625 / 1109.625 MEQ Sodium Bicarbonate 8.4% Inj 100 MEQ In Sterile Water for Inj 1,000 ML @ 150 mls/hr IV. CONT .Q7H24M ANDRIY Rx#:[id number] Wellcovorin Inj 20 MG In NS Inj 110 / 110 110 / 110 55 / 55 50 ML @ 16.667 mls/hr IV.SIG Q6H ANDRIY Rx#:[id number] Oral 1920 / 1920 500 / 500 Output: Urine 5450 / 5450 5875 / 5875 Other: Date of Last Bowel Movement 11/01/18 11/01/18 11/01/18 # Bowel Movements 1 - Constitutional no acute distress - Routine HEENT Exam Head: Present: normocephalic Eye: Present: EOMI, PERRL ENT: Present: dentition normal - Routine Neck Exam Present: supple - Routine Chest/Breast/Axilla Exam Chest wall: Absent: tenderness Breast: Absent: tenderness Axillae: Absent: lymphadenopathy - Routine Respiratory Exam Present: CTA bilaterally - Routine Cardiovascular Exam Present: RRR, S1, S2 - Routine Abdominal Exam Present: soft - Routine Extremities Exam Absent: cyanosis, clubbing, edema - Routine Skin Exam Present: intact - Routine Neurological Exam Present: alert, oriented X3, CN II-XII intact Results Procedures completed during hospitalization: Cycle 5 high-dose methotrexate. This was delivered on 10/30/2018. Completed studies during hospitalization: No imaging studies were required. Labs on day of discharge: Labs from last 24 hours 11/02/18 11/02/18 11/02/18 11:35 07:54 06:30 POC Glucose 251 H 147 H Urine pH Methotrexate 0.10 11/02/18 11/02/18 11/01/18 06:00 05:45 20:59 POC Glucose 288 H Urine pH 8.0 Methotrexate Cancelled 11/01/18 17:48 POC Glucose 350 H Urine pH Methotrexate - Additional Comments No additional comments other than what is documented above. Discharge Plan - Discharge Disposition Patient Disposition: 01 Discharge Home - Discharge Condition Condition: Good - Discharge Order Discharge Orders: Discharge Order (Routine); Ordered 11/02/18 Ordered By: Nas Fish - Discharge Details Anticipated Discharge Date: 11/02/18 - Physicians Team Primary Care Provider: Linden Bentley Attending Provider: Nas Fish - Rxs /Orders / Referrals /Forms Prescriptions: New acetaminophen 325 mg Tablet 650 mg PO Q4H PRN (Reason: Temp > 100.4) RF: 0 aspirin 81 mg Tablet,Delayed Release (Dr/Ec) 81 mg PO DAILY RF: 0 glimepiride [Amaryl] 1 mg Tablet 1 mg PO BIDAC RF: 0 metformin [Glucophage] 500 mg Tablet 500 mg PO BIDPC RF: 0 metoprolol succinate 25 mg Tablet Extended Release 24 Hr 12.5 mg PO DAILY RF: 0 midodrine 5 mg Tablet 5 mg PO BID RF: 0 ondansetron 4 mg Tablet,Disintegrating 4 mg PO Q6H PRN (Reason: Nausea) RF: 0 prednisone 50 mg Tablet 100 mg PO DAILY RF: 0 sitagliptin [Januvia] 50 mg Tablet 50 mg PO BID RF: 0 Continue acarbose 50 mg Tablet 50 mg PO DAILY aspirin 81 mg Tablet,Delayed Release (Dr/Ec) 81 mg PO DAILY RF: 0 aspirin 81 mg Tablet,Delayed Release (Dr/Ec) 81 mg PO DAILY RF: 0 cholecalciferol (vitamin D3) [Vitamin D3] 1,000 unit Tablet 1,000 unit PO DAILY RF: 0 cholecalciferol (vitamin D3) [Vitamin D3] 1,000 unit Tablet 1,000 unit PO DAILY RF: 0 glimepiride 1 mg Tablet 1 mg PO BID metoprolol succinate 25 mg Tablet Extended Release 24 Hr 12.5 mg PO DAILY RF: 0 metoprolol succinate 25 mg Tablet Extended Release 24 Hr 12.5 mg PO DAILY RF: 0 midodrine 5 mg Tablet 5 mg PO BID RF: 0 midodrine 5 mg Tablet 5 mg PO BID RF: 0 omega 4-eid-iad-fish oil [Fish Oil] 1,000 mg (120 mg-180 mg) Capsule 1,000 mg PO DAILY prednisone 50 mg Tablet 100 mg PO DAILY RF: 0 simvastatin 10 mg Tablet 10 mg PO QPM sitagliptin-metformin [Janumet] 50-500 mg Tablet 1 tab PO BID sitagliptin-metformin [Janumet] 50-1,000 mg Tablet 1 tab PO BID Discontinued acetaminophen 325 mg Tablet 650 mg PO Q4H PRN (Reason: Temp > 100.4) RF: 0 cyanocobalamin-cobamamide [B12] 5,000-100 mcg Lozenge pravastatin 20 mg Tablet 20 mg PO DAILY@1800 RF: 0 Referrals: Linden Bentley MD [Primary Care Provider] - See Instructions - Discharge Instructions Patient Printed Instructions: Prednisone (By mouth), Patient and Family Safety During Chemotherapy (AC)
[2018-11-02] MEDS ORDERED: Heparin Central Flush 100 UNIT/ML 5 ML Vial IV.FLUSH PRN ×2 (13:44)
[2018-11-02 14:08] VITALS: PULSE 78
== END 2018-11-02 14:07 | disposition home or self-care (01) | DRG 847 ==
LOC: HCIN 06:46
PROVIDERS: ADMIT Internal Medicine Hematology & Oncology; ATTEND Internal Medicine Hematology & Oncology
CPT/HCPCS: 36591; 76937; 80053; 80299; 81002; 81003; 82948; 82962; 85025; 96367; 96375; 96411; 96413; 96415; 96417; J0640; J1100; J1441; J1442; J1626; J1642; J1650; J7030; J7040; J7060; J7070; J7506; J7512; J9070; J9250; J9310; J9312; J9370